=== PATIENT | female | born 1955 | race Caucasian/White ===

== ENCOUNTER → 2016-11-12 | Outpatient (CLI) | payer MEDICARE, BC ==
--- NOTE | 2016-11-12 10:13 | US ---
EXAMINATION TYPE: US venous doppler duplex LE RT DATE OF EXAM: 11/12/2016 9:53 AM COMPARISON: NONE CLINICAL HISTORY: 61-year-old female with right lower ext, pain and swelling R60.0. Right leg swell ing, pt currently in treatment for lymphoma SIDE PERFORMED: Right TECHNIQUE: The lower extremity deep venous system is examined utilizing real time linear array sonog leonela with graded compression, doppler sonography and color-flow sonography. FINDINGS: VESSELS IMAGED: External Iliac Vein (EIV) Common Femoral Vein Deep Femoral Vein Greater Saphenous Vein * Femoral Vein Popliteal Vein Small Saphenous Vein * Proximal Calf Veins (* superficial vessels) Right Leg: Negative for DVT Results called to Estefania at Dr's office at time of exam IMPRESSION: No evidence for DVT within the right lower extremity imaged from the groin to the upper calf.
== END | disposition home or self-care (01) ==
LOC: RADUSWWP 09:36
PROVIDERS: ATTEND Family Medicine
DX: R60.0 Localized edema (principal)

== ENCOUNTER → 2016-11-18 | Outpatient (CLI) | payer MEDICARE, BC ==
--- NOTE | 2016-11-20 08:13 | MM ---
Reason for exam: screening (asymptomatic). Last mammogram was performed 1 year and 7 months ago. History: Patient is postmenopausal and has history of other cancer at age 59. Physical Findings: A clinical breast exam by your physician is recommended on an annual basis and results should be correlated with mammographic findings. MG Screening Mammo w CAD Bilateral CC and MLO view(s) were taken. Prior study comparison: April 18, 2015, bilateral MG screening mammo w CAD. March 15, 2012, bilateral digital screening mammo w/CAD. There are scattered fibroglandular densities. Global asymmetry on the left breast is unchanged. No significant changes when compared with prior studies. ASSESSMENT: Negative, BI-RAD 1 RECOMMENDATION: Routine screening mammogram of both breasts in 1 year.
== END | disposition home or self-care (01) ==
LOC: RADMAMWWP 15:07
PROVIDERS: ATTEND Family Medicine
DX: Z12.31 Encounter for screening mammogram for malignant neoplasm of breast (principal)

== ENCOUNTER → 2016-12-23 | Outpatient (CLI) | payer MEDICARE, BC ==
--- NOTE | 2016-12-23 18:07 | US ---
EXAMINATION TYPE: US venous doppler duplex UE RT DATE OF EXAM: 12/23/2016 COMPARISON: NONE CLINICAL HISTORY: RUE Swelling R22.31. SIDE PERFORMED: Right Grayscale, color doppler, spectral doppler imaging performed of the deep veins of the upper prematuri ty. There is normal flow, compressability and vascular waveforms. Right Arm: Negative for DVT IMPRESSION: No evidence of DVT right arm
== END ==
LOC: RADUSMAIN 17:01
PROVIDERS: ATTEND Family Medicine
DX: R22.31 Localized swelling, mass and lump, right upper limb (principal)

== ENCOUNTER → 2018-03-12 | Outpatient (CLI) | payer MEDICARE ==
--- NOTE | 2018-03-12 09:27 | MR ---
EXAMINATION TYPE: MR lumbar spine wo con DATE OF EXAM: 03/12/2018 COMPARISON: NONE HISTORY: Intervertebral disc degeneration, lumbar TECHNIQUE: T1 and T2 axial and sagittal images of the lumbar spine are submitted. FINDINGS: There is no abnormal signal seen within the visualized spinal cord or paraspinal soft tissu es. There is diffuse heterogeneous marrow signal. There is abnormal appearance of the nerve roots wit hin the cauda equina which have somewhat ill-defined margins. At L1-2 there is facet arthropathy and hypertrophy ligamentum flavum. No canal stenosis or disc herni ation. At L2-3 there is circumferential disc bulging with facet arthropathy and ligamentum flavum hypertroph y. No Canal stenosis although there is mild bilateral foraminal encroachment. At L3-4 there is degenerative disc disease with diffuse disc bulging and marked facet arthropathy wit h ligamentum flavum hypertrophy. Moderate to severe canal stenosis and bilateral foraminal encroachme nt. Minimal anterolisthesis. At L4-5 there is degenerative disc disease with advanced facet arthropathy and ligamentum flavum hype rtrophy. Circumferential disc bulging with mild central stenosis and bilateral foraminal encroachment . At L5-S1 there is facet arthropathy. There is mild circumferential disc bulging but no canal stenosis . Neural foramina remain patent. At T11-T12 there is an area of intermediate signal posterior to the spinal cord recommend thoracic sp ine MRI further assessment. IMPRESSION: 1. Multilevel degenerative disc disease with advanced facet arthropathy result in multilevel foramina l encroachment and canal stenosis with most marked findings at L3-L4 with moderate to severe central stenosis. 2. Heterogeneous marrow signal is nonspecific differential diagnosis would include osteoporosis. Lymp hoproliferative disorder in the differential diagnosis. 3. Abnormal appearance to the nerve roots within the cauda equina particularly at levels L2 and L3. 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 Post contrast imaging is recommended to exclude other etiologies in cluding neoplastic process. 4. Thoracic spine MRI recommended to assess the T11-T12 level which is not included on the axial imag es. There is a area of intermediate signal questionable encroachment upon the posterior margin of the spinal cord.. A Yellow level critical message alert has been initiated for Dinesh Dukes DO via the [facility] Critical Results System on 03/12/2018 9:23 AM. This message alert has been sent to Dinesh lawrence DO via the preferences provided by the clinician for the receipt of Radiology Critical Findings. Message ID [id number].
== END | disposition home or self-care (01) ==
LOC: RADMRIMAIN 08:35
PROVIDERS: ATTEND Family Medicine
DX: M48.061 Spinal stenosis, lumbar region without neurogenic claudication (principal); M51.36 Other intervertebral disc degeneration, lumbar region; M46.96 Unspecified inflammatory spondylopathy, lumbar region
CPT/HCPCS: 72148

== ENCOUNTER → 2018-04-15 | Outpatient (CLI) | payer MEDICARE ==
--- NOTE | 2018-04-15 13:27 | MR ---
EXAMINATION TYPE: MR thoracic spine wo con DATE OF EXAM: 04/15/2018 COMPARISON: NONE HISTORY: back pain TECHNIQUE: Multiplanar, multisequence imaging of thoracic spine is performed without contrast FINDINGS: Spinal cord shows normal caliber as it courses the thoracic spine. There is faint increase d signal T11-T12 level sagittal image 8 noted. There is dextroconvex scoliotic curvature centered in the mid thoracic spine noted on coronal images. Vertebral body heights are maintained with multiple s mall Schmorl nodes mid to lower thoracic levels involving superior and inferior endplates. Disc space heights are fairly well preserved. There is mild to moderate multilevel anterior spurring in the mid to lower thoracic spine. Posterior disc herniations are evident at T8-T9, T10-T11, and T11-T12 level s effacing anterior thecal sac. Uncovertebral facet degenerative changes efface posterior lateral the иван sac at T10-T11 and T11-T12 level right of midline on sagittal image 10. Axial images at T8-T9 level show broad-based posterior disc protrusion effacing anterior thecal sac n early up to ventral surface of spinal cord on axial image 14, there is uncovertebral facet degenerati ve changes and ligamentum flavum hypertrophy noted. Axial images at T10-T11 level show posterior broad disc bulge effacing anterior thecal sac with facet degenerative changes and ligament flavum hypertrophy effacing posterior lateral thecal sac on axial image 9 and 8 slightly more prominent left of midline. There is mild to moderate left greater than ri ght bilateral neural foraminal narrowing at this level identified. Axial images at T11-T12 level show right greater than left moderate facet degenerative changes and li gament flavum hypertrophy effacing posterior lateral thecal sac accounting for area of concern on teresa or MRI. There is effacement of the anterior thecal sac seen. There is moderate right-sided neural for aminal narrowing noted at this level. Mild cord edema or T2 signal is less well-seen. IMPRESSION: Multilevel degenerative changes in the mid to lower thoracic spine as detailed above, fac et arthropathy and ligamentum flavum hypertrophy effaces posterior lateral thecal sac T11-T12 level a ccounting for the area of concern on prior MRI study.
--- NOTE | 2018-04-15 13:42 | MR ---
EXAMINATION TYPE: MR sacrum/coccyx wo/w con DATE OF EXAM: 04/15/2018 COMPARISON: MRI lumbar spine March 12, 2018. HISTORY: back pain abnormal MRI. CONTRAST: Standard multiplanar, multisequence MRI departmental protocol utilizing 9 mL intravenous Gadavist lexie olinium contrast. FINDINGS: Sacral nerve roots show no suspicious clumping or enhancement. Gradual expected tapering of spinal canal in the upper to mid sacrum is noted. No suspicious abnormality is identified. Visualized portion of sacrum and coccyx shows heterogeneous bone marrow signal intensity. No suspicio us enhancement or edema is seen. Sacroiliac joints are felt symmetric and within normal limits. Anteverted uterus is seen. Some nabothian cysts felt present in the upper cervix. Visualized portion of bladder is felt within normal limits. Mid to distal sigmoid colon is poorly distended and thus sub optimally evaluated axial image 26. Remainder of bowel is unremarkable. No concerning pelvic fluid co llection is seen. No suspicious pelvic adenopathy is noted. IMPRESSION: No suspicious clumping or enhancement of the sacral nerve roots.
--- NOTE | 2018-04-15 13:57 | MR ---
EXAMINATION TYPE: MR lumbar spine w con DATE OF EXAM: 04/15/2018 COMPARISON: MRI lumbar spine March 12, 2018 HISTORY: back pain, prior abnormal MRI. TECHNIQUE: Multiplanar, multisequence images of the lumbar spine is performed with IV contrast, utilizing 9 mL i ntravenous Gadavist FINDINGS: Corresponding to recent MRI there is focal thickening and enhancement of lumbosacral nerve centered at the L3-L4 disc space this is a level of the most prominent spinal canal effacement or earline nosis due to disc herniation and facet arthropathy. Bone marrow signal intensity is overall slightly heterogeneous. No suspicious enhancement at this lev el is identified. The lower thoracic spinal canal shows a few enhancing nerve roots all which exit the spinal canal by L2 level, this is nonspecific finding as no obvious clumping or thickening is identified at this leve l. 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 Differential however would include neoplasm such as lymphoma, sarcoidosis, and other granulomatous diseases. Clinical correlation recommended. Advise short-term MRI follow-up in 3 months time to reassess.
== END ==
LOC: RADMRIMAIN 09:26
PROVIDERS: ATTEND Family Medicine
DX: M99.72 Connective tissue and disc stenosis of intervertebral foramina of thoracic region (principal); M51.24 Other intervertebral disc displacement, thoracic region; M51.36 Other intervertebral disc degeneration, lumbar region; M47.814 Spondylosis without myelopathy or radiculopathy, thoracic region; M46.94 Unspecified inflammatory spondylopathy, thoracic region; M41.84 Other forms of scoliosis, thoracic region
CPT/HCPCS: 82565; 84520; 72146; 72149; 72197; 36415; A9585

== ENCOUNTER → 2018-07-16 | Outpatient (CLI) | payer MEDICARE ==
--- NOTE | 2018-07-16 21:00 | XR ---
EXAMINATION TYPE: XR chest 2V DATE OF EXAM: 07/16/2018 COMPARISON: 09/16/2013 TECHNIQUE: PA and lateral views submitted. HISTORY: Cough FINDINGS: Heart is prominent there is a perihilar subsegmental right basilar subsegmental changes. No pleural e ffusion or pneumothorax. Interstitium is coarsened but stable from prior exam. No pneumothorax. IMPRESSION: 1. Right perihilar and basilar atelectasis or infiltrate. Hilum slightly prominent on the right which may reflect a prominent pulmonary artery. Correlate with CT scan as clinically warranted. 2. Suspect chronic interstitial lung disease.
== END | disposition home or self-care (01) ==
LOC: RADXRMAIN 15:24
PROVIDERS: ATTEND Family Medicine
DX: R09.89 Other specified symptoms and signs involving the circulatory and respiratory systems (principal)
CPT/HCPCS: 71046

== ENCOUNTER 2018-08-25 15:25 | Inpatient (IN) | payer MEDICARE ==
[2018-08-25 15:58] LABS: Basophils # (A) 0.1 k/uL (0-0.2); Basophils % (A) 2 %; Eosinophils # (A) 0.2 k/uL (0-0.7); Eosinophils % (A) 2 %; HCT 45.3 % (34.0-46.0); HGB 14.7 gm/dL (11.4-16.0); Lymphocytes # (A) 1.6 k/uL (1.0-4.8); Lymphocytes % (A) 18 %; MCH 30.3 pg (25.0-35.0); MCHC 32.4 g/dL (31.0-37.0); MCV 93.4 fL (80.0-100.0); Mean Platelet Volume 7.5; Monocytes # (A) 0.5 k/uL (0-1.0); Monocytes % (A) 5 %; Neutrophils # (A) 6.4 k/uL (1.3-7.7); Neutrophils % (A) 71 %; Platelet Count 211 k/uL (150-450); RBC 4.85 m/uL (3.80-5.40); RDW 13.5 % (11.5-15.5)
[2018-08-25 16:11] LABS: ALT 12 U/L (9-52); AST 11 U/L (14-36); African American GFR (CKD) >90 (>60 ml/min/1.73 sqM); Alkaline Phosphatase 90 U/L (38-126); Anion Gap 8 mmol/L; Blood Urea Nitrogen 13 mg/dL (7-17); Calcium 9.4 mg/dL (8.4-10.2); Carbon Dioxide 28 mmol/L (22-30); Chloride 103 mmol/L (98-107); Glucose 144 mg/dL (74-99); INR 0.9 (<1.2); Partial Thromboplastin Time 22.4 sec (22.0-30.0); Potassium 3.4 mmol/L (3.5-5.1); Prothrombin Time 9.6 sec (9.0-12.0); Sodium 139 mmol/L (137-145); Total Bilirubin 0.5 mg/dL (0.2-1.3); Total Protein 6.2 g/dL (6.3-8.2)
[2018-08-25] MEDS ORDERED: SODIUM CHLORIDE 0.9% 1,000 ML IV ONE (16:30)
--- NOTE | 2018-08-25 16:32 | ED ---
Altered Mental Status HPI - General Chief Complaint: Altered Mental Status Stated Complaint: Altered Mental Status Time Seen by Provider: 08/25/18 16:30 Source: patient, RN notes reviewed, old records reviewed Mode of arrival: wheelchair Limitations: no limitations - History of Present Illness Initial Comments: This is a 63-year-old female the ER for evaluation. Family patient states she has no complaints of family states patient is not acting right. She hasn't a pulmonary diagnosis of dementia but is been getting significantly progressively worse. Today with the Incident increased altered mental status. No fevers no headaches and again patient without complaint. She seeing Dr. Dukes who is brought Aricept increased dose of Aricept with no help. MD Complaint: altered mental status, confusion, weakness -: month(s) Severity: mild Consistency of Symptoms: getting worse Context: history of similar presentation Associated Symptoms: denies other symptoms - Related Data Home Medications Medication Instructions Recorded Confirmed Clopidogrel [Plavix] 75 mg PO DAILY 09/15/13 08/25/18 DULoxetine HCL [Cymbalta] 60 mg PO BID 09/15/13 08/25/18 Ergocalciferol (Vitamin D2) 50,000 unit PO MO 04/20/15 08/25/18 [Drisdol] tiZANidine HCL [Zanaflex] 4 mg PO TID PRN 04/20/15 08/25/18 Albuterol Inhaler [Ventolin Hfa 2 puff INHALATION RT-Q6H PRN 08/25/18 08/25/18 Inhaler] Aspirin EC [Ecotrin Low Dose] 81 mg PO DAILY 08/25/18 08/25/18 Buprenorphine [Butrans 20 MCG/HOUR] 1 patch TRANSDERM TH 08/25/18 08/25/18 Donepezil [Aricept] 10 mg PO HS 08/25/18 08/25/18 Lisinopril-Hctz 20-25 mg 1 tab PO DAILY 08/25/18 08/25/18 [Zestoretic 20-25] Simvastatin 40 mg PO HS 08/25/18 08/25/18 Tolterodine ER [Detrol LA] 4 mg PO DAILY 08/25/18 08/25/18 Ziprasidone HCl [Geodon] 20 mg PO Q48H 08/25/18 08/25/18 Ziprasidone HCl [Geodon] 60 mg PO Q48H 08/25/18 08/25/18 Allergies Allergy/AdvReac Type Severity Reaction Status Date / Time naproxen sodium [From Aleve] Allergy Dyspnea Verified 08/25/18 18:11 Review of Systems ROS Statement: Those systems with pertinent positive or pertinent negative responses have been documented in the HPI. ROS Other: All systems not noted in ROS Statement are negative. Past Medical History Past Medical History: CVA/TIA, Dementia, Hyperlipidemia, Memory Impairment Additional Past Medical History / Comment(s): lymphoma. CVA APPROX 2003 PER AUNT PT WALKS WITH LIMP, RT ARM PARESIS, PT HAS SOME APHASIA, SHORT TERM MEMORY NOT GOOD. History of Any Multi-Drug Resistant Organisms: None Reported Past Surgical History: Tubal Ligation Additional Past Surgical History / Comment(s): carpal tunnel, neck, medi port Past Anesthesia/Blood Transfusion Reactions: No Reported Reaction Past Psychological History: Depression Smoking Status: Current every day smoker Past Alcohol Use History: None Reported Past Drug Use History: None Reported - Past Family History Mother Family Medical History: Cancer Father Family Medical History: Deep Vein Thrombosis (DVT) General Exam Limitations: no limitations General appearance: alert, in no apparent distress Head exam: Present: atraumatic, normocephalic, normal inspection Eye exam: Present: normal appearance, PERRL, EOMI. Absent: scleral icterus, conjunctival injection, periorbital swelling ENT exam: Present: normal exam, mucous membranes moist Neck exam: Present: normal inspection. Absent: tenderness, meningismus, lymphadenopathy Respiratory exam: Present: normal lung sounds bilaterally. Absent: respiratory distress, wheezes, rales, rhonchi, stridor Cardiovascular Exam: Present: regular rate, normal rhythm, normal heart sounds. Absent: systolic murmur, diastolic murmur, rubs, gallop, clicks GI/Abdominal exam: Present: soft, normal bowel sounds. Absent: distended, tenderness, guarding, rebound, rigid Extremities exam: Present: normal inspection, full ROM, normal capillary refill. Absent: tenderness, pedal edema, joint swelling, calf tenderness Back exam: Present: normal inspection Neurological exam: Present: alert, oriented X3, CN II-XII intact Psychiatric exam: Present: normal affect, normal mood Skin exam: Present: warm, dry, intact, normal color. Absent: rash Course Vital Signs 08/25/18 08/25/18 15:28 17:33 Temperature 97.9 F 98.1 F Pulse Rate 92 82 Respiratory 16 18 Rate Blood Pressure 150/82 145/92 O2 Sat by Pulse 96 100 Oximetry - Reevaluation(s) Reevaluation #1: 08/25/18 18:44 Medical records reviewed Reevaluation #2: 08/25/18 18:45 Patient continues to have nonfocal neurological exam Reevaluation #3: 08/25/18 18:45 This with the family at length they state that patient is scheduled to see neurologist. MRI Medical Decision Making - Medical Decision Making 61 female the ER for evaluation of altered mental status history of liver dementia no prior neurological evaluation. Patient having increased altered mental status as well as incontinence. Patient be admitted for neurology to evaluate - Lab Data Result diagrams: 08/25/18 17:30 08/25/18 15:48 Lab Results 08/25/18 08/25/18 08/25/18 Range/Units 15:48 15:48 15:48 WBC 9.0 (3.8-10.6) k/uL RBC 4.85 (3.80-5.40) m/uL Hgb 14.7 (11.4-16.0) gm/dL Hct 45.3 (34.0-46.0) % MCV 93.4 (80.0-100.0) fL MCH 30.3 (25.0-35.0) pg MCHC 32.4 (31.0-37.0) g/dL RDW 13.5 (11.5-15.5) % Plt Count 211 (150-450) k/uL Neutrophils % 71 % Lymphocytes % 18 % Monocytes % 5 % Eosinophils % 2 % Basophils % 2 % Neutrophils # 6.4 (1.3-7.7) k/uL Lymphocytes # 1.6 (1.0-4.8) k/uL Monocytes # 0.5 (0-1.0) k/uL Eosinophils # 0.2 (0-0.7) k/uL Basophils # 0.1 (0-0.2) k/uL PT 9.6 (9.0-12.0) sec INR 0.9 (<1.2) APTT 22.4 (22.0-30.0) sec Sodium 139 (137-145) mmol/L Potassium 3.4 L (3.5-5.1) mmol/L Chloride 103 (98-107) mmol/L Carbon Dioxide 28 (22-30) mmol/L Anion Gap 8 mmol/L BUN 13 (7-17) mg/dL Creatinine 0.65 (0.52-1.04) mg/dL Est GFR (CKD-EPI)AfAm >90 (>60 ml/min/1.73 sqM) Est GFR (CKD-EPI)NonAf >90 (>60 ml/min/1.73 sqM) Glucose 144 H (74-99) mg/dL Calcium 9.4 (8.4-10.2) mg/dL Total Bilirubin 0.5 (0.2-1.3) mg/dL AST 11 L (14-36) U/L ALT 12 (9-52) U/L Alkaline Phosphatase 90 (38-126) U/L Ammonia (<30) umol/L Creatine Kinase (30-135) U/L Troponin I (0.000-0.034) ng/mL Total Protein 6.2 L (6.3-8.2) g/dL Albumin 4.0 (3.5-5.0) g/dL 08/25/18 08/25/18 08/25/18 Range/Units 15:48 15:48 17:30 WBC (3.8-10.6) k/uL RBC (3.80-5.40) m/uL Hgb (11.4-16.0) gm/dL Hct (34.0-46.0) % MCV (80.0-100.0) fL MCH (25.0-35.0) pg MCHC (31.0-37.0) g/dL RDW (11.5-15.5) % Plt Count (150-450) k/uL Neutrophils % % Lymphocytes % % Monocytes % % Eosinophils % % Basophils % % Neutrophils # (1.3-7.7) k/uL Lymphocytes # (1.0-4.8) k/uL Monocytes # (0-1.0) k/uL Eosinophils # (0-0.7) k/uL Basophils # (0-0.2) k/uL PT 9.6 (9.0-12.0) sec INR 0.9 (<1.2) APTT 22.6 (22.0-30.0) sec Sodium (137-145) mmol/L Potassium (3.5-5.1) mmol/L Chloride (98-107) mmol/L Carbon Dioxide (22-30) mmol/L Anion Gap mmol/L BUN (7-17) mg/dL Creatinine (0.52-1.04) mg/dL Est GFR (CKD-EPI)AfAm (>60 ml/min/1.73 sqM) Est GFR (CKD-EPI)NonAf (>60 ml/min/1.73 sqM) Glucose (74-99) mg/dL Calcium (8.4-10.2) mg/dL Total Bilirubin (0.2-1.3) mg/dL AST (14-36) U/L ALT (9-52) U/L Alkaline Phosphatase (38-126) U/L Ammonia <9 (<30) umol/L Creatine Kinase (30-135) U/L Troponin I <0.012 (0.000-0.034) ng/mL Total Protein (6.3-8.2) g/dL Albumin (3.5-5.0) g/dL 08/25/18 08/25/18 Range/Units 17:30 17:30 WBC 10.1 (3.8-10.6) k/uL RBC 4.63 (3.80-5.40) m/uL Hgb 14.2 (11.4-16.0) gm/dL Hct 43.0 (34.0-46.0) % MCV 92.9 (80.0-100.0) fL MCH 30.6 (25.0-35.0) pg MCHC 33.0 (31.0-37.0) g/dL RDW 13.6 (11.5-15.5) % Plt Count 197 (150-450) k/uL Neutrophils % 73 % Lymphocytes % 15 % Monocytes % 6 % Eosinophils % 2 % Basophils % 1 % Neutrophils # 7.3 (1.3-7.7) k/uL Lymphocytes # 1.5 (1.0-4.8) k/uL Monocytes # 0.6 (0-1.0) k/uL Eosinophils # 0.2 (0-0.7) k/uL Basophils # 0.1 (0-0.2) k/uL PT (9.0-12.0) sec INR (<1.2) APTT (22.0-30.0) sec Sodium (137-145) mmol/L Potassium (3.5-5.1) mmol/L Chloride (98-107) mmol/L Carbon Dioxide (22-30) mmol/L Anion Gap mmol/L BUN (7-17) mg/dL Creatinine (0.52-1.04) mg/dL Est GFR (CKD-EPI)AfAm (>60 ml/min/1.73 sqM) Est GFR (CKD-EPI)NonAf (>60 ml/min/1.73 sqM) Glucose (74-99) mg/dL Calcium (8.4-10.2) mg/dL Total Bilirubin (0.2-1.3) mg/dL AST (14-36) U/L ALT (9-52) U/L Alkaline Phosphatase (38-126) U/L Ammonia (<30) umol/L Creatine Kinase 22 L (30-135) U/L Troponin I (0.000-0.034) ng/mL Total Protein (6.3-8.2) g/dL Albumin (3.5-5.0) g/dL - Radiology Data Radiology results: report reviewed (CT brain does show evidence of old infarcts no acute disease), image reviewed Disposition Clinical Impression: Altered mental status, TIA (transient ischemic attack), Dementia Dis[facility] Condition: Fair Is patient prescribed a controlled substance at d/c from ED?: No Referrals: Dinesh Dukes DO [Primary Care Provider] - 1-2 days
--- NOTE | 2018-08-25 17:07 | CT ---
EXAMINATION TYPE: CT brain wo con DATE OF EXAM: 08/25/2018 COMPARISON: 02/23/2012 HISTORY: Altered mental status. CT DLP: 1078.4 mGycm Automated exposure control for dose reduction was used. FINDINGS: There is enlargement of the frontal horn left lateral ventricle. There is hypodensity left posterior frontal lobe and left internal capsule consistent with old infarct. There is no midline shift. There is no sign of intracranial hemorrhage. The calvarium is intact. There is mild cerebral atrophy. There is 3 x 1.5 cm area of hypodensity right posterior frontal lobe consistent with infarct that is old or subacute. IMPRESSION: OLD LEFT FRONTAL INFARCT. RIGHT POSTERIOR FRONTAL INFARCT IS PROBABLY OLD ALSO. LEFT FRONTAL INFARCT UNCHANGED. RIGHT FRONTAL INFARCT IS A CHANGE COMPARED TO OLD CT SCAN..
--- NOTE | 2018-08-25 17:08 | XR ---
EXAMINATION TYPE: XR chest 2V DATE OF EXAM: 08/25/2018 COMPARISON: 07/16/2018 HISTORY: Abdominal pain TECHNIQUE: Frontal and lateral views of the chest are obtained. FINDINGS: Heart and mediastinum are normal. Lungs are clear. Diaphragm is normal. Bony thorax is int act. IMPRESSION: Normal chest. No significant change.
[2018-08-25 17:52] LABS: Basophils # (A) 0.1 k/uL (0-0.2); Basophils % (A) 1 %; Eosinophils # (A) 0.2 k/uL (0-0.7); Eosinophils % (A) 2 %; HGB 14.2 gm/dL (11.4-16.0); Lymphocytes # (A) 1.5 k/uL (1.0-4.8); Lymphocytes % (A) 15 %; MCH 30.6 pg (25.0-35.0); MCV 92.9 fL (80.0-100.0); Mean Platelet Volume 7.8; Monocytes # (A) 0.6 k/uL (0-1.0); Monocytes % (A) 6 %; Neutrophils # (A) 7.3 k/uL (1.3-7.7); Neutrophils % (A) 73 %; Platelet Count 197 k/uL (150-450); RBC 4.63 m/uL (3.80-5.40); RDW 13.6 % (11.5-15.5); WBC 10.1 k/uL (3.8-10.6)
[2018-08-25 18:02] LABS: INR 0.9 (<1.2); Partial Thromboplastin Time 22.6 sec (22.0-30.0); Prothrombin Time 9.6 sec (9.0-12.0)
[2018-08-25] MEDS ORDERED: ASPIRIN 325 MG TAB PO STA (18:41)
[2018-08-25] MEDS: SODIUM CHLORIDE 0.9% 1,000 ML IV SCH (19:05)
[2018-08-25] MEDS ORDERED: ALBUTEROL NEBULIZED 2.5 MG/3 ML INHALATION PRN (21:24)
[2018-08-25] MEDS ORDERED: tiZANidine 4 MG TAB PO PRN (21:24)
[2018-08-25 23:09] VITALS: BMI 36.6
[2018-08-25] MEDS: DULoxetine HCL 60 MG CAPSULE.DR PO SCH (23:13)
[2018-08-25] MEDS: ATORVASTATIN 20 MG TAB PO SCH (23:13)
[2018-08-25] MEDS: DONEPEZIL 10 MG TAB PO SCH (23:13)
[2018-08-26] MEDS: SODIUM CHLORIDE 0.9% 1,000 ML IV SCH ×3 (03:51→22:42)
[2018-08-26 06:54] LABS: Glucose,Whole Blood 155 mg/dL (75-99)
[2018-08-26] MEDS: NICOTINE 21MG/24HR PATCH TRANSDERM SCH (09:49)
[2018-08-26] MEDS: CLOPIDOGREL 75 MG TAB PO SCH (09:50)
[2018-08-26] MEDS: DULoxetine HCL 60 MG CAPSULE.DR PO SCH ×2 (09:50→19:47)
[2018-08-26] MEDS: ASPIRIN 81 MG PO SCH (09:50)
[2018-08-26] MEDS: OXYBUTYNIN 10 MG TAB.ER.24 PO SCH (09:50)
[2018-08-26] MEDS: LISINOPRIL-HCTZ 20-25 MG 1 EACH TAB PO SCH (09:50)
--- NOTE | 2018-08-26 12:49 | P.CNNES ---
History of Present Illness Consult date: 08/26/18 Chief complaint: Altered mental status History of Present Illness: Patient is a 63-year-old female who had history of a stroke in 2003, which aff ected her speech, and right side of the body for which she was hospitalized for 2-3 months with rehabilitation. Patient currently on Plavix and aspirin 81 mg. Patient has residual some speech difficulty, and mild right hemiparesis. Patient has developed 1-2 month history of memory impairment, confusion. She forgets if she took her medications are not, if she has ate or not. She sleeps a lot. Yesterday she slept from 6:30 AM to 1:30 PM and lost control of urine while she was sleeping at some point in time while asleep. Because of worsening memory functions, particularly short-term memory and this urine incontinence episode, patient family member spoke to her primary physician who recommended patient to be taken to ER for further evaluation. No stroke symptoms have been noted. Patient's son in law was also present, who is also a medical power of immigration attorney, provides excellent history. No history of seizures in the past. Patient has been having episodes of right eye twitching off and on. No obvious seizures noted ever in the past. Patient's son-in-law also mentioned that nicole ent was started on Aricept 5 mg a day and the dose was later increased to 10 mg. She did better for a month or so, but then her symptoms have again got worse. Patient has history of hypertension but no diabetes. She has history of non- Hodgkin's follicular lymphoma in 2016 for which she had undergone chemotherapy and radiation. Currently she is on Rituxan, and gets PET scan periodically. Patient also has history of smoking 2 packs per day for 30+ years, still smokes. Review of Systems Constitutional: Reports as per HPI, Denies chills, Denies fever, Denies weight loss Eyes: denies decreased vision, denies diplopia, denies photophobia Ears, nose, mouth and throat: Denies headache, Denies vertigo Cardiovascular: Reports high blood pressure Gastrointestinal: Denies hematemesis, Denies nausea, Denies vomiting Musculoskeletal: Denies neck stiffness Neurological: Reports as per HPI Past Medical History Past Medical History: CVA/TIA, Dementia, Hyperlipidemia, Memory Impairment Additional Past Medical History / Comment(s): lymphoma. CVA APPROX 2003 PER AUNT PT WALKS WITH LIMP, RT ARM PARESIS, PT HAS SOME APHASIA, SHORT TERM MEMORY NOT GOOD. History of Any Multi-Drug Resistant Organisms: None Reported Past Surgical History: Tubal Ligation Additional Past Surgical History / Comment(s): carpal tunnel, neck, medi port, per son pt had carotid surgery Past Anesthesia/Blood Transfusion Reactions: No Reported Reaction Past Psychological History: Depression Smoking Status: Current every day smoker Past Alcohol Use History: None Reported Additional Past Alcohol Use History / Comment(s): per son leonardo, pt smokes 2 packs per day Past Drug Use History: None Reported - Past Family History Mother Family Medical History: Cancer Father Family Medical History: Deep Vein Thrombosis (DVT) Medications and Allergies Home Medications Medication Instructions Recorded Confirmed Type Clopidogrel [Plavix] 75 mg PO DAILY 09/15/13 08/25/18 History DULoxetine HCL [Cymbalta] 60 mg PO BID 09/15/13 08/25/18 History Ergocalciferol (Vitamin D2) 50,000 unit PO MO 04/20/15 08/25/18 History [Drisdol] tiZANidine HCL [Zanaflex] 4 mg PO TID PRN 04/20/15 08/25/18 History Albuterol Inhaler [Ventolin Hfa 2 puff INHALATION RT-Q6H PRN 08/25/18 08/25/18 History Inhaler] Aspirin EC [Ecotrin Low Dose] 81 mg PO DAILY 08/25/18 08/25/18 History Buprenorphine [Butrans 20 MCG/HOUR] 1 patch TRANSDERM TH 08/25/18 08/25/18 History Donepezil [Aricept] 10 mg PO HS 08/25/18 08/25/18 History Lisinopril-Hctz 20-25 mg 1 tab PO DAILY 08/25/18 08/25/18 History [Zestoretic 20-25] Simvastatin 40 mg PO HS 08/25/18 08/25/18 History Tolterodine ER [Detrol LA] 4 mg PO DAILY 08/25/18 08/25/18 History Ziprasidone HCl [Geodon] 20 mg PO Q48H 08/25/18 08/25/18 History Ziprasidone HCl [Geodon] 60 mg PO Q48H 08/25/18 08/25/18 History Allergies Allergy/AdvReac Type Severity Reaction Status Date / Time naproxen sodium [From Aleve] Allergy Dyspnea Verified 08/25/18 18:11 Physical Examination - Vital Signs Vital Signs: Vital Signs Temp Pulse Pulse Resp BP BP Pulse Ox 08/26/18 11:12 87 18 08/26/18 10:07 97.8 F 87 18 131/64 96 08/26/18 10:06 95 16 08/26/18 03:59 95 16 08/26/18 03:58 97.9 F 95 16 142/80 93 L 08/26/18 00:00 97 18 08/25/18 23:02 97.7 F 97 18 167/82 96 08/25/18 21:40 78 20 150/82 95 08/25/18 21:30 94 19 142/86 93 L 08/25/18 21:20 76 12 142/86 96 08/25/18 21:10 89 14 142/86 96 08/25/18 21:00 75 9 L 146/80 96 08/25/18 20:50 73 21 146/80 97 08/25/18 20:40 79 10 L 146/80 96 08/25/18 20:30 70 20 147/93 97 08/25/18 20:20 82 24 147/93 98 08/25/18 20:10 24 147/93 98 08/25/18 20:00 18 150/78 97 08/25/18 19:50 79 20 150/78 96 08/25/18 19:40 80 21 150/78 97 08/25/18 19:30 82 25 H 154/91 98 08/25/18 19:20 87 26 H 154/91 98 08/25/18 19:10 92 15 154/91 97 08/25/18 19:00 36 H 157/87 97 08/25/18 18:58 84 18 157/87 97 08/25/18 18:50 84 18 164/86 97 08/25/18 18:40 83 164/86 95 08/25/18 18:30 84 156/89 95 08/25/18 18:20 156/89 95 08/25/18 18:10 81 156/89 95 08/25/18 18:00 86 183/93 96 08/25/18 17:50 145/92 08/25/18 17:40 89 22 145/92 96 08/25/18 17:33 98.1 F 82 18 145/92 100 08/25/18 17:30 84 23 161/80 96 08/25/18 17:23 87 23 94 L 08/25/18 15:28 97.9 F 92 16 150/82 96 Intake and Output 08/25/18 08/26/18 08/26/18 22:59 06:59 14:59 Intake Total 100 360 Balance 100 360 Intake: Oral 100 360 Other: Voiding Method Toilet Toilet # Voids 1 1 Weight 99.79 kg 93.3 kg On examination patient is an elderly female, in no acute distress. There is mild left carotid bruit. S1 and S2 audible. Peripheral pulses present. Patient is alert and awake. Patient states it is month of August, but thinks the year is 1999. She thinks his friend stay, although actually is . Could not tell the current date. She tells me that she is in the hospital but does not know the name. She states she lives in [place] but does not know the county. She knows her date of and states Jose L is the current president. Patient and name and repeat very well. Speech and language functions appears normal although patient has slight hesitancy at times. Patient has positive palmomental reflex, positive visuospatial apraxia. Clock drawing test was attempted. Patient was able to place the numbers appropriately, but had significant problems with placement of the hands for the time asked "quater to five". Patient transcribed this time to digitally as "1245". On cranial nerve exam his pupils are round and reactive to light, visual swenson are full on confrontation extraocular muscles are intact. Patient is as mild right facial asymmetry and tongue protrudes the midline. On muscle strength testing, patient has right pronation but no drift. Patient has mild right spastic hemiparesis. The strength is normal in the left arm and left leg. On the right side her deltoid is 4, biceps 5-, triceps 5, concrete sculptor 5-, hip flexion 5-, knee extension 5, ankle dorsiflexion 5-. Sensations are equal with no neglect on double simultaneous stimulation. Patient is ataxic for [id number] on the right. Reflexes are 1 in both upper limbs, 3 at the right knee, 2+ on left knee, ankles are hypoactive bilaterally. Plantar is upgoing on the right only. Tone is slightly increased on the right. Bulk of muscles normal. Results - Laboratory Findings CBC and BMP: 08/25/18 17:30 08/25/18 15:48 Abnormal Lab Findings: Abnormal Labs 08/25/18 08/25/18 08/25/18 15:44 15:48 17:30 Potassium 3.4 L Glucose 144 H POC Glucose (mg/dL) 155 H AST 11 L Creatine Kinase 22 L Total Protein 6.2 L Assessment and Plan Assessment: * Cognitive impairment, probable vascular dementia * History of CVA 2003 with mild residual right hemiparesis * Hypertension * Tobacco user * History of lymphoma Plan: Patient probably has dementia. Patient currently is on Aricept 10 mg daily. We will start Namenda 5 mg twice a day. After one week the dose can be increased to 5 mg in the morning and 10 mg at night for a week and then the dose can be increased to a maintenance dose of Namenda 10 mg twice a day. We will check carotid Doppler to rule out carotid stenosis. EEG to rule out any focal epileptiform activity. Continue Lipitor 20 mg, aspirin 81 mg and Plavix 75 mg daily. Patient counseled about tobacco cessation. Discussed with patient's family in detail.
--- NOTE | 2018-08-26 14:13 | US ---
EXAMINATION TYPE: US carotid duplex BILAT DATE OF EXAM: 08/26/2018 COMPARISON: CLINICAL HISTORY: tia. stroke in 2003. Lt CCA blockage with endarterectomy. EXAM MEASUREMENTS: RIGHT: Peak Systolic Velocity (PSV) cm/sec ----- Right CCA: 78.7 ----- Right ICA: 112.1 ----- Right ECA: 251.8 ICA/CCA ratio: 1.4 RIGHT: End Diastole cm/sec ----- Right CCA: 24.8 ----- Right ICA: 25.4 ----- Right ECA: 9.4 LEFT: Peak Systolic Velocity (PSV) cm/sec ----- Left CCA: 75.6 ----- Left ICA: 88.6 ----- Left ECA: 99.1 ICA/CCA ratio: 1.2 LEFT: End Diastole cm/sec ----- Left CCA: 18.8 ----- Left ICA: 27.0 ----- Left ECA: 0.0 VERTEBRALS (direction of flow): Right Vertebral: Antegrade Left Vertebral: Antegrade Rhythm: Normal No wall thickening, plaque or significant stenosis. Elevated right ECA velocity. IMPRESSION: 1. No significant flow-limiting stenosis. Criteria for Assigning % of Stenosis / Diameter reduction (Estimation based on the indirect measurements of the internal carotid artery velocities (ICA PSV). 1. Normal (no stenosis)=ICA PSV < 125 cm/s: ratio < 2.0: ICA EDV<40 cm/s. 2. Less than 50% stenosis=ICA PSV < 125 cm/s: ratio < 2.0: ICA EDV<40 cm/s. 3. 50 to 69% stenosis=ICA PSV of 125 to 230 cm/s: ration 2.0 ? 4.0: ICA EDV 40-100 cm/s. 4. Greater than 70% stenosis to near occlusion= ICA PSV > 230 cm/s: ratio > 4.0: ICA EDV > 100 cm/s. 5. Near occlusion= ICA PSV velocities may be low or undetectable: variable ratio and ICA EDV. 6. Total occlusion=unable to detect flow.
[2018-08-26] MEDS: ENOXAPARIN 40 MG/0.4 ML SYRINGE SQ SCH (17:30)
--- NOTE | 2018-08-26 18:41 | HP ---
HISTORY AND PHYSICAL DATE OF ADMISSION: August 25, 2018 DATE OF SERVICE: August 26, 2018 PRESENTING COMPLAINT: Forgetful. HISTORY OF PRESENTING COMPLAINT: This is a pleasant 63-year-old patient who follows with Dr. Dukes. Chronic stable medical conditions include history of depression, controlled. Patient did have non- Hodgkin's lymphoma that was treated with Dr. Stratton. Gets Rituxan every so long, that is under control, hyperlipidemia. The patient is also on Aricept for mild dementia. The patient is a smoker. The patient's son is also present. The patient had left yesterday to go to work and some other family members present. Patient wet her clothes in the bed, that is she was incontinent. The patient forgot to take her medications and appeared to be far more forgetful than usual for an episode. During my interview today, the patient was more comprehensive and did not remember those events. The patient admitted by the family doctor to rule out any other medical problems including seizure/stroke. Denies any headaches. No change in vision. No focal weakness. No change in the speech. No prior seizure activity. No tongue biting. REVIEW OF SYSTEMS: CONSTITUTIONAL: None. HEENT none. RESPIRATORY: Occasional wheezing CARDIOVASCULAR: None. GASTROINTESTINAL: None. GENITOURINARY: None. MUSCULOSKELETAL none. DERMATOLOGICAL, HEMATOLOGIC, LYMPHATIC: None. PSYCHIATRY: Forgetful. NEUROLOGICAL: None. PAST MEDICAL HISTORY: Dementia, hyperlipidemia, non-Hodgkin's lymphoma, stroke in 2003 with some right-sided gentle weakness, minimal weakness. Short-term memory not good. PAST SURGICAL HISTORY: Tubal ligation, carpal surgery. The patient also had carotid surgery. PSYCH HISTORY: Depression. SOCIAL HISTORY: The patient smokes about 2 packs a day. No alcohol. Son Mega lives at home. FAMILY HISTORY: Of cancer. HOME MEDICATIONS: 1. Vitamin D2 68403 units on Thursday. 2. Geodon 60 mg every 48 hours and 20 mg every 48 hours. 3. Simvastatin 40 mg q.h.s. 4. Aricept 10 mg at bedtime. 5. Zestoretic 20/25 1 tablet p.o. daily. 6. Plavix 75 mg p.o. daily. 7. Butrans 20 mg an hour patch every . 8. Ventolin HFA 2 puffs q.6 p.r.n. 9. Zanaflex 4 mg t.i.d. p.r.n. 10.Detrol LA 4 mg p.o. daily. 11.Cymbalta 60 mg p.o. b.i.d. 12.Aspirin 81 mg p.o. daily. ALLERGIES: NAPROXEN. PHYSICAL EXAMINATION: VITAL SIGNS: Vital signs on presentation, temperature 97.9, pulse 92, respirations 16, blood pressure 150/82, pulse ox 96 percent on room air. GENERAL APPEARANCE: Well built, BMI 34.2. Sitting up, comfortable. EYES: Pupils equal. Conjunctivae normal. HEENT: External appearance of nose and ears normal. Oral cavity normal NECK: JVD not raised. Mass not palpable. RESPIRATORY: Effort normal. LUNGS: Diminished breath sounds. Minimal wheezing. CARDIOVASCULAR: First and second sounds normal. No edema. ABDOMEN: Soft, nontender. Liver and spleen not palpable. LYMPHATICS: No lymph nodes palpable in the neck and axilla. PSYCHIATRY: Alert and oriented times three. Mood and affect normal. NEUROLOGICAL: Pupils equal. No facial asymmetry. Power and sensation grossly intact. INVESTIGATIONS: White count 9, hemoglobin 14.7, platelets 211, potassium 3.4, BUN and creatinine is normal. Troponin less than 0.012. CT scan of the brain shows old left frontal infarct, right posterior frontal infarct old infarct. Chest x-ray film personally reviewed by me shows no obvious infiltrates. Carotid Doppler did not show any obvious stenosis. ASSESSMENT: 1. This is a patient who has underlying forgetfulness, now presents with an episode of incontinence, did not take her medications. Behavior was out of sorts at home. This well could have been a seizure manifestation. Also patient has got a CT scan showing infarct in 2 different areas. Hence this needs to be further worked up. 2. Possible multi-infarct dementia. 3. Hyperlipidemia. 4. Non-Hodgkin's lymphoma patient does get Rituxan. 5. Depression, not otherwise specified. 6. Chronic nicotine dependence. Patient is a cigarette smoker. 7. Chronic obstructive pulmonary disease in a current smoker. 8. Obesity; BMI 34.2. PLAN: Patient is put on aspirin. We will check a lipid profile. Also put the patient on Lipitor. Home medications are resumed. Lovenox for DVT prophylaxis. Neurology was consulted. 2D echo and EEG has also been ordered. We will also order an MRI of the brain with and without contrast. We will also give this patient some Spiriva. Smoking cessation counseling: This was done with the patient at length. The patient is given a nicotine patch. Care was discussed with the patient's son and other family member present. Dr. Sanchez from Neurology was consulted. Copy to Dr. Dukes. MMCRISTALL / IJN: [id number] /
[2018-08-26] MEDS ORDERED: ASPIRIN 325 MG TAB PO SCH (18:43)
[2018-08-26] MEDS: ATORVASTATIN 20 MG TAB PO SCH (19:46)
[2018-08-26] MEDS: traMADol 50 MG TAB PO PRN (19:47)
[2018-08-26] MEDS: DONEPEZIL 10 MG TAB PO SCH (19:47)
[2018-08-26] MEDS ORDERED: ZIPRASIDONE 60 MG CAP PO SCH (21:00)
[2018-08-26] MEDS ORDERED: BUPRENORPHINE TRANSDERM SCH (21:24)
[2018-08-27] MEDS: CLOPIDOGREL 75 MG TAB PO SCH (08:14)
[2018-08-27] MEDS: DULoxetine HCL 60 MG CAPSULE.DR PO SCH ×2 (08:14→20:06)
[2018-08-27] MEDS: ENOXAPARIN 40 MG/0.4 ML SYRINGE SQ SCH (08:14)
[2018-08-27] MEDS: NICOTINE 21MG/24HR PATCH TRANSDERM SCH (08:14)
[2018-08-27] MEDS: LISINOPRIL-HCTZ 20-25 MG 1 EACH TAB PO SCH (08:14)
[2018-08-27] MEDS: ASPIRIN 81 MG PO SCH (08:14)
[2018-08-27] MEDS: SODIUM CHLORIDE 0.9% 1,000 ML IV SCH ×2 (08:19→20:07)
[2018-08-27] MEDS: OXYBUTYNIN 10 MG TAB.ER.24 PO SCH (08:23)
--- NOTE | 2018-08-27 10:12 | P.PN ---
Subjective Progress Note Date: 08/27/18 Patient offers no new complaints. Patient is sitting by the bed, very pleasant in no distress. Objective - Vital Signs Vital signs: Vital Signs Temp 97.9 F 08/27/18 03:10 Pulse 91 08/27/18 03:11 Resp 18 08/27/18 03:11 BP 126/68 08/27/18 03:10 Pulse Ox 95 08/27/18 03:10 Intake & Output 08/26/18 08/27/18 08/27/18 18:59 06:59 18:59 Intake Total 2520 800 240 Output Total 825 Balance 1695 800 240 Weight 95.1 kg Intake: Intake, IV Titration 1200 800 Amount Sodium Chloride 0.9% 1, 1200 800 000 ml @ 100 mls/hr IV . Q10H KRISTA Rx#:[id number] Oral 1320 240 Output: Urine 825 Other: Voiding Method Toilet Toilet # Voids 3 1 1 - Exam Patient is alert and awake. Patient states it's August 27 and the year is . Patient could not tell name of the current president. I also gave her 5 choices of [place] presidents including Mr. Dexter, and even then she could not recognize. Patient states that she is in [facility] in the hospital. Rest of the examination is unchanged. - Labs CBC & Chem 7: 08/25/18 17:30 08/25/18 15:48 Assessment and Plan Assessment: * Cognitive impairment, probable vascular dementia * History of CVA 2003 with mild residual right hemiparesis * Hypertension * Tobacco user * History of lymphoma Plan: Carotid Dopplers normal. Awaiting EEG. Continue Aricept 10 mg daily. Patient has been started on Namenda 5 mg twice a day. After one week the dose can be increased to 5 mg in the morning and 10 mg at night for a week and then the dose can be increased to a maintenance dose of Namenda 10 mg twice a day. Will check B12, folate, TSH and RPR. Continue Lipitor 20 mg, aspirin 81 mg and Plavix 75 mg daily.
--- NOTE | 2018-08-27 10:44 | ECHOF ---
Referral Reason:r/o thrombus MEASUREMENTS -------- HEIGHT: 165.1 cm WEIGHT: 94.8 kg BP: 126/68 RVIDd: 3.8 cm (< 3.3) IVSd: 1.0 cm (0.6 - 1.1) LVIDd: 3.5 cm (3.9 - 5.3) LVPWd: 1.2 cm (0.6 - 1.1) IVSs: 1.4 cm LVIDs: 2.0 cm LVPWs: 1.7 cm LAESV Index (A-L): 22.58 ml/m Ao Diam: 2.7 cm (2.0 - 3.7) AV Cusp: 1.4 cm (1.5 - 2.6) LA Diam: 3.9 cm (2.7 - 3.8) MV EXCURSION: 19.089 mm (> 18.000) MV EF SLOPE: 34 mm/s (70 - 150) EPSS: 0.3 cm MV E Dario: 2.01 m/s MV DecT: 277 ms MV A Dario: 1.99 m/s MV E/A Ratio: 1.01 RAP: 5.00 mmHg RVSP: 89.28 mmHg FINDINGS -------- Sinus rhythm. This was a technically difficult study with suboptimal apical views. The left ventricular size is normal. Left ventricular wall thickness is normal. Overall left vent ricular systolic function is normal with, an EF between 55 - 60 %. The right ventricle is moderately enlarged. The left atrial size is normal. Left atrium is normal size by volume. The right atrial size is normal. Lumason used Interatrial and interventricular septum intact. The aortic valve is trileaflet and appears structurally normal. The mitral valve leaflets are mildly thickened. Yoqgvoda-rm-gbvpjm mitral stenosis , with a MVA of {MVA (Planimetry)} (by planimetry) , with a MVA of 1.4cm (by PHT) Moderate to severe tricuspid regurgitation present. There is severe pulmonary hypertension. The r ight ventricular systolic pressure, as measured by Doppler, is 89.28mmHg. The aortic root size is normal. The inferior vena cava was not well visualized. Echo free space may represent effusion or a pericardial fat pad. CONCLUSIONS -------- 1. Sinus rhythm. 2. This was a technically difficult study with suboptimal apical views. 3. The left ventricular size is normal. 4. Left ventricular wall thickness is normal. 5. Overall left ventricular systolic function is normal with, an EF between 55 - 60 %. 6. The right ventricle is moderately enlarged. 7. The left atrial size is normal. 8. Left atrium is normal size by volume. 9. The right atrial size is normal. 10. Lumason used 11. Interatrial and interventricular septum intact. 12. The aortic valve is trileaflet and appears structurally normal. 13. The mitral valve leaflets are mildly thickened. 14. Whibqgot-ko-vucsqz mitral stenosis. 15. , with a MVA of 1.4cm (by PHT) 16. Moderate to severe tricuspid regurgitation present. 17. There is severe pulmonary hypertension. 18. The right ventricular systolic pressure, as measured by Doppler, is 89.28mmHg. 19. The aortic root size is normal. 20. The inferior vena cava was not well visualized. 21. Echo free space may represent effusion or a pericardial fat pad. PIPE INSTALLER: Lauren Lees RDCS
--- NOTE | 2018-08-27 14:18 | EEG ---
ELECTROENCEPHALOGRAM REPORT DATE OF SERVICE: 08/27/2018 PREAMBLE: This is a 63-year-old female who has history of CVA in 2004 with some residual speech difficulty and mild right hemiparesis, has developed memory impairment and confusion in the last one to two months. She had an episode of incontinence. This study is performed to rule out any epileptiform activity. CURRENT MEDICATIONS: Geodon, Ultram, Zanaflex, Ditropan, lisinopril, Lovenox, Cymbalta, Aricept, clopidogrel, atorvastatin, aspirin, albuterol and Namenda. EEG SUMMARY: A routine 21-channel awake digital EEG recording was accomplished utilizing the 10-20 international system with bipolar and referential montages. The background activity consists of well developed, well regulated, moderate amplitude activity in 8-9 Hz alpha. Background is posterior dominant and is reactive to eye opening and closing. Patient has near constant focal slowing in dysrhythmic mixed delta theta frequency rhythm in the left frontotemporal region. No definitive focal or generalized epileptiform activity was seen. Mild drowsiness was seen, but deeper stages of sleep not attained. Photic driving response was seen with some flash frequencies. IMPRESSION: This is an abnormal EEG due to presence of frequent, near constant focal slowing in the left frontotemporal region. This is suggestive of a focal cortical neuronal dysfunction, and suggests underlying structural abnormality. No definitive epileptiform activity was seen. Clinical correlation is recommended. DANA / JESSICA: [id number] /
[2018-08-27] MEDS: traMADol 50 MG TAB PO PRN (15:33)
[2018-08-27] MEDS: ATORVASTATIN 20 MG TAB PO SCH (20:06)
[2018-08-27] MEDS: DONEPEZIL 10 MG TAB PO SCH (20:07)
[2018-08-27] MEDS ORDERED: ZIPRASIDONE 20 MG CAP PO SCH (21:00)
--- NOTE | 2018-08-27 22:40 | PN ---
PROGRESS NOTE DATE OF SERVICE: 08/27/2018 PRESENTING COMPLAINT: Forgetful. INTERVAL HISTORY: This patient was admitted after becoming more forgetful, incontinent, forgetting things. The patient is a smoker. REVIEW OF SYSTEMS: Done for constitutional, cardiovascular, GI, pulmonary; relevant findings as above. CURRENT MEDICATIONS: Reviewed. They include aspirin, Plavix, Lipitor. PHYSICAL EXAMINATION: Temperature 98.7, pulse 99, respiration 18, blood pressure 140/67, pulse ox 96% on room air. GENERAL APPEARANCE: Sitting up, comfortable. EYES: Pupils equal. Conjunctivae normal. NECK: JVD not raised. Mass not palpable. RESPIRATORY: Effort normal. LUNGS: Decreased breath sounds. CARDIOVASCULAR: First and second sounds normal. No edema. ABDOMEN: Soft, non-tender. Liver and spleen not palpable. PSYCHIATRY: Answering questions. INVESTIGATIONS: TSH normal. Treponema antibody is nonreactive. B12 is normal. EEG shows focal slowing in the left frontotemporal region. Two-D echocardiogram shows EF 55% to 60%, moderate to severe mitral stenosis, moderate to severe tricuspid regurgitation, severe pulmonary hypertension. ASSESSMENT: 1. This is a patient who has presented with forgetfulness, incontinence, areas affecting the bilateral frontal lobes of different ages of infarct. Need to rule out underlying cardiac embolic source, especially in the setting of severe mitral stenosis. 2. Multi-infarct dementia, especially affecting the frontal lobe. 3. Hyperlipidemia. 4. Non-Hodgkin's lymphoma. The patient does get Rituxan. 5. Depression not otherwise specified. 6. Chronic nicotine dependence. Patient is a cigarette smoker. 7. Chronic obstructive pulmonary disease in a current smoker. 8. Obesity; body mass index 34.2. PLAN: Will discuss with Dr. Martin from Neurology. Will order cardiology consult for a OMAR. In the meantime, continue current medication and treatment plan. Will follow. MMODL / IJN: [id number] /
[2018-08-28 02:11] LABS: Appearance,Urine Clear (Clear); Bilirubin,Urine Negative (Negative); Blood,Urine Negative (Negative); Color,Urine Light Yellow; Glucose,Urine (UA) Negative (Negative); Ketones,Urine Negative (Negative); Leukocyte Esterase,Urine Negative (Negative); Nitrite,Urine Negative (Negative); Protein,Urine Negative (Negative); Specific Gravity,Urine 1.008 (1.001-1.035); Urobilinogen,Urine <2.0 mg/dL (<2.0)
[2018-08-28 02:25] LABS: Amphetamine Screen,Urine Not Detected (NotDetected); Barbiturate Screen,Urine Not Detected (NotDetected); Benzodiazepines Screen,Urine Not Detected (NotDetected); Cocaine Screen,Urine Not Detected (NotDetected); Methadone Screen, Urine Not Detected (NotDetected); Opiate Screen,Urine Not Detected (NotDetected); Oxycodone Screen, Urine Not Detected (NotDetected); Phencyclidine Screen,Urine Not Detected (NotDetected); Tricyclic Antidepressant,Urine Not Detected (NotDetected); Urn Cannabinoid Scrn Not Detected (NotDetected)
[2018-08-28 03:18] VITALS: RESP 16
[2018-08-28 06:30] LABS: Potassium 3.2 mmol/L (3.5-5.1)
[2018-08-28] MEDS ORDERED: POTASSIUM CHLORIDE ER 20 MEQ TAB.ER PO STA (08:09)
--- NOTE | 2018-08-28 08:50 | P.CRDCN ---
History of Present Illness Consult date: 08/28/18 Chief complaint: Change in mental status History of present illness: This is a 63-year-old female patient with a past medical history significant for history of stroke as well as history of carotid disease where she underwent in the past left carotid endarterectomy, as well as significant history of smoking, was admitted to the hospital with a change in mental status and a working diagnosis of stroke. The patient somewhat is a poor historian. Apparently it was noticed by the family that the patient has became more forgetful recently. As a matter of fact she forgot to take her medications. Beside that there is no other specific or focal neurologic symptoms like slurred speech, any motor or sensory impairment, and no change in mental status or loss of consciousness. No chest pain, shortness of breath, dizziness or lightheadedness, or heart racing or fluttering. The patient was diagnosed with possible stroke and she was admitted to the hospital. She underwent a carotid duplex study which revealed no evidence of high-grade stenosis. The computed tomography scan of the brain showed multiple old stroke with possible new one. Beside that the patient was seen by a neurology service and they requested as to do transesophageal echocardiogram to rule out any cardiac source of embolization. She underwent an echocardiogram and that revealed normal LV function with evidence of moderate to severe mitral stenosis and severe pulmonary hypertension. The patient is not aware of any prior cardiac history like coronary artery disease or congestive heart failure or cardiac arrhythmia and she stated that she does not follow-up with any sql application developer in the past. I did review her EKG which revealed sinus rhythm without any significant ST or T-wave abnormalities. She has been maintaining normal sinus mechanism why she was in the hospital. Past Medical History Past Medical History: CVA/TIA, Dementia, Hyperlipidemia, Memory Impairment Additional Past Medical History / Comment(s): lymphoma. CVA APPROX 2003 PER AUNT PT WALKS WITH LIMP, RT ARM PARESIS, PT HAS SOME APHASIA, SHORT TERM MEMORY NOT GOOD. History of Any Multi-Drug Resistant Organisms: None Reported Past Surgical History: Tubal Ligation Additional Past Surgical History / Comment(s): carpal tunnel, neck, medi port, per son pt had carotid surgery Past Anesthesia/Blood Transfusion Reactions: No Reported Reaction Past Psychological History: Depression Smoking Status: Current every day smoker Past Alcohol Use History: None Reported Additional Past Alcohol Use History / Comment(s): per son leonardo, pt smokes 2 packs per day Past Drug Use History: None Reported - Past Family History Mother Family Medical History: Cancer Father Family Medical History: Deep Vein Thrombosis (DVT) Medications and Allergies Home Medications Medication Instructions Recorded Confirmed Type Clopidogrel [Plavix] 75 mg PO DAILY 09/15/13 08/25/18 History DULoxetine HCL [Cymbalta] 60 mg PO BID 09/15/13 08/25/18 History Ergocalciferol (Vitamin D2) 50,000 unit PO MO 04/20/15 08/25/18 History [Drisdol] tiZANidine HCL [Zanaflex] 4 mg PO TID PRN 04/20/15 08/25/18 History Albuterol Inhaler [Ventolin Hfa 2 puff INHALATION RT-Q6H PRN 08/25/18 08/25/18 History Inhaler] Aspirin EC [Ecotrin Low Dose] 81 mg PO DAILY 08/25/18 08/25/18 History Buprenorphine [Butrans 20 MCG/HOUR] 1 patch TRANSDERM TH 08/25/18 08/25/18 History Donepezil [Aricept] 10 mg PO HS 08/25/18 08/25/18 History Lisinopril-Hctz 20-25 mg 1 tab PO DAILY 08/25/18 08/25/18 History [Zestoretic 20-25] Simvastatin 40 mg PO HS 08/25/18 08/25/18 History Tolterodine ER [Detrol LA] 4 mg PO DAILY 08/25/18 08/25/18 History Ziprasidone HCl [Geodon] 20 mg PO Q48H 08/25/18 08/25/18 History Ziprasidone HCl [Geodon] 60 mg PO Q48H 08/25/18 08/25/18 History Allergies Allergy/AdvReac Type Severity Reaction Status Date / Time naproxen sodium [From Aleve] Allergy Dyspnea Verified 08/25/18 18:11 Physical Exam Vitals: Vital Signs Temp Pulse Resp BP Pulse Ox 08/28/18 03:52 77 16 08/28/18 03:11 98.1 F 77 16 92/52 96 08/27/18 23:50 98.4 F 86 20 103/59 95 08/27/18 20:00 99 F 86 20 107/55 100 08/27/18 15:30 98.7 F 99 18 140/67 96 08/27/18 12:10 96.8 F L 96 18 157/82 97 Intake and Output 08/27/18 08/28/18 08/28/18 22:59 06:59 14:59 Intake Total 1040 550 Output Total 500 Balance 1040 50 Intake: Intake, IV Titration 800 500 Amount Sodium Chloride 0.9% 1, 800 500 000 ml @ 100 mls/hr IV . Q10H KRISTA Rx#:[id number] Oral 240 50 Output: Urine 500 Other: Voiding Method Toilet Toilet # Voids 1 Weight 94.5 kg - Constitutional General appearance: no acute distress - Respiratory Respiratory: bilateral: CTA - Cardiovascular Rhythm: regular Heart sounds: normal: S1, S2 Abnormal Heart Sounds: diastolic murmur Results 08/25/18 17:30 08/28/18 05:59 Lipids 08/28/18 Range/Units 05:59 Triglycerides 84 (<150) mg/dL Cholesterol 109 (<200) mg/dL HDL Cholesterol 41 (40-60) mg/dL Comprehensive Metabolic Panel 08/28/18 Range/Units 05:59 Potassium 3.2 L (3.5-5.1) mmol/L Current Medications Generic Name Dose Route Start Last Admin Trade Name Freq PRN Reason Stop Dose Admin Albuterol Sulfate 2.5 mg 08/25/18 21:24 Ventolin Nebulized INHALATION RT-Q6H PRN Shortness Of Breath Aspirin 81 mg 08/26/18 09:00 08/27/18 08:14 Aspirin PO 81 mg DAILY KRISTA Administration Atorvastatin Calcium 20 mg 08/25/18 21:30 08/27/18 20:06 Lipitor PO 20 mg HS KRISTA Administration Clopidogrel Bisulfate 75 mg 08/26/18 09:00 08/27/18 08:14 Plavix PO 75 mg DAILY KRISTA Administration Donepezil HCl 10 mg 08/25/18 21:30 08/27/18 20:07 Aricept PO 10 mg HS KRISTA Administration Duloxetine HCl 60 mg 08/25/18 21:30 08/27/18 20:06 Cymbalta PO 60 mg BID KRISTA Administration Enoxaparin Sodium 40 mg 08/26/18 16:15 08/27/18 08:14 Lovenox SQ 40 mg DAILY KRISTA Administration Lisinopril/HCTZ 1 each 08/26/18 09:00 08/27/18 08:14 Zestoretic 20-25 PO 1 each DAILY KRISTA Administration Nicotine 1 patch 08/26/18 09:45 08/27/18 08:14 Habitrol 21mg/24hr Patch TRANSDERM 1 patch DAILY KRISTA Administration Non-Formulary Medication 1 patch 08/26/18 21:24 08/26/18 21:04 Buprenorphine [Butrans 20 Mcg/Hour] TRANSDERM Not Given KRISTA Oxybutynin Chloride 10 mg 08/26/18 09:00 08/27/18 08:23 Ditropan Xl PO 10 mg DAILY KRISTA Administration Tizanidine HCl 4 mg 08/25/18 21:24 Zanaflex PO TID PRN Muscle Pain Tramadol HCl 50 mg 08/26/18 14:18 08/27/18 15:33 Ultram PO 50 mg QID PRN Administration Pain Control Ziprasidone 20 mg 08/27/18 21:00 08/27/18 20:07 Geodon PO 20 mg Q48H KRISTA Administration Ziprasidone 60 mg 08/26/18 21:00 08/26/18 19:47 Geodon PO 60 mg Q48H KRISTA Administration Intake and Output 08/27/18 08/28/18 08/28/18 22:59 06:59 14:59 Intake Total 1040 550 Output Total 500 Balance 1040 50 Intake: Intake, IV Titration 800 500 Amount Sodium Chloride 0.9% 1, 800 500 000 ml @ 100 mls/hr IV . Q10H KRISTA Rx#:[id number] Oral 240 50 Output: Urine 500 Other: Voiding Method Toilet Toilet # Voids 1 Weight 94.5 kg 08/25/18 17:30 08/28/18 05:59 Assessment and Plan Assessment: Assessment #1 possible stroke #2 carotid disease and history of left carotid endarterectomy #3 significant history of smoking #4 history of stroke in the past Plan #1 continue the current medical regimen including dual antiplatelet therapy as well as a statin #2 reviewing the patient transthoracic echocardiogram, and in view of the evidence of moderate to severe mitral stenosis with severe pulmonary hypertension, I do feel the patient need to have not only transesophageal echocardiogram but also right and left heart catheterization to evaluate the mitral valve and possible need for mitral valve repair/replacement, giving the development of severe pulmonary hypertension which is likely related to the mitral stenosis. I would advise that to be done probably as an outpatient. Thank you again for allowing us participate in her care and we will continue following up with the patient
[2018-08-28 09:27] VITALS: TEMP 97.9
[2018-08-28] MEDS: traMADol 50 MG TAB PO PRN (10:06)
[2018-08-28] MEDS: ASPIRIN 81 MG PO SCH (10:06)
[2018-08-28] MEDS: CLOPIDOGREL 75 MG TAB PO SCH (10:07)
[2018-08-28] MEDS: OXYBUTYNIN 10 MG TAB.ER.24 PO SCH (10:07)
[2018-08-28] MEDS: LISINOPRIL-HCTZ 20-25 MG 1 EACH TAB PO SCH (10:07)
[2018-08-28] MEDS: DULoxetine HCL 60 MG CAPSULE.DR PO SCH (10:07)
[2018-08-28] MEDS: NICOTINE 21MG/24HR PATCH TRANSDERM SCH (10:08)
[2018-08-28] MEDS: ENOXAPARIN 40 MG/0.4 ML SYRINGE SQ SCH (10:08)
[2018-08-28 11:41] VITALS: BP 129/84; PULSE 82
--- NOTE | 2018-08-28 11:49 | P.DS ---
Providers Date of admission: 08/27/18 14:29 Attending physician: Osvaldo Chu Consults: 08/25/18 18:42 Consult Physician Routine Consulting Provider: Natlay Martin Consult Reason/Comments: ams Do you want consulting provider notified?: Yes 08/27/18 21:03 Consult Physician Routine Consulting Provider: Juan Manuel Moran Consult Reason/Comments: OMAR Do you want consulting provider notified?: Yes Primary care physician: Dinesh [facility] Course: 63-year-old female was admitted for forgetfulness incontinence patient appears to have multiple areas of infarcts in bilateral frontal lobes. Patient appears to ask her dementia. There is no acute stroke during this hospitalization patient is very presently on aspirin and Plavix and Lipitor patient was ordered by cardiology for the severe mitral stenosis further workup including OMAR and a right-sided heart cath will be done as an outpatient and patient will be discharged today. Patient will not require any subacute rehabilitation or home care at this time. Neurology is recommending both Aricept and Namenda patient will be discharged on these medications. Patient blood pressure is low normal and the low potassium diuretic therapy will be discontinued and patient will continue her lisinopril at a low dose. PHYSICAL EXAMINATION: GENERAL: The patient is alert and oriented x3, not in any acute distress. Well developed, well nourished. HEENT: Pupils are round and equally reacting to light. EOMI. No scleral icterus. No conjunctival pallor. Normocephalic, atraumatic. No pharyngeal erythema. No thyromegaly. CARDIOVASCULAR: S1 and S2 present. No murmurs, rubs, or gallops. PULMONARY: Chest is clear to auscultation, no wheezing or crackles. ABDOMEN: Soft, nontender, nondistended, normoactive bowel sounds. No palpable organomegaly. MUSCULOSKELETAL: No joint swelling or deformity. EXTREMITIES: No cyanosis, clubbing, or pedal edema. NEUROLOGICAL: Gross neurological examination did not reveal any focal deficits. SKIN: No rashes. refer to dictation from Dr. Chu for further details of hospital physician course and other chronic medical problems that were addressed during this hospitalization Patient Condition at Discharge: Fair Plan - Discharge Summary Discharge Rx Participant: No New Discharge Prescriptions: New Lisinopril [Zestril] 10 mg PO DAILY #30 tab Memantine [Namenda] 10 mg PO DAILY #30 tablet Continue DULoxetine HCL [Cymbalta] 60 mg PO BID Clopidogrel [Plavix] 75 mg PO DAILY Ergocalciferol (Vitamin D2) [Drisdol] 50,000 unit PO MO Ziprasidone HCl [Geodon] 20 mg PO Q48H Buprenorphine [Butrans 20 MCG/HOUR] 1 patch TRANSDERM TH Albuterol Inhaler [Ventolin Hfa Inhaler] 2 puff INHALATION RT-Q6H PRN PRN Reason: Shortness Of Breath Tolterodine ER [Detrol LA] 4 mg PO DAILY Simvastatin 40 mg PO HS Donepezil [Aricept] 10 mg PO HS Aspirin EC [Ecotrin Low Dose] 81 mg PO DAILY Ziprasidone HCl [Geodon] 60 mg PO Q48H Discontinued tiZANidine HCL [Zanaflex] 4 mg PO TID PRN PRN Reason: Muscle Pain Lisinopril-Hctz 20-25 mg [Zestoretic 20-25] 1 tab PO DAILY Discharge Medication List Clopidogrel [Plavix] 75 mg PO DAILY 09/15/13 [History] DULoxetine HCL [Cymbalta] 60 mg PO BID 09/15/13 [History] Ergocalciferol (Vitamin D2) [Drisdol] 50,000 unit PO MO 04/20/15 [History] Albuterol Inhaler [Ventolin Hfa Inhaler] 2 puff INHALATION RT-Q6H PRN 08/25/18 [History] Aspirin EC [Ecotrin Low Dose] 81 mg PO DAILY 08/25/18 [History] Buprenorphine [Butrans 20 MCG/HOUR] 1 patch TRANSDERM TH 08/25/18 [History] Donepezil [Aricept] 10 mg PO HS 08/25/18 [History] Simvastatin 40 mg PO HS 08/25/18 [History] Tolterodine ER [Detrol LA] 4 mg PO DAILY 08/25/18 [History] Ziprasidone HCl [Geodon] 20 mg PO Q48H 08/25/18 [History] Ziprasidone HCl [Geodon] 60 mg PO Q48H 08/25/18 [History] Lisinopril [Zestril] 10 mg PO DAILY #30 tab 08/28/18 [Rx] Memantine [Namenda] 10 mg PO DAILY #30 tablet 08/28/18 [Rx] Follow up Appointment(s)/Referral(s): Dinesh Dukes DO [Primary Care Provider] - 3 Days Discharge Disposition: HOME SELF-CARE
== END 2018-08-28 14:31 | disposition home or self-care (01) | DRG 884 ==
LOC: EC 15:25 → 3SCARD 18:41 → OBSVTOIN 08-27 14:29
PROVIDERS: ADMIT Hospitalist; ATTEND Hospitalist
DX: F01.50 Vascular dementia, unspecified severity, without behavioral disturbance, psychotic disturbance, mood disturbance, and anxiety (principal); C85.90 Non-Hodgkin lymphoma, unspecified, unspecified site; I69.351 Hemiplegia and hemiparesis following cerebral infarction affecting right dominant side; I27.20 Pulmonary hypertension, unspecified; I08.1 Rheumatic disorders of both mitral and tricuspid valves; E66.9 Obesity, unspecified; E78.5 Hyperlipidemia, unspecified; F17.210 Nicotine dependence, cigarettes, uncomplicated; F32.9 Major depressive disorder, single episode, unspecified; I10 Essential (primary) hypertension; I69.920 Aphasia following unspecified cerebrovascular disease; J44.9 Chronic obstructive pulmonary disease, unspecified; R32 Unspecified urinary incontinence; Z68.34 Body mass index [BMI] 34.0-34.9, adult; Z79.02 Long term (current) use of antithrombotics/antiplatelets; Z79.82 Long term (current) use of aspirin; Z79.899 Other long term (current) drug therapy; Z88.6 Allergy status to analgesic agent; Z98.51 Tubal ligation status; Z92.21 Personal history of antineoplastic chemotherapy; Z92.3 Personal history of irradiation; Z71.6 Tobacco abuse counseling; Z82.49 Family history of ischemic heart disease and other diseases of the circulatory system; Z80.7 Family history of other malignant neoplasms of lymphoid, hematopoietic and related tissues
CPT/HCPCS: 36415; 70450; 71046; 80053; 80061; 80306; 81003; 82140; 82550; 82607; 82746; 84132; 84443; 84484; 85025; 85610; 85730; 86780; 87086; 93005; 93306; 93880; 95816; 96360; 96361; 99285

== ENCOUNTER → 2018-10-11 | Outpatient (CLI) | payer MEDICARE ==
[2018-10-11 11:31] LABS: Magnesium 2.1 mg/dL (1.6-2.3); Potassium 4.7 mmol/L (3.5-5.1)
[2018-10-11 11:55] LABS: HCT 52.5 % (34.0-46.0); HGB 17.1 gm/dL (11.4-16.0); Hypochromasia Slight; MCH 30.3 pg (25.0-35.0); MCHC 32.6 g/dL (31.0-37.0); MCV 92.9 fL (80.0-100.0); Mean Platelet Volume 8.3; Platelet Count 218 k/uL (150-450); RBC 5.65 m/uL (3.80-5.40); WBC 8.3 k/uL (3.8-10.6)
== END | disposition home or self-care (01) ==
LOC: LABPAT 10:17
PROVIDERS: ATTEND Internal Medicine Interventional Cardiology
DX: Z01.812 Encounter for preprocedural laboratory examination (principal); I34.2 Nonrheumatic mitral (valve) stenosis
CPT/HCPCS: 36415; 80051; 82565; 83735; 84520; 85027

== ENCOUNTER 2018-10-20 10:10 | Day surgery (SDC) | payer MEDICARE ==
[2018-10-19 08:50] VITALS: BMI 36.6
[2018-10-20 11:46] VITALS: TEMP 98.2
[2018-10-20] MEDS ORDERED: fentaNYL (PF) 50 MCG/ML 2 ML AMP ONE (12:22)
[2018-10-20] MEDS ORDERED: BENZOCAINE SPRAY 1 CAN MUCOUS MEM ONE (12:35)
[2018-10-20] MEDS ORDERED: MIDAZOLAM (PF) 2 MG/2 ML VIAL IVP ONE (12:35)
[2018-10-20] MEDS ORDERED: fentaNYL (PF) 50 MCG/ML 2 ML AMP IVP ONE (12:35)
[2018-10-20] MEDS ORDERED: IV FLUID CONTINUATION 1,000 ML IV ONE (12:35)
[2018-10-20 12:54] VITALS: RESP 18
--- NOTE | 2018-10-20 13:26 | ECHOT ---
TRANSESOPHAGEAL ECHOCARDIOGRAM DATE OF SERVICE: October 20, 2018 PERFORMING PHYSICIAN: Marc Lutz MD, slash trimmer. PROCEDURE PERFORMED: Transesophageal echocardiogram. INDICATION: This is a pleasant 63-year-old female patient who was experiencing symptoms of shortness of breath with exertion and underwent transthoracic echocardiogram which revealed evidence of severe mitral stenosis as well as moderate tricuspid regurgitation. Because of that, a transesophageal echocardiogram was advised. COMPLICATION: None. LEVEL OF SEDATION: Moderate with sedation length of 10 minutes. PROCEDURE DESCRIPTION: After obtaining an informed consent, explaining the procedure, benefits, risks, complications and alternatives, the patient was brought to the transesophageal echocardiogram suite. A pulse oximetry and heart rate monitors were attached to the patient prior to the procedure. The patient's throat was sprayed using lidocaine locally. Following that, the patient was turned into left lateral position. A bite guard was placed and the patient was then sedated with the above doses of Versed and fentanyl in divided doses. Following that, the transesophageal echocardiogram probe was advanced through the bite guard into the mid esophagus where 2-D echocardiogram images as well as color Doppler images of various cardiac structures were obtained. We evaluated the interatrial septum using 2-D echocardiogram, color Doppler, and contrast study. The procedure was completed. There were no complications. FINDINGS: The left ventricular dimension and systolic function appeared to be normal. The EF appeared to be in the range of 50%. The right ventricle appeared to be dilated with normal function. Both left and right atrium are dilated. The left atrial appendage appeared to be free from any thrombus. The interatrial septum appeared to be intact. The aortic valve is trileaflet valve without stenosis or regurgitation. The mitral valve is thickened with evidence of moderate mitral stenosis with mitral valve area of 1.7 centimeter square by pressure half time. There was also moderate mitral regurgitation seen. The tricuspid valve showed evidence of moderate tricuspid regurgitation. The pulmonic valve has mild pulmonic insufficiency. CONCLUSION: 1. Intact interatrial septum without any evidence of shunt. 2. Normal left atrial appendage without any evidence of thrombus. 3. A trileaflet aortic valve without stenosis or regurgitation. 4. Thickened mitral valve leaflets with evidence of hockey-stick appearance of the anterior mitral leaflet with moderate mitral stenosis with a mitral valve area of 1.7 centimeter square by pressure half time. 5. There was also moderate mitral regurgitation seen. 6. Moderate tricuspid regurgitation. 7. Moderate to severe pulmonary hypertension. The PA pressure was calculated to be around 52 mmHg. 8. No evidence of pericardial effusion. MMODL / IJN: [id number] /
[2018-10-20 14:24] VITALS: PULSE 88
[2018-10-20 14:26] VITALS: BP 120/67
== END 2018-10-20 14:27 | disposition home or self-care (01) ==
LOC: CATHCVL 10:10
PROVIDERS: ATTEND Internal Medicine Interventional Cardiology
DX: I08.1 Rheumatic disorders of both mitral and tricuspid valves (principal); I27.20 Pulmonary hypertension, unspecified; E78.5 Hyperlipidemia, unspecified; F17.210 Nicotine dependence, cigarettes, uncomplicated; Z86.73 Personal history of transient ischemic attack (TIA), and cerebral infarction without residual deficits; Z98.890 Other specified postprocedural states; Z71.6 Tobacco abuse counseling; Z79.82 Long term (current) use of aspirin; Z79.899 Other long term (current) drug therapy; Z82.49 Family history of ischemic heart disease and other diseases of the circulatory system
CPT/HCPCS: 93312; 93320; 93325; J3010; J2250

== ENCOUNTER 2018-11-17 19:01 | Observation (INO) | payer MEDICARE ==
[2018-11-17] MEDS ORDERED: SODIUM CHLORIDE 0.9% 500 ML 500 ML IV ONE ×2 (19:53→21:29)
--- NOTE | 2018-11-17 19:58 | ED ---
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 Family member state that they went to check on her today and found some unusual things. States that her recently filled a medication box was empty and her medications were in the trash. She also filled the dog's bowl with orange juice. Patient does not remember doing any of these things. They state his behavior is abnormal for her. Patient states she currently feels well. States she is having some mild increased difficulty with movement of the right leg. She denies any headache, blurred vision, double vision, numbness, or tingling. Denies any chest pain, shortness of breath, abdominal pain, nausea, vomiting, or diarrhea. Denies any recent falls or head injury. Patient denies any recent ra sh, fever, chills, constipation, back pain, hematuria, dysuria, urinary urgency, urinary frequency, or any other complaints. (Vida Singleton) - Related Data Home Medications Medication Instructions Recorded Confirmed Clopidogrel [Plavix] 75 mg PO DAILY 09/15/13 11/17/18 DULoxetine HCL [Cymbalta] 60 mg PO BID 09/15/13 11/17/18 Ergocalciferol (Vitamin D2) 50,000 unit PO MO 04/20/15 11/17/18 [Drisdol] Albuterol Inhaler [Ventolin Hfa 2 puff INHALATION RT-Q6H PRN 08/25/18 11/17/18 Inhaler] Aspirin EC [Ecotrin Low Dose] 81 mg PO DAILY 08/25/18 11/17/18 Buprenorphine [Butrans 20 MCG/HOUR] 1 patch TRANSDERM WE 08/25/18 11/17/18 Donepezil [Aricept] 10 mg PO HS 08/25/18 11/17/18 Simvastatin 40 mg PO HS 08/25/18 11/17/18 Tolterodine ER [Detrol LA] 4 mg PO DAILY 08/25/18 11/17/18 Ziprasidone HCl [Geodon] 20 mg PO Q48H 08/25/18 11/17/18 Ziprasidone HCl [Geodon] 60 mg PO DAILY 08/25/18 11/17/18 Memantine [Namenda] 10 mg PO HS 11/17/18 11/17/18 Previous Rx's Medication Instructions Recorded Lisinopril [Zestril] 5 mg PO DAILY #30 tab 11/18/18 Allergies Allergy/AdvReac Type Severity Reaction Status Date / Time naproxen sodium [From Aleve] Allergy Rash/Hives Verified 11/17/18 20:00 Review of Systems ROS Other: All systems not noted in ROS Statement are negative. <Vida Singleton - Last Filed: 11/18/18 03:21> ROS Other: All systems not noted in ROS Statement are negative. <George Mercado - Last Filed: 11/22/18 04:12> ROS Statement: Those systems with pertinent positive or pertinent negative responses have been documented in the HPI. Past Medical History Past Medical History: CVA/TIA, Dementia, Hyperlipidemia, Memory Impairment Additional Past Medical History / Comment(s): lymphoma. CVA APPROX 2003 PER AUNT PT WALKS WITH LIMP, RT ARM PARESIS, PT HAS SOME APHASIA, SHORT TERM MEMORY NOT GOOD. History of Any Multi-Drug Resistant Organisms: None Reported Past Surgical History: Tubal Ligation Additional Past Surgical History / Comment(s): carpal tunnel, neck, medi port, per son pt had carotid surgery Past Anesthesia/Blood Transfusion Reactions: No Reported Reaction Past Psychological History: Depression Smoking Status: Current every day smoker - Past Family History Mother Family Medical History: Cancer Father Family Medical History: Deep Vein Thrombosis (DVT) <Vida Singleton - Last Filed: 11/18/18 03:21> General Exam Limitations: no limitations General appearance: alert, in no apparent distress, other (Physical well- developed, well-nourished adult female patient in no acute distress. Vital signs upon presentation are temperature 98.1F, pulse 78, respirations 20, blood pressure 111/74, pulse ox 94% on room air.) Eye exam: Present: normal appearance, PERRL, EOMI. Absent: scleral icterus, conjunctival injection, periorbital swelling ENT exam: Present: normal exam, normal oropharynx, mucous membranes moist Respiratory exam: Present: normal lung sounds bilaterally. Absent: respiratory distress, wheezes, rales, rhonchi, stridor Cardiovascular Exam: Present: regular rate, normal rhythm, normal heart sounds. Absent: systolic murmur, diastolic murmur, rubs, gallop, clicks GI/Abdominal exam: Present: soft, normal bowel sounds. Absent: distended, tenderness, guarding, rebound, rigid Neurological exam: Present: alert, oriented X3, CN II-XII intact Expanded Neurological exam: Present: memory loss-recent event Speech: Present: fluid speech Cranial nerves: EOM's Intact: Normal, Tongue Deviation: Normal, Nystagmus: Normal Motor strength exam: RUE: 3, LUE: 5, RLE: 3, LLE: 5 Psychiatric exam: Present: normal affect, normal mood Skin exam: Present: warm, dry, intact, normal color. Absent: rash <Vida Singleton - Last Filed: 11/18/18 03:21> Course Vital Signs 11/17/18 11/17/18 11/17/18 19:16 22:45 22:51 Temperature 98.1 F 98.4 F Pulse Rate 78 68 Respiratory 20 16 18 Rate Blood Pressure 111/74 96/61 Blood Pressure 101/55 [Left Arm] O2 Sat by Pulse 94 L 95 92 L Oximetry Medical Decision Making - Lab Data Result diagrams: 11/17/18 20:14 11/17/18 20:14 - EKG Data -: EKG Interpreted by Ga - Radiology Data Radiology results: report reviewed, image reviewed <Vida Singleton - Last Filed: 11/18/18 03:21> - Lab Data Result diagrams: 11/17/18 20:14 11/17/18 20:14 <George Mercado - Last Filed: 11/22/18 04:12> - Medical Decision Making 63-year-old female patient presented to the emergency department today for evaluation of altered mental status. Family members reported behavior from the patient including doing her medications away insulin the pelvis bolus JUICE. Patient has a history of CVA in 2004 and TIA in August 2017. Physical examination is unremarkable. She was neurologically intact with no new focal deficits, she does have residual right-sided weakness from her previous CVA. Labs reviewed and were unremarkable other than a mildly elevated BUN and creatinine most likely from dehydration. CT brain was obtained and showed old cortical infarcts with no evidence for acute intracranial process. I did discuss findings and results with the patient and her family. Patient will be admitted to the hospital for further evaluation by neurology. She verbalizes understanding and agrees with this plan. (Vida Singleton) I saw this patient in conjunction with the physician chiropractic assistant. I performed independent history and physical exam. Agree with case management. (George Mercado) - Lab Data Lab Results 11/17/18 11/17/18 11/17/18 Range/Units 20:14 20:14 20:14 WBC 9.5 (3.8-10.6) k/uL RBC 4.76 (3.80-5.40) m/uL Hgb 14.3 (11.4-16.0) gm/dL Hct 43.4 (34.0-46.0) % MCV 91.2 (80.0-100.0) fL MCH 30.0 (25.0-35.0) pg MCHC 32.9 (31.0-37.0) g/dL RDW 14.0 (11.5-15.5) % Plt Count 222 (150-450) k/uL Neutrophils % 73 % Lymphocytes % 14 % Monocytes % 6 % Eosinophils % 3 % Basophils % 2 % Neutrophils # 7.0 (1.3-7.7) k/uL Lymphocytes # 1.4 (1.0-4.8) k/uL Monocytes # 0.5 (0-1.0) k/uL Eosinophils # 0.2 (0-0.7) k/uL Basophils # 0.2 (0-0.2) k/uL PT 9.8 (9.0-12.0) sec INR 0.9 (<1.2) APTT 25.3 (22.0-30.0) sec Sodium 133 L (137-145) mmol/L Potassium 3.8 (3.5-5.1) mmol/L Chloride 93 L (98-107) mmol/L Carbon Dioxide 31 H (22-30) mmol/L Anion Gap 9 mmol/L BUN 20 H (7-17) mg/dL Creatinine 1.16 H (0.52-1.04) mg/dL Est GFR (CKD-EPI)AfAm 59 (>60 ml/min/1.73 sqM) Est GFR (CKD-EPI)NonAf 51 (>60 ml/min/1.73 sqM) Glucose 88 (74-99) mg/dL POC Glucose (mg/dL) (75-99) mg/dL POC Glu Thermodynamic Physicist ID Calcium 9.5 (8.4-10.2) mg/dL Total Bilirubin 0.4 (0.2-1.3) mg/dL AST 14 (14-36) U/L ALT 11 (9-52) U/L Alkaline Phosphatase 120 (38-126) U/L Troponin I (0.000-0.034) ng/mL Total Protein 6.1 L (6.3-8.2) g/dL Albumin 3.8 (3.5-5.0) g/dL Urine Color Urine Appearance (Clear) Urine pH (5.0-8.0) Ur Specific [place] (1.001-1.035) Urine Protein (Negative) Urine Glucose (UA) (Negative) Urine Ketones (Negative) Urine Blood (Negative) Urine Nitrite (Negative) Urine Bilirubin (Negative) Urine Urobilinogen (<2.0) mg/dL Ur Leukocyte Esterase (Negative) Urine Opiates Screen (NotDetected) Ur Oxycodone Screen (NotDetected) Urine Methadone Screen (NotDetected) Ur Propoxyphene Screen (NotDetected) Ur Barbiturates Screen (NotDetected) U Tricyclic Antidepress (NotDetected) Ur Phencyclidine Scrn (NotDetected) Ur Amphetamines Screen (NotDetected) U Methamphetamines Scrn (NotDetected) U Benzodiazepines Scrn (NotDetected) Urine Cocaine Screen (NotDetected) U Marijuana (THC) Screen (NotDetected) 11/17/18 11/17/18 11/17/18 Range/Units 20:14 20:24 20:28 WBC (3.8-10.6) k/uL RBC (3.80-5.40) m/uL Hgb (11.4-16.0) gm/dL Hct (34.0-46.0) % MCV (80.0-100.0) fL MCH (25.0-35.0) pg MCHC (31.0-37.0) g/dL RDW (11.5-15.5) % Plt Count (150-450) k/uL Neutrophils % % Lymphocytes % % Monocytes % % Eosinophils % % Basophils % % Neutrophils # (1.3-7.7) k/uL Lymphocytes # (1.0-4.8) k/uL Monocytes # (0-1.0) k/uL Eosinophils # (0-0.7) k/uL Basophils # (0-0.2) k/uL PT (9.0-12.0) sec INR (<1.2) APTT (22.0-30.0) sec Sodium (137-145) mmol/L Potassium (3.5-5.1) mmol/L Chloride (98-107) mmol/L Carbon Dioxide (22-30) mmol/L Anion Gap mmol/L BUN (7-17) mg/dL Creatinine (0.52-1.04) mg/dL Est GFR (CKD-EPI)AfAm (>60 ml/min/1.73 sqM) Est GFR (CKD-EPI)NonAf (>60 ml/min/1.73 sqM) Glucose (74-99) mg/dL POC Glucose (mg/dL) 98 (75-99) mg/dL POC Glu Thermodynamic Physicist ID Anaya Barrios Calcium (8.4-10.2) mg/dL Total Bilirubin (0.2-1.3) mg/dL AST (14-36) U/L ALT (9-52) U/L Alkaline Phosphatase (38-126) U/L Troponin I <0.012 (0.000-0.034) ng/mL Total Protein (6.3-8.2) g/dL Albumin (3.5-5.0) g/dL Urine Color Light Yellow Urine Appearance Clear (Clear) Urine pH 6.5 (5.0-8.0) Ur Specific [place] 1.008 (1.001-1.035) Urine Protein Negative (Negative) Urine Glucose (UA) Negative (Negative) Urine Ketones Negative (Negative) Urine Blood Negative (Negative) Urine Nitrite Negative (Negative) Urine Bilirubin Negative (Negative) Urine Urobilinogen <2.0 (<2.0) mg/dL Ur Leukocyte Esterase Negative (Negative) Urine Opiates Screen Not Detected (NotDetected) Ur Oxycodone Screen Not Detected (NotDetected) Urine Methadone Screen Not Detected (NotDetected) Ur Propoxyphene Screen Not Detected (NotDetected) Ur Barbiturates Screen Not Detected (NotDetected) U Tricyclic Antidepress Not Detected (NotDetected) Ur Phencyclidine Scrn Not Detected (NotDetected) Ur Amphetamines Screen Not Detected (NotDetected) U Methamphetamines Scrn Not Detected (NotDetected) U Benzodiazepines Scrn Not Detected (NotDetected) Urine Cocaine Screen Not Detected (NotDetected) U Marijuana (THC) Screen Not Detected (NotDetected) - EKG Data EKG Comments: EKG obtained at 2006 shows normal sinus rhythm with a ventricular rate is 71, VA interval 158, QRS duration 76, QTc 432, QTc 469. No evidence of ST elevation or depression. (Vida Singleton) - Radiology Data Two-view x-ray of the chest was obtained. Report was reviewed in its entirety. Impression by Dr. Kahn shows no active cardiopulmonary disease. No change. (Vida Singleton) Disposition Decision to Admit Reason: Admit from EC Decision Date: 11/17/18 Decision Time: 22:16 <Vida Singleton - Last Filed: 11/18/18 03:21> <George Mercado - Last Filed: 11/22/18 04:12> Clinical Impression: Altered mental status Disposition: ADMITTED IP TO THIS HOSP Condition: Stable
[2018-11-17 20:30] LABS: Glucose,Whole Blood 98 mg/dL (75-99)
[2018-11-17 20:43] LABS: Basophils # (A) 0.2 k/uL (0-0.2); Basophils % (A) 2 %; Eosinophils # (A) 0.2 k/uL (0-0.7); Eosinophils % (A) 3 %; HCT 43.4 % (34.0-46.0); HGB 14.3 gm/dL (11.4-16.0); Lymphocytes # (A) 1.4 k/uL (1.0-4.8); Lymphocytes % (A) 14 %; MCHC 32.9 g/dL (31.0-37.0); MCV 91.2 fL (80.0-100.0); Mean Platelet Volume 8.2; Monocytes # (A) 0.5 k/uL (0-1.0); Monocytes % (A) 6 %; Neutrophils % (A) 73 %; Platelet Count 222 k/uL (150-450); RBC 4.76 m/uL (3.80-5.40); WBC 9.5 k/uL (3.8-10.6)
--- NOTE | 2018-11-17 20:43 | XR ---
EXAMINATION TYPE: XR chest 2V DATE OF EXAM: 11/17/2018 COMPARISON: 08/25/2018 HISTORY: Altered mental status TECHNIQUE: Frontal and lateral views of the chest are obtained. FINDINGS: Heart and mediastinum are normal. Lungs are clear of infiltrate. There are chest leads. Co stophrenic angles are clear. Bony thorax is intact. IMPRESSION: No active cardiopulmonary disease. No change.
--- NOTE | 2018-11-17 20:48 | CT ---
EXAMINATION TYPE: CT brain wo con DATE OF EXAM: 11/17/2018 COMPARISON: 08/25/2018 HISTORY: confusion, ams CT DLP: 1087.4 mGycm Automated exposure control for dose reduction was used. FINDINGS: There is hypodensity in the left anterior internal capsule and insula left temporal lobe related to o ld cortical infarct. There is cortical hypodensity left posterior frontal lobe related to old cortica l infarct. There is enlargement of the frontal horn left lateral ventricle. There is no mass effect n or midline shift. There is no sign of intracranial hemorrhage. There is 2 cm area of cortical hypodensity right posterior frontal lobe. IMPRESSION: OLD LARGE LEFT FRONTAL INFARCT UNCHANGED. OLD SMALL 2 CM CORTICAL INFARCT RIGHT POSTERIOR FRONTAL LOB E UNCHANGED. NO ACUTE INTRACRANIAL ABNORMALITY.
[2018-11-17 20:57] LABS: Albumin 3.8 g/dL (3.5-5.0); Calcium 9.5 mg/dL (8.4-10.2); Potassium 3.8 mmol/L (3.5-5.1); Total Bilirubin 0.4 mg/dL (0.2-1.3); Total Protein 6.1 g/dL (6.3-8.2)
[2018-11-17 21:00] LABS: Appearance,Urine Clear (Clear); Bilirubin,Urine Negative (Negative); Blood,Urine Negative (Negative); Color,Urine Light Yellow; Glucose,Urine (UA) Negative (Negative); Ketones,Urine Negative (Negative); Leukocyte Esterase,Urine Negative (Negative); Nitrite,Urine Negative (Negative); PH, Urine 6.5 (5.0-8.0); Protein,Urine Negative (Negative); Specific Gravity,Urine 1.008 (1.001-1.035); Urobilinogen,Urine <2.0 mg/dL (<2.0)
[2018-11-17 21:17] LABS: Amphetamine Screen,Urine Not Detected (NotDetected); Barbiturate Screen,Urine Not Detected (NotDetected); Benzodiazepines Screen,Urine Not Detected (NotDetected); Cocaine Screen,Urine Not Detected (NotDetected); Methadone Screen, Urine Not Detected (NotDetected); Opiate Screen,Urine Not Detected (NotDetected); Oxycodone Screen, Urine Not Detected (NotDetected); Phencyclidine Screen,Urine Not Detected (NotDetected); Tricyclic Antidepressant,Urine Not Detected (NotDetected); Urn Cannabinoid Scrn Not Detected (NotDetected)
[2018-11-17 21:19] LABS: INR 0.9 (<1.2); Partial Thromboplastin Time 25.3 sec (22.0-30.0); Prothrombin Time 9.8 sec (9.0-12.0)
[2018-11-17] MEDS ORDERED: NALOXONE 0.4 MG/ML 1 ML VIAL IV PRN (22:16)
[2018-11-17] MEDS ORDERED: ALBUTEROL NEBULIZED 2.5 MG/3 ML INHALATION PRN (22:18)
[2018-11-17 22:54] VITALS: RESP 18
[2018-11-17 23:36] VITALS: BMI 36.6
[2018-11-18] MEDS ORDERED: ASPIRIN 81 MG PO SCH (09:00)
[2018-11-18] MEDS ORDERED: DULoxetine HCL 60 MG CAPSULE.DR PO SCH (09:00)
[2018-11-18] MEDS ORDERED: CLOPIDOGREL 75 MG TAB PO SCH (09:00)
[2018-11-18] MEDS ORDERED: LISINOPRIL 10 MG TAB PO SCH (09:00)
[2018-11-18] MEDS ORDERED: ZIPRASIDONE 60 MG CAP PO SCH (09:00)
[2018-11-18] MEDS ORDERED: ZIPRASIDONE 20 MG CAP PO SCH (09:00)
[2018-11-18] MEDS ORDERED: HYDROCHLOROTHIAZIDE 25 MG TAB PO SCH (09:00)
[2018-11-18] MEDS ORDERED: OXYBUTYNIN 10 MG TAB.ER.24 PO SCH (09:00)
[2018-11-18 11:27] VITALS: TEMP 97.7
--- NOTE | 2018-11-18 11:52 | P.DS ---
Providers Date of admission: 11/17/18 22:07 Attending physician: Alexei Willson Primary care physician: [facility] Course: As mentioned in HPI Patient Condition at Discharge: Serious Plan - Discharge Summary Discharge Rx Participant: No New Discharge Prescriptions: Continue DULoxetine HCL [Cymbalta] 60 mg PO BID Clopidogrel [Plavix] 75 mg PO DAILY Ergocalciferol (Vitamin D2) [Drisdol] 50,000 unit PO MO Ziprasidone HCl [Geodon] 20 mg PO Q48H Buprenorphine [Butrans 20 MCG/HOUR] 1 patch TRANSDERM WE Albuterol Inhaler [Ventolin Hfa Inhaler] 2 puff INHALATION RT-Q6H PRN PRN Reason: Shortness Of Breath Tolterodine ER [Detrol LA] 4 mg PO DAILY Simvastatin 40 mg PO HS Donepezil [Aricept] 10 mg PO HS Aspirin EC [Ecotrin Low Dose] 81 mg PO DAILY Ziprasidone HCl [Geodon] 60 mg PO DAILY Memantine [Namenda] 10 mg PO HS Changed Lisinopril [Zestril] 5 mg PO DAILY #30 tab Discontinued Hydrochlorothiazide [Hydrodiuril] 25 mg PO DAILY Discharge Medication List Clopidogrel [Plavix] 75 mg PO DAILY 09/15/13 [History] DULoxetine HCL [Cymbalta] 60 mg PO BID 09/15/13 [History] Ergocalciferol (Vitamin D2) [Drisdol] 50,000 unit PO MO 04/20/15 [History] Albuterol Inhaler [Ventolin Hfa Inhaler] 2 puff INHALATION RT-Q6H PRN 08/25/18 [History] Aspirin EC [Ecotrin Low Dose] 81 mg PO DAILY 08/25/18 [History] Buprenorphine [Butrans 20 MCG/HOUR] 1 patch TRANSDERM WE 08/25/18 [History] Donepezil [Aricept] 10 mg PO HS 08/25/18 [History] Simvastatin 40 mg PO HS 08/25/18 [History] Tolterodine ER [Detrol LA] 4 mg PO DAILY 08/25/18 [History] Ziprasidone HCl [Geodon] 20 mg PO Q48H 08/25/18 [History] Ziprasidone HCl [Geodon] 60 mg PO DAILY 08/25/18 [History] Memantine [Namenda] 10 mg PO HS 11/17/18 [History] Lisinopril [Zestril] 5 mg PO DAILY #30 tab 11/18/18 [Rx] Follow up Appointment(s)/Referral(s): Dinesh Dukes DO [Primary Care Provider] - 3 Days Discharge Disposition: HOME SELF-CARE
--- NOTE | 2018-11-18 11:52 | P.HPIM ---
History of Present Illness 63-year-old pleasant female was brought in by the family members by with concerns of altered mental status apparently patient the was doing inappropriate staff including a putting orange juice in her dogs bowel and the daughter felt she may have overdosed on her medications although patient denies any such things patient denied any depression denied any suicidal ideations patient is alert oriented 3 patient appears to be at her baseline all the workup for a stroke and TIAs negative patient doesn't have any symptoms of UTI doesn't have any symptoms of sepsis is not dehydrated patient is on medications that can cause confusion but patient denies overusing any of these and patient is alert oriented 3 without any significant abnormality nothing much else can be offered medically as an inpatient. social welfare research worker will evaluate the patient regarding the home situation was discussed with the daughter after that patient will be discharged. Does have residual weakness on the right side but able to function okay with that and the no increasing weakness R any focal deficits that are new. Review of Systems REVIEW OF SYSTEMS: CONSTITUTIONAL: No fever, no malaise, no fatigue. HEENT: No recent visual problems or hearing problems. Denied any sore throat. CARDIOVASCULAR: No chest pain, orthopnea, PND, no palpitations, no syncope. PULMONARY: No shortness of breath, no cough, no hemoptysis. GASTROINTESTINAL: No diarrhea, no nausea, no vomiting, no abdominal pain. NEUROLOGICAL: No headaches, no weakness, no numbness. HEMATOLOGICAL: Denies any bleeding or petechiae. GENITOURINARY: Denies any burning micturition, frequency, or urgency. MUSCULOSKELETAL/RHEUMATOLOGICAL: Denies any joint pain, swelling, or any muscle pain. ENDOCRINE: Denies any polyuria or polydipsia. The rest of the 14-point review of systems is negative. Past Medical History Past Medical History: CVA/TIA, Dementia, Hyperlipidemia, Memory Impairment Additional Past Medical History / Comment(s): lymphoma. CVA APPROX 2003 PER AUNT PT WALKS WITH LIMP, RT ARM PARESIS, PT HAS SOME APHASIA, SHORT TERM MEMORY NOT GOOD. History of Any Multi-Drug Resistant Organisms: None Reported Past Surgical History: Tubal Ligation Additional Past Surgical History / Comment(s): carpal tunnel, neck, medi port, per son pt had carotid surgery Past Anesthesia/Blood Transfusion Reactions: No Reported Reaction Past Psychological History: Depression Smoking Status: Current every day smoker - Past Family History Mother Family Medical History: Cancer Father Family Medical History: Deep Vein Thrombosis (DVT) Medications and Allergies Home Medications Medication Instructions Recorded Confirmed Type Clopidogrel [Plavix] 75 mg PO DAILY 09/15/13 11/17/18 History DULoxetine HCL [Cymbalta] 60 mg PO BID 09/15/13 11/17/18 History Ergocalciferol (Vitamin D2) 50,000 unit PO MO 04/20/15 11/17/18 History [Drisdol] Albuterol Inhaler [Ventolin Hfa 2 puff INHALATION RT-Q6H PRN 08/25/18 11/17/18 History Inhaler] Aspirin EC [Ecotrin Low Dose] 81 mg PO DAILY 08/25/18 11/17/18 History Buprenorphine [Butrans 20 MCG/HOUR] 1 patch TRANSDERM WE 08/25/18 11/17/18 History Donepezil [Aricept] 10 mg PO HS 08/25/18 11/17/18 History Simvastatin 40 mg PO HS 08/25/18 11/17/18 History Tolterodine ER [Detrol LA] 4 mg PO DAILY 08/25/18 11/17/18 History Ziprasidone HCl [Geodon] 20 mg PO Q48H 08/25/18 11/17/18 History Ziprasidone HCl [Geodon] 60 mg PO DAILY 08/25/18 11/17/18 History Memantine [Namenda] 10 mg PO HS 11/17/18 11/17/18 History Lisinopril [Zestril] 5 mg PO DAILY #30 tab 11/18/18 11/17/18 Rx Allergies Allergy/AdvReac Type Severity Reaction Status Date / Time naproxen sodium [From Aleve] Allergy Rash/Hives Verified 11/17/18 20:00 Physical Exam Vitals: Vital Signs Temp Pulse Pulse Resp BP BP Pulse Ox 11/18/18 08:00 97.7 F 76 114/60 93 L 11/18/18 04:00 98.1 F 62 18 129/67 94 L 11/18/18 03:33 18 11/18/18 00:00 98.5 F 18 149/76 95 11/17/18 23:50 18 11/17/18 22:51 68 18 96/61 92 L 11/17/18 22:45 98.4 F 16 101/55 95 11/17/18 19:16 98.1 F 78 20 111/74 94 L Intake and Output 11/17/18 11/18/18 11/18/18 22:59 06:59 14:59 Intake Total 480 Balance 480 Intake: Oral 480 Other: Voiding Method Toilet # Voids 2 Weight 99.79 kg 91.3 kg PHYSICAL EXAMINATION: GENERAL: The patient is alert and oriented x3, not in any acute distress. Well developed, well nourished. HEENT: Pupils are round and equally reacting to light. EOMI. No scleral icterus. No conjunctival pallor. Normocephalic, atraumatic. No pharyngeal erythema. No thyromegaly. CARDIOVASCULAR: S1 and S2 present. No murmurs, rubs, or gallops. PULMONARY: Chest is clear to auscultation, no wheezing or crackles. ABDOMEN: Soft, nontender, nondistended, normoactive bowel sounds. No palpable organomegaly. MUSCULOSKELETAL: No joint swelling or deformity. EXTREMITIES: No cyanosis, clubbing, or pedal edema. NEUROLOGICAL: Gross neurological examination did not reveal any new focal deficits. Patient does have residual weakness on the right side SKIN: No rashes. Results CBC & Chem 7: 11/17/18 20:14 11/17/18 20:14 Labs: Abnormal Lab Results - Last 24 Hours (Table) 11/17/18 Range/Units 20:14 Sodium 133 L (137-145) mmol/L Chloride 93 L (98-107) mmol/L Carbon Dioxide 31 H (22-30) mmol/L BUN 20 H (7-17) mg/dL Creatinine 1.16 H (0.52-1.04) mg/dL Total Protein 6.1 L (6.3-8.2) g/dL Thrombosis Risk Factor Assmnt - Choose All That Apply Each Risk Factor Represents 2 Points: Age 61-74 years Thrombosis Risk Factor Assessment Total Risk Factor Score: 2 Thrombosis Risk Factor Assessment Level: Low Risk Assessment and Plan Plan: Questionable altered mental status: I did not appreciate any encephalopathy or and I altered mental status here in the hospital patient is on multiple medications concurrent that can cause toxic encephalopathy but that these are all antipsychotic medications. All the workup for stroke so far is negative and I do not have any evidence of new stroke at this time. Patient denied any suicidal ideations does have history of depression and psychiatric issues. Patient will be evaluated by social work because of her behavior at home but I cannot offer much medically regarding that issue. Patient is bit dehydrated with mildly elevated serum creatinine and the low sodium which is basically because of her HIDA chlorothiazide patient blood pressure is low in 90s systolic because of which were discontinued hydrocodone for his upon discharge and lisinopril dose will be cut down to half. Evidence of sepsis at this time -Hypertension: Management as mentioned above -History of dementia may be vascular dementia follow up with neurology as an ou tpatient, and this may be contributing to her her behavior at home. -History of CVA with right-sided residual weakness -Depression -Nicotine abuse: Counseling was provided Patient will be discharged with the above-mentioned management
[2018-11-18 15:03] VITALS: BP 105/64; PULSE 75
[2018-11-18] MEDS ORDERED: MEMANTINE 10 MG TAB PO SCH (21:00)
[2018-11-18] MEDS ORDERED: ATORVASTATIN 20 MG TAB PO SCH (21:00)
[2018-11-18] MEDS ORDERED: DONEPEZIL 10 MG TAB PO SCH (21:00)
[2018-11-19] MEDS ORDERED: LISINOPRIL 5 MG TAB PO SCH (09:00)
[2018-11-22] MEDS ORDERED: ERGOCALCIFEROL 50,000 UNIT CAP PO SCH (09:00)
[2018-11-24] MEDS ORDERED: BUPRENORPHINE TRANSDERM SCH (09:00)
== END 2018-11-18 14:56 | disposition home or self-care (01) ==
LOC: EC 19:01 → 3SCARD 22:07
PROVIDERS: ADMIT Hospitalist; ATTEND Hospitalist
DX: E86.0 Dehydration (principal); R41.3 Other amnesia; E87.1 Hypo-osmolality and hyponatremia; R79.89 Other specified abnormal findings of blood chemistry; F03.90 Unspecified dementia, unspecified severity, without behavioral disturbance, psychotic disturbance, mood disturbance, and anxiety; R94.4 Abnormal results of kidney function studies; R03.1 Nonspecific low blood-pressure reading; T50.2X5A Adverse effect of carbonic-anhydrase inhibitors, benzothiadiazides and other diuretics, initial encounter; E78.5 Hyperlipidemia, unspecified; I10 Essential (primary) hypertension; F32.9 Major depressive disorder, single episode, unspecified; F17.200 Nicotine dependence, unspecified, uncomplicated; I05.0 Rheumatic mitral stenosis; I69.351 Hemiplegia and hemiparesis following cerebral infarction affecting right dominant side; I69.320 Aphasia following cerebral infarction; Z79.02 Long term (current) use of antithrombotics/antiplatelets; Z79.899 Other long term (current) drug therapy; Z79.82 Long term (current) use of aspirin; Z88.8 Allergy status to other drugs, medicaments and biological substances; Z83.2 Family history of diseases of the blood and blood-forming organs and certain disorders involving the immune mechanism; Z80.9 Family history of malignant neoplasm, unspecified
CPT/HCPCS: 96361 ×2; 96360; 99285; 36415; 93005; 80053; 84484; 85025; 85610; 85730; 81003; 80306; 71046; 70450; G0378 ×2

== ENCOUNTER → 2018-12-16 | Outpatient (CLI) | payer MEDICARE ==
--- NOTE | 2018-12-16 17:46 | MR ---
EXAMINATION TYPE: MR lumbar spine wo/w con DATE OF EXAM: 12/16/2018 COMPARISON: Prior lumbar MRI 04/15/2018, 03/12/2018 and thoracic spine MRI dated 04/15/2018 HISTORY: Chronic low back pain, meningitis unspecified TECHNIQUE: Multiplanar, multisequence images of the lumbar spine were acquired utilizing [address] gadolinium contrast. L1-L2: Facet arthropathy is present. No significant central stenosis, disc herniation, or foraminal e ncroachment. L2-L3: Similar findings. Circumferential posterior disc bulge is present somewhat eccentric more late rally. No significant central stenosis. There is facet arthropathy change. Some left-sided foraminal encroachment present. L3-L4: Severe central stenosis may have progressed noted at L3-4 with hypertrophic changes of the fac ets causing posterior lateral mass effect on the thecal sac. Circumferential extension endplate disc complex contributes with the listhesis to cause foraminal encroachment greater on the right. There is a posterior broad-based disc bulge present contacting the anterior thecal sac. Focal low signal on T 1 and T2-weighted sequences extends from the facet on the right anteriorly and causes mass effect in the posterior thecal sac, possibly a focal hypertrophic spur and small associated synovial cyst. L4-L5: Posterior broad-based disc bulge again noted causing anterior mass effect on the thecal sac. F acet arthropathy change with hypertrophic ligamentum flavum causes some posterior lateral mass effect on the thecal sac, circumferential extension endplate discomfort results in foraminal encroachment g reater on the right. No significant central stenosis. L5-S1: Posterior broad-based disc bulge again seen, mild anterior mass effect on the thecal sac. Circ umferential extension endplate disc complex encroaches on the neural foramina, there is facet arthrop athy change present with some encroachment on the lateral recess greater on the left. Lumbar segments are intact. No paraspinal masses are identified. Conus medullaris has a normal appe arance. Minimal anterolisthesis grade 1 again noted L3-4. Loss of disc height signal present L3-4, L4 -5 and L5-S1 compatible disc desiccation and degenerative disc disease. Multilevel endplate Schmorl's node formation again seen. There is a mild spinal curvature. Crowding of the nerve roots is again se en at the L3 level, there is redundancy as noted on prior exam. Findings at the T11-12 disc space baljeet w a similar appearance with facet arthropathy as on prior. No abnormal enhancement following contrast administration. IMPRESSION: Likely some progression in spinal stenosis compared to previous exam, there is multilevel facet arthr opathy, degenerative disc disease, spinal stenosis most significant at L3-4, possible small synovial cyst. Redundancy of the nerve roots thought likely due to spinal stenosis.
== END | disposition home or self-care (01) ==
LOC: RADMRIMAIN 15:13
PROVIDERS: ATTEND Physician Assistant
DX: M48.061 Spinal stenosis, lumbar region without neurogenic claudication (principal); M51.36 Other intervertebral disc degeneration, lumbar region; M46.96 Unspecified inflammatory spondylopathy, lumbar region; G03.9 Meningitis, unspecified
CPT/HCPCS: 72158; A9585

== ENCOUNTER → 2019-01-07 | Outpatient (CLI) | payer MEDICARE ==
[2019-01-07 14:55] LABS: Basophils # (A) 0.1 k/uL (0-0.2); Basophils % (A) 1 %; Eosinophils # (A) 0.1 k/uL (0-0.7); Eosinophils % (A) 1 %; HCT 38.7 % (34.0-46.0); HGB 12.1 gm/dL (11.4-16.0); Lymphocytes # (A) 0.9 k/uL (1.0-4.8); Lymphocytes % (A) 8 %; MCH 29.1 pg (25.0-35.0); MCHC 31.3 g/dL (31.0-37.0); MCV 93.2 fL (80.0-100.0); Mean Platelet Volume 7.3; Monocytes # (A) 0.5 k/uL (0-1.0); Monocytes % (A) 4 %; Neutrophils # (A) 10.1 k/uL (1.3-7.7); Neutrophils % (A) 84 %; Platelet Count 212 k/uL (150-450); RBC 4.15 m/uL (3.80-5.40); RDW 14.8 % (11.5-15.5); WBC 11.9 k/uL (3.8-10.6)
[2019-01-07 15:51] LABS: Appearance,Urine Cloudy (Clear); Bacteria,Urine Rare /hpf; Bilirubin,Urine Negative (Negative); Blood,Urine Negative (Negative); Color,Urine Light Yellow; Glucose,Urine (UA) Negative (Negative); Ketones,Urine Negative (Negative); Leukocyte Esterase,Urine Large (Negative); Mucus,Urine Rare /hpf; Nitrite,Urine Negative (Negative); PH, Urine 6.5 (5.0-8.0); Protein,Urine Negative (Negative); RBC,Urine 3 /hpf (0-5); Specific Gravity,Urine 1.007 (1.001-1.035); Squamous Epithelial Cell,Urine 12 /hpf (0-4); Urobilinogen,Urine <2.0 mg/dL (<2.0); WBC,Urine 20 /hpf (0-5)
[2019-01-07 18:19] LABS: Erythrocyte Sedimentation Rate 8 mm/hr (0-20)
[2019-01-07 18:49] LABS: Rheumatoid Factor 6 IU/mL (0-15); Streptolysin O Ab(ASO) 58 IU/mL (0-200)
[2019-01-07 18:50] LABS: Protein, Total 5.9 g/dL (6.2-8.2)
[2019-01-07 19:08] LABS: ALT 19 U/L (8-44); AST 13 U/L (13-35); African American GFR (CKD) 79.4 (60.0-200.0); Albumin/Globulin Ratio 2.93 (1.60-3.17); Alkaline Phosphatase 138 U/L (41-126); BUN/Creat Ratio 17.78 Ratio (12.00-20.00); C Reactive Protein <0.4 mg/dL (0.0-0.8); Calcium 9.2 mg/dL (8.7-10.3); Carbon Dioxide 28.4 mmol/L (21.6-31.8); Chloride 103 mmol/L (96-109); Creatine Kinase 27 U/L (26-186); Globulin 1.5 g/dL (1.6-3.3); Glucose 102 mg/dL (70-110); LDH 358 U/L (120-246); Non-African American GFR(CKD) 68.5 (60.0-200.0); Phosphorus 3.8 mg/dL (2.4-5.1); Potassium 3.3 mmol/L (3.5-5.5); Sodium 142 mmol/L (135-145); Total Bilirubin 0.3 mg/dL (0.3-1.2); Total Protein 5.9 g/dL (6.2-8.2); Uric Acid 6.5 mg/dL (2.9-7.7)
[2019-01-07 19:16] LABS: Vitamin D 25 Hydroxy 55.2 ng/mL (30.0-100.0)
[2019-01-07 19:31] LABS: Hemoglobin A1C 5.7 % (4.0-6.0)
[2019-01-07 19:33] LABS: Cyclic Citrull Pep IgG Unit <0.5 U/mL; Cyclic Citrullinated Pep IgG NEGATIVE (NEGATIVE)
[2019-01-08 12:07] LABS: HLA B27 NEGATIVE
[2019-01-08 14:00] LABS: Angiotensin-1 Converting Enz. 42 U/L (8-52)
[2019-01-10 09:55] LABS: HCV Qualitative Result Not detected (Not detected); HCV Quant Log <1.08 (<1.08); HCV Quantitative Result <12 IU/mL (<12)
[2019-01-10 13:11] LABS: Vitamin D, 1, 25-Dihydroxy 71 pg/mL (20 - 79)
[2019-01-11 06:23] LABS: Vit B1(Thiamine) 77 ug/L (38-122)
[2019-01-11 10:39] LABS: Albumin 3.53 g/dL (3.80-4.90); Gamma Globulin 0.42 g/dL (0.70-1.50)
[2019-01-11 11:00] LABS: Lyme IgG/IgM 0.01 Index; Lyme IgG/IgM Interp NEGATIVE (NEGATIVE)
== END | disposition home or self-care (01) ==
LOC: LABWHC1 14:20
PROVIDERS: ATTEND Physical Medicine & Rehabilitation
DX: G03.9 Meningitis, unspecified (principal); C81.90 Hodgkin lymphoma, unspecified, unspecified site; M51.36 Other intervertebral disc degeneration, lumbar region; M51.16 Intervertebral disc disorders with radiculopathy, lumbar region; M47.817 Spondylosis without myelopathy or radiculopathy, lumbosacral region; Z86.69 Personal history of other diseases of the nervous system and sense organs
CPT/HCPCS: 36415; 80053; 81001; 82164; 82306; 82310; 82550; 82553; 82607; 82652; 83036; 83516; 83520; 83615; 83970; 84100; 84165; 84207; 84425; 84439; 84443; 84550; 85025; 85652; 86038; 86060; 86140; 86200; 86235; 86431; 86618; 86812; 87522

== ENCOUNTER → 2019-01-08 | Outpatient (CLI) | payer MEDICARE ==
--- NOTE | 2019-01-10 07:39 | PE ---
EXAMINATION TYPE: PET CT fusion skull to thigh DATE OF EXAM: 01/08/2019 COMPARISON: CT neck and chest September 09, 2013 HISTORY: Follicular lymphoma diagnosed 2013 with suspected recurrence per Patient. TECHNIQUE: Following the intravenous administration of 12.2 mCi of F-18 FDG, whole body images are p erformed from the skull base to the midthigh. Images are reviewed on the computer in the coronal, ax ial, and sagittal planes. Reconstructed rotating images are created on independent workstation and r eviewed on the computer. A noncontrast CT is performed in conjunction with the PET scan. SCAN: Subsequent Scan FINDINGS: Mean SUV mediastinum: 2.05 Mean SUV liver: 2.26 SKULL BASE AND NECK: No areas of suspicious hypermetabolic uptake or adenopathy. CHEST, MEDIASTINUM, AND HILAR REGION: Persistent asymmetric lateral prominent fibroglandular tissue a xial image 88 without hypermetabolic uptake. No suspicious hypermetabolic uptake or abnormal adenopat hy clearly seen with particular attention to supraclavicular and bilateral axillary regions. No areas of abnormal hypermetabolic uptake noted. ABDOMEN AND PELVIS: Abnormal right groin lymph node measuring 1.7 x 1.4 cm axial image 219, max SUV i s 5.39. Just inferior and lateral to this there is abnormal hypermetabolic 2.8 x 1.1 cm right groin l ymph nodes on axial image 228, max SUV is 4.49. Abnormal anterior left upper thigh hypermetabolic lymph node measures 1.4 x 1.1 cm axial image 249, m ax SUV is 3.27. OSSEOUS STRUCTURES: No areas of abnormal hypermetabolic uptake. OTHER CT: Cardiomegaly is present. Moderate to severe biatrial dilatation. Mild to moderate wall thickening in the bladder. IMPRESSION: Recurrent neoplasm or lymphoma is suspected bilateral groin region with new hypermetaboli c adenopathy.
== END | disposition home or self-care (01) ==
LOC: RADPETMAIN 11:59
PROVIDERS: ATTEND Internal Medicine Hematology & Oncology
DX: Z51.11 Encounter for antineoplastic chemotherapy (principal); C82.11 Follicular lymphoma grade II, lymph nodes of head, face, and neck; R11.0 Nausea
CPT/HCPCS: 78815; A9552

== ENCOUNTER → 2019-01-27 | Outpatient (CLI) | payer MEDICARE ==
[2019-01-27 12:37] LABS: Basophils % (A) 0 %; Eosinophils % (A) 0 %; HCT 41.5 % (34.0-46.0); HGB 13.7 gm/dL (11.4-16.0); Lymphocytes # (A) 0.7 k/uL (1.0-4.8); Lymphocytes % (A) 5 %; MCH 31.2 pg (25.0-35.0); MCV 94.5 fL (80.0-100.0); Monocytes # (A) 0.4 k/uL (0-1.0); Monocytes % (A) 3 %; Neutrophils # (A) 13.8 k/uL (1.3-7.7); Neutrophils % (A) 91 %; Platelet Count 264 k/uL (150-450); RBC 4.39 m/uL (3.80-5.40); RDW 14.4 % (11.5-15.5); WBC 15.3 k/uL (3.8-10.6)
== END | disposition home or self-care (01) ==
LOC: LABWHC1 11:57
PROVIDERS: ATTEND Internal Medicine Hematology & Oncology
DX: C82.11 Follicular lymphoma grade II, lymph nodes of head, face, and neck (principal)
CPT/HCPCS: 36415; 85025

== ENCOUNTER 2019-02-06 08:03 | Emergency (ER) | payer MEDICARE ==
[2019-02-06 08:08] VITALS: TEMP 98.4
[2019-02-06] MEDS ORDERED: IPRATROPIUM-ALBUTEROL 3 ML NEB INHALATION STA (08:15)
--- NOTE | 2019-02-06 08:19 | ED ---
URI HPI - General Chief Complaint: Upper Respiratory Infection Stated Complaint: Head cold Time Seen by Provider: 02/06/19 08:09 Source: patient, RN notes reviewed Mode of arrival: ambulatory Limitations: no limitations - History of Present Illness Initial Comments: 63-year-old female presents emergency Department with chief complaint cough congestion 2 weeks. Patient states she was seen approximately one week agoand antibiotics. Patient states she was placed on Augmentin for possible pneumonia. Patient denies any current fevers or chills but states that she did have some earlier. Patient states she still has chest congestion and states that it has not cleared up. Patient was also prescribed albuterol no questions but her insurance was not filling her albuterol. Patient has no complaints of chest pain. Patient states she has productive cough with phlegm, nasal congestion. Patient denies any history of asthma or COPD. - Related Data Home Medications Medication Instructions Recorded Confirmed Clopidogrel [Plavix] 75 mg PO DAILY 09/15/13 11/17/18 DULoxetine HCL [Cymbalta] 60 mg PO BID 09/15/13 11/17/18 Ergocalciferol (Vitamin D2) 50,000 unit PO MO 04/20/15 11/17/18 [Drisdol] Albuterol Inhaler [Ventolin Hfa 2 puff INHALATION RT-Q6H PRN 08/25/18 11/17/18 Inhaler] Aspirin EC [Ecotrin Low Dose] 81 mg PO DAILY 08/25/18 11/17/18 Buprenorphine [Butrans 20 MCG/HOUR] 1 patch TRANSDERM WE 08/25/18 11/17/18 Donepezil [Aricept] 10 mg PO HS 08/25/18 11/17/18 Simvastatin 40 mg PO HS 08/25/18 11/17/18 Tolterodine ER [Detrol LA] 4 mg PO DAILY 08/25/18 11/17/18 Ziprasidone HCl [Geodon] 20 mg PO Q48H 08/25/18 11/17/18 Ziprasidone HCl [Geodon] 60 mg PO DAILY 08/25/18 11/17/18 Memantine [Namenda] 10 mg PO HS 11/17/18 11/17/18 Previous Rx's Medication Instructions Recorded Lisinopril [Zestril] 5 mg PO DAILY #30 tab 11/18/18 Albuterol Nebulized [Ventolin 2.5 mg INHALATION Q4H PRN #25 nebu 02/06/19 Nebulized] Albuterol Sulfate [Proair Hfa] 1 - 2 puff INHALATION Q4HR PRN #1 02/06/19 inhaler Azithromycin [Zithromax Z-pack] 0 mg PO DIRECTED #1 pack 02/06/19 predniSONE 50 mg PO DAILY #5 tab 02/06/19 Allergies Allergy/AdvReac Type Severity Reaction Status Date / Time naproxen sodium [From Aleve] Allergy Rash/Hives Verified 02/06/19 08:08 Review of Systems ROS Statement: Those systems with pertinent positive or pertinent negative responses have been documented in the HPI. ROS Other: All systems not noted in ROS Statement are negative. Past Medical History Past Medical History: CVA/TIA, Dementia, Hyperlipidemia, Memory Impairment Additional Past Medical History / Comment(s): lymphoma. CVA APPROX 2003 PER AUNT PT WALKS WITH LIMP, RT ARM PARESIS, PT HAS SOME APHASIA, SHORT TERM MEMORY NOT GOOD. History of Any Multi-Drug Resistant Organisms: None Reported Past Surgical History: Tubal Ligation Additional Past Surgical History / Comment(s): carpal tunnel, neck, medi port, per son pt had carotid surgery Past Anesthesia/Blood Transfusion Reactions: No Reported Reaction Past Psychological History: Depression Smoking Status: Current every day smoker - Past Family History Mother Family Medical History: Cancer Father Family Medical History: Deep Vein Thrombosis (DVT) General Exam Limitations: no limitations General appearance: alert, in no apparent distress Head exam: Present: atraumatic, normocephalic, normal inspection Eye exam: Present: normal appearance, PERRL, EOMI. Absent: scleral icterus, conjunctival injection, periorbital swelling ENT exam: Present: mucous membranes moist, TM's normal bilaterally. Absent: normal exam, normal oropharynx (Postnasal drainage) Neck exam: Present: normal inspection, full ROM. Absent: tenderness, meningismus, lymphadenopathy Respiratory exam: Present: wheezes. Absent: normal lung sounds bilaterally, respiratory distress, rales, rhonchi, stridor Cardiovascular Exam: Present: regular rate, normal rhythm, normal heart sounds. Absent: systolic murmur, diastolic murmur, rubs, gallop, clicks GI/Abdominal exam: Present: soft, normal bowel sounds. Absent: distended, tenderness, guarding, rebound, rigid Course Vital Signs 02/06/19 02/06/19 02/06/19 08:04 08:17 08:44 Temperature 98.4 F Pulse Rate 87 88 Respiratory 18 16 Rate Blood Pressure 153/77 O2 Sat by Pulse 95 Oximetry 02/06/19 08:53 Temperature Pulse Rate 96 Respiratory Rate Blood Pressure O2 Sat by Pulse Oximetry - Reevaluation(s) Reevaluation #1: 02/06/19 09:04 Patient reevaluated after DuoNeb treatment. Patient states she feels greatly improved, near 100% better. I did hear some mild wheezing though moving air freely. Medical Decision Making - Medical Decision Making Chest x-ray shows no acute abnormality. Patient given DuoNeb treatment greatly improved patient this time. She feels comfortable discharged with antibiotics, steroids, inhaler. Return parameters were discussed. Disposition Clinical Impression: Acute bronchitis Disposition: HOME SELF-CARE Condition: Stable Instructions (If sedation given, give patient instructions): Acute Bronchitis (ED) Additional Instructions: Please return to the Emergency Department if symptoms worsen or any other concerns. Prescriptions: predniSONE 50 mg PO DAILY #5 tab Albuterol Sulfate [Proair Hfa] 1 - 2 puff INHALATION Q4HR PRN #1 inhaler PRN Reason: difficulty in breathing Albuterol Nebulized [Ventolin Nebulized] 2.5 mg INHALATION Q4H PRN #25 nebu PRN Reason: difficulty in breathing Azithromycin [Zithromax Z-pack] 0 mg PO DIRECTED #1 pack Is patient prescribed a controlled substance at d/c from ED?: No Referrals: Dinesh Dukes DO [Primary Care Provider] - 1-2 days Time of Disposition: 09:06
[2019-02-06 08:22] VITALS: RESP 16
--- NOTE | 2019-02-06 08:38 | XR ---
EXAMINATION TYPE: XR chest 2V DATE OF EXAM: 02/06/2019 HISTORY: cough x 2 weeks. REFERENCE: Previous study dated 11/17/2018. FINDINGS: Lung volumes are prominent. Heart size upper limits of normal. There are mild increased mar kings throughout the chest. There is no pneumonia or edema. IMPRESSION: NO ACTIVE INTRATHORACIC DISEASE.
[2019-02-06] MEDS: cefTRIAXone 1,000 MG VIAL (IM USE) IM STA ×2 (09:10→09:16)
[2019-02-06] MEDS: methylPREDNISolone SOD SUCCI 125 MG/2 ML VIAL IM ONE ×2 (09:10→09:20)
[2019-02-06] MEDS ORDERED: cefTRIAXone 1,000 MG VIAL (IM USE) IM STA (09:14)
[2019-02-06 09:22] VITALS: BP 150/80; PULSE 90
== END 2019-02-06 09:15 | disposition home or self-care (01) ==
LOC: EC 08:03
DX: J20.9 Acute bronchitis, unspecified (principal); F03.90 Unspecified dementia, unspecified severity, without behavioral disturbance, psychotic disturbance, mood disturbance, and anxiety; E78.5 Hyperlipidemia, unspecified; F32.9 Major depressive disorder, single episode, unspecified; F17.200 Nicotine dependence, unspecified, uncomplicated; Z79.82 Long term (current) use of aspirin; Z79.02 Long term (current) use of antithrombotics/antiplatelets; Z79.899 Other long term (current) drug therapy; Z88.6 Allergy status to analgesic agent; Z86.73 Personal history of transient ischemic attack (TIA), and cerebral infarction without residual deficits; Z85.72 Personal history of non-Hodgkin lymphomas
CPT/HCPCS: 94640; 71046; 99283; 96372 ×2; J2930; J0696

== ENCOUNTER → 2019-02-10 | Outpatient (CLI) | payer MEDICARE ==
[2019-02-10 09:03] LABS: Basophils # (A) 0.1 k/uL (0-0.2); Basophils % (A) 1 %; Eosinophils # (A) 0.1 k/uL (0-0.7); Eosinophils % (A) 1 %; HCT 46.9 % (34.0-46.0); HGB 15.3 gm/dL (11.4-16.0); Lymphocytes # (A) 0.9 k/uL (1.0-4.8); Lymphocytes % (A) 4 %; MCH 31.2 pg (25.0-35.0); MCHC 32.6 g/dL (31.0-37.0); MCV 95.6 fL (80.0-100.0); Monocytes # (A) 0.8 k/uL (0-1.0); Monocytes % (A) 4 %; Neutrophils # (A) 18.8 k/uL (1.3-7.7); Neutrophils % (A) 89 %; Platelet Count 181 k/uL (150-450); RDW 13.6 % (11.5-15.5); WBC 21.1 k/uL (3.8-10.6)
[2019-02-10 18:35] LABS: African American GFR (CKD) 62.3 (60.0-200.0); Albumin 4.7 g/dL (3.80-4.90); Albumin/Globulin Ratio 2.76 (1.60-3.17); Anion Gap 11.6 mmol/L (4.00-12.00); BUN/Creat Ratio 18.18 Ratio (12.00-20.00); Carbon Dioxide 30.4 mmol/L (21.6-31.8); Globulin 1.7 g/dL (1.6-3.3); Potassium 3.9 mmol/L (3.5-5.5); Total Bilirubin 0.6 mg/dL (0.2-1.2); Total Protein 6.4 g/dL (6.2-8.2)
== END | disposition home or self-care (01) ==
LOC: LABWHC1 08:44
PROVIDERS: ATTEND Internal Medicine Hematology & Oncology
DX: C82.11 Follicular lymphoma grade II, lymph nodes of head, face, and neck (principal)
CPT/HCPCS: 36415; 80053; 85025

== ENCOUNTER 2019-02-23 06:35 | Emergency (ER) | payer MEDICARE ==
[2019-02-23] MEDS ORDERED: methylPREDNISolone SOD SUCCI 125 MG/2 ML VIAL IV STA (06:53)
[2019-02-23] MEDS ORDERED: SODIUM CHLORIDE 0.9% 1,000 ML IV STA (06:53)
[2019-02-23] MEDS ORDERED: ALBUTEROL NEBULIZED 2.5 MG/3 ML INHALATION STA (06:53)
[2019-02-23] MEDS ORDERED: IPRATROPIUM-ALBUTEROL 3 ML NEB INHALATION STA (06:53)
[2019-02-23] MEDS ORDERED: ACETAMINOPHEN TAB 500 MG TAB PO STA (06:53)
[2019-02-23] MEDS ORDERED: SODIUM CHLORIDE 0.9% 1,000 ML IV ONE ×2 (06:56→08:50)
--- NOTE | 2019-02-23 06:59 | ED ---
URI HPI - General Chief Complaint: Upper Respiratory Infection Stated Complaint: Cough Time Seen by Provider: 02/23/19 06:39 Source: patient, RN notes reviewed, old records reviewed Mode of arrival: wheelchair Limitations: physical limitation - History of Present Illness Initial Comments: Patient 63-year-old female, presents return today with 2 days of cough and congestion. She is a smoker. Patient reports that she has been treated in this past month for pneumonia with Augmentin and then later put on azithromycin. She reports she's finish his antibiotics within the past week as well as steroids. Patient states that she continues to have some wheezing. She denies any specific nausea or vomiting. - Related Data Home Medications Medication Instructions Recorded Confirmed Clopidogrel [Plavix] 75 mg PO DAILY 09/15/13 02/23/19 DULoxetine HCL [Cymbalta] 60 mg PO BID 09/15/13 02/23/19 Ergocalciferol (Vitamin D2) 50,000 unit PO MO 04/20/15 02/23/19 [Drisdol] Aspirin EC [Ecotrin Low Dose] 81 mg PO DAILY 08/25/18 02/23/19 Buprenorphine [Butrans 20 MCG/HOUR] 1 patch TRANSDERM WE 08/25/18 02/23/19 Donepezil [Aricept] 10 mg PO HS 08/25/18 02/23/19 Simvastatin 40 mg PO HS 08/25/18 02/23/19 Tolterodine ER [Detrol LA] 4 mg PO DAILY 08/25/18 02/23/19 Ziprasidone HCl [Geodon] 20 mg PO Q48H 08/25/18 02/23/19 Ziprasidone HCl [Geodon] 60 mg PO DAILY 08/25/18 02/23/19 Memantine [Namenda] 10 mg PO DAILY 11/17/18 02/23/19 Hydrochlorothiazide [Hydrodiuril] 25 mg PO DAILY 02/06/19 02/23/19 Hydrocortisone Cream 1 applic TOPICAL BID 02/06/19 02/23/19 [Hydrocortisone 2.5% Cream] Albuterol Sulfate [Proair Hfa] 1 - 2 puff INHALATION RT-Q6H PRN 02/23/19 02/23/19 Furosemide [Lasix] 20 mg PO DAILY 02/23/19 02/23/19 Lisinopril [Zestril] 5 mg PO DAILY 02/23/19 02/23/19 buPROPion HCL [Wellbutrin SR] 150 mg PO BID 02/23/19 02/23/19 Previous Rx's Medication Instructions Recorded Albuterol Nebulized [Ventolin 2.5 mg INHALATION Q4H #30 nebu 02/23/19 Nebulized] Ipratropium-Albuterol Nebulize 3 ml INHALATION QID #30 neb 02/23/19 [Duoneb 0.5 mg-3 mg/3 ml Soln] predniSONE 50 mg PO DAILY #5 tablet 02/23/19 Allergies Allergy/AdvReac Type Severity Reaction Status Date / Time naproxen sodium [From Aleve] Allergy Rash/Hives Verified 02/23/19 08:11 Review of Systems ROS Statement: Those systems with pertinent positive or pertinent negative responses have been documented in the HPI. ROS Other: All systems not noted in ROS Statement are negative. Past Medical History Past Medical History: CVA/TIA, Dementia, Hyperlipidemia, Memory Impairment Additional Past Medical History / Comment(s): lymphoma. CVA APPROX 2003 PER AUNT PT WALKS WITH LIMP, RT ARM PARESIS, PT HAS SOME APHASIA, SHORT TERM MEMORY NOT GOOD. History of Any Multi-Drug Resistant Organisms: None Reported Past Surgical History: Tubal Ligation Additional Past Surgical History / Comment(s): carpal tunnel, neck, medi port, per son pt had carotid surgery Past Anesthesia/Blood Transfusion Reactions: No Reported Reaction Past Psychological History: Depression Smoking Status: Current every day smoker Past Alcohol Use History: None Reported Past Drug Use History: None Reported - Past Family History Mother Family Medical History: Cancer Father Family Medical History: Deep Vein Thrombosis (DVT) General Exam - General Exam Comments Initial Comments: 63-year-old female. Alert and oriented. No distress. Limitations: physical limitation General appearance: alert, in no apparent distress Head exam: Present: atraumatic, normocephalic, normal inspection Eye exam: Present: normal appearance, PERRL, EOMI. Absent: scleral icterus, conjunctival injection, periorbital swelling ENT exam: Present: normal exam, mucous membranes moist Neck exam: Present: normal inspection. Absent: tenderness, meningismus, lymphadenopathy Respiratory exam: Present: wheezes. Absent: normal lung sounds bilaterally, respiratory distress, rhonchi, stridor Cardiovascular Exam: Present: regular rate, normal rhythm, normal heart sounds. Absent: systolic murmur, diastolic murmur, rubs, gallop, clicks GI/Abdominal exam: Present: soft, normal bowel sounds. Absent: distended, tenderness, guarding, rebound, rigid Extremities exam: Present: normal inspection, full ROM, normal capillary refill. Absent: tenderness, pedal edema, joint swelling, calf tenderness Back exam: Present: normal inspection Neurological exam: Present: alert Psychiatric exam: Present: normal affect, normal mood Skin exam: Present: warm, dry, intact, normal color. Absent: rash Course Vital Signs 02/23/19 02/23/19 02/23/19 06:37 06:49 07:26 Temperature 98.2 F Pulse Rate 100 88 Respiratory 18 18 Rate Blood Pressure 127/78 O2 Sat by Pulse 96 Oximetry 02/23/19 07:42 Temperature Pulse Rate 92 Respiratory Rate Blood Pressure O2 Sat by Pulse Oximetry - Reevaluation(s) Reevaluation #1: 02/23/19 08:44 She was reevaluated this time after breathing treatments at this significant improvement of her wheezing. She states she feels well. She does have some minimal rhonchi on exam but is improved from initial arrival. Medical Decision Making - Medical Decision Making 63-year-old female with history of smoking presents today with 2 days of cough and worsening congestion. She's had a nonproductive cough. At this time Patient was given IV steroids, and lab work was reviewed. White blood cell count within normal limits. EKG and troponin tests are negative. BNP is negative. Chest x-ray shows new interstitial edema. She has no chest pain at this time and no other complaints. I did discuss that Patient needs to quit smoking for greater than 5 minutes. Discussed that the cough congestions likely related to COPD exacerbation and that we'll discharge Patient with a prescription for steroids. She's been on multiple\chest x-ray did not show pneumonia soft necessary at this time. Discussed a decongestant medicine such as Mucinex or Sudafed. Patient is agreeable to treatment plan will comply. Return parameters were discussed. Given referral for pulmonology. - Lab Data Result diagrams: 02/23/19 07:07 02/23/19 07:07 Lab Results 02/23/19 02/23/19 02/23/19 Range/Units 07:07 07:07 07:07 WBC 7.5 (3.8-10.6) k/uL RBC 3.97 (3.80-5.40) m/uL Hgb 12.7 (11.4-16.0) gm/dL Hct 37.3 (34.0-46.0) % MCV 93.8 (80.0-100.0) fL MCH 32.0 (25.0-35.0) pg MCHC 34.1 (31.0-37.0) g/dL RDW 13.2 (11.5-15.5) % Plt Count 134 L (150-450) k/uL Neutrophils % 73 % Lymphocytes % 14 % Monocytes % 5 % Eosinophils % 3 % Basophils % 2 % Neutrophils # 5.5 (1.3-7.7) k/uL Lymphocytes # 1.1 (1.0-4.8) k/uL Monocytes # 0.4 (0-1.0) k/uL Eosinophils # 0.2 (0-0.7) k/uL Basophils # 0.1 (0-0.2) k/uL Sodium 139 (137-145) mmol/L Potassium 3.5 (3.5-5.1) mmol/L Chloride 102 (98-107) mmol/L Carbon Dioxide 31 H (22-30) mmol/L Anion Gap 6 mmol/L BUN 17 (7-17) mg/dL Creatinine 0.83 (0.52-1.04) mg/dL Est GFR (CKD-EPI)AfAm 88 (>60 ml/min/1.73 sqM) Est GFR (CKD-EPI)NonAf 76 (>60 ml/min/1.73 sqM) Glucose 127 H (74-99) mg/dL Calcium 8.8 (8.4-10.2) mg/dL Troponin I (0.000-0.034) ng/mL NT-Pro-B Natriuret Pep pg/mL Influenza Type A RNA Not Detected (Not Detectd) Influenza Type B (PCR) Not Detected (Not Detectd) RSV (PCR) (Negative) 02/23/19 02/23/19 02/23/19 Range/Units 07:07 07:07 07:07 WBC (3.8-10.6) k/uL RBC (3.80-5.40) m/uL Hgb (11.4-16.0) gm/dL Hct (34.0-46.0) % MCV (80.0-100.0) fL MCH (25.0-35.0) pg MCHC (31.0-37.0) g/dL RDW (11.5-15.5) % Plt Count (150-450) k/uL Neutrophils % % Lymphocytes % % Monocytes % % Eosinophils % % Basophils % % Neutrophils # (1.3-7.7) k/uL Lymphocytes # (1.0-4.8) k/uL Monocytes # (0-1.0) k/uL Eosinophils # (0-0.7) k/uL Basophils # (0-0.2) k/uL Sodium (137-145) mmol/L Potassium (3.5-5.1) mmol/L Chloride (98-107) mmol/L Carbon Dioxide (22-30) mmol/L Anion Gap mmol/L BUN (7-17) mg/dL Creatinine (0.52-1.04) mg/dL Est GFR (CKD-EPI)AfAm (>60 ml/min/1.73 sqM) Est GFR (CKD-EPI)NonAf (>60 ml/min/1.73 sqM) Glucose (74-99) mg/dL Calcium (8.4-10.2) mg/dL Troponin I <0.012 (0.000-0.034) ng/mL NT-Pro-B Natriuret Pep 144 pg/mL Influenza Type A RNA (Not Detectd) Influenza Type B (PCR) (Not Detectd) RSV (PCR) Negative (Negative) - Radiology Data Radiology results: report reviewed Patient's EKG shows normal sinus rhythm. Low voltage QRS. Borderline EKG. Ventricular rate of 88 bpm. Pulse 156 ms. QS duration is 76 ms. QT QTc is 378/457 ms. Disposition Clinical Impression: COPD exacerbation Disposition: HOME SELF-CARE Condition: Good Instructions (If sedation given, give patient instructions): Upper Respiratory Infection (ED) Additional Instructions: Please use medication as discussed. Please follow up with family doctor if symptoms have not improved over the next two days. Please return to the emergency room if your symptoms increase or worsen or for any other concerns. Patient Should stop smoking. Prescriptions: Ipratropium-Albuterol Nebulize [Duoneb 0.5 mg-3 mg/3 ml Soln] 3 ml INHALATION QID #30 neb predniSONE 50 mg PO DAILY #5 tablet Albuterol Nebulized [Ventolin Nebulized] 2.5 mg INHALATION Q4H #30 nebu Is patient prescribed a controlled substance at d/c from ED?: No Referrals: Dinesh Dukes DO [Primary Care Provider] - 1-2 days Chong Roque DO [Doctor of Osteopathic Medicine] - 1-2 days Aidee Boles MD [STAFF PHYSICIAN] - 1-2 days Time of Disposition: 08:46
--- NOTE | 2019-02-23 07:21 | XR ---
EXAMINATION TYPE: XR chest 2V DATE OF EXAM: 02/23/2019 COMPARISON: 02/06/2019 HISTORY: Cough TECHNIQUE: Frontal and lateral views of the chest are obtained. FINDINGS: Cephalization is seen with mild interstitial edema throughout. No focal consolidation, ple ural effusion or pneumothorax. Cardiomediastinal silhouette is normal limits of normal. Osseous struc tures are intact with mild degenerative changes of the spine. Pulmonary per inflation with flattening of the diaphragms represents underlying COPD. IMPRESSION: New mild interstitial pulmonary edema.
[2019-02-23 07:33] LABS: Basophils # (A) 0.1 k/uL (0-0.2); Basophils % (A) 2 %; Eosinophils # (A) 0.2 k/uL (0-0.7); Eosinophils % (A) 3 %; HCT 37.3 % (34.0-46.0); HGB 12.7 gm/dL (11.4-16.0); Lymphocytes # (A) 1.1 k/uL (1.0-4.8); Lymphocytes % (A) 14 %; MCHC 34.1 g/dL (31.0-37.0); MCV 93.8 fL (80.0-100.0); Mean Platelet Volume 7.2; Monocytes # (A) 0.4 k/uL (0-1.0); Monocytes % (A) 5 %; Neutrophils # (A) 5.5 k/uL (1.3-7.7); Neutrophils % (A) 73 %; Platelet Count 134 k/uL (150-450); RBC 3.97 m/uL (3.80-5.40); RDW 13.2 % (11.5-15.5); WBC 7.5 k/uL (3.8-10.6)
[2019-02-23 07:47] LABS: Calcium 8.8 mg/dL (8.4-10.2); Potassium 3.5 mmol/L (3.5-5.1)
[2019-02-23 10:26] VITALS: BP 118/72; PULSE 100; RESP 18; TEMP 97.9
== END 2019-02-23 10:25 | disposition home or self-care (01) ==
LOC: EC 06:35
DX: J44.1 Chronic obstructive pulmonary disease with (acute) exacerbation (principal); J84.89 Other specified interstitial pulmonary diseases; Z71.6 Tobacco abuse counseling; F03.90 Unspecified dementia, unspecified severity, without behavioral disturbance, psychotic disturbance, mood disturbance, and anxiety; E78.5 Hyperlipidemia, unspecified; F32.9 Major depressive disorder, single episode, unspecified; F17.200 Nicotine dependence, unspecified, uncomplicated; Z88.6 Allergy status to analgesic agent; Z79.02 Long term (current) use of antithrombotics/antiplatelets; Z79.52 Long term (current) use of systemic steroids; Z79.82 Long term (current) use of aspirin; Z79.899 Other long term (current) drug therapy; Z86.73 Personal history of transient ischemic attack (TIA), and cerebral infarction without residual deficits; Z87.01 Personal history of pneumonia (recurrent); Z85.72 Personal history of non-Hodgkin lymphomas; Z53.8 Procedure and treatment not carried out for other reasons
CPT/HCPCS: 36415; 94640; 93005; 83880; 80048; 84484; 85025; 87040; 87502; 87634; 71046; 99285; 96374; 96361 ×2; 99406; J2930

== ENCOUNTER 2019-02-25 09:43 | Inpatient (IN) | payer MEDICARE ==
[2019-02-25] MEDS ORDERED: IPRATROPIUM-ALBUTEROL 3 ML NEB INHALATION STA (10:16)
[2019-02-25 10:31] LABS: Basophils # (A) 0.2 k/uL (0-0.2); Basophils % (A) 1 %; Eosinophils # (A) 0.1 k/uL (0-0.7); Eosinophils % (A) 0 %; HCT 40.2 % (34.0-46.0); HGB 13.3 gm/dL (11.4-16.0); Lymphocytes # (A) 0.6 k/uL (1.0-4.8); Lymphocytes % (A) 3 %; MCH 31.7 pg (25.0-35.0); MCHC 33.2 g/dL (31.0-37.0); MCV 95.5 fL (80.0-100.0); Mean Platelet Volume 7.3; Monocytes # (A) 0.6 k/uL (0-1.0); Monocytes % (A) 3 %; Neutrophils # (A) 19.1 k/uL (1.3-7.7); Neutrophils % (A) 91 %; Platelet Count 146 k/uL (150-450); RDW 13.6 % (11.5-15.5); WBC 20.9 k/uL (3.8-10.6)
[2019-02-25 10:40] LABS: Calcium 9.1 mg/dL (8.4-10.2); Magnesium 1.7 mg/dL (1.6-2.3); Total Bilirubin 0.5 mg/dL (0.2-1.3); Total Protein 6.5 g/dL (6.3-8.2)
[2019-02-25 10:52] LABS: INR 0.8 (<1.2); Prothrombin Time 9.3 sec (9.0-12.0)
--- NOTE | 2019-02-25 11:02 | XR ---
EXAMINATION TYPE: XR chest 2V DATE OF EXAM: 02/25/2019 COMPARISON: 02/23/2019 HISTORY: Difficulty breathing TECHNIQUE: Frontal and lateral views of the chest are obtained. FINDINGS: Diffuse peribronchial cuffing. Flattening of the diaphragms indicative of underlying COPD. Pulmonary hyperinflation is seen. Cardiomediastinal silhouette is mildly enlarged. No sizable pneumo thorax or pleural effusion. IMPRESSION: New diffuse peribronchial cuffing with underlying COPD. Consider acute airway disease knight ch as bronchitis.
[2019-02-25] MEDS ORDERED: SODIUM CHLORIDE 0.9% 1,000 ML IV STA ×2 (11:42→11:43)
[2019-02-25] MEDS ORDERED: VANCOMYCIN 1,500 MG in SODIUM CHLORIDE 0.9% 250 ML IVPB STA (11:43)
[2019-02-25] MEDS ORDERED: methylPREDNISolone SOD SUCCI 125 MG/2 ML VIAL IV STA (11:44)
[2019-02-25] MEDS ORDERED: MAGNESIUM SULFATE-D5W PMX 1 GM in DEXTROSE/WATER 1 100ML.BAG IVPB ONE (11:44)
[2019-02-25] MEDS ORDERED: NALOXONE 0.4 MG/ML 1 ML VIAL IV PRN (11:46)
--- NOTE | 2019-02-25 11:46 | ED ---
SOB HPI - General Chief Complaint: Shortness of Breath Stated Complaint: SOB, Congested Time Seen by Provider: 02/25/19 09:52 Source: patient Mode of arrival: ambulatory Limitations: no limitations - History of Present Illness Initial Comments: The patient is a 63-year-old female with past medical history of CVA and dementia who presents to the emergency room with reported cough and difficulty breathing. She was seen previously in our emergency department for a cough on February 06. She was diagnosed with pneumonia and discharged home on antibiotic s. She then again presented 2 days ago with cough and shortness of breath. She was placed on prednisone and nebulizer treatments. She was supposed to follow up with pulmonology regarding a possible diagnosis of new onset COPD. Patient has been doing her breathing treatments at home as directed. She continues to smoke. She has been taking the prednisone. She lives with her aunt and noted today that she was increasingly short of breath. She states that she is breathing fast and heavy and therefore called EMS. She described is hypoxic with an oxygen saturation of 89%. She does not wear oxygen at home. She denies any chest pain. No history of DVT or PE. No ripping or tearing sensation to her back. Denies any fevers or chills. Does admit to a nonproductive cough. No hemoptysis or recent travel. No abdominal pain. There are no other alleviating, precipitating or modifying factors - Related Data Home Medications Medication Instructions Recorded Confirmed Clopidogrel [Plavix] 75 mg PO DAILY 09/15/13 02/25/19 DULoxetine HCL [Cymbalta] 60 mg PO BID 09/15/13 02/25/19 Ergocalciferol (Vitamin D2) 50,000 unit PO MO 04/20/15 02/25/19 [Drisdol] Aspirin EC [Ecotrin Low Dose] 81 mg PO DAILY 08/25/18 02/25/19 Buprenorphine [Butrans 20 MCG/HOUR] 1 patch TRANSDERM WE 08/25/18 02/25/19 Donepezil [Aricept] 10 mg PO HS 08/25/18 02/25/19 Simvastatin 40 mg PO HS 08/25/18 02/25/19 Tolterodine ER [Detrol LA] 4 mg PO DAILY 08/25/18 02/25/19 Ziprasidone HCl [Geodon] 20 mg PO Q48H 08/25/18 02/25/19 Ziprasidone HCl [Geodon] 60 mg PO DAILY 08/25/18 02/25/19 Memantine [Namenda] 10 mg PO DAILY 11/17/18 02/25/19 Hydrocortisone Cream 1 applic TOPICAL BID 02/06/19 02/25/19 [Hydrocortisone 2.5% Cream] Albuterol Sulfate [Proair Hfa] 2 puff INHALATION RT-Q6H PRN 02/23/19 02/25/19 Furosemide [Lasix] 20 mg PO DAILY 02/23/19 02/25/19 buPROPion HCL [Wellbutrin SR] 150 mg PO BID 02/23/19 02/25/19 Albuterol Nebulized [Ventolin 2.5 mg INHALATION RT-Q4H PRN 02/25/19 02/25/19 Nebulized] Lisinopril [Zestril] 10 mg PO DAILY 02/25/19 02/25/19 Previous Rx's Medication Instructions Recorded Amoxic-Pot Clav 875-125Mg 1 each PO Q12HR #6 tab 03/02/19 [Augmentin 875-125] Ipratropium-Albuterol Nebulize 3 ml INHALATION TID #90 ampul.neb 03/02/19 [Duoneb 0.5 mg-3 mg/3 ml Soln] Nicotine 21Mg/24Hr Patch [Habitrol] 1 patch TRANSDERM DAILY #14 patch 03/02/19 guaiFENesin [Mucinex] 1,200 mg PO Q12HR #30 tablet.er 03/02/19 predniSONE 10 mg PO DAILY #30 tab 03/02/19 Allergies Allergy/AdvReac Type Severity Reaction Status Date / Time naproxen sodium [From Aleve] Allergy Rash/Hives Verified 02/25/19 11:24 Review of Systems ROS Statement: Those systems with pertinent positive or pertinent negative responses have been documented in the HPI. ROS Other: All systems not noted in ROS Statement are negative. Past Medical History Past Medical History: CVA/TIA, Dementia, Hyperlipidemia, Memory Impairment Additional Past Medical History / Comment(s): lymphoma. CVA APPROX 2003 PER AUNT PT WALKS WITH LIMP, RT ARM PARESIS, PT HAS SOME APHASIA, SHORT TERM MEMORY NOT GOOD. History of Any Multi-Drug Resistant Organisms: None Reported Past Surgical History: Tubal Ligation Additional Past Surgical History / Comment(s): carpal tunnel, neck, medi port, per son pt had carotid surgery Past Anesthesia/Blood Transfusion Reactions: No Reported Reaction Past Psychological History: Depression Smoking Status: Current every day smoker Past Alcohol Use History: None Reported Past Drug Use History: None Reported - Past Family History Mother Family Medical History: Cancer Father Family Medical History: Deep Vein Thrombosis (DVT) General Exam Limitations: no limitations General appearance: alert, in distress Head exam: Present: atraumatic, normocephalic, normal inspection Eye exam: Present: normal appearance, PERRL, EOMI. Absent: scleral icterus, conjunctival injection, periorbital swelling ENT exam: Present: normal exam, mucous membranes moist Neck exam: Present: normal inspection. Absent: tenderness, meningismus, lymphadenopathy Respiratory exam: Present: respiratory distress, wheezes, accessory muscle use, decreased breath sounds, other (tachypnea, conversational dyspnea). Absent: rales, rhonchi, stridor Cardiovascular Exam: Present: normal rhythm, tachycardia, normal heart sounds. Absent: systolic murmur, diastolic murmur, rubs, gallop, clicks GI/Abdominal exam: Present: soft, normal bowel sounds. Absent: distended, tenderness, guarding, rebound, rigid Extremities exam: Present: normal inspection, full ROM, normal capillary refill. Absent: tenderness, pedal edema, joint swelling, calf tenderness Back exam: Present: normal inspection Neurological exam: Present: alert, oriented X3, CN II-XII intact Psychiatric exam: Present: normal affect, normal mood Skin exam: Present: warm, dry, intact, normal color. Absent: rash Course Vital Signs 02/25/19 02/25/19 02/25/19 09:51 10:39 10:47 Temperature 97.4 F L Pulse Rate 119 H 113 H 117 H Respiratory 26 H Rate Blood Pressure 112/71 O2 Sat by Pulse 89 L Oximetry 02/25/19 02/25/19 11:32 12:12 Temperature Pulse Rate 108 H 106 H Respiratory 16 20 Rate Blood Pressure 93/58 113/98 O2 Sat by Pulse 96 90 L Oximetry Medical Decision Making - Medical Decision Making Upon arrival the patient is promptly placed in a trauma bay 1 because of her tachycardia and hypoxia. She is placed on 3 L of oxygen. She is diffusely wheezy and therefore DuoNeb breathing treatments order. Peripheral IV is established and the patient is given a gram of magnesium and 125 mg of Solu- Medrol. Laboratory studies were conducted and the patient went for a chest x- ray. White blood cell count is elevated at 20.9. 2 days ago this was normal at 7.5. Platelets are 146. Potassium is low at 3.0. I did replace this with 40 mEq of potassium. A chest x-ray is performed which demonstrates new diffuse peribronchial cuffing with underlying COPD per radiology read. I am concerned for an infectious component and therefore did cover the patient with Zosyn and Vanco. I discussed this with the patient. She remains tachycardic however oxygen saturation has improved to 94% on 3 L. I did recommend hospital admission for which patient did agree due to her failed outpatient treatment. Admitted the patient to Dr. Chu. He recommended that I consult Dr. Barnett. Patient remained in stable condition and was transported to the floor - Lab Data Result diagrams: 02/28/19 08:02 02/28/19 08:02 Lab Results 02/25/19 02/25/19 02/25/19 Range/Units 10:11 10:11 10:11 WBC 20.9 H (3.8-10.6) k/uL RBC 4.20 (3.80-5.40) m/uL Hgb 13.3 (11.4-16.0) gm/dL Hct 40.2 (34.0-46.0) % MCV 95.5 (80.0-100.0) fL MCH 31.7 (25.0-35.0) pg MCHC 33.2 (31.0-37.0) g/dL RDW 13.6 (11.5-15.5) % Plt Count 146 L (150-450) k/uL Neutrophils % 91 % Lymphocytes % 3 % Monocytes % 3 % Eosinophils % 0 % Basophils % 1 % Neutrophils # 19.1 H (1.3-7.7) k/uL Lymphocytes # 0.6 L (1.0-4.8) k/uL Monocytes # 0.6 (0-1.0) k/uL Eosinophils # 0.1 (0-0.7) k/uL Basophils # 0.2 (0-0.2) k/uL PT (9.0-12.0) sec INR (<1.2) APTT (22.0-30.0) sec Sodium 141 (137-145) mmol/L Potassium 3.0 L (3.5-5.1) mmol/L Chloride 103 (98-107) mmol/L Carbon Dioxide 29 (22-30) mmol/L Anion Gap 9 mmol/L BUN 20 H (7-17) mg/dL Creatinine 0.90 (0.52-1.04) mg/dL Est GFR (CKD-EPI)AfAm 80 (>60 ml/min/1.73 sqM) Est GFR (CKD-EPI)NonAf 69 (>60 ml/min/1.73 sqM) Glucose 141 H (74-99) mg/dL POC Glucose (mg/dL) (75-99) mg/dL POC Glu Aluminum Siding Applicator ID Plasma Lactic Acid Praneeth (0.7-2.0) mmol/L Calcium 9.1 (8.4-10.2) mg/dL Magnesium 1.7 (1.6-2.3) mg/dL Total Bilirubin 0.5 (0.2-1.3) mg/dL AST 18 (14-36) U/L ALT 25 (9-52) U/L Alkaline Phosphatase 112 (38-126) U/L Troponin I (0.000-0.034) ng/mL NT-Pro-B Natriuret Pep 2170 pg/mL Total Protein 6.5 (6.3-8.2) g/dL Albumin 4.0 (3.5-5.0) g/dL IgG (700.0-1600.0) mg/dL IgA (60.0-350.0) mg/dL IgM (40.0-280.0) mg/dL 02/25/19 02/25/19 02/25/19 Range/Units 10:11 10:11 12:24 WBC (3.8-10.6) k/uL RBC (3.80-5.40) m/uL Hgb (11.4-16.0) gm/dL Hct (34.0-46.0) % MCV (80.0-100.0) fL MCH (25.0-35.0) pg MCHC (31.0-37.0) g/dL RDW (11.5-15.5) % Plt Count (150-450) k/uL Neutrophils % % Lymphocytes % % Monocytes % % Eosinophils % % Basophils % % Neutrophils # (1.3-7.7) k/uL Lymphocytes # (1.0-4.8) k/uL Monocytes # (0-1.0) k/uL Eosinophils # (0-0.7) k/uL Basophils # (0-0.2) k/uL PT 9.3 (9.0-12.0) sec INR 0.8 (<1.2) APTT 20.0 L (22.0-30.0) sec Sodium (137-145) mmol/L Potassium (3.5-5.1) mmol/L Chloride (98-107) mmol/L Carbon Dioxide (22-30) mmol/L Anion Gap mmol/L BUN (7-17) mg/dL Creatinine (0.52-1.04) mg/dL Est GFR (CKD-EPI)AfAm (>60 ml/min/1.73 sqM) Est GFR (CKD-EPI)NonAf (>60 ml/min/1.73 sqM) Glucose (74-99) mg/dL POC Glucose (mg/dL) (75-99) mg/dL POC Glu Aluminum Siding Applicator ID Plasma Lactic Acid Praneeth 1.6 (0.7-2.0) mmol/L Calcium (8.4-10.2) mg/dL Magnesium (1.6-2.3) mg/dL Total Bilirubin (0.2-1.3) mg/dL AST (14-36) U/L ALT (9-52) U/L Alkaline Phosphatase (38-126) U/L Troponin I 0.019 (0.000-0.034) ng/mL NT-Pro-B Natriuret Pep pg/mL Total Protein (6.3-8.2) g/dL Albumin (3.5-5.0) g/dL IgG (700.0-1600.0) mg/dL IgA (60.0-350.0) mg/dL IgM (40.0-280.0) mg/dL 02/25/19 02/25/19 02/25/19 Range/Units 15:02 20:26 22:15 WBC (3.8-10.6) k/uL RBC (3.80-5.40) m/uL Hgb (11.4-16.0) gm/dL Hct (34.0-46.0) % MCV (80.0-100.0) fL MCH (25.0-35.0) pg MCHC (31.0-37.0) g/dL RDW (11.5-15.5) % Plt Count (150-450) k/uL Neutrophils % % Lymphocytes % % Monocytes % % Eosinophils % % Basophils % % Neutrophils # (1.3-7.7) k/uL Lymphocytes # (1.0-4.8) k/uL Monocytes # (0-1.0) k/uL Eosinophils # (0-0.7) k/uL Basophils # (0-0.2) k/uL PT (9.0-12.0) sec INR (<1.2) APTT (22.0-30.0) sec Sodium (137-145) mmol/L Potassium (3.5-5.1) mmol/L Chloride (98-107) mmol/L Carbon Dioxide (22-30) mmol/L Anion Gap mmol/L BUN (7-17) mg/dL Creatinine (0.52-1.04) mg/dL Est GFR (CKD-EPI)AfAm (>60 ml/min/1.73 sqM) Est GFR (CKD-EPI)NonAf (>60 ml/min/1.73 sqM) Glucose (74-99) mg/dL POC Glucose (mg/dL) 346 H (75-99) mg/dL POC Glu Aluminum Siding Applicator ID Penny Horton Plasma Lactic Acid Praneeth (0.7-2.0) mmol/L Calcium (8.4-10.2) mg/dL Magnesium (1.6-2.3) mg/dL Total Bilirubin (0.2-1.3) mg/dL AST (14-36) U/L ALT (9-52) U/L Alkaline Phosphatase (38-126) U/L Troponin I 0.042 H* 0.033 (0.000-0.034) ng/mL NT-Pro-B Natriuret Pep pg/mL Total Protein (6.3-8.2) g/dL Albumin (3.5-5.0) g/dL IgG (700.0-1600.0) mg/dL IgA (60.0-350.0) mg/dL IgM (40.0-280.0) mg/dL 02/26/19 02/26/19 02/26/19 Range/Units 07:00 07:00 07:00 WBC 13.6 H (3.8-10.6) k/uL RBC 3.44 L (3.80-5.40) m/uL Hgb 11.1 L (11.4-16.0) gm/dL Hct 32.9 L (34.0-46.0) % MCV 95.7 (80.0-100.0) fL MCH 32.3 (25.0-35.0) pg MCHC 33.7 (31.0-37.0) g/dL RDW 13.4 (11.5-15.5) % Plt Count 127 L (150-450) k/uL Neutrophils % 93 % Lymphocytes % 3 % Monocytes % 2 % Eosinophils % 0 % Basophils % 0 % Neutrophils # 12.7 H (1.3-7.7) k/uL Lymphocytes # 0.4 L (1.0-4.8) k/uL Monocytes # 0.3 (0-1.0) k/uL Eosinophils # 0.0 (0-0.7) k/uL Basophils # 0.0 (0-0.2) k/uL PT (9.0-12.0) sec INR (<1.2) APTT (22.0-30.0) sec Sodium 141 (137-145) mmol/L Potassium 4.3 (3.5-5.1) mmol/L Chloride 108 H (98-107) mmol/L Carbon Dioxide 27 (22-30) mmol/L Anion Gap 6 mmol/L BUN 24 H (7-17) mg/dL Creatinine 0.75 (0.52-1.04) mg/dL Est GFR (CKD-EPI)AfAm >90 (>60 ml/min/1.73 sqM) Est GFR (CKD-EPI)NonAf 86 (>60 ml/min/1.73 sqM) Glucose 177 H (74-99) mg/dL POC Glucose (mg/dL) (75-99) mg/dL POC Glu Aluminum Siding Applicator ID Plasma Lactic Acid Praneeth (0.7-2.0) mmol/L Calcium 8.9 (8.4-10.2) mg/dL Magnesium (1.6-2.3) mg/dL Total Bilirubin (0.2-1.3) mg/dL AST (14-36) U/L ALT (9-52) U/L Alkaline Phosphatase (38-126) U/L Troponin I (0.000-0.034) ng/mL NT-Pro-B Natriuret Pep pg/mL Total Protein (6.3-8.2) g/dL Albumin (3.5-5.0) g/dL IgG 368.0 L (700.0-1600.0) mg/dL IgA 40.4 L (60.0-350.0) mg/dL IgM <16.9 L (40.0-280.0) mg/dL 02/26/19 02/26/19 02/26/19 Range/Units 07:18 11:22 17:19 WBC (3.8-10.6) k/uL RBC (3.80-5.40) m/uL Hgb (11.4-16.0) gm/dL Hct (34.0-46.0) % MCV (80.0-100.0) fL MCH (25.0-35.0) pg MCHC (31.0-37.0) g/dL RDW (11.5-15.5) % Plt Count (150-450) k/uL Neutrophils % % Lymphocytes % % Monocytes % % Eosinophils % % Basophils % % Neutrophils # (1.3-7.7) k/uL Lymphocytes # (1.0-4.8) k/uL Monocytes # (0-1.0) k/uL Eosinophils # (0-0.7) k/uL Basophils # (0-0.2) k/uL PT (9.0-12.0) sec INR (<1.2) APTT (22.0-30.0) sec Sodium (137-145) mmol/L Potassium (3.5-5.1) mmol/L Chloride (98-107) mmol/L Carbon Dioxide (22-30) mmol/L Anion Gap mmol/L BUN (7-17) mg/dL Creatinine (0.52-1.04) mg/dL Est GFR (CKD-EPI)AfAm (>60 ml/min/1.73 sqM) Est GFR (CKD-EPI)NonAf (>60 ml/min/1.73 sqM) Glucose (74-99) mg/dL POC Glucose (mg/dL) 196 H 235 H 250 H (75-99) mg/dL POC Glu Aluminum Siding Applicator Estefania Mars Alvarado, Estefania PaulronnieNess gracia Plasma Lactic Acid Praneeth (0.7-2.0) mmol/L Calcium (8.4-10.2) mg/dL Magnesium (1.6-2.3) mg/dL Total Bilirubin (0.2-1.3) mg/dL AST (14-36) U/L ALT (9-52) U/L Alkaline Phosphatase (38-126) U/L Troponin I (0.000-0.034) ng/mL NT-Pro-B Natriuret Pep pg/mL Total Protein (6.3-8.2) g/dL Albumin (3.5-5.0) g/dL IgG (700.0-1600.0) mg/dL IgA (60.0-350.0) mg/dL IgM (40.0-280.0) mg/dL 02/26/19 02/27/19 02/27/19 Range/Units 21:11 07:00 10:23 WBC (3.8-10.6) k/uL RBC (3.80-5.40) m/uL Hgb (11.4-16.0) gm/dL Hct (34.0-46.0) % MCV (80.0-100.0) fL MCH (25.0-35.0) pg MCHC (31.0-37.0) g/dL RDW (11.5-15.5) % Plt Count (150-450) k/uL Neutrophils % % Lymphocytes % % Monocytes % % Eosinophils % % Basophils % % Neutrophils # (1.3-7.7) k/uL Lymphocytes # (1.0-4.8) k/uL Monocytes # (0-1.0) k/uL Eosinophils # (0-0.7) k/uL Basophils # (0-0.2) k/uL PT (9.0-12.0) sec INR (<1.2) APTT (22.0-30.0) sec Sodium 142 (137-145) mmol/L Potassium 3.9 (3.5-5.1) mmol/L Chloride 105 (98-107) mmol/L Carbon Dioxide 25 (22-30) mmol/L Anion Gap 12 mmol/L BUN 24 H (7-17) mg/dL Creatinine 0.88 (0.52-1.04) mg/dL Est GFR (CKD-EPI)AfAm 82 (>60 ml/min/1.73 sqM) Est GFR (CKD-EPI)NonAf 71 (>60 ml/min/1.73 sqM) Glucose 138 H (74-99) mg/dL POC Glucose (mg/dL) 263 H 301 H (75-99) mg/dL POC Glu Aluminum Siding Applicator ID Rocio Taylor Chloe Plasma Lactic Acid Praneeth (0.7-2.0) mmol/L Calcium 9.2 (8.4-10.2) mg/dL Magnesium (1.6-2.3) mg/dL Total Bilirubin (0.2-1.3) mg/dL AST (14-36) U/L ALT (9-52) U/L Alkaline Phosphatase (38-126) U/L Troponin I (0.000-0.034) ng/mL NT-Pro-B Natriuret Pep pg/mL Total Protein (6.3-8.2) g/dL Albumin (3.5-5.0) g/dL IgG (700.0-1600.0) mg/dL IgA (60.0-350.0) mg/dL IgM (40.0-280.0) mg/dL 02/27/19 Range/Units 11:16 WBC (3.8-10.6) k/uL RBC (3.80-5.40) m/uL Hgb (11.4-16.0) gm/dL Hct (34.0-46.0) % MCV (80.0-100.0) fL MCH (25.0-35.0) pg MCHC (31.0-37.0) g/dL RDW (11.5-15.5) % Plt Count (150-450) k/uL Neutrophils % % Lymphocytes % % Monocytes % % Eosinophils % % Basophils % % Neutrophils # (1.3-7.7) k/uL Lymphocytes # (1.0-4.8) k/uL Monocytes # (0-1.0) k/uL Eosinophils # (0-0.7) k/uL Basophils # (0-0.2) k/uL PT (9.0-12.0) sec INR (<1.2) APTT (22.0-30.0) sec Sodium (137-145) mmol/L Potassium (3.5-5.1) mmol/L Chloride (98-107) mmol/L Carbon Dioxide (22-30) mmol/L Anion Gap mmol/L BUN (7-17) mg/dL Creatinine (0.52-1.04) mg/dL Est GFR (CKD-EPI)AfAm (>60 ml/min/1.73 sqM) Est GFR (CKD-EPI)NonAf (>60 ml/min/1.73 sqM) Glucose (74-99) mg/dL POC Glucose (mg/dL) 136 H (75-99) mg/dL POC Glu Aluminum Siding Applicator ID Samara Ngo Plasma Lactic Acid Praneeth (0.7-2.0) mmol/L Calcium (8.4-10.2) mg/dL Magnesium (1.6-2.3) mg/dL Total Bilirubin (0.2-1.3) mg/dL AST (14-36) U/L ALT (9-52) U/L Alkaline Phosphatase (38-126) U/L Troponin I (0.000-0.034) ng/mL NT-Pro-B Natriuret Pep pg/mL Total Protein (6.3-8.2) g/dL Albumin (3.5-5.0) g/dL IgG (700.0-1600.0) mg/dL IgA (60.0-350.0) mg/dL IgM (40.0-280.0) mg/dL - EKG Data EKG Comments: EKG demonstrates sinus tachycardia with a ventricular rate of 113. SC interval 140. QRS 76. QTC 425. There are no acute ST segment elevations or depressions concerning for ischemic changes. Disposition Clinical Impression: COPD exacerbation, Leukocytosis, Hypoxia Disposition: ADMITTED IP TO THIS HOSP Condition: Stable Is patient prescribed a controlled substance at d/c from ED?: No Decision to Admit Reason: Admit from EC Decision Date: 02/25/19 Decision Time: 11:46
[2019-02-25] MEDS ORDERED: POTASSIUM CHLORIDE ER 20 MEQ TAB.ER PO STA (11:50)
[2019-02-25] MEDS: SODIUM CHLORIDE 0.9% 1,000 ML IV SCH (12:23)
[2019-02-25] MEDS ORDERED: PIPERACILLIN-TAZOBACTAM 3.375 GM in SODIUM CHLORIDE 0.9% 100 ML IVPB STA (13:18)
[2019-02-25 15:03] VITALS: BMI 35.2
[2019-02-25] MEDS ORDERED: Potassium Replacement Protocol 1 EACH MISC MISCELLANE PRN (15:50)
--- NOTE | 2019-02-25 15:55 | P.CNPUL ---
History of Present Illness Consult date: 02/25/19 Requesting physician: Crys Kimble Reason for consult: dyspnea, cough Chief complaint: Dyspnea, cough, congestion History of present illness: This is a 63-year-old white female patient of Dr. Nicole Dukes, with past medical history of CVA in 2004, history of B cell lymphoma since 2013, and according to the patient she had recent reoccurrence with enlarged lymph nodes in bilateral groins, and she is currently undergoing treatment unclear of what type. Other medical history includes moderate mitral valve stenosis, moderate pulmonary hypertension, hyperlipidemia, history of carotid endarterectomy, and patient carries over 44 years of smoking history, smoking currently a pack a day. She had previously undergone evaluation for her mitral valve stenosis by Dr. Sharma in December 2018, and was found to be a poor candidate for surgery with the possibility of balloon valvotomy down the road. Recent PET scan from January 2019 showed recurrent neoplasm or lymphoma in bilateral groin region and new hypermetabolic adenopathy. 02/25/2019 patient came into the emergency department for evaluation of increasing shortness of breath, chest congestion, cough, but no fever or chills, no headaches, no lightheadedness or dizziness, no nausea or vomiting. Chest x-ray showed diffuse peribronchial coughing with underlying COPD, acute airway disease such as bronchitis to be considered. No definite evidence of pneumonia, recent has been afebrile, lab work reviewed showing white blood cell count of 20.9, hemoglobin of 13.3, INR 0.8, with PT is 9.3, sodium is 141, potassium is 3.0, chloride is 103, CO2 is 29, BUN is 20 creatinine 0.9, lactic acid was 1.6, troponin is negative 1, proBNP is 2170, with no definite evidence of fluid overload on the chest x-ray. Patient does wear home O2, and she states she has Ventolin and albuterol nebulized treatments at home. Does not follow with a lung doctor. Patient has been started on a combination of Zosyn and vancomycin, breathing treatments, and we're asked to see the patient consultation for ears to be acute exacerbation of chronic obstructive pulmonary disease with acute bronchitis but no definite evidence of pneumonia Review of Systems All systems: negative Constitutional: Denies chills, Denies fever Eyes: denies blurred vision, denies pain Ears, nose, mouth and throat: Denies headache, Denies sore throat Cardiovascular: Denies chest pain, Denies shortness of breath Respiratory: Reports dyspnea, Denies cough Gastrointestinal: Denies abdominal pain, Denies diarrhea, Denies nausea, Denies vomiting Genitourinary: Denies dysuria, Denies hematuria Musculoskeletal: Denies myalgias Integumentary: Denies pruritus, Denies rash Neurological: Denies numbness, Denies weakness Psychiatric: Denies anxiety, Denies depression Endocrine: Denies fatigue, Denies weight change Past Medical History Past Medical History: CVA/TIA, Dementia, Hyperlipidemia, Memory Impairment Additional Past Medical History / Comment(s): lymphoma. CVA APPROX 2003 PER AUNT PT WALKS WITH LIMP, RT ARM PARESIS, PT HAS SOME APHASIA, SHORT TERM MEMORY NOT GOOD. History of Any Multi-Drug Resistant Organisms: None Reported Past Surgical History: Tubal Ligation Additional Past Surgical History / Comment(s): carpal tunnel, neck, medi port, per son pt had carotid surgery Past Anesthesia/Blood Transfusion Reactions: No Reported Reaction Past Psychological History: Depression Smoking Status: Current every day smoker Past Alcohol Use History: None Reported Additional Past Alcohol Use History / Comment(s): per son leonardo, pt smokes 2 packs per day Past Drug Use History: None Reported Additional Drug Use History / Comment(s): current smoker, uses 1 PPD, has been trying quit - Past Family History Mother Family Medical History: Cancer Father Family Medical History: Deep Vein Thrombosis (DVT) Medications and Allergies Home Medications Medication Instructions Recorded Confirmed Type Clopidogrel [Plavix] 75 mg PO DAILY 09/15/13 02/25/19 History DULoxetine HCL [Cymbalta] 60 mg PO BID 09/15/13 02/25/19 History Ergocalciferol (Vitamin D2) 50,000 unit PO MO 04/20/15 02/25/19 History [Drisdol] Aspirin EC [Ecotrin Low Dose] 81 mg PO DAILY 08/25/18 02/25/19 History Buprenorphine [Butrans 20 MCG/HOUR] 1 patch TRANSDERM WE 08/25/18 02/25/19 History Donepezil [Aricept] 10 mg PO HS 08/25/18 02/25/19 History Simvastatin 40 mg PO HS 08/25/18 02/25/19 History Tolterodine ER [Detrol LA] 4 mg PO DAILY 08/25/18 02/25/19 History Ziprasidone HCl [Geodon] 20 mg PO Q48H 08/25/18 02/25/19 History Ziprasidone HCl [Geodon] 60 mg PO DAILY 08/25/18 02/25/19 History Memantine [Namenda] 10 mg PO DAILY 11/17/18 02/25/19 History Hydrochlorothiazide [Hydrodiuril] 25 mg PO DAILY 02/06/19 02/25/19 History Hydrocortisone Cream 1 applic TOPICAL BID 02/06/19 02/25/19 History [Hydrocortisone 2.5% Cream] Albuterol Sulfate [Proair Hfa] 2 puff INHALATION RT-Q6H PRN 02/23/19 02/25/19 History Furosemide [Lasix] 20 mg PO DAILY 02/23/19 02/25/19 History buPROPion HCL [Wellbutrin SR] 150 mg PO BID 02/23/19 02/25/19 History predniSONE 50 mg PO DAILY #5 tablet 02/23/19 02/25/19 Rx Albuterol Nebulized [Ventolin 2.5 mg INHALATION RT-Q4H PRN 02/25/19 02/25/19 History Nebulized] Lisinopril [Zestril] 10 mg PO DAILY 02/25/19 02/25/19 History Allergies Allergy/AdvReac Type Severity Reaction Status Date / Time naproxen sodium [From Aleve] Allergy Rash/Hives Verified 02/25/19 11:24 Physical Exam Vitals: Vital Signs Temp Pulse Pulse Resp BP BP Pulse Ox 02/25/19 14:24 98.5 F 96 22 110/55 100 02/25/19 12:12 106 H 20 113/98 90 L 02/25/19 11:32 108 H 16 93/58 96 02/25/19 10:47 117 H 02/25/19 10:39 113 H 02/25/19 09:51 97.4 F L 119 H 26 H 112/71 89 L Intake and Output 02/25/19 02/25/19 02/25/19 06:59 14:59 22:59 Other: Weight 96.162 kg GENERAL EXAM: Alert, pleasant, somewhat of a poor historian 63-year-old white female, on 2 L of oxygen with a pulse ox of 100% comfortable in no apparent distress. HEAD: Normocephalic/atraumatic. EYES: Normal reaction of pupils, equal size. Conjunctiva pink, sclera white. NOSE: Clear with pink turbinates. THROAT: No erythema or exudates. NECK: No masses, no JVD, no thyroid enlargement, no adenopathy. CHEST: No chest wall deformity. Symmetrical expansion. LUNGS: Equal air entry with congestive cough, diffuse rhonchi and some wheezes CVS: Regular rate and rhythm, normal S1 and S2, no gallops, no murmurs, no rubs ABDOMEN: Soft, nontender. No hepatosplenomegaly, normal bowel sounds, no guarding or rigidity. EXTREMITIES: No clubbing, no edema, no cyanosis, 2+ pulses and upper and lower extremities. MUSCULOSKELETAL: Muscle strength and tone normal. SPINE: No scoliosis or deformity SKIN: No rashes CENTRAL NERVOUS SYSTEM: Alert and oriented -3. No focal deficits, tone is normal in all 4 extremities. PSYCHIATRIC: Alert and oriented -3. Appropriate affect. Intact judgment and insight. Results - Laboratory Findings CBC and BMP: 02/25/19 10:11 02/25/19 10:11 PT/INR, D-dimer PT 9.3 sec (9.0-12.0) 02/25/19 10:11 INR 0.8 (<1.2) 02/25/19 10:11 Abnormal lab findings: Abnormal Labs 02/25/19 02/25/19 02/25/19 10:11 10:11 10:11 WBC 20.9 H Plt Count 146 L Neutrophils # 19.1 H Lymphocytes # 0.6 L APTT 20.0 L Potassium 3.0 L BUN 20 H Glucose 141 H - Diagnostic Findings Chest x-ray: report reviewed, image reviewed Assessment and Plan Plan: Assessment: #1. Shortness of breath related to acute exacerbation of COPD and tracheobronchitis, no definite evidence of pneumonia on the chest x-ray #2. Chronic and ongoing history of tobacco dependence, carries [id number] smoking history #3. Chronic COPD the severity of which is unknown at this time, #4. Leukocytosis #5. Hypokalemia, being replaced per protocol #6. History of mitral valve stenosis with moderate pulmonary hypertension and moderate tricuspid valve regurgitation #7. Previous history of carotid endarterectomy for carotid stenosis #8. Hyperlipidemia #9. History of B cell lymphoma with recent recurrence and patient is currently receiving treatments unclear of what type #10. 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 Dementia Plan: Continue Zosyn, will discontinue vancomycin, chest x-ray has been reviewed showing no definite evidence of pneumonia, we'll treat the patient's COPD and tracheobronchitis, we'll continue with IV Zosyn for another 24 hours, may switch to oral antibiotics starting tomorrow, senna sputum culture blood culture has been sent and pending, continue Pulmicort and Perforomist, and DuoNeb breathing treatments, correct serum potassium per potassium replacement protocol. We'll consult hematology/oncology in regards to history of B-cell lymphoma and patient states that she is undergoing treatment currently. We'll continue to follow I performed a history & physical examination of the patient and discussed their management with my nurse practitioner, Anabelle Stearns. I reviewed the nurse practitioner's note and agree with the documented findings and plan of care. Lung sounds are positive for diffuse rhonchi. The findings and the impression was discussed with the patient. I attest to the documentation by the nurse practitioner. Time with Patient: Greater than 30
[2019-02-25] MEDS: POTASSIUM CHLORIDE ER 20 MEQ TAB.ER PO SCH ×2 (16:09→17:33)
[2019-02-25] MEDS: NICOTINE 21MG/24HR PATCH TRANSDERM SCH (16:09)
--- NOTE | 2019-02-25 16:19 | P.CONS ---
History of Present Illness - Reason for Consult Consult date: 02/25/19 NHL Requesting physician: Osvaldo Chu - Chief Complaint HENRIQUE, cough - History of Present Illness Ms. Ureña is a very pleasant 63-year-old female patient treated for NHL with Oncologist Dr. Garcia who has presented to the hospital for persistent and progressive shortness of breath, difficulty breathing and cough. Patient thinks she may have had a fever, mild chills, no hemoptysis, mild palpitations, her chest is hurt with coughing, no nausea or vomiting, abdominal pain or cramping, acute changes in bowel or bladder habits. She states she just completed a 4 week cycle of Rituxan. She is going to be receiving Rituxan every 3 months. When her disease is exacerbated she will have cervical lymph nodes and left groin lymph nodes associated with swelling, she does not feel any of these lymph nodes at this time. Review of Systems 14 point ROS is negative except as stated in HPI Past Medical History Past Medical History: Cancer, CVA/TIA, Dementia, Hyperlipidemia, Memory Impairment Additional Past Medical History / Comment(s): lymphoma. CVA APPROX 2003 PER AUNT PT WALKS WITH LIMP, RT ARM PARESIS, PT HAS SOME APHASIA, SHORT TERM MEMORY NOT GOOD. History of Any Multi-Drug Resistant Organisms: None Reported Past Surgical History: Tubal Ligation Additional Past Surgical History / Comment(s): carpal tunnel, neck, medi port, per son pt had carotid surgery Past Anesthesia/Blood Transfusion Reactions: No Reported Reaction Past Psychological History: Depression Additional Psychological History / Comment(s): Aunt reports pt has mild dementia Smoking Status: Current every day smoker Past Alcohol Use History: None Reported Additional Past Alcohol Use History / Comment(s): per son leonardo, pt smokes 2 packs per day Past Drug Use History: None Reported Additional Drug Use History / Comment(s): current smoker, uses 1 PPD, has been trying quit - Past Family History Mother Family Medical History: Cancer Father Family Medical History: Deep Vein Thrombosis (DVT) Medications and Allergies Home Medications Medication Instructions Recorded Confirmed Type Clopidogrel [Plavix] 75 mg PO DAILY 09/15/13 02/25/19 History DULoxetine HCL [Cymbalta] 60 mg PO BID 09/15/13 02/25/19 History Ergocalciferol (Vitamin D2) 50,000 unit PO MO 04/20/15 02/25/19 History [Drisdol] Aspirin EC [Ecotrin Low Dose] 81 mg PO DAILY 08/25/18 02/25/19 History Buprenorphine [Butrans 20 MCG/HOUR] 1 patch TRANSDERM WE 08/25/18 02/25/19 History Donepezil [Aricept] 10 mg PO HS 08/25/18 02/25/19 History Simvastatin 40 mg PO HS 08/25/18 02/25/19 History Tolterodine ER [Detrol LA] 4 mg PO DAILY 08/25/18 02/25/19 History Ziprasidone HCl [Geodon] 20 mg PO Q48H 08/25/18 02/25/19 History Ziprasidone HCl [Geodon] 60 mg PO DAILY 08/25/18 02/25/19 History Memantine [Namenda] 10 mg PO DAILY 11/17/18 02/25/19 History Hydrochlorothiazide [Hydrodiuril] 25 mg PO DAILY 02/06/19 02/25/19 History Hydrocortisone Cream 1 applic TOPICAL BID 02/06/19 02/25/19 History [Hydrocortisone 2.5% Cream] Albuterol Sulfate [Proair Hfa] 2 puff INHALATION RT-Q6H PRN 02/23/19 02/25/19 History Furosemide [Lasix] 20 mg PO DAILY 02/23/19 02/25/19 History buPROPion HCL [Wellbutrin SR] 150 mg PO BID 02/23/19 02/25/19 History predniSONE 50 mg PO DAILY #5 tablet 02/23/19 02/25/19 Rx Albuterol Nebulized [Ventolin 2.5 mg INHALATION RT-Q4H PRN 02/25/19 02/25/19 History Nebulized] Lisinopril [Zestril] 10 mg PO DAILY 02/25/19 02/25/19 History Allergies Allergy/AdvReac Type Severity Reaction Status Date / Time naproxen sodium [From Aleve] Allergy Rash/Hives Verified 02/25/19 11:24 Physical Exam Vitals: Vital Signs Temp Pulse Pulse Resp BP BP Pulse Ox 02/25/19 14:24 98.5 F 96 22 110/55 100 02/25/19 12:12 106 H 20 113/98 90 L 02/25/19 11:32 108 H 16 93/58 96 11/22/19 10:47 117 H 02/25/19 10:39 113 H 02/25/19 09:51 97.4 F L 119 H 26 H 112/71 89 L Intake and Output 02/25/19 02/25/19 02/25/19 06:59 14:59 22:59 Other: Weight 96.162 kg - Constitutional General appearance: cooperative, no acute distress, obese - EENT Eyes: anicteric sclerae, EOMI ENT: hearing grossly normal, normal oropharynx - Neck Deep rt supraclavicular, rubbery LN, not well defined Neck: lymphadenopathy - Respiratory Respiratory: bilateral: rhonchi, wheezing - Cardiovascular Rhythm: regular Heart sounds: normal: S1, S2 Abnormal Heart Sounds: no systolic murmur, no diastolic murmur, no rub, no S3 G allop, no S4 Gallop, no click, no other leg Peripheral Edema: bilateral: None - Gastrointestinal General gastrointestinal: no absent bowel sounds, no decreased bowel sounds, no distended, no hepatomegaly, no hyperactive bowel sounds, normal bowel sounds, no organomegaly, no rigid, no scaphoid, soft, no splenomegaly, no tenderness, no umbilical hernia, no ventral hernia - Integumentary Integumentary: pale - Neurologic No gross deficits - Musculoskeletal Musculoskeletal: generalized weakness - Psychiatric Psychiatric: A&O x's 3, appropriate affect, intact judgment & insight Results CBC & Chem 7: 02/25/19 10:11 02/25/19 10:11 Labs: Abnormal Lab Results - Last 24 Hours (Table) 02/25/19 02/25/19 02/25/19 Range/Units 10:11 10:11 10:11 WBC 20.9 H (3.8-10.6) k/uL Plt Count 146 L (150-450) k/uL Neutrophils # 19.1 H (1.3-7.7) k/uL Lymphocytes # 0.6 L (1.0-4.8) k/uL APTT 20.0 L (22.0-30.0) sec Potassium 3.0 L (3.5-5.1) mmol/L BUN 20 H (7-17) mg/dL Glucose 141 H (74-99) mg/dL Troponin I (0.000-0.034) ng/mL 02/25/19 Range/Units 15:02 WBC (3.8-10.6) k/uL Plt Count (150-450) k/uL Neutrophils # (1.3-7.7) k/uL Lymphocytes # (1.0-4.8) k/uL APTT (22.0-30.0) sec Potassium (3.5-5.1) mmol/L BUN (7-17) mg/dL Glucose (74-99) mg/dL Troponin I 0.042 H* (0.000-0.034) ng/mL Chest x-ray: report reviewed Assessment and Plan (1) NHL (non-Hodgkin's lymphoma) Narrative/Plan: Patient is a stage III non-Hodgkin's lymphoma, treated by Dr. Garcia. Patient just recently completed a 4 week cycle of Rituxan. She is now going to be Receiving Rituxan on a every 3 month basis. She will return to Dr. connors today for her follow-up. Due to statement of patient having frequent recurrent infections over the last couple of months, will draw immunoglobulin levels. The patient to request these labs and take to her Oncologist. No acute intervention from a Heme/Onc standpoint. Current Visit: Yes Status: Chronic Priority: Medium Code(s): C85.90 - NON- HODGKIN LYMPHOMA, UNSPECIFIED, UNSPECIFIED SITE SNOMED Code(s): 172840188 (2) Leukocytosis Narrative/Plan: Moderate leukocytosis with absolute neutrophilia, currently being treated for bronchitis/acute infection with abx and steroids. family is not able to tell me patient's baseline WBC/differential. on chart review, during admissions to this institution patient has had an elevated WBC. Continue to monitor CBC and differential. Current Visit: Yes Status: Acute Priority: Medium Code(s): D72.829 - ELEVATED WHITE BLOOD CELL COUNT, UNSPECIFIED SNOMED Code(s): 243948196
[2019-02-25] MEDS: IPRATROPIUM-ALBUTEROL 3 ML NEB INHALATION SCH ×2 (16:27→20:00)
[2019-02-25] MEDS: methylPREDNISolone SOD SUCCI 125 MG/2 ML VIAL IV SCH (17:33)
[2019-02-25] MEDS: BUDESONIDE 1 MG/2 ML NEBU INHALATION SCH (20:02)
--- NOTE | 2019-02-25 20:04 | P.HPIM ---
History of Present Illness H&P Date: 02/25/19 Chief Complaint: Cough or shortness of breath History of presenting complaint: This is a pleasant 63-year-old patient of Dr. Dukes. Patient has a diagnosis of non-Hodgkin's lymphoma being followed by and has received a few cycles of Rituxan. Responding well to the same. Other chronic stable medical conditions include hyperlipidemia, some paresis of the right side from a prior stroke and some resulting dysphagia from the same. Patient's short-term memory is also affected. Patient presents with worsening cough congested in the chest not really able to expectorate no fever no chills. Tired rundown. Some wheezing. Appetite is okay. Started on IV Zosyn and ER. Review of systems: GEN.: tired EYES: None HEENT: None NECK: None RESPIRATORY: Has about CARDIOVASCULAR: None GASTROINTESTINAL: None GENITOURINARY: None MUSCULOSKELETAL: None LYMPHATICS: None HEMATOLOGICAL: As above PSYCHIATRY: Short-term memory loss NEUROLOGICAL: As above Social history: Lives alone. 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 No alcohol. Physical examination: VITAL SIGNS: 97.4, 119, 26, 11 2/71, 89% room air GENERAL: BMI 35.3, propped bit tired. EYES: Pupils equal. Conjunctiva normal. HEENT: External appearance of nose and ears normal, oral cavity grossly normal. NECK: JVD not raised; masses not palpable. HEART: First and second heart sounds are normal; no edema. LUNGS: Respiratory rate increased, audible congestion, increased breath sounds prolonged expiration and wheezing. ABDOMEN: Soft, nontender, liver spleen not palpable, no masses palpable. PSYCH: Alert and oriented x3; mood and affect normal. NEUROLOGICAL: [Cranial nerves grossly intact; no facial asymmetry, power of the right side 4/5, slight dysarthria LYMPHATICS: No lymph nodes palpable in the axilla and neck INVESTIGATIONS, reviewed in the clinical context: White count 20.9 hemoglobin 13.3 platelets 446 percussion 3 bun 20 creatinine 0.90 Troponin I 0.019, 0.04 to EKG tracing personally reviewed by me-sinus tachycardia Chest x-ray film personally reviewed by me-some right basilar infiltrate Assessment: -Right lower lobe pneumonia suspected gram-negative organism in a patient who is receiving Rituxan -Acute COPD exacerbation in a current smoker -Acute hypoxic respiratory failure secondary to COPD exacerbation and pneumonia -Non-Hodgkin's lymphoma undergoing treatment with Rituxan -Chronic right hemiparesis and dysarthria from prior stroke -Short-term memory loss from prior stroke --Essential hypertension -Chronic urinary incontinence -Depression otherwise specified -Obesity BMI 35.3 Plan: Patient started IV Zosyn. The breasts bronchodilators IV steroids. We'll add inhaled steroids. Home medications resumed. Consultations made to pulmonary and oncology. We will also add Mucinex 400 mg twice a day. Lovenox for DVT prophylaxis. Care was discussed with the patient. Question also. Smoke cessation counseling: This was done with the patient. Nicotine patch is being given. More than 3 minutes was spent for this Past Medical History Past Medical History: CVA/TIA, Dementia, Hyperlipidemia, Memory Impairment Additional Past Medical History / Comment(s): lymphoma. CVA APPROX 2003 PER AUNT PT WALKS WITH LIMP, RT ARM PARESIS, PT HAS SOME APHASIA, SHORT TERM MEMORY NOT GOOD. History of Any Multi-Drug Resistant Organisms: None Reported Past Surgical History: Tubal Ligation Additional Past Surgical History / Comment(s): carpal tunnel, neck, medi port, per son pt had carotid surgery Past Anesthesia/Blood Transfusion Reactions: No Reported Reaction Past Psychological History: Depression Smoking Status: Current every day smoker Past Alcohol Use History: None Reported Past Drug Use History: None Reported - Past Family History Mother Family Medical History: Cancer Father Family Medical History: Deep Vein Thrombosis (DVT) Medications and Allergies Home Medications Medication Instructions Recorded Confirmed Type Clopidogrel [Plavix] 75 mg PO DAILY 09/15/13 02/25/19 History DULoxetine HCL [Cymbalta] 60 mg PO BID 09/15/13 02/25/19 History Ergocalciferol (Vitamin D2) 50,000 unit PO MO 04/20/15 02/25/19 History [Drisdol] Aspirin EC [Ecotrin Low Dose] 81 mg PO DAILY 08/25/18 02/25/19 History Buprenorphine [Butrans 20 MCG/HOUR] 1 patch TRANSDERM WE 08/25/18 02/25/19 History Donepezil [Aricept] 10 mg PO HS 08/25/18 02/25/19 History Simvastatin 40 mg PO HS 08/25/18 02/25/19 History Tolterodine ER [Detrol LA] 4 mg PO DAILY 08/25/18 02/25/19 History Ziprasidone HCl [Geodon] 20 mg PO Q48H 08/25/18 02/25/19 History Ziprasidone HCl [Geodon] 60 mg PO DAILY 08/25/18 02/25/19 History Memantine [Namenda] 10 mg PO DAILY 11/17/18 02/25/19 History Hydrochlorothiazide [Hydrodiuril] 25 mg PO DAILY 02/06/19 02/25/19 History Hydrocortisone Cream 1 applic TOPICAL BID 02/06/19 02/25/19 History [Hydrocortisone 2.5% Cream] Albuterol Sulfate [Proair Hfa] 2 puff INHALATION RT-Q6H PRN 02/23/19 02/25/19 History Furosemide [Lasix] 20 mg PO DAILY 02/23/19 02/25/19 History buPROPion HCL [Wellbutrin SR] 150 mg PO BID 02/23/19 02/25/19 History predniSONE 50 mg PO DAILY #5 tablet 02/23/19 02/25/19 Rx Albuterol Nebulized [Ventolin 2.5 mg INHALATION RT-Q4H PRN 02/25/19 02/25/19 History Nebulized] Lisinopril [Zestril] 10 mg PO DAILY 02/25/19 02/25/19 History Allergies Allergy/AdvReac Type Severity Reaction Status Date / Time naproxen sodium [From Aleve] Allergy Rash/Hives Verified 02/25/19 11:24 Physical Exam Vitals: Vital Signs Temp Pulse Pulse Resp BP BP Pulse Ox 02/25/19 19:47 98.0 F 90 16 111/69 96 02/25/19 16:36 91 02/25/19 16:28 91 02/25/19 14:24 98.5 F 96 22 110/55 100 02/25/19 12:12 106 H 20 113/98 90 L 02/25/19 11:32 108 H 16 93/58 96 02/25/19 10:47 117 H 02/25/19 10:39 113 H 02/25/19 09:51 97.4 F L 119 H 26 H 112/71 89 L Intake and Output 02/25/19 02/25/19 02/25/19 06:59 14:59 22:59 Other: Voiding Method Toilet Weight 96.162 kg Results CBC & Chem 7: 02/25/19 10:11 02/25/19 10:11 Labs: Abnormal Lab Results - Last 24 Hours (Table) 02/25/19 02/25/19 02/25/19 Range/Units 10:11 10:11 10:11 WBC 20.9 H (3.8-10.6) k/uL Plt Count 146 L (150-450) k/uL Neutrophils # 19.1 H (1.3-7.7) k/uL Lymphocytes # 0.6 L (1.0-4.8) k/uL APTT 20.0 L (22.0-30.0) sec Potassium 3.0 L (3.5-5.1) mmol/L BUN 20 H (7-17) mg/dL Glucose 141 H (74-99) mg/dL Troponin I (0.000-0.034) ng/mL 02/25/19 Range/Units 15:02 WBC (3.8-10.6) k/uL Plt Count (150-450) k/uL Neutrophils # (1.3-7.7) k/uL Lymphocytes # (1.0-4.8) k/uL APTT (22.0-30.0) sec Potassium (3.5-5.1) mmol/L BUN (7-17) mg/dL Glucose (74-99) mg/dL Troponin I 0.042 H* (0.000-0.034) ng/mL Thrombosis Risk Factor Assmnt - Choose All That Apply Each Factor Represents 1 point: Abnormal pulmonary function (COPD), Medical pt on bed rest, Obesity (BMI >25) Each Risk Factor Represents 2 Points: Age 61-74 years, Patient confined to bed Other congenital or acquired thrombophilia - If yes, enter type in comment: No Thrombosis Risk Factor Assessment Total Risk Factor Score: 7 Thrombosis Risk Factor Assessment Level: High Risk
[2019-02-25] MEDS: FORMOTEROL FUMARATE 20 MCG/2 ML NEBU INHALATION SCH (20:08)
[2019-02-25 20:28] LABS: Glucose,Whole Blood 346 mg/dL (75-99)
[2019-02-25] MEDS: ATORVASTATIN 20 MG TAB PO SCH (20:36)
[2019-02-25] MEDS: DULoxetine HCL 60 MG CAPSULE.DR PO SCH (20:36)
[2019-02-25] MEDS: guaiFENesin 600 MG TABLET.ER PO SCH (20:36)
[2019-02-25] MEDS: ENOXAPARIN 40 MG/0.4 ML SYRINGE SQ SCH (20:37)
[2019-02-25] MEDS: buPROPion SR 150 MG TABLET.ER PO SCH (20:37)
[2019-02-25] MEDS: INSULIN ASPART (NovoLOG) 100 UNIT/ML VIAL SQ SCH (20:37)
[2019-02-25] MEDS: DONEPEZIL 10 MG TAB PO SCH (20:37)
[2019-02-26] MEDS: PIPERACILLIN-TAZOBACTAM 3.375 GM in SODIUM CHLORIDE 0.9% 100 ML IVPB SCH ×2 (00:42→07:59)
[2019-02-26] MEDS: methylPREDNISolone SOD SUCCI 125 MG/2 ML VIAL IV SCH ×5 (00:44→23:30)
[2019-02-26] MEDS: IPRATROPIUM-ALBUTEROL 3 ML NEB INHALATION SCH ×6 (00:53→19:26)
[2019-02-26] MEDS ORDERED: VANCOMYCIN 1,500 MG in SODIUM CHLORIDE 0.9% 250 ML IVPB SCH (06:00)
[2019-02-26 07:28] LABS: Glucose,Whole Blood 196 mg/dL (75-99)
[2019-02-26 07:39] LABS: Basophils % (A) 0 %; Eosinophils % (A) 0 %; HCT 32.9 % (34.0-46.0); HGB 11.1 gm/dL (11.4-16.0); Lymphocytes # (A) 0.4 k/uL (1.0-4.8); Lymphocytes % (A) 3 %; MCH 32.3 pg (25.0-35.0); MCHC 33.7 g/dL (31.0-37.0); MCV 95.7 fL (80.0-100.0); Mean Platelet Volume 6.8; Monocytes # (A) 0.3 k/uL (0-1.0); Monocytes % (A) 2 %; Neutrophils # (A) 12.7 k/uL (1.3-7.7); Neutrophils % (A) 93 %; Platelet Count 127 k/uL (150-450); RBC 3.44 m/uL (3.80-5.40); RDW 13.4 % (11.5-15.5); WBC 13.6 k/uL (3.8-10.6)
[2019-02-26] MEDS: ZIPRASIDONE 60 MG CAP PO SCH (07:56)
[2019-02-26] MEDS: ZIPRASIDONE 20 MG CAP PO SCH (07:56)
[2019-02-26] MEDS: guaiFENesin 600 MG TABLET.ER PO SCH ×2 (07:56→20:23)
[2019-02-26] MEDS: buPROPion SR 150 MG TABLET.ER PO SCH ×2 (07:56→20:24)
[2019-02-26 07:57] LABS: African American GFR (CKD) >90 (>60 ml/min/1.73 sqM); Anion Gap 6 mmol/L; Blood Urea Nitrogen 24 mg/dL (7-17); Calcium 8.9 mg/dL (8.4-10.2); Carbon Dioxide 27 mmol/L (22-30); Chloride 108 mmol/L (98-107); Glucose 177 mg/dL (74-99); Non-African American GFR(CKD) 86 (>60 ml/min/1.73 sqM); Potassium 4.3 mmol/L (3.5-5.1); Sodium 141 mmol/L (137-145)
[2019-02-26] MEDS: FUROSEMIDE 20 MG TAB PO SCH (07:57)
[2019-02-26] MEDS: DULoxetine HCL 60 MG CAPSULE.DR PO SCH ×2 (07:57→20:29)
[2019-02-26] MEDS: LISINOPRIL 10 MG TAB PO SCH (07:57)
[2019-02-26] MEDS: CLOPIDOGREL 75 MG TAB PO SCH (07:57)
[2019-02-26] MEDS: ASPIRIN 81 MG PO SCH (07:57)
[2019-02-26] MEDS: MEMANTINE 10 MG TAB PO SCH (07:58)
[2019-02-26] MEDS: OXYBUTYNIN XL 5 MG TAB.ER.24 PO SCH (07:58)
[2019-02-26] MEDS: NICOTINE 21MG/24HR PATCH TRANSDERM SCH (07:59)
[2019-02-26] MEDS: INSULIN ASPART (NovoLOG) 100 UNIT/ML VIAL SQ SCH ×4 (07:59→21:26)
[2019-02-26] MEDS: ENOXAPARIN 40 MG/0.4 ML SYRINGE SQ SCH (07:59)
[2019-02-26] MEDS: FORMOTEROL FUMARATE 20 MCG/2 ML NEBU INHALATION SCH ×2 (08:09→19:26)
[2019-02-26] MEDS: BUDESONIDE 1 MG/2 ML NEBU INHALATION SCH ×2 (08:09→19:26)
[2019-02-26 11:24] LABS: Glucose,Whole Blood 235 mg/dL (75-99)
[2019-02-26 11:47] LABS: Immunoglobulin A 40.4 mg/dL (60.0-350.0); Immunoglobulin M <16.9 mg/dL (40.0-280.0)
[2019-02-26] MEDS: SODIUM CHLORIDE 0.9% 1,000 ML IV SCH (12:10)
[2019-02-26] MEDS ORDERED: FUROSEMIDE 10 MG/ML 4 ML VIAL IV STA (12:29)
--- NOTE | 2019-02-26 12:30 | P.CRDCN ---
History of Present Illness Consult date: 02/26/19 Requesting physician: Osvaldo Chu Reason for Consult (text): elevated troponin Chief complaint: shortness of breath History of present illness: This a pleasant 63-year-old female patient who follows with Dr. Delgadillo in the office was last seen about a month ago. 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 Also has a known history of mitral stenosis as well as pulmonary hypertension, mitral regurgitation and tricuspid regurgitation. She's been evaluated by cardiothoracic surgeon for possible valve surgery and was thought to not be a candidate. Presented to the emergency department after being found on the floor by family member. The patient was apparently quite short of breath and EMS was called. She is admitted with acute hypoxic respiratory failure. She was recently treated for pneumonia. Chest x-ray showed new diffuse peribronchial cuffing with underlying COPD, consider acute airway disease such as bronchitis. We were Asked to see the patient in consultation due to abnormal troponin. Laboratory values showed initial white blood cell count of 20,000, with subsequent of 13,000, troponins of 0.019, 0.042 and 0.033 as well as elevated NT proBNP of 2,170. Echocardiogram from August of this year showed a normal LV systolic function with ejection fraction of 55-60%, moderately enlarged RV, but a severe mitral stenosis, moderate to severe tricuspid regurgitation and severe pulmonary hypertension with an RVSP of 89 mmHg. Subsequent OMAR showed an ejection fraction in the range of 50%, thickened mitral valve leaflets with evidence of hockey-stick appearance of the anterior mitral leaflet with moderate mitral stenosis, moderate mitral regurgitation, moderate tricuspid regurgitation and moderate to severe pulmonary hypertension with a PA pressure calculated to be around 52 mmHg. Unfortunately she continues to smoke. Upon examination, patient is resting comfortably in bed with family at bedside. Patient denies any complaints of chest discomfort, palpitations, edema or weight gain. She's had no clear-cut evidence of orthopnea or PND. Past Medical History Past Medical History: CVA/TIA, Dementia, Hyperlipidemia, Memory Impairment Additional Past Medical History / Comment(s): lymphoma. CVA APPROX 2003 PER AUNT PT WALKS WITH LIMP, RT ARM PARESIS, PT HAS SOME APHASIA, SHORT TERM MEMORY NOT GOOD. History of Any Multi-Drug Resistant Organisms: None Reported Past Surgical History: Tubal Ligation Additional Past Surgical History / Comment(s): carpal tunnel, neck, medi port, per son pt had carotid surgery Past Anesthesia/Blood Transfusion Reactions: No Reported Reaction Past Psychological History: Depression Smoking Status: Current every day smoker Past Alcohol Use History: None Reported Past Drug Use History: None Reported - Past Family History Mother Family Medical History: Cancer Father Family Medical History: Deep Vein Thrombosis (DVT) Medications and Allergies Home Medications Medication Instructions Recorded Confirmed Type Clopidogrel [Plavix] 75 mg PO DAILY 09/15/13 02/25/19 History DULoxetine HCL [Cymbalta] 60 mg PO BID 09/15/13 02/25/19 History Ergocalciferol (Vitamin D2) 50,000 unit PO MO 04/20/15 02/25/19 History [Drisdol] Aspirin EC [Ecotrin Low Dose] 81 mg PO DAILY 08/25/18 02/25/19 History Buprenorphine [Butrans 20 MCG/HOUR] 1 patch TRANSDERM WE 08/25/18 02/25/19 History Donepezil [Aricept] 10 mg PO HS 08/25/18 02/25/19 History Simvastatin 40 mg PO HS 08/25/18 02/25/19 History Tolterodine ER [Detrol LA] 4 mg PO DAILY 08/25/18 02/25/19 History Ziprasidone HCl [Geodon] 20 mg PO Q48H 08/25/18 02/25/19 History Ziprasidone HCl [Geodon] 60 mg PO DAILY 08/25/18 02/25/19 History Memantine [Namenda] 10 mg PO DAILY 11/17/18 02/25/19 History Hydrochlorothiazide [Hydrodiuril] 25 mg PO DAILY 02/06/19 02/25/19 History Hydrocortisone Cream 1 applic TOPICAL BID 02/06/19 02/25/19 History [Hydrocortisone 2.5% Cream] Albuterol Sulfate [Proair Hfa] 2 puff INHALATION RT-Q6H PRN 02/23/19 02/25/19 History Furosemide [Lasix] 20 mg PO DAILY 02/23/19 02/25/19 History buPROPion HCL [Wellbutrin SR] 150 mg PO BID 02/23/19 02/25/19 History predniSONE 50 mg PO DAILY #5 tablet 02/23/19 02/25/19 Rx Albuterol Nebulized [Ventolin 2.5 mg INHALATION RT-Q4H PRN 02/25/19 02/25/19 History Nebulized] Lisinopril [Zestril] 10 mg PO DAILY 02/25/19 02/25/19 History Allergies Allergy/AdvReac Type Severity Reaction Status Date / Time naproxen sodium [From Aleve] Allergy Rash/Hives Verified 02/25/19 11:24 Physical Exam Vitals: Vital Signs Temp Pulse Pulse Resp BP BP Pulse Ox 02/26/19 11:39 90 02/26/19 11:32 90 02/26/19 08:27 89 02/26/19 08:20 88 02/26/19 08:19 88 02/26/19 08:09 88 02/26/19 05:38 97.8 F 92 16 130/77 98 02/26/19 04:59 80 02/26/19 04:50 76 02/26/19 01:05 84 02/26/19 00:54 89 96 02/25/19 20:26 90 02/25/19 20:14 90 02/25/19 20:02 85 02/25/19 19:47 98.0 F 90 16 111/69 96 02/25/19 16:36 91 02/25/19 16:28 91 02/25/19 14:24 98.5 F 96 22 110/55 100 02/25/19 12:12 106 H 20 113/98 90 L Intake and Output 02/25/19 02/26/19 02/26/19 22:59 06:59 14:59 Intake Total 80 180 Balance 80 180 Intake: Intake, IV Titration 80 180 Amount Piperacillin-Tazobactam 3 100 .375 gm In Sodium Chloride 0.9% 100 ml @ 25 mls/hr IVPB Q8HR [facility] Rx# :[id number] Sodium Chloride 0.9% 1, 80 80 000 ml @ 20 mls/hr IV . Q24H [facility] Rx#:[id number] Other: Voiding Method Toilet Toilet PHYSICAL EXAMINATION: HEENT: Head is atraumatic, normocephalic. Pupils equal, round. Neck is supple. There is no elevated jugular venous pressure. HEART EXAMINATION: Heart sounds regular, S1 and S2 with a diastolic murmur at the apex. CHEST EXAMINATION: Lungs are diminished throughout with crackles noted to bilateral bases. No chest wall tenderness is noted on palpation or with deep breathing. ABDOMEN: Soft, nontender. Bowel sounds are heard. No organomegaly noted. EXTREMITIES: 2+ peripheral pulses with no evidence of peripheral edema and no calf tenderness noted. NEUROLOGIC patient is awake, alert and oriented x3, short-term memory loss noted. . Results 02/26/19 07:00 02/26/19 07:00 Cardiac Enzymes 02/25/19 02/25/19 Range/Units 15:02 22:15 Troponin I 0.042 H* 0.033 (0.000-0.034) ng/mL CBC 02/26/19 Range/Units 07:00 WBC 13.6 H (3.8-10.6) k/uL RBC 3.44 L (3.80-5.40) m/uL Hgb 11.1 L (11.4-16.0) gm/dL Hct 32.9 L (34.0-46.0) % Plt Count 127 L (150-450) k/uL Comprehensive Metabolic Panel 02/26/19 Range/Units 07:00 Sodium 141 (137-145) mmol/L Potassium 4.3 (3.5-5.1) mmol/L Chloride 108 H (98-107) mmol/L Carbon Dioxide 27 (22-30) mmol/L BUN 24 H (7-17) mg/dL Creatinine 0.75 (0.52-1.04) mg/dL Glucose 177 H (74-99) mg/dL Calcium 8.9 (8.4-10.2) mg/dL Current Medications Generic Name Dose Route Start Last Admin Trade Name Freq PRN Reason Stop Dose Admin Albuterol/Ipratropium 3 ml 02/25/19 16:00 02/26/19 11:31 Duoneb 0.5 Mg-3 Mg/3 Ml Soln INHALATION 3 ml RT-Q4H KRISTA Administration Amoxicillin/Clavulanate Potassium 1 each 02/26/19 21:00 Augmentin 875-125 PO Q12HR KRISTA Aspirin 81 mg 02/26/19 09:00 02/26/19 07:57 Aspirin PO 81 mg DAILY KRISTA Administration Atorvastatin Calcium 20 mg 02/25/19 21:00 02/25/19 20:36 Lipitor PO 20 mg HS KRISTA Administration Budesonide 1 mg 02/25/19 20:00 02/26/19 08:09 Pulmicort INHALATION 1 mg RT-BID KRISTA Administration Bupropion HCl 150 mg 02/25/19 21:00 02/26/19 07:56 Wellbutrin Sr PO 150 mg BID KRISTA Administration Clopidogrel Bisulfate 75 mg 02/26/19 09:00 02/26/19 07:57 Plavix PO 75 mg DAILY KRISTA Administration Donepezil HCl 10 mg 02/25/19 21:00 02/25/19 20:37 Aricept PO 10 mg HS KRISTA Administration Duloxetine HCl 60 mg 02/25/19 21:00 02/26/19 07:57 Cymbalta PO 60 mg BID KRISTA Administration Enoxaparin Sodium 40 mg 02/25/19 20:00 02/26/19 07:59 Lovenox SQ 40 mg DAILY KRISTA Administration Ergocalciferol 50,000 unit 02/28/19 09:00 Vitamin D2 PO MO [facility] Formoterol Fumarate 20 mcg 02/25/19 20:00 02/26/19 08:09 Perforomist INHALATION 20 mcg RT-BID KRISTA Administration Furosemide 20 mg 02/26/19 09:00 02/26/19 07:57 Lasix PO 20 mg DAILY KRISTA Administration Guaifenesin 1,200 mg 02/25/19 21:00 02/26/19 07:56 Mucinex PO 1,200 mg Q12HR KRISTA Administration Sodium Chloride 1,000 mls @ 20 mls/hr 02/25/19 12:00 02/26/19 12:10 Saline 0.9% IV 20 mls/hr .Q24H KRISTA Administration Insulin Aspart 0 unit 02/25/19 21:00 02/26/19 12:09 Novolog SQ 3 unit ACHS KRISTA Administration Protocol Lisinopril 10 mg 02/26/19 09:00 02/26/19 07:57 Zestril PO 10 mg DAILY KRISTA Administration Memantine 10 mg 02/26/19 09:00 02/26/19 07:58 Namenda PO 10 mg DAILY KRISTA Administration Methylprednisolone Sodium Succinate 60 mg 02/25/19 18:00 02/26/19 12:09 Solu-Medrol IV 60 mg Q6HR KRISTA Administration Miscellaneous Information 1 each 02/25/19 15:50 Potassium Per Protocol MISCELLANE DAILY PRN Per Protocol Protocol Naloxone HCl 0.2 mg 02/25/19 11:46 Narcan IV Q2M PRN Opioid Reversal Nicotine 1 patch 02/25/19 15:30 02/26/19 07:59 Habitrol 21mg/24hr Patch TRANSDERM 1 patch DAILY KRISTA Administration Butrans ( 1 patch 03/02/19 09:00 Buprenorphine) 20 TOPICAL Mcg/Hour 1 Patch WE [facility] Oxybutynin Chloride 10 mg 02/26/19 09:00 02/26/19 07:58 Ditropan Xl PO 10 mg DAILY KRISTA Administration Ziprasidone 20 mg 02/26/19 07:30 02/26/19 07:56 Geodon PO 20 mg Q48H KRISTA Administration Ziprasidone 60 mg 02/26/19 07:30 02/26/19 07:56 Geodon PO 60 mg [id number] KRISTA Administration Intake and Output 02/25/19 02/26/19 02/26/19 22:59 06:59 14:59 Intake Total 80 180 Balance 80 180 Intake: Intake, IV Titration 80 180 Amount Piperacillin-Tazobactam 3 100 .375 gm In Sodium Chloride 0.9% 100 ml @ 25 mls/hr IVPB Q8HR [facility] Rx# :[id number] Sodium Chloride 0.9% 1, 80 80 000 ml @ 20 mls/hr IV . Q24H [facility] Rx#:[id number] Other: Voiding Method Toilet Toilet 02/26/19 07:00 02/26/19 07:00 EKG Interpretations (text) Sinus tachycardia with no acute ST-T wave abnormalities Assessment and Plan Assessment: #1 acute hypoxic respiratory failure with history of COPD and recent treatment for pneumonia #2 abnormal troponins, likely secondary to above, elevation very minimal and not consistent with acute coronary syndrome #3 elevated NT proBNP, likely a component of acute on chronic diastolic congestive heart failure, secondary to valvular heart disease and pulmonary hypertension #4 known mitral stenosis and mitral regurgitation with moderate to severe pulmonary hypertension, not felt to be a good surgical candidate at this time #5 history of CVA #6 nicotine dependence Plan: From cardiology's perspective, we will repeat 2-D echo with Doppler. Troponin elevation not consistent with acute coronary syndrome unlikely secondary to hypoxia. We will give a dose of IV Lasix. Further recommendations to follow. [employer] note has been reviewed, I agree with a documented findings and plan of care. Patient was seen and examined.
--- NOTE | 2019-02-26 12:56 | PN ---
PROGRESS NOTE This is a pulmonary critical care progress note dated 02/26/2019. This is a 63-year-old female who we saw yesterday in consultation for shortness of breath, that we thought was related to underlying COPD exacerbation. She has a significant 44 pack-year history of tobacco use and was smoking up into the time of her admission. The patient is doing better today. Less short of breath. She is still tight and wheezy. Still coughing a bit. Still with chest congestion. In addition, she has a history of mitral valve stenosis and moderate pulmonary hypertension with moderate tricuspid valve regurgitation, previous history of carotid endarterectomy, history of hyperlipidemia, history of B-cell lymphoma, CVA, and dementia. Again, she is doing much better today than she was yesterday. I told her at least another day in the hospital maybe two. Current vital signs are reviewed. Her temperature is 97.8, heart rate 88, respiratory rate 16, blood pressure 130/70 mean 94, 2 L saturation 98%. She appears in no acute distress. HEENT: Examination is grossly unremarkable. Mucous membranes are moist. No oral lesions. Nasal O2 noted. NECK: Supple. Full range of motion. No adenopathy, thyromegaly or neck vein distention. CARDIOVASCULAR: Examination reveals regular rhythm and rate. Heart rate 88. It is regular. S1, S2 normal. There is no murmur. LUNGS: Reveal coarse inspiratory and expiratory rhonchi and wheezes. Breath sounds are diminished. There is prolongation on forced maneuver. The patient's adventitious sounds are more prominent on forced maneuver. No crackles. ABDOMEN: Obese. Bowel sounds are heard. EXTREMITIES : Intact. No cyanosis, clubbing, or edema. SKIN: Without rash. NEUROLOGIC: Examination is brief but nonfocal. LABORATORY DATA: Includes a white count 13.6, hemoglobin 11.1, hematocrit 32.9, platelet count 127,000. Sodium and potassium normal. Chloride is 108, CO2 is 27, anion gap is normal. BUN and creatinine were 24 and 0.75. Troponins were 0.042 and 0.033. A chest x-ray was done. It showed changes consistent with COPD including peribronchial cuffing. Medications are reviewed. They are appropriate. ASSESSMENT: 1. Chronic obstructive pulmonary disease exacerbation complicated by purulent tracheobronchitis, without eamon pneumonia. 2. Chronic and ongoing tobacco dependence. 3. History of mitral valve stenosis with moderate pulmonary hypertension and moderate tricuspid valve regurgitation. 4. Previous history of carotid endarterectomy for carotid stenosis. 5. Hyperlipidemia. 6. Dementia. 7. History of cerebrovascular accident with residual right-sided hemiparesis. 8. History of B-cell lymphoma with recent recurrence, in the inguinal area, patient currently receiving treatment, although she does not know what she is receiving. PLAN: Continue the current medications. She is on short-acting beta agonist, short-acting muscarinic antagonist, inhaled corticosteroids, long-acting beta agonist, and systemic corticosteroids. She is on appropriate antibiotics. In fact, the antibiotics could be deescalated to an oral antibiotic. Will leave that up to the primary. Oncology Service to see patient. Additional recommendations and suggestions are forthcoming. MMCRISTALL / IJN: [id number] /
[2019-02-26 17:21] LABS: Glucose,Whole Blood 250 mg/dL (75-99)
[2019-02-26] MEDS: ATORVASTATIN 20 MG TAB PO SCH (20:23)
[2019-02-26] MEDS: AMOXIC-POT CLAV 875-125MG 1 EACH TAB PO SCH (20:23)
[2019-02-26] MEDS: DONEPEZIL 10 MG TAB PO SCH (20:24)
[2019-02-26 21:13] LABS: Glucose,Whole Blood 263 mg/dL (75-99)
[2019-02-27] MEDS: IPRATROPIUM-ALBUTEROL 3 ML NEB INHALATION SCH ×7 (00:57→23:52)
[2019-02-27] MEDS: methylPREDNISolone SOD SUCCI 125 MG/2 ML VIAL IV SCH ×4 (06:07→23:21)
[2019-02-27 07:01] LABS: Glucose,Whole Blood 301 mg/dL (75-99)
[2019-02-27] MEDS: NICOTINE 21MG/24HR PATCH TRANSDERM SCH (07:30)
[2019-02-27] MEDS: ENOXAPARIN 40 MG/0.4 ML SYRINGE SQ SCH (07:32)
[2019-02-27] MEDS: DULoxetine HCL 60 MG CAPSULE.DR PO SCH ×2 (07:32→21:00)
[2019-02-27] MEDS: buPROPion SR 150 MG TABLET.ER PO SCH ×2 (07:32→21:01)
[2019-02-27] MEDS: AMOXIC-POT CLAV 875-125MG 1 EACH TAB PO SCH ×2 (07:32→21:01)
[2019-02-27] MEDS: CLOPIDOGREL 75 MG TAB PO SCH (07:32)
[2019-02-27] MEDS: guaiFENesin 600 MG TABLET.ER PO SCH ×2 (07:33→21:01)
[2019-02-27] MEDS: FUROSEMIDE 20 MG TAB PO SCH (07:33)
[2019-02-27] MEDS: OXYBUTYNIN XL 5 MG TAB.ER.24 PO SCH (07:33)
[2019-02-27] MEDS: MEMANTINE 10 MG TAB PO SCH (07:33)
[2019-02-27] MEDS: ASPIRIN 81 MG PO SCH (07:33)
[2019-02-27] MEDS: ZIPRASIDONE 60 MG CAP PO SCH (07:33)
[2019-02-27] MEDS: LISINOPRIL 10 MG TAB PO SCH (07:34)
[2019-02-27] MEDS: BUDESONIDE 1 MG/2 ML NEBU INHALATION SCH ×2 (08:09→19:36)
[2019-02-27] MEDS: FORMOTEROL FUMARATE 20 MCG/2 ML NEBU INHALATION SCH ×2 (08:09→19:36)
[2019-02-27] MEDS: INSULIN ASPART (NovoLOG) 100 UNIT/ML VIAL SQ SCH ×4 (08:22→21:01)
--- NOTE | 2019-02-27 09:48 | P.PN ---
Subjective Progress Note Date: 02/27/19 Principal diagnosis: Dyspnea, cough, congestion This is a 63-year-old white female patient of Dr. Nicole Dukes, with past medical history of CVA in 2003, history of B cell lymphoma since 2013, and according to the patient she had recent reoccurrence with enlarged lymph nodes in bilateral groins, and she is currently undergoing treatment unclear of what type. Other medical history includes moderate mitral valve stenosis, moderate pulmonary hypertension, hyperlipidemia, history of carotid endarterectomy, and patient carries over 44 years of smoking history, smoking currently a pack a day. She had previously undergone evaluation for her mitral valve stenosis by Dr. Sharma in December 2018, and was found to be a poor candidate for surgery with the possibility of balloon valvotomy down the road. Recent PET scan from January 2019 showed recurrent neoplasm or lymphoma in bilateral groin region and new hypermetabolic adenopathy. 02/25/2019 patient came into the emergency department for evaluation of increasing shortness of breath, chest congestion, cough, but no fever or chills, no headaches, no lightheadedness or dizziness, no nausea or vomiting. Chest x-ray showed diffuse peribronchial coughing with underlying COPD, acute airway disease such as bronchitis to be considered. No definite evidence of pneumonia, recent has been afebrile, lab work reviewed showing white blood cell count of 20.9, hemoglobin of 13.3, INR 0.8, with PT is 9.3, sodium is 141, potassium is 3.0, chloride is 103, CO2 is 29, BUN is 20 creatinine 0.9, lactic acid was 1.6, troponin is negative 1, proBNP is 2170, with no definite evidence of fluid overload on the chest x-ray. Patient does wear home O2, and she states she has Ventolin and albuterol nebulized treatments at home. Does not follow with a lung doctor. Patient has been started on a combination of Zosyn and vancomycin, breathing treatments, and we're asked to see the patient consultation for ears to be acute exacerbation of chronic obstructive pulmonary disease with acute bronchitis but no definite evidence of pneumonia On 02/27/2019 patient seen in follow-up in medical surgical floor. Patient is on 2 L of oxygen with a pulse ox of 91%, she is afebrile, however she remains dyspneic with any exertion and bronchospastic. Patient remains on nebulized bronchodilators, she is on daily dose of Lasix, and she was given an extra dose of Lasix yesterday per cardiology, IV Solu-Medrol 60 mg every 6 hours, and she is on empiric antibiotic coverage in the form of Augmentin. No new labs today, no new chest x-rays. She has been evaluated by cardiology for elevated troponins, and elevated proBNP. 2-D echocardiogram is pending. Objective - Vital Signs Vital signs: Vital Signs Temp 97.8 F 02/27/19 05:00 Pulse 84 02/27/19 08:24 Resp 16 02/27/19 05:00 BP 146/88 02/27/19 05:00 Pulse Ox 95 02/27/19 05:00 Intake & Output 02/26/19 02/27/19 02/27/19 18:59 06:59 18:59 Intake Total 240 Balance 240 Intake: Intake, IV Titration 240 Amount Sodium Chloride 0.9% 1, 240 000 ml @ 20 mls/hr IV . Q24H [facility] Rx#:[id number] Other: Voiding Method Toilet Toilet # Voids 2 - Exam GENERAL EXAM: Alert, pleasant, somewhat of a poor historian 63-year-old white female, on 2 L of oxygen with a pulse ox of 100% comfortable in no apparent distress. HEAD: Normocephalic/atraumatic. EYES: Normal reaction of pupils, equal size. Conjunctiva pink, sclera white. NOSE: Clear with pink turbinates. THROAT: No erythema or exudates. NECK: No masses, no JVD, no thyroid enlargement, no adenopathy. CHEST: No chest wall deformity. Symmetrical expansion. LUNGS: Equal air entry with congestive cough, diffuse rhonchi and some wheezes CVS: Regular rate and rhythm, normal S1 and S2, no gallops, no murmurs, no rubs ABDOMEN: Soft, nontender. No hepatosplenomegaly, normal bowel sounds, no guarding or rigidity. EXTREMITIES: No clubbing, no edema, no cyanosis, 2+ pulses and upper and lower extremities. MUSCULOSKELETAL: Muscle strength and tone normal. SPINE: No scoliosis or deformity SKIN: No rashes CENTRAL NERVOUS SYSTEM: Alert and oriented -3. No focal deficits, tone is normal in all 4 extremities. PSYCHIATRIC: Alert and oriented -3. Appropriate affect. Intact judgment and insight. - Labs CBC & Chem 7: 02/26/19 07:00 02/26/19 07:00 Labs: Abnormal Lab Results - Last 24 Hours (Table) 02/26/19 02/26/19 02/26/19 Range/Units 07:00 11:22 17:19 POC Glucose (mg/dL) 235 H 250 H (75-99) mg/dL IgG 368.0 L (700.0-1600.0) mg/dL IgA 40.4 L (60.0-350.0) mg/dL IgM <16.9 L (40.0-280.0) mg/dL 02/26/19 02/27/19 Range/Units 21:11 07:00 POC Glucose (mg/dL) 263 H 301 H (75-99) mg/dL IgG (700.0-1600.0) mg/dL IgA (60.0-350.0) mg/dL IgM (40.0-280.0) mg/dL Microbiology - Last 24 Hours (Table) 02/25/19 12:24 Blood Culture - Preliminary Blood No Growth after 24 hours Assessment and Plan Plan: Assessment: #1. Shortness of breath related to acute exacerbation of COPD and tracheobronchitis, no definite evidence of pneumonia on the chest x-ray #2. Chronic and ongoing history of tobacco dependence, carries [id number] smoking history #3. Chronic COPD the severity of which is unknown at this time, #4. Leukocytosis #5. Hypokalemia, being replaced per protocol #6. History of mitral valve stenosis with moderate pulmonary hypertension and moderate tricuspid valve regurgitation #7. Previous history of carotid endarterectomy for carotid stenosis #8. Hyperlipidemia #9. History of B cell lymphoma with recent recurrence and patient is currently receiving treatments unclear of what type #10. 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 Dementia Plan: Continue current medical treatment, continue oral antibiotics, and the sputum culture, patient is still quite dyspneic and bronchospastic, short of breath with exertion, not back to baseline yet, she is also being evaluated by cardiology in view of her elevated troponins, 2-D echocardiogram is pending, oral Lasix has been started. We will continue to follow. I performed a history & physical examination of the patient and discussed their management with my nurse practitioner, Anabelle Stearns. I reviewed the nurse pra ctitioner's note and agree with the documented findings and plan of care. Lung sounds are positive for diffuse rhonchi. The findings and the impression was discussed with the patient. I attest to the documentation by the nurse practitioner. Time with Patient: Less than 30
--- NOTE | 2019-02-27 10:45 | P.PN ---
Subjective Progress Note Date: 02/27/19 This a pleasant 63-year-old female patient who follows with Dr. Delgadillo in the office was last seen about a month ago. 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 Also has a known history of mitral stenosis as well as pulmonary hypertension, mitral regurgitation and tricuspid regurgitation. She's been evaluated by cardiothoracic surgeon for possible valve surgery and was thought to not be a candidate. Presented to the emergency department after being found on the floor by family member. The patient was apparently quite short of breath and EMS was called. She is admitt ed with acute hypoxic respiratory failure. She was recently treated for pneumonia. Chest x-ray showed new diffuse peribronchial cuffing with underlying COPD, consider acute airway disease such as bronchitis. We were Asked to see the patient in consultation due to abnormal troponin. Laboratory values showed initial white blood cell count of 20,000, with subsequent of 13,000, troponins of 0.019, 0.042 and 0.033 as well as elevated NT proBNP of 2,170. Echocardiogram from August of this year showed a normal LV systolic function with ejection fraction of 55-60%, moderately enlarged RV, but a severe mitral stenosis, moderate to severe tricuspid regurgitation and severe pulmonary hypertension with an RVSP of 89 mmHg. Subsequent OMAR showed an ejection fraction in the range of 50%, thickened mitral valve leaflets with evidence of hockey-stick appearance of the anterior mitral leaflet with moderate mitral stenosis, moderate mitral regurgitation, moderate tricuspid regurgitation and moderate to severe pulmonary hypertension with a PA pressure calculated to be around 52 mmHg. Unfortunately she continues to smoke. Upon examination, patient is resting comfortably in bed with family at bedside. Patient denies any complaints of chest discomfort, palpitations, edema or weight gain. She's had no clear-cut evidence of orthopnea or PND. 02/27/19 The patient was seen and examined today, sitting up at the side of the bed after getting cleaned up in the bathroom. She continues to complain of significant dyspnea on exertion. She has congested cough. She did not notice much increase in urination after dose of IV Lasix yesterday. She does feel somewhat improved compared to yesterday. Her vital signs are stable and she continues to be on 2 L nasal cannula oxygen with an O2 saturation of 91%. 2-D echo with Doppler was done yesterday and these results are pending. Objective - Vital Signs Vital signs: Vital Signs Temp 97.8 F 02/27/19 05:00 Pulse 84 02/27/19 08:24 Resp 16 02/27/19 05:00 BP 146/88 02/27/19 05:00 Pulse Ox 95 02/27/19 05:00 Intake & Output 02/26/19 02/27/19 02/27/19 18:59 06:59 18:59 Intake Total 240 Balance 240 Intake: Intake, IV Titration 240 Amount Sodium Chloride 0.9% 1, 240 000 ml @ 20 mls/hr IV . Q24H [facility] Rx#:[id number] Other: Voiding Method Toilet Toilet # Voids 2 - Exam PHYSICAL EXAMINATION: HEENT: Head is atraumatic, normocephalic. Pupils equal, round. Neck is supple. There is no elevated jugular venous pressure. HEART EXAMINATION: Heart sounds regular, S1 and S2 with a diastolic murmur at the apex. CHEST EXAMINATION: Lungs are diminished throughout with scattered rhonchi throughout. No chest wall tenderness is noted on palpation or with deep breathing. ABDOMEN: Soft, nontender. Bowel sounds are heard. No organomegaly noted. EXTREMITIES: 2+ peripheral pulses with evidence of trace peripheral edema and no calf tenderness noted. NEUROLOGIC patient is awake, alert and oriented x3. - Labs CBC & Chem 7: 02/26/19 07:00 02/26/19 07:00 Labs: Abnormal Lab Results - Last 24 Hours (Table) 02/26/19 02/26/19 02/26/19 Range/Units 07:00 11: 17:19 POC Glucose (mg/dL) 235 H 250 H (75-99) mg/dL IgG 368.0 L (700.0-1600.0) mg/dL IgA 40.4 L (60.0-350.0) mg/dL IgM <16.9 L (40.0-280.0) mg/dL 02/26/19 02/27/19 Range/Units 21:11 07:00 POC Glucose (mg/dL) 263 H 301 H (75-99) mg/dL IgG (700.0-1600.0) mg/dL IgA (60.0-350.0) mg/dL IgM (40.0-280.0) mg/dL Microbiology - Last 24 Hours (Table) 02/25/19 12:24 Blood Culture - Preliminary Blood No Growth after 24 hours Assessment and Plan Assessment: #1 acute hypoxic respiratory failure with history of COPD and recent treatment for pneumonia #2 abnormal troponins, likely secondary to above, elevation very minimal and not consistent with acute coronary syndrome #3 elevated NT proBNP, likely a component of acute on chronic diastolic congestive heart failure, secondary to valvular heart disease and pulmonary hypertension #4 known mitral stenosis and mitral regurgitation with moderate to severe pulmonary hypertension, not felt to be a good surgical candidate at this time #5 history of CVA #6 nicotine dependence Plan: From cardiology's perspective, we will review the 2-D echo with Doppler. Medications were reviewed and will continue the same. Discussed importance of smoking cessation with the patient. We will continue to follow the patient during this admission and provide further recommendations accordingly. She will be scheduled to follow-up with Dr. Lutz following discharge. CAKE STRIPPER note has been reviewed, I agree with a documented findings and plan of care. Patient was seen and examined.
[2019-02-27 11:02] LABS: Calcium 9.2 mg/dL (8.4-10.2); Potassium 3.9 mmol/L (3.5-5.1)
[2019-02-27 11:18] LABS: Glucose,Whole Blood 136 mg/dL (75-99)
[2019-02-27 17:04] LABS: Glucose,Whole Blood 383 mg/dL (75-99)
[2019-02-27] MEDS: SODIUM CHLORIDE 0.9% 1,000 ML IV SCH (17:28)
[2019-02-27 20:33] LABS: Glucose,Whole Blood 501 mg/dL (75-99)
[2019-02-27 20:33] LABS: Glucose,Whole Blood 349 mg/dL (75-99)
[2019-02-27] MEDS: ATORVASTATIN 20 MG TAB PO SCH (21:01)
[2019-02-27] MEDS: DONEPEZIL 10 MG TAB PO SCH (21:01)
--- NOTE | 2019-02-27 22:24 | P.PN ---
Subjective Progress Note Date: 02/26/19 Principal diagnosis: Acute COPD exacerbation secondary to tracheobronchitis. This is a pleasant 63-year-old patient of Dr. Dukes. Patient has a diagnosis of non-Hodgkin's lymphoma being followed by and has received a few cycles of Rituxan. Responding well to the same. Other chronic stable medical conditions include hyperlipidemia, some paresis of the right side from a prior stroke and some resulting dysphagia from the same. Patient's short-term memory is also affected. Patient presents with worsening cough congested in the chest not really able to expectorate no fever no chills. Tired rundown. Some wheezing. Appetite is okay. Started on IV Zosyn and ER. INVESTIGATIONS, reviewed in the clinical context: White count 20.9 hemoglobin 13.3 platelets 446 percussion 3 bun 20 creatinine 0.90 Troponin I 0.019, 0.04 to EKG tracing personally reviewed by me-sinus tachycardia Chest x-ray film personally reviewed by me-some right basilar infiltrate 02/26/2019 Patient is currently lying in the bed. Still having shortness of breath and expiratory wheezing. Currently requiring oxygen via nasal cannula. Patient is being continued on IV steroids and DuoNeb's. Patient was given a dose of IV Lasix. Cardiology and pulmonary is following. patient has been afebrile. Improved leukocytosis with WBC count 13.4 Current medications reviewed. Objective - Vital Signs Vital signs: Vital Signs Temp 97.8 F 02/26/19 05:38 Pulse 82 02/26/19 16:08 Resp 16 02/26/19 05:38 BP 130/77 02/26/19 05:38 Pulse Ox 98 02/26/19 05:38 Intake & Output 02/25/19 02/26/19 02/26/19 18:59 06:59 18:59 Intake Total 260 Balance 260 Weight 96.162 kg Intake: Intake, IV Titration 260 Amount Piperacillin-Tazobactam 3 100 .375 gm In Sodium Chloride 0.9% 100 ml @ 25 mls/hr IVPB Q8HR [facility] Rx# :[id number] Sodium Chloride 0.9% 1, 160 000 ml @ 20 mls/hr IV . Q24H [facility] Rx#:[id number] Other: Voiding Method Toilet Toilet # Voids 2 - Exam GENERAL: BMI 35.3, propped bit tired. EYES: Pupils equal. Conjunctiva normal. HEENT: External appearance of nose and ears normal, oral cavity grossly normal. NECK: JVD not raised; masses not palpable. HEART: First and second heart sounds are normal; no edema. LUNGS: Respiratory rate increased, audible congestion, increased breath sounds prolonged expiration and wheezing. ABDOMEN: Soft, nontender, liver spleen not palpable, no masses palpable. PSYCH: Alert and oriented x3; mood and affect normal. NEUROLOGICAL: [Cranial nerves grossly intact; no facial asymmetry, power of the right side 4/5, slight dysarthria LYMPHATICS: No lymph nodes palpable in the axilla and neck - Labs CBC & Chem 7: 02/26/19 07:00 02/27/19 10:23 Labs: Abnormal Lab Results - Last 24 Hours (Table) 02/25/19 02/26/19 02/26/19 Range/Units 20:26 07:00 07:00 WBC 13.6 H (3.8-10.6) k/uL RBC 3.44 L (3.80-5.40) m/uL Hgb 11.1 L (11.4-16.0) gm/dL Hct 32.9 L (34.0-46.0) % Plt Count 127 L (150-450) k/uL Neutrophils # 12.7 H (1.3-7.7) k/uL Lymphocytes # 0.4 L (1.0-4.8) k/uL Chloride (98-107) mmol/L BUN (7-17) mg/dL Glucose (74-99) mg/dL POC Glucose (mg/dL) 346 H (75-99) mg/dL IgG 368.0 L (700.0-1600.0) mg/dL IgA 40.4 L (60.0-350.0) mg/dL IgM <16.9 L (40.0-280.0) mg/dL 02/26/19 02/26/19 02/26/19 Range/Units 07:00 07:18 11:22 WBC (3.8-10.6) k/uL RBC (3.80-5.40) m/uL Hgb (11.4-16.0) gm/dL Hct (34.0-46.0) % Plt Count (150-450) k/uL Neutrophils # (1.3-7.7) k/uL Lymphocytes # (1.0-4.8) k/uL Chloride 108 H (98-107) mmol/L BUN 24 H (7-17) mg/dL Glucose 177 H (74-99) mg/dL POC Glucose (mg/dL) 196 H 235 H (75-99) mg/dL IgG (700.0-1600.0) mg/dL IgA (60.0-350.0) mg/dL IgM (40.0-280.0) mg/dL 02/26/19 Range/Units 17:19 WBC (3.8-10.6) k/uL RBC (3.80-5.40) m/uL Hgb (11.4-16.0) gm/dL Hct (34.0-46.0) % Plt Count (150-450) k/uL Neutrophils # (1.3-7.7) k/uL Lymphocytes # (1.0-4.8) k/uL Chloride (98-107) mmol/L BUN (7-17) mg/dL Glucose (74-99) mg/dL POC Glucose (mg/dL) 250 H (75-99) mg/dL IgG (700.0-1600.0) mg/dL IgA (60.0-350.0) mg/dL IgM (40.0-280.0) mg/dL Microbiology - Last 24 Hours (Table) 02/25/19 12:24 Blood Culture - Preliminary Blood No Growth after 24 hours Assessment and Plan Assessment: Assessment: -Acute COPD exacerbation likely due to acute tracheobronchitis. -Possible Right lower lobe pneumonia suspected gram-negative organism in a patient who is receiving Rituxan -Acute hypoxic respiratory failure secondary to COPD exacerbation and pneumonia -Acute on chronic CHF with mild exacerbation with valvular heart disease -Pulmonary hypertension -Non-Hodgkin's lymphoma undergoing treatment with Rituxan -Chronic right hemiparesis and dysarthria from prior stroke -Short-term memory loss from prior stroke --Essential hypertension -Chronic urinary incontinence -Depression otherwise specified -Obesity BMI 35.3 Plan: Patient was given antibiotics, IV Zosyn. Changed to Augmentin currently.. Continue with bronchodilators IV steroids. Home medications resumed. Pulmonary and cardiology is following.. Mucinex 400 mg twice a day. Lovenox for DVT prophylaxis. Care was discussed with the patient and her family at bedside.. Questions were answered. Smoke cessation has been counseled. Time with Patient: Greater than 30
--- NOTE | 2019-02-27 22:58 | P.PN ---
Subjective Progress Note Date: 02/27/19 Principal diagnosis: Acute COPD exacerbation secondary to tracheobronchitis. This is a pleasant 63-year-old patient of Dr. Dukes. Patient has a diagnosis of non-Hodgkin's lymphoma being followed by and has received a few cycles of Rituxan. Responding well to the same. Other chronic stable medical conditions include hyperlipidemia, some paresis of the right side from a prior stroke and some resulting dysphagia from the same. Patient's short-term memory is also affected. Patient presents with worsening cough congested in the chest not really able to expectorate no fever no chills. Tired rundown. Some wheezing. Appetite is okay. Started on IV Zosyn and ER. INVESTIGATIONS, reviewed in the clinical context: White count 20.9 hemoglobin 13.3 platelets 446 percussion 3 bun 20 creatinine 0.90 Troponin I 0.019, 0.04 to EKG tracing personally reviewed by me-sinus tachycardia Chest x-ray film personally reviewed by me-some right basilar infiltrate 02/26/2019 Patient is currently lying in the bed. Still having shortness of breath and expiratory wheezing. Currently requiring oxygen via nasal cannula. Patient is being continued on IV steroids and DuoNeb's. Patient was given a dose of IV Lasix. Cardiology and pulmonary is following. patient has been afebrile. Improved leukocytosis with WBC count 13.4 02/27/2019 Patient is currently lying in the bed. Saturating well on nasal cannula oxygen. No complaints of chest pain. Cough without much sputum production. Wheezing is much improved. Currently being continued on IV Solu-Medrol and duo nebs. Still having exertional dyspnea. On antibiotics in the form of Augmentin. Patient is more awake and oriented today. Cardiology and pulmonary is following. 2-D echocardiogram report is pending. Current medications reviewed. Active Medications Albuterol/Ipratropium (Duoneb 0.5 Mg-3 Mg/3 Ml Soln) 3 ml INHALATION RT-Q4H [facility] Last Admin: 02/27/19 19:36 Dose: 3 ml Documented by: Amoxicillin/Clavulanate Potassium (Augmentin 875-125) 1 each PO Q12HR [facility] Last Admin: 02/27/19 21:01 Dose: 1 each Documented by: Aspirin (Aspirin) 81 mg PO DAILY [facility] Last Admin: 02/27/19 07:33 Dose: 81 mg Documented by: Atorvastatin Calcium (Lipitor) 20 mg PO HS [facility] Last Admin: 02/27/19 21:01 Dose: 20 mg Documented by: Budesonide (Pulmicort) 1 mg INHALATION RT-BID [facility] Last Admin: 02/27/19 19:36 Dose: 1 mg Documented by: Bupropion HCl (Wellbutrin Sr) 150 mg PO BID [facility] Last Admin: 02/27/19 21:01 Dose: 150 mg Documented by: Clopidogrel Bisulfate (Plavix) 75 mg PO DAILY [facility] Last Admin: 02/27/19 07:32 Dose: 75 mg Documented by: Donepezil HCl (Aricept) 10 mg PO HS [facility] Last Admin: 02/27/19 21:01 Dose: 10 mg Documented by: Duloxetine HCl (Cymbalta) 60 mg PO BID [facility] Last Admin: 02/27/19 21:00 Dose: 60 mg Documented by: Enoxaparin Sodium (Lovenox) 40 mg SQ DAILY [facility] Last Admin: 02/27/19 07:32 Dose: 40 mg Documented by: Ergocalciferol (Vitamin D2) 50,000 unit PO MO [facility] Formoterol Fumarate (Perforomist) 20 mcg INHALATION RT-BID [facility] Last Admin: 02/27/19 19:36 Dose: 20 mcg Documented by: Furosemide (Lasix) 20 mg PO DAILY [facility] Last Admin: 02/27/19 07:33 Dose: 20 mg Documented by: Guaifenesin (Mucinex) 1,200 mg PO Q12HR [facility] Last Admin: 02/27/19 21:01 Dose: 1,200 mg Documented by: Sodium Chloride (Saline 0.9%) 1,000 mls @ 20 mls/hr IV .Q24H [facility] Last Admin: 02/27/19 17:28 Dose: 20 mls/hr Documented by: Insulin Aspart (Novolog) 0 unit SQ ACHS [facility]; Protocol Last Admin: 02/27/19 21:01 Dose: 6 unit Documented by: Lisinopril (Zestril) 10 mg PO DAILY [facility] Last Admin: 02/27/19 07:34 Dose: 10 mg Documented by: Memantine (Namenda) 10 mg PO DAILY [facility] Last Admin: 02/27/19 07:33 Dose: 10 mg Documented by: Methylprednisolone Sodium Succinate (Solu-Medrol) 60 mg IV Q6HR [facility] Last Admin: 02/27/19 17:26 Dose: 60 mg Documented by: Miscellaneous Information (Potassium Per Protocol) 1 each MISCELLANE DAILY PRN; Protocol PRN Reason: Per Protocol Naloxone HCl (Narcan) 0.2 mg IV Q2M PRN PRN Reason: Opioid Reversal Nicotine (Habitrol 21mg/24hr Patch) 1 patch TRANSDERM DAILY [facility] Last Admin: 02/27/19 07:30 Dose: 1 patch Documented by: Chon ( Buprenorphine) 20 Mcg/Hour 1 Patch 1 patch [facility] Oxybutynin Chloride (Ditropan Xl) 10 mg PO DAILY [facility] Last Admin: 02/27/19 07:33 Dose: 10 mg Documented by: Ziprasidone (Geodon) 20 mg PO Q48H [facility] Last Admin: 02/26/19 07:56 Dose: 20 mg Documented by: Ziprasidone (Geodon) 60 mg PO AC-BRKFST [facility] Last Admin: 02/27/19 07:33 Dose: 60 mg Documented by: Objective - Vital Signs Vital signs: Vital Signs Temp 98.1 F 02/27/19 11:59 Pulse 100 02/27/19 19:54 Resp 17 02/27/19 11:59 BP 94/65 02/27/19 11:59 Pulse Ox 95 02/27/19 19:37 Intake & Output 02/27/19 02/27/19 02/28/19 06:59 18:59 06:59 Intake Total 240 160 Balance 240 160 Intake: Intake, IV Titration 240 160 Amount Sodium Chloride 0.9% 1, 240 160 000 ml @ 20 mls/hr IV . Q24H [facility] Rx#:[id number] Other: Voiding Method Toilet Toilet - Exam GENERAL: BMI 35.3, awake alert and oriented 3. No distress.. EYES: Pupils equal. Conjunctiva normal. HEENT: External appearance of nose and ears normal, oral cavity grossly normal. NECK: JVD not raised; masses not palpable. HEART: First and second heart sounds are normal; no edema. LUNGS: Nonlabored. Bilateral expiratory wheeze. Scattered rhonchi positive.. ABDOMEN: Soft, nontender, liver spleen not palpable, no masses palpable. PSYCH: Alert and oriented x3; mood and affect normal. NEUROLOGICAL: [Cranial nerves grossly intact; no facial asymmetry, power of the right side 4/5, slight dysarthria LYMPHATICS: No lymph nodes palpable in the axilla and neck - Labs CBC & Chem 7: 02/26/19 07:00 02/27/19 10:23 Labs: Abnormal Lab Results - Last 24 Hours (Table) 02/26/19 02/27/19 02/27/19 Range/Units 21:11 07:00 10:23 BUN 24 H (7-17) mg/dL Glucose 138 H (74-99) mg/dL POC Glucose (mg/dL) 263 H 301 H (75-99) mg/dL 02/27/19 02/27/19 Range/Units 11:16 17:02 BUN (7-17) mg/dL Glucose (74-99) mg/dL POC Glucose (mg/dL) 136 H 383 H (75-99) mg/dL Microbiology - Last 24 Hours (Table) 02/25/19 12:24 Blood Culture - Preliminary Blood No Growth after 48 hours Assessment and Plan Assessment: Assessment: -Acute COPD exacerbation likely due to acute tracheobronchitis. -Possible Right lower lobe pneumonia suspected gram-negative organism in a patient who is receiving Rituxan -Acute hypoxic respiratory failure secondary to COPD exacerbation and pneumonia -Acute on chronic CHF with mild exacerbation with valvular heart disease -Pulmonary hypertension -Non-Hodgkin's lymphoma undergoing treatment with Rituxan -Chronic right hemiparesis and dysarthria from prior stroke -Short-term memory loss from prior stroke --Essential hypertension -Chronic urinary incontinence -Depression otherwise specified -Obesity BMI 35.3 Plan: Patient was given antibiotics, IV Zosyn. Changed to Augmentin currently.. Continue with bronchodilators IV steroids. Home medications resumed. Pulmonary and cardiology is following.. Mucinex 400 mg twice a day. Lovenox for DVT prophylaxis. Care was discussed with the patient and her family at bedside.. Questions were answered. Smoke cessation has been counseled. Time with Patient: Greater than 30
[2019-02-27 23:27] LABS: Glucose,Whole Blood 145 mg/dL (75-99)
[2019-02-28] MEDS ORDERED: ACETAMINOPHEN TAB 325 MG TAB PO STA (01:59)
[2019-02-28] MEDS: IPRATROPIUM-ALBUTEROL 3 ML NEB INHALATION SCH ×5 (04:09→19:14)
[2019-02-28] MEDS: methylPREDNISolone SOD SUCCI 125 MG/2 ML VIAL IV SCH ×2 (05:37→14:46)
[2019-02-28 07:05] LABS: Glucose,Whole Blood 190 mg/dL (75-99)
[2019-02-28] MEDS: FORMOTEROL FUMARATE 20 MCG/2 ML NEBU INHALATION SCH ×2 (07:21→19:14)
[2019-02-28] MEDS: BUDESONIDE 1 MG/2 ML NEBU INHALATION SCH ×2 (07:21→19:15)
[2019-02-28] MEDS: guaiFENesin 600 MG TABLET.ER PO SCH ×2 (07:43→20:26)
[2019-02-28] MEDS: INSULIN ASPART (NovoLOG) 100 UNIT/ML VIAL SQ SCH ×4 (07:43→20:26)
[2019-02-28] MEDS: buPROPion SR 150 MG TABLET.ER PO SCH ×2 (07:43→20:26)
[2019-02-28] MEDS: ENOXAPARIN 40 MG/0.4 ML SYRINGE SQ SCH (07:43)
[2019-02-28] MEDS: ASPIRIN 81 MG PO SCH (07:43)
[2019-02-28] MEDS: AMOXIC-POT CLAV 875-125MG 1 EACH TAB PO SCH ×2 (07:43→20:26)
[2019-02-28] MEDS: DULoxetine HCL 60 MG CAPSULE.DR PO SCH ×2 (07:44→21:05)
[2019-02-28] MEDS: ZIPRASIDONE 20 MG CAP PO SCH (07:44)
[2019-02-28] MEDS: CLOPIDOGREL 75 MG TAB PO SCH (07:44)
[2019-02-28] MEDS: ZIPRASIDONE 60 MG CAP PO SCH (07:44)
[2019-02-28] MEDS: NICOTINE 21MG/24HR PATCH TRANSDERM SCH (07:44)
[2019-02-28] MEDS: MEMANTINE 10 MG TAB PO SCH (07:45)
[2019-02-28] MEDS: FUROSEMIDE 20 MG TAB PO SCH (07:45)
[2019-02-28] MEDS: LISINOPRIL 10 MG TAB PO SCH (07:45)
[2019-02-28] MEDS: OXYBUTYNIN XL 5 MG TAB.ER.24 PO SCH (07:45)
--- NOTE | 2019-02-28 08:36 | P.PN ---
Subjective This is a pleasant 63-year-old patient of Dr. Dukes. Patient has a diagnosis of non-Hodgkin's lymphoma being followed by and has received a few cycles of Rituxan. Responding well to the same. Other chronic stable medical conditions include hyperlipidemia, some paresis of the right side from a prior stroke and some resulting dysphagia from the same. Patient's short-term memory is also affected. Patient presents with worsening cough congested in the chest not really able to expectorate no fever no chills. Tired rundown. Some wheezing. Appetite is okay. Started on IV Zosyn and ER. INVESTIGATIONS, reviewed in the clinical context: White count 20.9 hemoglobin 13.3 platelets 446 percussion 3 bun 20 creatinine 0.90 Troponin I 0.019, 0.04 to EKG tracing personally reviewed by me-sinus tachycardia Chest x-ray film personally reviewed by me-some right basilar infiltrate 02/26/2019 Patient is currently lying in the bed. Still having shortness of breath and expiratory wheezing. Currently requiring oxygen via nasal cannula. Patient is being continued on IV steroids and DuoNeb's. Patient was given a dose of IV Lasix. Cardiology and pulmonary is following. patient has been afebrile. Improved leukocytosis with WBC count 13.4 02/27/2019 Patient is currently lying in the bed. Saturating well on nasal cannula oxygen. No complaints of chest pain. Cough without much sputum production. Wheezing is much improved. Currently being continued on IV Solu-Medrol and duo nebs. Still having exertional dyspnea. On antibiotics in the form of Augmentin. Patient is more awake and oriented today. Cardiology and pulmonary is following. 2-D echocardiogram report is pending. 02/28/2019 Patient was admitted for COPD exacerbation and acute tracheobronchitis, she is on Augmentin on Solu-Medrol, she still short of breath however is significantly improved when compared to her presentation, as per my discussion with the respiratory therapist was on her earlier. However patient still have some tachypnea and difficulty talking and finishing her sentence, she still have cough, no chest pain. vitals stable and she is saturating 93% on room air. Labs from today still pending. Current medications reviewed. Objective - Vital Signs Vital signs: Vital Signs Temp 98.4 F 02/28/19 04:30 Pulse 94 02/28/19 07:39 Resp 16 02/28/19 04:30 BP 127/79 02/28/19 04:30 Pulse Ox 93 L 02/28/19 04:30 Intake & Output 02/27/19 02/28/19 02/28/19 18:59 06:59 18:59 Intake Total 160 310 Balance 160 310 Intake: Intake, IV Titration 160 70 Amount Sodium Chloride 0.9% 1, 160 70 000 ml @ 20 mls/hr IV . Q24H [facility] Rx#:[id number] Oral 240 Other: Voiding Method Toilet Toilet # Voids 2 # Bowel Movements 0 - Exam GENERAL: BMI 35.3, awake alert and oriented 3. No distress.. EYES: Pupils equal. Conjunctiva normal. HEENT: External appearance of nose and ears normal, oral cavity grossly normal. NECK: JVD not raised; masses not palpable. HEART: First and second heart sounds are normal; no edema. -LUNGS: Nonlabored. Bilateral expiratory wheeze. Scattered rhonchi positive.. ABDOMEN: Soft, nontender, liver spleen not palpable, no masses palpable. PSYCH: Alert and oriented x3; mood and affect normal. NEUROLOGICAL: [Cranial nerves grossly intact; no facial asymmetry, power of the right side 4/5, slight dysarthria LYMPHATICS: No lymph nodes palpable in the axilla and neck - Labs CBC & Chem 7: 02/26/19 07:00 02/27/19 10:23 Labs: Abnormal Lab Results - Last 24 Hours (Table) 02/27/19 02/27/19 02/27/19 Range/Units 10:23 11:16 17:02 BUN 24 H (7-17) mg/dL Glucose 138 H (74-99) mg/dL POC Glucose (mg/dL) 136 H 383 H (75-99) mg/dL 02/27/19 02/27/19 02/27/19 Range/Units 20:31 20:32 23:25 BUN (7-17) mg/dL Glucose (74-99) mg/dL POC Glucose (mg/dL) 501 H 349 H 145 H (75-99) mg/dL 02/28/19 Range/Units 07:04 BUN (7-17) mg/dL Glucose (74-99) mg/dL POC Glucose (mg/dL) 190 H (75-99) mg/dL Microbiology - Last 24 Hours (Table) 02/25/19 12:24 Blood Culture - Preliminary Blood No Growth after 48 hours Assessment and Plan Assessment: -Acute COPD exacerbation likely due to acute tracheobronchitis. -Acute tracheobronchitis -Acute hypoxic respiratory failure secondary to COPD exacerbation and pneumonia -Acute on chronic CHF with mild exacerbation with valvular heart disease -Pulmonary hypertension -Non-Hodgkin's lymphoma undergoing treatment with Rituxan -Chronic right hemiparesis and dysarthria from prior stroke -Short-term memory loss from prior stroke --Essential hypertension -Chronic urinary incontinence -Depression otherwise specified -Obesity BMI 35.3 Plan: Patient was given antibiotics, IV Zosyn. Continue with Augmentin currently.. Continue with bronchodilators IV steroids. Home medications resumed. Pulmonary and cardiology is following.. Mucinex 400 mg twice a day. Lovenox for DVT prophylaxis. Care was discussed with the patient and her family at bedside.. Questions were answered.
[2019-02-28] MEDS ORDERED: ERGOCALCIFEROL 50,000 UNIT CAP PO SCH (09:00)
[2019-02-28 09:16] LABS: Basophils # (A) 0.1 k/uL (0-0.2); Basophils % (A) 1 %; Eosinophils % (A) 0 %; HGB 12.2 gm/dL (11.4-16.0); Lymphocytes # (A) 0.5 k/uL (1.0-4.8); Lymphocytes % (A) 2 %; MCH 31.1 pg (25.0-35.0); MCV 97.2 fL (80.0-100.0); Mean Platelet Volume 7.2; Monocytes # (A) 0.7 k/uL (0-1.0); Monocytes % (A) 3 %; Neutrophils # (A) 18.3 k/uL (1.3-7.7); Neutrophils % (A) 92 %; Platelet Count 172 k/uL (150-450); RDW 13.5 % (11.5-15.5); WBC 19.9 k/uL (3.8-10.6)
--- NOTE | 2019-02-28 09:42 | XR ---
EXAMINATION TYPE: XR chest 2V DATE OF EXAM: 02/28/2019 COMPARISON: 02/25/2019 HISTORY: Shortness of breath TECHNIQUE: Frontal and lateral views of the chest are obtained. FINDINGS: Scattered senescent parenchymal changes noted. Hyperinflation compatible with COPD. Pulmonary venous congestion noted with cardiomegaly. Mild interstitial edema. Mediastinal structures are stable and grossly unremarkable. No evidence for hilar prominence. Degenerative changes dorsal spine. IMPRESSION: 1. Pulmonary venous congestion noted with cardiomegaly. Mild interstitial edema.
[2019-02-28 09:54] LABS: Calcium 9.2 mg/dL (8.4-10.2); Potassium 4.6 mmol/L (3.5-5.1)
--- NOTE | 2019-02-28 10:19 | ECHOF ---
Referral Reason:elevated troponin, chf, known MS MEASUREMENTS -------- HEIGHT: 165.1 cm WEIGHT: 96.2 kg BP: RVIDd: 3.5 cm (< 3.3) IVSd: 1.1 cm (0.6 - 1.1) LVIDd: 3.8 cm (3.9 - 5.3) LVPWd: 1.0 cm (0.6 - 1.1) IVSs: 1.4 cm LVIDs: 2.3 cm LVPWs: 1.4 cm LA Diam: 3.3 cm (2.7 - 3.8) LAESV Index (A-L): 32.36 ml/m Ao Diam: 2.2 cm (2.0 - 3.7) AV Cusp: 1.3 cm (1.5 - 2.6) LA Diam: 3.7 cm (2.7 - 3.8) MV EXCURSION: 17.007 mm (> 18.000) MV EF SLOPE: 30 mm/s (70 - 150) EPSS: 0.5 cm MV E Dario: 2.48 m/s MV DecT: 308 ms MV A Dario: 2.16 m/s MV E/A Ratio: 1.15 RAP: 5.00 mmHg RVSP: 61.00 mmHg FINDINGS -------- Sinus rhythm. This was a technically adequate study. The left ventricular size is normal. There is borderline concentric left ventricular hypertrophy. Overall left ventricular systolic function is normal with, an EF between 60 - 65 %. The right ventricle is normal in size. The left atrium is mildly dilated. LA is midly dilated 29-33ml/m2. The right atrial size is normal. There is mild aortic valve sclerosis. There is no evidence of aortic regurgitation. The mitral valve was not well visualized. Mild mitral regurgitation is present. The peak and shelby n MV gradients are 40.55mmHg 18.78mmHg as measured by doppler. Severe mitral stenosis. Mild tricuspid regurgitation present. There is moderate pulmonary hypertension. The right ventric ular systolic pressure, as measured by Doppler, is 61.00mmHg. Trace/mild (physiologic) pulmonic regurgitation. The aortic root size is normal. Echo free space indicative of a pericardial fat pad. CONCLUSIONS -------- 1. Sinus rhythm. 2. This was a technically adequate study. 3. The left ventricular size is normal. 4. There is borderline concentric left ventricular hypertrophy. 5. Overall left ventricular systolic function is normal with, an EF between 60 - 65 %. 6. The right ventricle is normal in size. 7. The left atrium is mildly dilated. 8. LA is midly dilated 29-33ml/m2. 9. The right atrial size is normal. 10. There is mild aortic valve sclerosis. 11. The mitral valve was not well visualized. 12. Mild mitral regurgitation is present. 13. The peak and mean MV gradients are 40.55mmHg 18.78mmHg as measured by doppler. 14. Severe mitral stenosis. 15. Mild tricuspid regurgitation present. 16. There is moderate pulmonary hypertension. 17. The right ventricular systolic pressure, as measured by Doppler, is 61.00mmHg. 18. Trace/mild (physiologic) pulmonic regurgitation. 19. Consider OMAR for optimal evaluation 20. Echo free space indicative of a pericardial fat pad. COMMERCIAL CLEANER: Parisa Underwood RDCS
--- NOTE | 2019-02-28 11:27 | P.PN ---
Subjective This is a pleasant 63-year-old female past medical history significant for mitral stenosis, mitral regurgitation, pulmonary hypertension, peripheral vascular disease, carotid stenosis status post left carotid endarterectomy, CVA, dyslipidemia, lymphoma, chronic nicotine dependence and COPD. She follows in the office with Dr. Lutz. She has been evaluated in the past by cardiothoracic surgery and thought not to be a good surgical candidate. We are following secondary to hypoxic respiratory failure. Currently maintained on aspirin 81 mg daily, atorvastatin 20 mg daily, Plavix 75 mg daily, Lasix 20 mg daily, lisinopril 10 mg daily and oral antibiotics. She is seen and examined sitting up on the edge of the bed. She states she is feeling better day by day however not entirely back to baseline. She still has dyspnea noted with conversation however is maintaining oxygen saturations on room air. She denies symptoms of chest discomfort, dizziness or palpitations. Blood pressure 127/79 heart rate 104. Laboratory data reviewed, WBC 19.9, hgb 12.2, platelets 172, sodium 140, potassium 4.6 and creatinine 0.9 to. Chest x-ray this morning revealed pulmonary venous congestion and mild interstitial edema. Echocardiogram obta ined and revealed preserved LV systolic function with ejection fraction 60-65%, mild mitral regurgitation, severe mitral stenosis with a mean gradient of 18 mmHg, mild tricuspid regurgitation and moderate pulmonary hypertension with RVSP of 61 mmHg. GENERAL: Well-appearing, well-nourished and in no acute distress. NECK: Supple without JVD or thyromegaly. LUNGS: Scattered rhonchi, faint expiratory wheezes, no rales. Respiration equal and mildly labored with conversation. HEART: Regular rate and rhythm with murmur at the left sternal border, no rubs or gallops. S1 and S2 heard. EXTREMITIES: Normal range of motion, no edema. No clubbing or cyanosis. Peripheral pulses intact. ASSESSMENT Acute hypoxic respiratory failure secondary to COPD and heart failure Abnormal troponin secondary to hypoxia, not consistent with acute coronary syndrome Acute on chronic diastolic heart failure secondary to valvular heart disease and pulmonary hypertension Leukocytosis Valvular heart disease with known mitral stenosis and mitral regurgitation Pulmonary hypertension History of peripheral vascular disease status post left carotid endarterectomy CVA in the past History of non-hodgkins lymphoma Chronic nicotine dependence PLAN Increase daily PO to lasix to 40 mg. Ongoing medical management and pulmonary evaluation. Smoking cessation highly recommended. Nurse Practitioner note has been reviewed, I agree with a documented findings and plan of care. Patient was seen and examined. Objective - Vital Signs Vital signs: Vital Signs Temp 98.4 F 02/28/19 04:30 Pulse 94 02/28/19 07:39 Resp 16 02/28/19 04:30 BP 127/79 02/28/19 04:30 Pulse Ox 93 L 02/28/19 04:30 Intake & Output 02/27/19 02/28/19 02/28/19 18:59 06:59 18:59 Intake Total 160 310 Balance 160 310 Intake: Intake, IV Titration 160 70 Amount Sodium Chloride 0.9% 1, 160 70 000 ml @ 20 mls/hr IV . Q24H [facility] Rx#:[id number] Oral 240 Other: Voiding Method Toilet Toilet Toilet # Voids 2 # Bowel Movements 0 - Labs CBC & Chem 7: 02/28/19 08:02 02/28/19 08:02 Labs: Abnormal Lab Results - Last 24 Hours (Table) 02/27/19 02/27/19 02/27/19 Range/Units 10:23 11:16 17:02 WBC (3.8-10.6) k/uL Neutrophils # (1.3-7.7) k/uL Lymphocytes # (1.0-4.8) k/uL BUN 24 H (7-17) mg/dL Glucose 138 H (74-99) mg/dL POC Glucose (mg/dL) 136 H 383 H (75-99) mg/dL 02/27/19 02/27/19 02/27/19 Range/Units 20:31 20:32 23:25 WBC (3.8-10.6) k/uL Neutrophils # (1.3-7.7) k/uL Lymphocytes # (1.0-4.8) k/uL BUN (7-17) mg/dL Glucose (74-99) mg/dL POC Glucose (mg/dL) 501 H 349 H 145 H (75-99) mg/dL 02/28/19 02/28/19 Range/Units 07:04 08:02 WBC 19.9 H (3.8-10.6) k/uL Neutrophils # 18.3 H (1.3-7.7) k/uL Lymphocytes # 0.5 L (1.0-4.8) k/uL BUN (7-17) mg/dL Glucose (74-99) mg/dL POC Glucose (mg/dL) 190 H (75-99) mg/dL Microbiology - Last 24 Hours (Table) 02/25/19 12:24 Blood Culture - Preliminary Blood No Growth after 48 hours
[2019-02-28] MEDS ORDERED: FUROSEMIDE 20 MG TAB PO ONE (11:30)
[2019-02-28 11:33] LABS: Glucose,Whole Blood 142 mg/dL (75-99)
--- NOTE | 2019-02-28 12:06 | P.PN ---
Subjective Progress Note Date: 02/28/19 This is a 63-year-old white female patient of Dr. Nicole Dukes, with past medical history of CVA in 2004, history of B cell lymphoma since 2013, and according to the patient she had recent reoccurrence with enlarged lymph nodes in bilateral groins, and she is currently undergoing treatment unclear of what type. Other medical history includes moderate mitral valve stenosis, moderate pulmonary hypertension, hyperlipidemia, history of carotid endarterectomy, and patient carries over 44 years of smoking history, smoking currently a pack a day. She had previously undergone evaluation for her mitral valve stenosis by Dr. Sharma in December 2018, and was found to be a poor candidate for surgery with the possibility of balloon valvotomy down the road. Recent PET scan from January 2019 showed recurrent neoplasm or lymphoma in bilateral groin region and new hypermetabolic adenopathy. 02/25/2019 patient came into the emergency department for evaluation of increasing shortness of breath, chest congestion, cough, but no fever or chills, no headaches, no lightheadedness or dizziness, no nausea or vomiting. Chest x-ray showed diffuse peribronchial coughing with underlying COPD, acute airway disease such as bronchitis to be considered. No definite evidence of pneumonia, recent has been afebrile, lab work reviewed showing white blood cell count of 20.9, hemoglobin of 13.3, INR 0.8, with PT is 9.3, sodium is 141, potassium is 3.0, chloride is 103, CO2 is 29, BUN is 20 creatinine 0.9, lactic acid was 1.6, troponin is negative 1, proBNP is 2170, with no definite evidence of fluid overload on the chest x-ray. Patient does wear home O2, and she states she has Ventolin and albuterol nebulized treatments at home. Does not follow with a lung doctor. Patient has been started on a combination of Zosyn and vancomycin, breathing treatments, and we're asked to see the patient consultation for ears to be acute exacerbation of chronic obstructive pulmonary disease with acute bronchitis but no definite evidence of pneumonia On 02/27/2019 patient seen in follow-up in medical surgical floor. Patient is on 2 L of oxygen with a pulse ox of 91%, she is afebrile, however she remains dyspneic with any exertion and bronchospastic. Patient remains on nebulized bronchodilators, she is on daily dose of Lasix, and she was given an extra dose of Lasix yesterday per cardiology, IV Solu-Medrol 60 mg every 6 hours, and she is on empiric antibiotic coverage in the form of Augmentin. No new labs today, no new chest x-rays. She has been evaluated by cardiology for elevated troponins, and elevated proBNP. 2-D echocardiogram is pending. On today's evaluation of 02/28/2019, the patient is feeling slightly better. She is still on IV Solu-Medrol. She has a congested cough. Unable to bring up much of sputum. No chest pain. No significant swelling in the lower extremities. She is still on broad-spectrum antibiotics, and she was switched to oral Augmentin 875 mg by mouth twice a day. She is also on Lasix 40 mg by mouth daily. Outpatient medications have been ordered resume. She is on IV Solu-Medrol dose of 60 mg IV push every 6 hours. The chest x-ray from today shows some mild interstitial edema. There is some mild cardiomegaly with pulmonary vascular congestion. There is hyperinflation. No evidence of any acute airspace disease or pneumonias. Objective - Vital Signs Vital signs: Vital Signs Temp 98.4 F 02/28/19 04:30 Pulse 92 02/28/19 11:45 Resp 16 02/28/19 04:30 BP 127/79 02/28/19 04:30 Pulse Ox 93 L 02/28/19 04:30 Intake & Output 02/27/19 02/28/19 02/28/19 18:59 06:59 18:59 Intake Total 160 310 Balance 160 310 Intake: Intake, IV Titration 160 70 Amount Sodium Chloride 0.9% 1, 160 70 000 ml @ 20 mls/hr IV . Q24H [facility] Rx#:[id number] Oral 240 Other: Voiding Method Toilet Toilet Toilet # Voids 2 # Bowel Movements 0 - Exam GENERAL EXAM: Alert, pleasant, somewhat of a poor historian 63-year-old white female, on 2 L of oxygen with a pulse ox of 100% comfortable in no apparent distress. HEAD: Normocephalic/atraumatic. EYES: Normal reaction of pupils, equal size. Conjunctiva pink, sclera white. NOSE: Clear with pink turbinates. THROAT: No erythema or exudates. NECK: No masses, no JVD, no thyroid enlargement, no adenopathy. CHEST: No chest wall deformity. Symmetrical expansion. LUNGS: Equal air entry with congestive cough, diffuse rhonchi and some wheezes CVS: Regular rate and rhythm, normal S1 and S2, no gallops, no murmurs, no rubs ABDOMEN: Soft, nontender. No hepatosplenomegaly, normal bowel sounds, no guarding or rigidity. EXTREMITIES: No clubbing, no edema, no cyanosis, 2+ pulses and upper and lower extremities. MUSCULOSKELETAL: Muscle strength and tone normal. SPINE: No scoliosis or deformity SKIN: No rashes CENTRAL NERVOUS SYSTEM: Alert and oriented -3. No focal deficits, tone is normal in all 4 extremities. PSYCHIATRIC: Alert and oriented -3. Appropriate affect. Intact judgment and insight. - Labs CBC & Chem 7: 02/28/19 08:02 02/28/19 08:02 Labs: Abnormal Lab Results - Last 24 Hours (Table) 02/27/19 02/27/19 02/27/19 Range/Units 17:02 20:31 20:32 WBC (3.8-10.6) k/uL Neutrophils # (1.3-7.7) k/uL Lymphocytes # (1.0-4.8) k/uL BUN (7-17) mg/dL Glucose (74-99) mg/dL POC Glucose (mg/dL) 383 H 501 H 349 H (75-99) mg/dL 02/27/19 02/28/19 02/28/19 Range/Units 23:25 07:04 08:02 WBC (3.8-10.6) k/uL Neutrophils # (1.3-7.7) k/uL Lymphocytes # (1.0-4.8) k/uL BUN 31 H (7-17) mg/dL Glucose 209 H (74-99) mg/dL POC Glucose (mg/dL) 145 H 190 H (75-99) mg/dL 02/28/19 02/28/19 Range/Units 08:02 11:29 WBC 19.9 H (3.8-10.6) k/uL Neutrophils # 18.3 H (1.3-7.7) k/uL Lymphocytes # 0.5 L (1.0-4.8) k/uL BUN (7-17) mg/dL Glucose (74-99) mg/dL POC Glucose (mg/dL) 142 H (75-99) mg/dL Microbiology - Last 24 Hours (Table) 02/25/19 12:24 Blood Culture - Preliminary Blood No Growth after 48 hours Assessment and Plan Plan: #1. Shortness of breath related to acute exacerbation of COPD and tracheobronchitis, no definite evidence of pneumonia on the chest x-ray #2. Chronic and ongoing history of tobacco dependence, carries [id number] smoking history #3. Chronic COPD the severity of which is unknown at this time, #4. Leukocytosis #5. Hypokalemia, being replaced per protocol #6. History of mitral valve stenosis with moderate pulmonary hypertension and moderate tricuspid valve regurgitation #7. Previous history of carotid endarterectomy for carotid stenosis #8. Hyperlipidemia #9. History of B cell lymphoma with recent recurrence and patient is currently receiving treatments unclear of what type #10. 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 Dementia Plan This patient needs to quit smoking. I counseled in that regard. She is improving. I'm going to discontinue the IV Solu-Medrol and started on a prednisone burst taper. Deep breathing and coughing. Continue the bronchodilators. She has a home nebulizer and she has been maintained on Symbicort on outpatient basis. Would like to see her back in the office regarding her lung function and her COPD.
--- NOTE | 2019-02-28 13:03 | P.PN ---
Subjective Progress Note Date: 02/28/19 Principal diagnosis: NHL, s/p monoclonal antibody infusions Pt respiratory status is slowly improving, still has cough, thick grayish sputum, no hemoptysis, fevers, vomiting, diarrhea. Objective - Vital Signs Vital signs: Vital Signs Temp 97.3 F L 02/28/19 12:32 Pulse 85 02/28/19 12:32 Resp 17 02/28/19 12:32 BP 129/73 02/28/19 12:32 Pulse Ox 95 02/28/19 12:39 Intake & Output 02/27/19 02/28/19 02/28/19 18:59 06:59 18:59 Intake Total 160 310 Balance 160 310 Intake: Intake, IV Titration 160 70 Amount Sodium Chloride 0.9% 1, 160 70 000 ml @ 20 mls/hr IV . Q24H [facility] Rx#:[id number] Oral 240 Other: Voiding Method Toilet Toilet Toilet # Voids 2 # Bowel Movements 0 - Constitutional General appearance: Present: cooperative, no acute distress, obese - EENT Eyes: Present: anicteric sclerae, EOMI ENT: Present: hearing grossly normal, normal oropharynx - Respiratory Respiratory: bilateral: wheezing (anterior) - Cardiovascular Heart sounds: normal: S1, S2 - Peripheral edema leg Peripheral Edema: bilateral: Trace - Gastrointestinal General gastrointestinal: Present: normal bowel sounds, soft - Musculoskeletal Musculoskeletal: Present: strength equal bilaterally - Psychiatric Psychiatric: Present: A&O x's 3, appropriate affect, intact judgment & insight - Labs CBC & Chem 7: 02/28/19 08:02 02/28/19 08:02 Labs: Abnormal Lab Results - Last 24 Hours (Table) 02/27/19 02/27/19 02/27/19 Range/Units 17:02 20:31 20:32 WBC (3.8-10.6) k/uL Neutrophils # (1.3-7.7) k/uL Lymphocytes # (1.0-4.8) k/uL BUN (7-17) mg/dL Glucose (74-99) mg/dL POC Glucose (mg/dL) 383 H 501 H 349 H (75-99) mg/dL 02/27/19 02/28/19 02/28/19 Range/Units 23:25 07:04 08:02 WBC (3.8-10.6) k/uL Neutrophils # (1.3-7.7) k/uL Lymphocytes # (1.0-4.8) k/uL BUN 31 H (7-17) mg/dL Glucose 209 H (74-99) mg/dL POC Glucose (mg/dL) 145 H 190 H (75-99) mg/dL 02/28/19 02/28/19 Range/Units 08:02 11:29 WBC 19.9 H (3.8-10.6) k/uL Neutrophils # 18.3 H (1.3-7.7) k/uL Lymphocytes # 0.5 L (1.0-4.8) k/uL BUN (7-17) mg/dL Glucose (74-99) mg/dL POC Glucose (mg/dL) 142 H (75-99) mg/dL Microbiology - Last 24 Hours (Table) 02/25/19 12:24 Blood Culture - Preliminary Blood No Growth after 48 hours Assessment and Plan (1) NHL (non-Hodgkin's lymphoma) Narrative/Plan: Patient is a stage III non-Hodgkin's lymphoma, treated by Dr. Garcia. Patient just recently completed a 4 week cycle of Rituxan. She is now going to be Receiving Rituxan on a every 3 month basis. She will return to Dr. Garcia for her follow-up. No acute intervention from a Heme/Onc standpoint. Current Visit: Yes Status: Chronic Priority: Medium Code(s): C85.90 - NON- HODGKIN LYMPHOMA, UNSPECIFIED, UNSPECIFIED SITE SNOMED Code(s): 845200365 (2) Leukocytosis Narrative/Plan: Fluctuating WBC, mostly neutrophiles, suspect in part r/t steroids, acute infection Current Visit: Yes Status: Acute Priority: Medium Code(s): D72.829 - ELEVATED WHITE BLOOD CELL COUNT, UNSPECIFIED SNOMED Code(s): 302967604 (3) Hypogammaglobulinemia Narrative/Plan: IgG <400. Recommendation is for IVIG as this may help with recurrent infections. IVIG is still on shorteage. Told Pt will take lab results to her Onc for review and maybe it can be ordered as an outpatient infusion for her. Her mother verbalized understanding. Current Visit: Yes Status: Acute Priority: Medium Code(s): D80.1 - NONFAMILIAL HYPOGAMMAGLOBULINEMIA SNOMED Code(s): 279084462
[2019-02-28] MEDS: SODIUM CHLORIDE 0.9% 1,000 ML IV SCH (13:13)
[2019-02-28] MEDS: predniSONE 20 MG TAB PO SCH (13:18)
[2019-02-28 17:30] LABS: Glucose,Whole Blood 234 mg/dL (75-99)
[2019-02-28 19:51] LABS: Glucose,Whole Blood 267 mg/dL (75-99)
[2019-02-28] MEDS: ATORVASTATIN 20 MG TAB PO SCH (20:26)
[2019-02-28] MEDS: DONEPEZIL 10 MG TAB PO SCH (20:26)
[2019-03-01] MEDS ORDERED: IPRATROPIUM-ALBUTEROL 3 ML NEB ONE
[2019-03-01] MEDS ORDERED: LISINOPRIL 10 MG TAB ONE
[2019-03-01] MEDS: LISINOPRIL 10 MG TAB PO SCH (05:41)
[2019-03-01] MEDS: IPRATROPIUM-ALBUTEROL 3 ML NEB INHALATION SCH ×5 (05:56→21:55)
[2019-03-01 07:09] LABS: Glucose,Whole Blood 103 mg/dL (75-99)
[2019-03-01] MEDS: INSULIN ASPART (NovoLOG) 100 UNIT/ML VIAL SQ SCH ×4 (07:54→20:29)
[2019-03-01] MEDS: MEMANTINE 10 MG TAB PO SCH (07:59)
[2019-03-01] MEDS: NICOTINE 21MG/24HR PATCH TRANSDERM SCH (07:59)
[2019-03-01] MEDS: predniSONE 20 MG TAB PO SCH (07:59)
[2019-03-01] MEDS: buPROPion SR 150 MG TABLET.ER PO SCH ×2 (07:59→20:29)
[2019-03-01] MEDS: DULoxetine HCL 60 MG CAPSULE.DR PO SCH ×2 (07:59→21:34)
[2019-03-01] MEDS: CLOPIDOGREL 75 MG TAB PO SCH (07:59)
[2019-03-01] MEDS: AMOXIC-POT CLAV 875-125MG 1 EACH TAB PO SCH ×2 (08:00→20:29)
[2019-03-01] MEDS: guaiFENesin 600 MG TABLET.ER PO SCH ×2 (08:00→20:29)
[2019-03-01] MEDS: ENOXAPARIN 40 MG/0.4 ML SYRINGE SQ SCH (08:00)
[2019-03-01] MEDS: ASPIRIN 81 MG PO SCH (08:00)
[2019-03-01] MEDS: OXYBUTYNIN XL 5 MG TAB.ER.24 PO SCH (08:00)
[2019-03-01] MEDS: ZIPRASIDONE 60 MG CAP PO SCH (08:01)
[2019-03-01] MEDS: FUROSEMIDE 40 MG TAB PO SCH (08:01)
[2019-03-01] MEDS: FORMOTEROL FUMARATE 20 MCG/2 ML NEBU INHALATION SCH ×2 (08:09→21:55)
[2019-03-01] MEDS: BUDESONIDE 1 MG/2 ML NEBU INHALATION SCH ×2 (08:10→21:55)
[2019-03-01] MEDS: LISINOPRIL 20 MG TAB PO SCH (08:25)
--- NOTE | 2019-03-01 10:31 | P.PN ---
Subjective Progress Note Date: 03/01/19 This is a 63-year-old white female patient of Dr. Nicole Dukes, with past medical history of CVA in 2004, history of B cell lymphoma since 2013, and according to the patient she had recent reoccurrence with enlarged lymph nodes in bilateral groins, and she is currently undergoing treatment unclear of what type. Other medical history includes moderate mitral valve stenosis, moderate pulmonary hypertension, hyperlipidemia, history of carotid endarterectomy, and patient carries over 44 years of smoking history, smoking currently a pack a day. She had previously undergone evaluation for her mitral valve stenosis by Dr. Sharma in December 2018, and was found to be a poor candidate for surgery with the possibility of balloon valvotomy down the road. Recent PET scan from January 2019 showed recurrent neoplasm or lymphoma in bilateral groin region and new hypermetabolic adenopathy. 02/25/2019 patient came into the emergency department for evaluation of increasing shortness of breath, chest congestion, cough, but no fever or chills, no headaches, no lightheadedness or dizziness, no nausea or vomiting. Chest x-ray showed diffuse peribronchial coughing with underlying COPD, acute airway disease such as bronchitis to be considered. No definite evidence of pneumonia, recent has been afebrile, lab work reviewed showing white blood cell count of 20.9, hemoglobin of 13.3, INR 0.8, with PT is 9.3, sodium is 141, potassium is 3.0, chloride is 103, CO2 is 29, BUN is 20 creatinine 0.9, lactic acid was 1.6, troponin is negative 1, proBNP is 2170, with no definite evidence of fluid overload on the chest x-ray. Patient does wear home O2, and she states she has Ventolin and albuterol nebulized treatments at home. Does not follow with a lung doctor. Patient has been started on a combination of Zosyn and vancomycin, breathing treatments, and we're asked to see the patient consultation for ears to be acute exacerbation of chronic obstructive pulmonary disease with acute bronchitis but no definite evidence of pneumonia On 02/27/2019 patient seen in follow-up in medical surgical floor. Patient is on 2 L of oxygen with a pulse ox of 91%, she is afebrile, however she remains dyspneic with any exertion and bronchospastic. Patient remains on nebulized bronchodilators, she is on daily dose of Lasix, and she was given an extra dose of Lasix yesterday per cardiology, IV Solu-Medrol 60 mg every 6 hours, and she is on empiric antibiotic coverage in the form of Augmentin. No new labs today, no new chest x-rays. She has been evaluated by cardiology for elevated troponins, and elevated proBNP. 2-D echocardiogram is pending. On today's evaluation of 02/28/2019, the patient is feeling slightly better. She is still on IV Solu-Medrol. She has a congested cough. Unable to bring up much of sputum. No chest pain. No significant swelling in the lower extremities. She is still on broad-spectrum antibiotics, and she was switched to oral Augmentin 875 mg by mouth twice a day. She is also on Lasix 40 mg by mouth daily. Outpatient medications have been ordered resume. She is on IV Solu-Medrol dose of 60 mg IV push every 6 hours. The chest x-ray from today shows some mild interstitial edema. There is some mild cardiomegaly with pulmonary vascular congestion. There is hyperinflation. No evidence of any acute airspace disease or pneumonias. On 03/01/2019 the patient is looking well. No specific complaints. Taken off the IV Solu Medrol yesterday. Currently on a prednisone burst taper. She was walked around yesterday and she did not have any desaturations. She is on broad-spectrum antibiotics and she was switched to oral Augmentin. She is requesting a nebulizer for outpatient use. Objective - Vital Signs Vital signs: Vital Signs Temp 98.0 F 03/01/19 05:00 Pulse 96 03/01/19 08:30 Resp 16 03/01/19 08:00 BP 182/92 03/01/19 05:00 Pulse Ox 96 03/01/19 08:10 Intake & Output 02/28/19 03/01/19 03/01/19 18:59 06:59 18:59 Intake Total 1180 480 Balance 1180 480 Intake: Oral 1180 480 Other: Voiding Method Toilet Toilet Toilet # Voids 5 2 2 # Bowel Movements 0 - Exam GENERAL EXAM: Alert, pleasant, somewhat of a poor historian 63-year-old white female, on 2 L of oxygen with a pulse ox of 100% comfortable in no apparent distress. HEAD: Normocephalic/atraumatic. EYES: Normal reaction of pupils, equal size. Conjunctiva pink, sclera white. NOSE: Clear with pink turbinates. THROAT: No erythema or exudates. NECK: No masses, no JVD, no thyroid enlargement, no adenopathy. CHEST: No chest wall deformity. Symmetrical expansion. LUNGS: Equal air entry with congestive cough, diffuse rhonchi and some wheezes CVS: Regular rate and rhythm, normal S1 and S2, no gallops, no murmurs, no rubs ABDOMEN: Soft, nontender. No hepatosplenomegaly, normal bowel sounds, no guarding or rigidity. EXTREMITIES: No clubbing, no edema, no cyanosis, 2+ pulses and upper and lower extremities. MUSCULOSKELETAL: Muscle strength and tone normal. SPINE: No scoliosis or deformity SKIN: No rashes CENTRAL NERVOUS SYSTEM: Alert and oriented -3. No focal deficits, tone is normal in all 4 extremities. PSYCHIATRIC: Alert and oriented -3. Appropriate affect. Intact judgment and insight. - Labs CBC & Chem 7: 02/28/19 08:02 02/28/19 08:02 Labs: Abnormal Lab Results - Last 24 Hours (Table) 02/28/19 02/28/19 02/28/19 Range/Units 11:29 17:30 19:49 POC Glucose (mg/dL) 142 H 234 H 267 H (75-99) mg/dL 03/01/19 Range/Units 07:06 POC Glucose (mg/dL) 103 H (75-99) mg/dL Microbiology - Last 24 Hours (Table) 02/25/19 12:24 Blood Culture - Preliminary Blood No Growth after 72 hours Assessment and Plan Plan: #1. Shortness of breath related to acute exacerbation of COPD and tracheobronchitis, no definite evidence of pneumonia on the chest x-ray #2. Chronic and ongoing history of tobacco dependence, carries [id number] smoking history #3. Chronic COPD the severity of which is unknown at this time, #4. Leukocytosis #5. Hypokalemia, being replaced per protocol #6. History of mitral valve stenosis with moderate pulmonary hypertension and moderate tricuspid valve regurgitation #7. Previous history of carotid endarterectomy for carotid stenosis #8. Hyperlipidemia #9. History of B cell lymphoma with recent recurrence and patient is currently receiving treatments unclear of what type #10. 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 Dementia Plan This patient needs to quit smoking. I counseled in that regard. Complete the course of prednisone burst taper. Completed the course of Augmentin. Arrange for a home nebulizer. Possible discharge today and this will be discussed with the medical team.
[2019-03-01 11:35] LABS: Glucose,Whole Blood 211 mg/dL (75-99)
--- NOTE | 2019-03-01 11:35 | P.PN ---
Subjective This is a pleasant 63-year-old female past medical history significant for mitral stenosis, mitral regurgitation, pulmonary hypertension, peripheral vascular disease, carotid stenosis status post left carotid endarterectomy, CVA, dyslipidemia, lymphoma, chronic nicotine dependence and COPD. She follows in the office with Dr. Lutz. She has been evaluated in the past by cardiothoracic surgery and thought not to be a good surgical candidate. We are following secondary to hypoxic respiratory failure. Currently maintained on aspirin 81 mg daily, atorvastatin 20 mg daily, Plavix 75 mg daily, Lasix 40 mg daily, lisinopril 10 mg daily and oral antibiotics. She is seen and examined sitting up on the edge of the bed with family in the room. She states overall she is feeling better from a breathing standpoint. No chest pain, dizziness or palpitations. Blood pressure this morning 182/92 heart rate 88 afebrile and maintaining oxygen saturation on nasal cannula. GENERAL: Well-appearing, well-nourished and in no acute distress. NECK: Supple without JVD or thyromegaly. LUNGS: Expiratory wheezes, no rales or rhonchi. Respiration equal and mildly labored with conversation. HEART: Regular rate and rhythm with murmur at the left sternal border, no rubs or gallops. S1 and S2 heard. EXTREMITIES: Normal range of motion, no edema. No clubbing or cyanosis. Peripheral pulses intact. ASSESSMENT Acute hypoxic respiratory failure secondary to COPD and heart failure Abnormal troponin secondary to hypoxia, not consistent with acute coronary syndrome Acute on chronic diastolic heart failure secondary to valvular heart disease and pulmonary hypertension Leukocytosis Valvular heart disease with known mitral stenosis and mitral regurgitation Pulmonary hypertension History of peripheral vascular disease status post left carotid endarterectomy CVA in the past History of non-hodgkins lymphoma Chronic nicotine dependence PLAN Increase lisinopril to 20 mg daily and initiate on amlodipine 5 mg daily. She does state in the past her blood pressures have run on the low side. Advised to keep a log at home of her daily blood pressures to bring with her to follow up appointment. Also advised to hold lisinopril if her blood pressure is less than 110 systolic. Follow up with Dr. Lutz upon discharge. Nurse Practitioner note has been reviewed, I agree with a documented findings and plan of care. Patient was seen and examined. Objective - Vital Signs Vital signs: Vital Signs Temp 98.0 F 03/01/19 05:00 Pulse 96 11/26/19 08:30 Resp 16 03/01/19 08:00 BP 182/92 03/01/19 05:00 Pulse Ox 96 03/01/19 08:10 Intake & Output 02/28/19 03/01/19 03/01/19 18:59 06:59 18:59 Intake Total 1180 480 Balance 1180 480 Intake: Oral 1180 480 Other: Voiding Method Toilet Toilet Toilet # Voids 5 2 2 # Bowel Movements 0 - Labs CBC & Chem 7: 02/28/19 08:02 02/28/19 08:02 Labs: Abnormal Lab Results - Last 24 Hours (Table) 02/28/19 02/28/19 02/28/19 Range/Units 08:02 11:29 17:30 BUN 31 H (7-17) mg/dL Glucose 209 H (74-99) mg/dL POC Glucose (mg/dL) 142 H 234 H (75-99) mg/dL 02/28/19 03/01/19 Range/Units 19:49 07:06 BUN (7-17) mg/dL Glucose (74-99) mg/dL POC Glucose (mg/dL) 267 H 103 H (75-99) mg/dL Microbiology - Last 24 Hours (Table) 02/25/19 12:24 Blood Culture - Preliminary Blood No Growth after 72 hours
[2019-03-01] MEDS: amLODIPine 5 MG TAB PO SCH ×2 (12:24→14:23)
[2019-03-01 17:10] LABS: Glucose,Whole Blood 267 mg/dL (75-99)
[2019-03-01 18:24] VITALS: RESP 16
--- NOTE | 2019-03-01 18:28 | P.PN ---
Subjective This is a pleasant 63-year-old patient of Dr. Dukes. Patient has a diagnosis of non-Hodgkin's lymphoma being followed by and has received a few cycles of Rituxan. Responding well to the same. Other chronic stable medical conditions include hyperlipidemia, some paresis of the right side from a prior stroke and some resulting dysphagia from the same. Patient's short-term memory is also affected. Patient presents with worsening cough congested in the chest not really able to expectorate no fever no chills. Tired rundown. Some wheezing. Appetite is okay. Started on IV Zosyn and ER. INVESTIGATIONS, reviewed in the clinical context: White count 20.9 hemoglobin 13.3 platelets 446 percussion 3 bun 20 creatinine 0.90 Troponin I 0.019, 0.04 to EKG tracing personally reviewed by me-sinus tachycardia Chest x-ray film personally reviewed by me-some right basilar infiltrate 02/26/2019 Patient is currently lying in the bed. Still having shortness of breath and expiratory wheezing. Currently requiring oxygen via nasal cannula. Patient is being continued on IV steroids and DuoNeb's. Patient was given a dose of IV Lasix. Cardiology and pulmonary is following. patient has been afebrile. Improved leukocytosis with WBC count 13.4 02/27/2019 Patient is currently lying in the bed. Saturating well on nasal cannula oxygen. No complaints of chest pain. Cough without much sputum production. Wheezing is much improved. Currently being continued on IV Solu-Medrol and duo nebs. Still having exertional dyspnea. On antibiotics in the form of Augmentin. Patient is more awake and oriented today. Cardiology and pulmonary is following. 2-D echocardiogram report is pending. 02/28/2019 Patient was admitted for COPD exacerbation and acute tracheobronchitis, she is on Augmentin on Solu-Medrol, she still short of breath however is significantly improved when compared to her presentation, as per my discussion with the respiratory therapist was on her earlier. However patient still have some tachypnea and difficulty talking and finishing her sentence, she still have cough, no chest pain. vitals stable and she is saturating 93% on room air. Labs from today still pending. 03/01/2019 Patient is breathing easier, she is currently saturating 94% on room air, and she is hemodynamically stable. Labs are reviewed. She is currently on Augmentin and prednisone 40 mg daily also she is on aspirin and Plavix, her oral Lasix has increased to 40 mg daily. Blood pressure on the high side. Patient was instructed to follow up with Dr. Lutz on pulmonary upon discharge within one to 2 weeks and she agrees. Objective - Vital Signs Vital signs: Vital Signs Temp 98.0 F 03/01/19 05:00 Pulse 88 03/01/19 05:00 Resp 16 03/01/19 05:00 BP 182/92 03/01/19 05:00 Pulse Ox 94 L 03/01/19 05:00 Intake & Output 02/28/19 03/01/19 03/01/19 18:59 06:59 18:59 Intake Total 1180 Balance 1180 Intake: Oral 1180 Other: Voiding Method Toilet Toilet # Voids 5 2 - Exam GENERAL: BMI 35.3, awake alert and oriented 3. No distress.. EYES: Pupils equal. Conjunctiva normal. HEENT: External appearance of nose and ears normal, oral cavity grossly normal. NECK: JVD not raised; masses not palpable. HEART: First and second heart sounds are normal; no edema. -LUNGS: Nonlabored. Bilateral expiratory wheeze. Scattered rhonchi positive.. ABDOMEN: Soft, nontender, liver spleen not palpable, no masses palpable. PSYCH: Alert and oriented x3; mood and affect normal. NEUROLOGICAL: [Cranial nerves grossly intact; no facial asymmetry, power of the right side 4/5, slight dysarthria LYMPHATICS: No lymph nodes palpable in the axilla and neck - Labs CBC & Chem 7: 02/28/19 08:02 02/28/19 08:02 Labs: Abnormal Lab Results - Last 24 Hours (Table) 02/28/19 02/28/19 02/28/19 Range/Units 08:02 08:02 11:29 WBC 19.9 H (3.8-10.6) k/uL Neutrophils # 18.3 H (1.3-7.7) k/uL Lymphocytes # 0.5 L (1.0-4.8) k/uL BUN 31 H (7-17) mg/dL Glucose 209 H (74-99) mg/dL POC Glucose (mg/dL) 142 H (75-99) mg/dL 1102/28/19 03/01/19 Range/Units 17:30 19:49 07:06 WBC (3.8-10.6) k/uL Neutrophils # (1.3-7.7) k/uL Lymphocytes # (1.0-4.8) k/uL BUN (7-17) mg/dL Glucose (74-99) mg/dL POC Glucose (mg/dL) 234 H 267 H 103 H (75-99) mg/dL Microbiology - Last 24 Hours (Table) 02/25/19 12:24 Blood Culture - Preliminary Blood No Growth after 72 hours Assessment and Plan Assessment: -Acute COPD exacerbation likely due to acute tracheobronchitis. -Acute tracheobronchitis -Acute hypoxic respiratory failure secondary to COPD exacerbation and pneumonia -Acute on chronic CHF with mild exacerbation with valvular heart disease -Pulmonary hypertension -Non-Hodgkin's lymphoma undergoing treatment with Rituxan -Chronic right hemiparesis and dysarthria from prior stroke -Short-term memory loss from prior stroke --Essential hypertension -Chronic urinary incontinence -Depression otherwise specified -Obesity BMI 35.3 Plan: Patient was given antibiotics, IV Zosyn. Continue with Augmentin currently.. Continue with bronchodilators steroids. Home medications resumed. Pulmonary and cardiology is following.. Mucinex 400 mg twice a day. Lovenox for DVT prophylaxis. Care was discussed with the patie nt and her family at bedside.. Questions were answered. possible discharge in 24-48 hours
[2019-03-01 20:06] LABS: Glucose,Whole Blood 213 mg/dL (75-99)
[2019-03-01] MEDS: ATORVASTATIN 20 MG TAB PO SCH (20:29)
[2019-03-01] MEDS: DONEPEZIL 10 MG TAB PO SCH (20:29)
[2019-03-02] MEDS: IPRATROPIUM-ALBUTEROL 3 ML NEB INHALATION SCH ×4 (00:29→12:05)
[2019-03-02 07:02] LABS: Glucose,Whole Blood 89 mg/dL (75-99)
[2019-03-02] MEDS: INSULIN ASPART (NovoLOG) 100 UNIT/ML VIAL SQ SCH ×2 (07:37→13:45)
[2019-03-02] MEDS: ENOXAPARIN 40 MG/0.4 ML SYRINGE SQ SCH (08:08)
[2019-03-02] MEDS: DULoxetine HCL 60 MG CAPSULE.DR PO SCH (08:09)
[2019-03-02] MEDS: FUROSEMIDE 40 MG TAB PO SCH (08:09)
[2019-03-02] MEDS: OXYBUTYNIN XL 5 MG TAB.ER.24 PO SCH (08:09)
[2019-03-02] MEDS: CLOPIDOGREL 75 MG TAB PO SCH (08:09)
[2019-03-02] MEDS: NICOTINE 21MG/24HR PATCH TRANSDERM SCH (08:09)
[2019-03-02] MEDS: buPROPion SR 150 MG TABLET.ER PO SCH (08:09)
[2019-03-02] MEDS: AMOXIC-POT CLAV 875-125MG 1 EACH TAB PO SCH (08:10)
[2019-03-02] MEDS: LISINOPRIL 20 MG TAB PO SCH (08:10)
[2019-03-02] MEDS: predniSONE 20 MG TAB PO SCH (08:10)
[2019-03-02] MEDS: ASPIRIN 81 MG PO SCH (08:11)
[2019-03-02] MEDS: ZIPRASIDONE 20 MG CAP PO SCH (08:11)
[2019-03-02] MEDS: guaiFENesin 600 MG TABLET.ER PO SCH (08:11)
[2019-03-02] MEDS: ZIPRASIDONE 60 MG CAP PO SCH (08:11)
[2019-03-02] MEDS: MEMANTINE 10 MG TAB PO SCH (08:11)
[2019-03-02] MEDS: BUDESONIDE 1 MG/2 ML NEBU INHALATION SCH (08:34)
[2019-03-02] MEDS: FORMOTEROL FUMARATE 20 MCG/2 ML NEBU INHALATION SCH (08:34)
[2019-03-02] MEDS ORDERED: BUPRENORPHINE TOPICAL SCH (09:00)
[2019-03-02 11:30] LABS: Glucose,Whole Blood 127 mg/dL (75-99)
--- NOTE | 2019-03-02 11:35 | P.PN ---
Subjective This is a pleasant 63-year-old female past medical history significant for mitral stenosis, mitral regurgitation, pulmonary hypertension, peripheral vascular disease, carotid stenosis status post left carotid endarterectomy, CVA, dyslipidemia, lymphoma, chronic nicotine dependence and COPD. She follows in the office with Dr. Lutz. She has been evaluated in the past by cardiothoracic surgery and thought not to be a good surgical candidate. We are following secondary to hypoxic respiratory failure. Currently maintained on aspirin 81 mg daily, atorvastatin 20 mg daily, Plavix 75 mg daily, Lasix 40 mg daily, lisinopril 20 mg daily, prednisone and oral antibiotics. She is seen and examined sitting up in bed in no acute distress. She states she continues to feel short of breath and has noticed some increased congestion in her upper chest/base of the throat. Antibiotics were changed per pulmonary care team. Blood pressure 137/85 heart rate 98 afebrile and maintaining oxygen saturation on room air. GENERAL: Well-appearing, well-nourished and in no acute distress. NECK: Supple without JVD or thyromegaly. LUNGS: Expiratory wheezes, no rales or rhonchi. Respiration equal and mildly labored with conversation. HEART: Regular rate and rhythm with murmur at the left sternal border, no rubs or gallops. S1 and S2 heard. EXTREMITIES: Normal range of motion, no edema. No clubbing or cyanosis. Peripheral pulses intact. ASSESSMENT Acute hypoxic respiratory failure secondary to COPD and heart failure Abnormal troponin secondary to hypoxia, not consistent with acute coronary syndrome Acute on chronic diastolic heart failure secondary to valvular heart disease and pulmonary hypertension. IMproved. Leukocytosis Valvular heart disease with known mitral stenosis and mitral regurgitation Pulmonary hypertension History of peripheral vascular disease status post left carotid endarterectomy CVA in the past History of non-hodgkins lymphoma Chronic nicotine dependence PLAN Stable from a cardiac perspective on current regimen. Follow up with Dr. Lutz upon discharge. We will follow as needed, please call with further questions or concerns. Nurse Practitioner note has been reviewed, I agree with a documented findings and plan of care. Patient was seen and examined. Objective - Vital Signs Vital signs: Vital Signs Temp 98.1 F 03/02/19 05:00 Pulse 98 03/02/19 08:56 Resp 16 03/02/19 08:00 BP 137/85 03/02/19 05:00 Pulse Ox 94 L 03/02/19 05:00 Intake & Output 03/01/19 03/02/19 03/02/19 18:59 06:59 18:59 Intake Total 1500 590 480 Balance 1500 590 480 Intake: Oral 1500 590 480 Other: Voiding Method Toilet Toilet Toilet # Voids 3 2 2 # Bowel Movements 0 - Labs CBC & Chem 7: 02/28/19 08:02 02/28/19 08:02 Labs: Abnormal Lab Results - Last 24 Hours (Table) 03/01/19 03/01/19 03/01/19 Range/Units 11:23 16:55 20:04 POC Glucose (mg/dL) 211 H 267 H 213 H (75-99) mg/dL Microbiology - Last 24 Hours (Table) 02/25/19 12:24 Blood Culture - Preliminary Blood No Growth after 96 hours
[2019-03-02 11:46] VITALS: BP 111/59; PULSE 100; TEMP 97.3
--- NOTE | 2019-03-03 23:20 | P.DS ---
Providers Date of admission: 02/27/19 11:37 Expected date of discharge: 03/02/19 Attending physician: Osvaldo Chu Consults: 02/25/19 11:47 Consult Physician Urgent Consulting Provider: Ericka Mcdonald Consult Reason/Comments: hypoxic resp failure, possible COPD diagnosis Do you want consulting provider notified?: Yes 02/25/19 15:30 Consult Physician Routine Consulting Provider: Walter Nguyen Consult Reason/Comments: Non-Hodgkin's lymphoma Do you want consulting provider notified?: Yes 02/25/19 16:11 Consult Physician Routine Consulting Provider: Marc Lutz Consult Reason/Comments: elevatedtroponins Do you want consulting provider notified?: Yes Primary care physician: [facility] [place] Course: Chief Complaint: Cough or shortness of breath History of presenting complaint: This is a pleasant 63-year-old patient of Dr. Dukes. Patient has a diagnosis of non-Hodgkin's lymphoma being followed by and has received a few cycl es of Rituxan. Responding well to the same. Other chronic stable medical conditions include hyperlipidemia, some paresis of the right side from a prior stroke and some resulting dysphagia from the same. Patient's short-term memory is also affected. Patient presents with worsening cough congested in the chest not really able to expectorate no fever no chills. Tired rundown. Some wheezing. Appetite is okay. Admitted with a diagnosis of right-sided pneumonia, COPD exacerbation. Troponin leak was not felt to be acute coronary syndrome. Treated with IV Zosyn, bronchodilators, steroids. Did much better by the time of discharge. Patient will follow-up with her oncologist, Dr. pineda upon discharge. Consultation: Dr. Boles from pulmonary Dr. Nguyen from [facility] Physical examination: VITAL SIGNS: 97.3, 100, 16, 11 1/59, 92% room air GENERAL: BMI 35.3, comfortable EYES: Pupils equal. Conjunctiva normal. HEENT: External appearance of nose and ears normal, oral cavity grossly normal. NECK: JVD not raised; masses not palpable. HEART: First and second heart sounds are normal; no edema. LUNGS: Respiratory rate normal, decreased breath sounds. ABDOMEN: Soft, nontender, liver spleen not palpable, no masses palpable. PSYCH: Alert and oriented x3; mood and affect normal. NEUROLOGICAL: [Cranial nerves grossly intact; no facial asymmetry, power of the right side 4/5, slight dysarthria INVESTIGATIONS, reviewed in the clinical context: White count 9.9 hemoglobin 12.2 potassium 4.6 creatinine 0.9 to Previous testing White count 20.9 hemoglobin 13.3 platelets 446 potassium 3 bun 20 creatinine 0.90 Troponin I 0.019, 0.04 to EKG tracing personally reviewed by me-sinus tachycardia Chest x-ray film personally reviewed by me-some right basilar infiltrate 2-D echo-EF 60-65%, severe mitral stenosis, moderate pulmonary hypertension Assessment: -Right lower lobe pneumonia suspected gram-negative organism -Acute COPD exacerbation in a current smoker -Acute hypoxic respiratory failure secondary to COPD exacerbation and pneumonia -Stage III Non-Hodgkin's lymphoma undergoing treatment with Rituxan, (monoclonal antibody infusion) -Chronic right hemiparesis and dysarthria from prior stroke -Short-term memory loss from prior stroke --Essential hypertension -Chronic urinary incontinence -Depression otherwise specified -Obesity BMI 35.3 -Troponin leak due to hypoxia. Not acute coronary syndrome. Disposition: Home Patient Condition at Discharge: Stable Plan - Discharge Summary Discharge Rx Participant: Yes New Discharge Prescriptions: New Amoxic-Pot Clav 875-125Mg [Augmentin 875-125] 1 each PO Q12HR #6 tab Ipratropium-Albuterol Nebulize [Duoneb 0.5 mg-3 mg/3 ml Soln] 3 ml INHALATION TID #90 ampul.neb Nicotine 21Mg/24Hr Patch [Habitrol] 1 patch TRANSDERM DAILY #14 patch guaiFENesin [Mucinex] 1,200 mg PO Q12HR #30 tablet.er predniSONE 10 mg PO DAILY #30 tab Continue DULoxetine HCL [Cymbalta] 60 mg PO BID Clopidogrel [Plavix] 75 mg PO DAILY Ergocalciferol (Vitamin D2) [Drisdol] 50,000 unit PO MO Ziprasidone HCl [Geodon] 20 mg PO Q48H Buprenorphine [Butrans 20 MCG/HOUR] 1 patch TRANSDERM WE Tolterodine ER [Detrol LA] 4 mg PO DAILY Simvastatin 40 mg PO HS Donepezil [Aricept] 10 mg PO HS Aspirin EC [Ecotrin Low Dose] 81 mg PO DAILY Ziprasidone HCl [Geodon] 60 mg PO DAILY Memantine [Namenda] 10 mg PO DAILY Hydrocortisone Cream [Hydrocortisone 2.5% Cream] 1 applic TOPICAL BID Albuterol Sulfate [Proair Hfa] 2 puff INHALATION RT-Q6H PRN PRN Reason: difficulty in breathing buPROPion HCL [Wellbutrin SR] 150 mg PO BID Furosemide [Lasix] 20 mg PO DAILY Albuterol Nebulized [Ventolin Nebulized] 2.5 mg INHALATION RT-Q4H PRN PRN Reason: Shortness Of Breath Discontinued Hydrochlorothiazide [Hydrodiuril] 25 mg PO DAILY predniSONE 50 mg PO DAILY #5 tablet No Action Lisinopril [Zestril] 10 mg PO DAILY Discharge Medication List Clopidogrel [Plavix] 75 mg PO DAILY 09/15/13 [History] DULoxetine HCL [Cymbalta] 60 mg PO BID 09/15/13 [History] Ergocalciferol (Vitamin D2) [Drisdol] 50,000 unit PO MO 04/20/15 [History] Aspirin EC [Ecotrin Low Dose] 81 mg PO DAILY 08/25/18 [History] Buprenorphine [Butrans 20 MCG/HOUR] 1 patch TRANSDERM WE 08/25/18 [History] Donepezil [Aricept] 10 mg PO HS 08/25/18 [History] Simvastatin 40 mg PO HS 08/25/18 [History] Tolterodine ER [Detrol LA] 4 mg PO DAILY 08/25/18 [History] Ziprasidone HCl [Geodon] 20 mg PO Q48H 08/25/18 [History] Ziprasidone HCl [Geodon] 60 mg PO DAILY 08/25/18 [History] Memantine [Namenda] 10 mg PO DAILY 11/17/18 [History] Hydrocortisone Cream [Hydrocortisone 2.5% Cream] 1 applic TOPICAL BID 02/06/19 [History] Albuterol Sulfate [Proair Hfa] 2 puff INHALATION RT-Q6H PRN 02/23/19 [History] Furosemide [Lasix] 20 mg PO DAILY 02/23/19 [History] buPROPion HCL [Wellbutrin SR] 150 mg PO BID 02/23/19 [History] Albuterol Nebulized [Ventolin Nebulized] 2.5 mg INHALATION RT-Q4H PRN 02/25/19 [History] Lisinopril [Zestril] 10 mg PO DAILY 02/25/19 [History] Amoxic-Pot Clav 875-125Mg [Augmentin 875-125] 1 each PO Q12HR #6 tab 03/02/19 [Rx] Ipratropium-Albuterol Nebulize [Duoneb 0.5 mg-3 mg/3 ml Soln] 3 ml INHALATION TID #90 ampul.neb 03/02/19 [Rx] Nicotine 21Mg/24Hr Patch [Habitrol] 1 patch TRANSDERM DAILY #14 patch 03/02/19 [Rx] guaiFENesin [Mucinex] 1,200 mg PO Q12HR #30 tablet.er 03/02/19 [Rx] predniSONE 10 mg PO DAILY #30 tab 03/02/19 [Rx] Follow up Appointment(s)/Referral(s): Marc Lutz MD [STAFF PHYSICIAN] - 03/15/19 3:45 pm Chong Roqeu DO [Doctor of Osteopathic Medicine] - 03/24/19 10:30 am Dinesh Dukes DO [Primary Care Provider] - 03/07/19 11:15 am Patient Instructions/Handouts: Prednisone (By mouth), Guaifenesin (By mouth), Amoxicillin/Clavulanate Potassium (By mouth), Nicotine (Absorbed through the skin), Ipratropium/Albuterol (By breathing), COPD (Chronic Obstructive Pulmonary Disease) (DC) Activity/Diet/Wound Care/Special Instructions: pt will be sent home with a nebulizer to treat her hypoxia s/t COPD Discharge Disposition: HOME SELF-CARE
== END 2019-03-02 13:45 | disposition home or self-care (01) | DRG 190 ==
LOC: EC 09:43 → 3NMEDONC 11:46 → OBSVTOIN 02-27 11:37
PROVIDERS: ADMIT Hospitalist; ATTEND Hospitalist
DX: J44.0 Chronic obstructive pulmonary disease with (acute) lower respiratory infection (principal); J15.6 Pneumonia due to other Gram-negative bacteria; J96.01 Acute respiratory failure with hypoxia; I50.33 Acute on chronic diastolic (congestive) heart failure; I69.351 Hemiplegia and hemiparesis following cerebral infarction affecting right dominant side; C85.15 Unspecified B-cell lymphoma, lymph nodes of inguinal region and lower limb; D80.1 Nonfamilial hypogammaglobulinemia; I11.0 Hypertensive heart disease with heart failure; J44.1 Chronic obstructive pulmonary disease with (acute) exacerbation; I27.20 Pulmonary hypertension, unspecified; I08.1 Rheumatic disorders of both mitral and tricuspid valves; R13.10 Dysphagia, unspecified; F03.90 Unspecified dementia, unspecified severity, without behavioral disturbance, psychotic disturbance, mood disturbance, and anxiety; E87.6 Hypokalemia; I69.391 Dysphagia following cerebral infarction; I69.320 Aphasia following cerebral infarction; I69.322 Dysarthria following cerebral infarction; I69.311 Memory deficit following cerebral infarction; E78.5 Hyperlipidemia, unspecified; F32.9 Major depressive disorder, single episode, unspecified; R32 Unspecified urinary incontinence; R40.2362 Coma scale, best motor response, obeys commands, at arrival to emergency department; R40.2142 Coma scale, eyes open, spontaneous, at arrival to emergency department; R40.2252 Coma scale, best verbal response, oriented, at arrival to emergency department; R79.89 Other specified abnormal findings of blood chemistry; I73.9 Peripheral vascular disease, unspecified; E66.9 Obesity, unspecified; Z68.35 Body mass index [BMI] 35.0-35.9, adult; F17.210 Nicotine dependence, cigarettes, uncomplicated; Z71.6 Tobacco abuse counseling; Z99.81 Dependence on supplemental oxygen; Z79.82 Long term (current) use of aspirin; Z79.02 Long term (current) use of antithrombotics/antiplatelets; Z79.899 Other long term (current) drug therapy; Z86.79 Personal history of other diseases of the circulatory system; Z98.51 Tubal ligation status; Z98.890 Other specified postprocedural states; Z88.6 Allergy status to analgesic agent; Z83.49 Family history of other endocrine, nutritional and metabolic diseases; Z80.9 Family history of malignant neoplasm, unspecified
CPT/HCPCS: 36415; 71046; 80048; 80053; 82784; 83605; 83735; 83880; 84484; 85025; 85610; 85730; 87040; 93005; 93306; 94640; 94760; 96365; 96367; 96368; 96375; 99285

== ENCOUNTER → 2019-04-18 | Outpatient (CLI) | payer MEDICARE ==
[2019-04-18 14:13] LABS: Basophils # (A) 0.1 k/uL (0-0.2); Basophils % (A) 1 %; Eosinophils # (A) 0.1 k/uL (0-0.7); Eosinophils % (A) 1 %; HCT 40.3 % (34.0-46.0); HGB 12.7 gm/dL (11.4-16.0); Lymphocytes # (A) 1.4 k/uL (1.0-4.8); Lymphocytes % (A) 12 %; MCH 30.1 pg (25.0-35.0); MCHC 31.5 g/dL (31.0-37.0); MCV 95.5 fL (80.0-100.0); Mean Platelet Volume 8.1; Monocytes # (A) 0.6 k/uL (0-1.0); Monocytes % (A) 6 %; Neutrophils # (A) 8.8 k/uL (1.3-7.7); Neutrophils % (A) 77 %; Platelet Count 113 k/uL (150-450); RBC 4.22 m/uL (3.80-5.40); RDW 12.7 % (11.5-15.5); WBC 11.5 k/uL (3.8-10.6)
[2019-04-18 19:37] LABS: African American GFR (CKD) 62.3 (60.0-200.0); Albumin 4.3 g/dL (3.80-4.90); Albumin/Globulin Ratio 3.58 (1.60-3.17); Anion Gap 10.8 mmol/L (4.00-12.00); BUN/Creat Ratio 19.09 Ratio (12.00-20.00); Calcium 9.2 mg/dL (8.7-10.3); Carbon Dioxide 26.2 mmol/L (21.6-31.8); Globulin 1.2 g/dL (1.6-3.3); Non-African American GFR(CKD) 53.8 (60.0-200.0); Potassium 4.2 mmol/L (3.5-5.5); Total Bilirubin 0.3 mg/dL (0.2-1.2); Total Protein 5.5 g/dL (6.2-8.2)
== END | disposition home or self-care (01) ==
LOC: LABWHC1 12:49
PROVIDERS: ATTEND Internal Medicine Hematology & Oncology
DX: Z51.11 Encounter for antineoplastic chemotherapy (principal); C82.11 Follicular lymphoma grade II, lymph nodes of head, face, and neck; R11.0 Nausea
CPT/HCPCS: 36415; 80053; 83615; 85025

== ENCOUNTER → 2019-05-07 | Outpatient (CLI) | payer MEDICARE | END | disposition home or self-care (01) | LOC: RADPETMAIN 09:39 | PROVIDERS: ATTEND Internal Medicine Hematology & Oncology | DX: Z53.9 Procedure and treatment not carried out, unspecified reason (principal) ==

== ENCOUNTER → 2019-05-13 | Outpatient (CLI) | payer MEDICARE ==
--- NOTE | 2019-05-17 11:26 | PE ---
EXAMINATION TYPE: PET CT fusion skull to thigh DATE OF EXAM: 05/13/2019 COMPARISON: 01/08/2019 HISTORY: Follow-up for follicular lymphoma TECHNIQUE: Following the intravenous administration of 12.48 mCi of F-18 FDG, whole body images are performed from the skull base to the midthigh. Images are reviewed on the computer in the coronal, a xial, and sagittal planes. Reconstructed rotating images are created on independent workstation and reviewed on the computer. A localization and attenuation correction CT is performed in conjunction with the PET scan. SCAN: Subsequent treatment strategy. FINDINGS: Mediastinal background: 1.56 Abdominal background: 2.98 SKULL BASE AND NECK: No suspicious hypermetabolic activity. CHEST, MEDIASTINUM, AND HILAR REGION: No suspicious hypermetabolic activity. ABDOMEN AND PELVIS: The previously seen bilateral superficial inguinal lymph nodes have decreased in size. A lymph node previously measured on the right at 1.7 x 1.4 cm with maximum SUV of 5.39 now kirstie ures 5 mm in short axis on image [id number] and has no hypermetabolic activity. Just caudal to this a lymph node previously measuring 2.8 x 1.1 cm with a maximum SUV of 4.49 on the right now measures 2.2 x 1.0 cm with a maximum SUV of 2.95. On the left there is a lymph node of the anterior thigh that previously measured 1.4 x 1.1 with maxim um SUV of 3.27 and currently measures 0.8 x 0.6 cm with a maximum SUV of 0.93. Avidity within the ascending colon is likely physiologic and has a maximum SUV of 5.27. OSSEOUS STRUCTURES: No suspicious hypermetabolic activity. There is hypermetabolic activity overlying the left greater trochanter SUV of 3.63 most commonly related to bursitis. OTHER CT: Left upper outer quadrant focal asymmetry within the breast is stable dating back to the ma mmogram of 03/15/2012. Moderate mucosal thickening in the ethmoid sinuses. Mild coronary calcificatio ns. Lingular probable atelectasis. Moderate atheromatous changes of the abdominal aorta and its branc hes. Pancreatic parenchymal atrophy. IMPRESSION: 1. Response of treatment. The bilateral superficial inguinal lymph nodes have decreased in size and S UV with greater than 50% reduction In maximum SUV of 2 out of the 3 hypermetabolic lymph nodes. No new adenopathy in the chest, abdomen, and or pelvis. 2. Avidity within the ascending colon is likely physiologic, correlate with any recent colonoscopy. 3. Left greater trochanteric bursitis.
== END | disposition home or self-care (01) ==
LOC: RADPETMAIN 15:38
PROVIDERS: ATTEND Internal Medicine Hematology & Oncology
DX: M70.62 Trochanteric bursitis, left hip (principal); R11.0 Nausea; Z51.11 Encounter for antineoplastic chemotherapy
CPT/HCPCS: 78815; A9552

== ENCOUNTER → 2019-09-12 | Outpatient (CLI) | payer MEDICARE ==
[2019-09-14 15:45] LABS: Cotinine <2.0 ng/mL (<2.0); Nicotine <2.0 ng/mL (<2.0)
== END | disposition home or self-care (01) ==
LOC: LABWHC1 11:56
PROVIDERS: ATTEND Orthopaedic Surgery Orthopaedic Surgery of the Spine
DX: M54.5 Low back pain (principal); M47.817 Spondylosis without myelopathy or radiculopathy, lumbosacral region; M51.16 Intervertebral disc disorders with radiculopathy, lumbar region; M51.36 Other intervertebral disc degeneration, lumbar region; R20.2 Paresthesia of skin; M21.371 Foot drop, right foot; M43.16 Spondylolisthesis, lumbar region
CPT/HCPCS: 36415; G0480; 80323

== ENCOUNTER → 2020-01-17 | Outpatient (CLI) | payer MEDICARE ==
[2020-01-17 14:27] LABS: Basophils # (A) 0.1 k/uL (0-0.2); Basophils % (A) 2 %; Eosinophils # (A) 0.2 k/uL (0-0.7); Eosinophils % (A) 3 %; HCT 38.4 % (34.0-46.0); HGB 11.9 gm/dL (11.4-16.0); Hypochromasia Slight; Lymphocytes # (A) 1.3 k/uL (1.0-4.8); Lymphocytes % (A) 19 %; MCH 27.6 pg (25.0-35.0); MCHC 30.9 g/dL (31.0-37.0); MCV 89.4 fL (80.0-100.0); Mean Platelet Volume 7.5; Monocytes # (A) 0.4 k/uL (0-1.0); Monocytes % (A) 5 %; Neutrophils # (A) 4.6 k/uL (1.3-7.7); Neutrophils % (A) 67 %; Platelet Count 258 k/uL (150-450); RBC 4.29 m/uL (3.80-5.40); RDW 14.7 % (11.5-15.5); WBC 6.9 k/uL (3.8-10.6)
[2020-01-17 22:44] LABS: African American GFR (CKD) 90.9 (60.0-200.0); Albumin 4.2 g/dL (3.80-4.90); Albumin/Globulin Ratio 2.8 (1.60-3.17); Anion Gap 10.4 mmol/L (4.00-12.00); BUN/Creat Ratio 22.5 Ratio (12.00-20.00); Carbon Dioxide 26.6 mmol/L (21.6-31.8); Globulin 1.5 g/dL (1.6-3.3); Non-African American GFR(CKD) 78.5 (60.0-200.0); Potassium 4.7 mmol/L (3.5-5.5); Total Bilirubin 0.3 mg/dL (0.2-1.2); Total Protein 5.7 g/dL (6.2-8.2)
== END | disposition home or self-care (01) ==
LOC: LABWHC1 11:52
PROVIDERS: ATTEND Internal Medicine Hematology & Oncology
DX: Z51.11 Encounter for antineoplastic chemotherapy (principal); C82.11 Follicular lymphoma grade II, lymph nodes of head, face, and neck; R11.0 Nausea
CPT/HCPCS: 36415; 80053; 83615; 85025

== ENCOUNTER → 2020-04-11 | Outpatient (CLI) | payer MEDICARE ==
[2020-04-11 11:17] LABS: Basophils # (A) 0.1 k/uL (0-0.2); Basophils % (A) 1 %; Eosinophils # (A) 0.1 k/uL (0-0.7); Eosinophils % (A) 1 %; HCT 44.5 % (34.0-46.0); HGB 13.8 gm/dL (11.4-16.0); Lymphocytes # (A) 0.9 k/uL (1.0-4.8); Lymphocytes % (A) 11 %; MCH 27.7 pg (25.0-35.0); MCHC 31.1 g/dL (31.0-37.0); MCV 88.9 fL (80.0-100.0); Mean Platelet Volume 7.3; Monocytes # (A) 0.5 k/uL (0-1.0); Monocytes % (A) 6 %; Neutrophils # (A) 6.5 k/uL (1.3-7.7); Neutrophils % (A) 77 %; Platelet Count 265 k/uL (150-450); RDW 14.7 % (11.5-15.5); WBC 8.5 k/uL (3.8-10.6)
[2020-04-11 20:44] LABS: African American GFR (CKD) 78.9 (60.0-200.0); Albumin 4.6 g/dL (3.80-4.90); Albumin/Globulin Ratio 3.07 (1.60-3.17); Anion Gap 5.7 mmol/L (4.00-12.00); Calcium 9.6 mg/dL (8.7-10.3); Carbon Dioxide 32.3 mmol/L (21.6-31.8); Globulin 1.5 g/dL (1.6-3.3); Potassium 4.5 mmol/L (3.5-5.5); Total Bilirubin 0.5 mg/dL (0.2-1.2); Total Protein 6.1 g/dL (6.2-8.2)
== END | disposition home or self-care (01) ==
LOC: LABWHC1 10:22
PROVIDERS: ATTEND Internal Medicine Hematology & Oncology
DX: Z51.11 Encounter for antineoplastic chemotherapy (principal); C82.11 Follicular lymphoma grade II, lymph nodes of head, face, and neck; R11.0 Nausea
CPT/HCPCS: 36415; 80053; 83615; 85025

== ENCOUNTER → 2020-05-09 | Outpatient (CLI) | payer MEDICARE ==
--- NOTE | 2020-05-09 15:49 | US ---
EXAMINATION TYPE: US venous doppler duplex LE RT DATE OF EXAM: 05/09/2020 3:04 PM COMPARISON: NONE CLINICAL HISTORY: M79.604 Pain in RT leg. Pain right leg, patient on blood thinner SIDE PERFORMED: right TECHNIQUE: The lower extremity deep venous system is examined utilizing real time linear array sonog leonela with graded compression, doppler sonography and color-flow sonography. VESSELS IMAGED: Common Femoral Vein Deep Femoral Vein Greater Saphenous Vein * Femoral Vein Popliteal Vein Small Saphenous Vein * Proximal Calf Veins (* superficial vessels) Right Leg: No evidence of acute DVT as visualized. technical limitations due to patient's body habit us. Multiple complex areas noted within right groin, largest = 8.3cm ?possible lymph nodes vs. other etiology IMPRESSION: No evidence for DVT. Complex mass right groin may reflect adenopathy. Correlate clinicall y.
== END | disposition home or self-care (01) ==
LOC: RADUSWWP 14:35
PROVIDERS: ATTEND Family Medicine
DX: R22.2 Localized swelling, mass and lump, trunk (principal)

== ENCOUNTER → 2020-06-06 | Outpatient (CLI) | payer MEDICARE ==
[2020-06-06 19:39] LABS: Basophils # (A) 0.12 X 10*3/uL (0.00-0.10); Basophils % (A) 1.2 %; Eosinophils % (A) 1.9 %; HCT 41.4 % (37.2-46.3); HGB 13.2 g/dL (12.0-15.0); Lymphocytes # (A) 1.03 X 10*3/uL (0.90-5.00); MCH 29.3 pg (27.0-32.0); MCHC 31.9 g/dL (32.0-37.0); MCV 91.8 fL (80.0-97.0); Mean Platelet Volume 10.5 fL (9.5-12.2); Monocytes # (A) 0.95 X 10*3/uL (0.20-1.00); Monocytes % (A) 9.2 %; Neutrophils # (A) 7.94 X 10*3/uL (1.80-7.70); Neutrophils % (A) 77.3 %; Platelet Count 302 X 10*3/uL (140-440); RBC 4.51 X 10*6/uL (4.10-5.20); RDW 14.3 % (11.5-14.5); WBC 10.28 X 10*3/uL (4.50-10.00)
[2020-06-07 01:23] LABS: African American GFR (CKD) 78.9 (60.0-200.0); Albumin 4.9 g/dL (3.80-4.90); Albumin/Globulin Ratio 3.27 (1.60-3.17); Anion Gap 12.7 mmol/L (4.00-12.00); BUN/Creat Ratio 18.89 Ratio (12.00-20.00); Calcium 9.3 mg/dL (8.7-10.3); Carbon Dioxide 27.3 mmol/L (21.6-31.8); Globulin 1.5 g/dL (1.6-3.3); Total Bilirubin 0.5 mg/dL (0.2-1.2); Total Protein 6.4 g/dL (6.2-8.2)
== END | disposition home or self-care (01) ==
LOC: LABWHC1 12:04
PROVIDERS: ATTEND Internal Medicine Hematology & Oncology
DX: Z51.11 Encounter for antineoplastic chemotherapy (principal); C82.11 Follicular lymphoma grade II, lymph nodes of head, face, and neck; R11.0 Nausea
CPT/HCPCS: 36415; 80053; 85025

== ENCOUNTER → 2020-06-20 | Outpatient (CLI) | payer MEDICARE ==
[2020-06-20 23:01] LABS: Basophils # (A) 0.13 X 10*3/uL (0.00-0.10); Basophils % (A) 1.1 %; Eosinophils # (A) 0.23 X 10*3/uL (0.04-0.35); Eosinophils % (A) 1.9 %; HCT 41.4 % (37.2-46.3); HGB 13.1 g/dL (12.0-15.0); Lymphocytes # (A) 1.53 X 10*3/uL (0.90-5.00); Lymphocytes % (A) 12.4 %; MCH 29.5 pg (27.0-32.0); MCHC 31.6 g/dL (32.0-37.0); MCV 93.2 fL (80.0-97.0); Mean Platelet Volume 10.3 fL (9.5-12.2); Monocytes # (A) 1.03 X 10*3/uL (0.20-1.00); Monocytes % (A) 8.3 %; Neutrophils # (A) 9.38 X 10*3/uL (1.80-7.70); Neutrophils % (A) 75.9 %; Platelet Count 362 X 10*3/uL (140-440); RBC 4.44 X 10*6/uL (4.10-5.20); WBC 12.35 X 10*3/uL (4.50-10.00)
[2020-06-21 06:42] LABS: African American GFR (CKD) 78.9 (60.0-200.0); Albumin 4.9 g/dL (3.80-4.90); Albumin/Globulin Ratio 3.27 (1.60-3.17); Anion Gap 15.8 mmol/L (4.00-12.00); BUN/Creat Ratio 31.11 Ratio (12.00-20.00); Calcium 10.1 mg/dL (8.7-10.3); Carbon Dioxide 24.2 mmol/L (21.6-31.8); Globulin 1.5 g/dL (1.6-3.3); Potassium 4.3 mmol/L (3.5-5.5); Total Bilirubin 0.4 mg/dL (0.2-1.2); Total Protein 6.4 g/dL (6.2-8.2)
== END | disposition home or self-care (01) ==
LOC: LABWHC1 14:22
PROVIDERS: ATTEND Internal Medicine Hematology & Oncology
DX: Z51.11 Encounter for antineoplastic chemotherapy (principal); C82.11 Follicular lymphoma grade II, lymph nodes of head, face, and neck; R11.0 Nausea
CPT/HCPCS: 36415; 80053; 85025

== ENCOUNTER → 2020-09-06 | Outpatient (CLI) | payer MEDICARE ==
[2020-09-06 15:06] LABS: Basophils # (A) 0.19 X 10*3/uL (0.00-0.10); Basophils % (A) 2.8 %; Eosinophils # (A) 0.22 X 10*3/uL (0.04-0.35); Eosinophils % (A) 3.2 %; HCT 36.2 % (37.2-46.3); HGB 10.9 g/dL (12.0-15.0); Lymphocytes # (A) 0.72 X 10*3/uL (0.90-5.00); Lymphocytes % (A) 10.5 %; MCH 28.5 pg (27.0-32.0); MCHC 30.1 g/dL (32.0-37.0); MCV 94.5 fL (80.0-97.0); Mean Platelet Volume 10.9 fL (9.5-12.2); Monocytes # (A) 0.91 X 10*3/uL (0.20-1.00); Monocytes % (A) 13.2 %; Neutrophils # (A) 4.82 X 10*3/uL (1.80-7.70); Platelet Count 307 X 10*3/uL (140-440); RBC 3.83 X 10*6/uL (4.10-5.20); RDW 14.6 % (11.5-14.5); WBC 6.88 X 10*3/uL (4.50-10.00)
[2020-09-07 04:54] LABS: African American GFR (CKD) 106.1 (60.0-200.0); Albumin/Globulin Ratio 2.67 (1.60-3.17); BUN/Creat Ratio 47.14 Ratio (12.00-20.00); Calcium 9.4 mg/dL (8.7-10.3); Globulin 1.5 g/dL (1.6-3.3); Non-African American GFR(CKD) 91.6 (60.0-200.0); Potassium 3.8 mmol/L (3.5-5.5); Total Bilirubin 0.5 mg/dL (0.3-1.2); Total Protein 5.5 g/dL (6.2-8.2)
== END | disposition home or self-care (01) ==
LOC: LABWHC1 08:43
PROVIDERS: ATTEND Internal Medicine Hematology & Oncology
DX: Z51.11 Encounter for antineoplastic chemotherapy (principal); C82.11 Follicular lymphoma grade II, lymph nodes of head, face, and neck; R11.0 Nausea
CPT/HCPCS: 36415; 80053; 83615; 85025

== ENCOUNTER 2021-05-13 15:40 | Inpatient (IN) | payer MEDICARE ==
[2021-05-13] MEDS ORDERED: ACETAMINOPHEN TAB 500 MG TAB PO STA (16:44)
[2021-05-13] MEDS ORDERED: SODIUM CHLORIDE 0.9% 1,000 ML IV ONE (16:44)
[2021-05-13 17:14] LABS: Partial Thromboplastin Time 24.5 sec (22.0-30.0); Prothrombin Time 10.9 sec (9.0-12.0)
[2021-05-13 17:17] LABS: Anisocytosis Slight; Basophils % (A) 0 %; Eosinophils % (A) 0 %; HCT 21.9 % (34.0-46.0); HGB 7.3 gm/dL (11.4-16.0); Hypochromasia Slight; Lymphocytes # (A) 0.5 k/uL (1.0-4.8); Lymphocytes % (A) 7 %; MCH 33.2 pg (25.0-35.0); MCHC 33.4 g/dL (31.0-37.0); MCV 99.4 fL (80.0-100.0); Macrocytosis Slight; Mean Platelet Volume 9.1; Monocytes # (A) 0.6 k/uL (0-1.0); Monocytes % (A) 10 %; Neutrophils # (A) 5.2 k/uL (1.3-7.7); Neutrophils % (A) 81 %; Platelet Count 318 k/uL (150-450); Poikilocytosis Moderate; RDW 16.6 % (11.5-15.5); WBC 6.5 k/uL (3.8-10.6)
[2021-05-13 17:24] LABS: Albumin 2.9 g/dL (3.5-5.0); Calcium 8.1 mg/dL (8.4-10.2); Magnesium 1.6 mg/dL (1.6-2.3); Total Bilirubin 0.7 mg/dL (0.2-1.3); Total Protein 5.2 g/dL (6.3-8.2)
--- NOTE | 2021-05-13 17:50 | CT ---
EXAMINATION TYPE: CT brain wo con CT DLP: 1172.4 mGycm, Automated exposure control for dose reduction was used. DATE OF EXAM: 05/13/2021 5:16 PM COMPARISON: PET scan 05/13/2019 CLINICAL INDICATION:Female, 65 years old with history of Altered mental status, Altered mental status , fever. TECHNIQUE: Brain: Multiple axial CT images of the brain were obtained without IV contrast. FINDINGS: Brain: Extra-axial spaces: No abnormal extra-axial fluid collections. Ventricular system: Within normal limits Cerebral parenchyma: Encephalomalacia of the left frontal lobe involving the left basal ganglia and i nsular cortex. This also encephalomalacia involving the right frontal lobe. No acute intraparenchymal hemorrhage or mass effect. The hagen-white junction is well differentiated. Cerebellum: Unremarkable. Mass effect: No evidence of midline shift. Intracranial vasculature: Atherosclerotic calcifications of the intracranial vessels. Soft tissues: Normal. Calvarium/osseous structures: No depressed skull fracture. Paranasal sinuses and mastoid air cells: Mild scattered mucosal thickening. Visualized orbits: Bilateral aphakia IMPRESSION: 1. No acute intracranial process. 2. Bilateral frontal lobe encephalomalacia.
--- NOTE | 2021-05-13 17:54 | XR ---
EXAMINATION TYPE: XR chest 2V DATE OF EXAM: 05/13/2021 5:15 PM COMPARISON: Chest 02/28/2019. TECHNIQUE: Frontal and lateral views of the chest. CLINICAL INDICATION:Female, 65 years old with history of altered mental status; FINDINGS: Lungs/Pleura: There is no evidence of pleural effusion, focal consolidation, or pneumothorax. Pulmonary vascularity: Pulmonary vascular congestion. Heart/mediastinum: Cardiomediastinal silhouette is enlarged and stable. Musculoskeletal: No acute osseous pathology. Other findings: Stimulator device projecting over the thecal sac. Lines/Tubes: [id number] projecting over the right hemithorax with distal tip at the cavoatrial junction. IMPRESSION: 1. Cardiomegaly and mild pulmonary vascular congestion. Correlate with BNP for congestive heart failu re. 2. Interval placement of right [id number] with tip in appropriate position.
[2021-05-13 18:22] LABS: Appearance,Urine Clear (Clear); Bilirubin,Urine Negative (Negative); Blood,Urine Negative (Negative); Color,Urine Yellow; Glucose,Urine (UA) Negative (Negative); Ketones,Urine Negative (Negative); Leukocyte Esterase,Urine Negative (Negative); Nitrite,Urine Negative (Negative); Protein,Urine Trace (Negative); Specific Gravity,Urine 1.012 (1.001-1.035); Urobilinogen,Urine <2.0 mg/dL (<2.0)
--- NOTE | 2021-05-13 18:29 | ED ---
Altered Mental Status HPI - General Chief Complaint: Altered Mental Status Stated Complaint: UTI, confusion Source: EMS Mode of arrival: EMS Limitations: altered mental status - History of Present Illness Initial Comments: 65-year-old female with past history of dementia, CVA with right-sided weakness, follicular lymphoma presents emergency Department with altered mental status. Son at bedside and provides majority of history. States that she has been progressively confused after she was diagnosed with Covid on April 09 and has had a steady decline. Confusion got worse over the past week. States he was over her house today when she got up to use the restroom. She walked over to the couch and urinated. He states that she does have dementia at baseline however this is accelerated. She has had some increased shortness of breath and she has not been using her nebulizer treatments. History of emphysema. Does not use home oxygen. She denies any chest pain. EMS was called to the hospital that the patient had a fever. Her oxygenation was only 80%. Son reports that she has had 2 negative Covid tests at the end of April so he thought her infection had passed. She denies any abdominal pain. No dysuria or hematuria. Denies any rectal bleeding. Patient sees oncologist out of [facility] and is currently on treatment for her follicular lymphoma. No other alleviating, precipitating or modifying factors - Related Data Home Medications Medication Instructions Recorded Confirmed Clopidogrel [Plavix] 75 mg PO DAILY 09/15/13 05/13/21 Donepezil [Aricept] 10 mg PO HS 08/25/18 05/13/21 Memantine [Namenda] 10 mg PO HS 11/17/18 05/13/21 Furosemide [Lasix] 40 mg PO DAILY 02/23/19 05/13/21 Albuterol Nebulized [Ventolin 2.5 mg INHALATION RT-QID 02/25/19 05/13/21 Nebulized] Albuterol Sulfate [Ventolin HFA] 2 puff INHALATION RT-QID PRN 05/13/21 05/13/21 Atorvastatin [Lipitor] 40 mg PO HS 05/13/21 05/13/21 Docusate [Colace] 100 mg PO HS 05/13/21 05/13/21 Ergocalciferol [Vitamin D2 (1250 1,250 mcg PO SHAW 05/13/21 05/13/21 Mcg = 79861 Iu)] Gabapentin 300 mg PO BID 05/13/21 05/13/21 LORazepam [Ativan] 0.5 mg PO BID PRN 05/13/21 05/13/21 Lenalidomide [Revlimid] 20 mg PO DIRECTED 05/13/21 05/13/21 Lisinopril [Prinivil] 5 mg PO DAILY 05/13/21 05/13/21 Mirabegron [Myrbetriq] 50 mg PO DAILY 05/13/21 05/13/21 Multivit-Min/FA/Lycopen/Lutein 1 tab PO DAILY 05/13/21 05/13/21 [Centrum Silver Tablet] Ondansetron HCl [Zofran] 8 mg PO Q8H PRN 05/13/21 05/13/21 Umeclidinium Brm/Vilanterol Tr 1 puff INHALATION RT-DAILY 05/13/21 05/13/21 [Anoro Ellipta 62.5-25 Mcg INH] buPROPion HCL [Wellbutrin XL] 300 mg PO DAILY 05/13/21 05/13/21 sitaGLIPtin [Januvia] 100 mg PO DAILY 05/13/21 05/13/21 Allergies Allergy/AdvReac Type Severity Reaction Status Date / Time naproxen sodium [From Aleve] Allergy Rash/Hives Verified 05/13/21 16:09 Review of Systems ROS Statement: Those systems with pertinent positive or pertinent negative responses have been documented in the HPI. ROS Other: All systems not noted in ROS Statement are negative. Past Medical History Past Medical History: CVA/TIA, Dementia, Hyperlipidemia, Memory Impairment Additional Past Medical History / Comment(s): lymphoma. CVA APPROX 2003 PER AUNT PT WALKS WITH LIMP, RT ARM PARESIS, PT HAS SOME APHASIA, SHORT TERM MEMORY NOT GOOD. History of Any Multi-Drug Resistant Organisms: None Reported Past Surgical History: Tubal Ligation Additional Past Surgical History / Comment(s): carpal tunnel, neck, medi port, per son pt had carotid surgery Past Anesthesia/Blood Transfusion Reactions: No Reported Reaction Past Psychological History: Depression Smoking Status: Unknown if ever smoked Past Alcohol Use History: None Reported Past Drug Use History: None Reported - Past Family History Mother Family Medical History: Cancer Father Family Medical History: Deep Vein Thrombosis (DVT) General Exam Limitations: altered mental status Course Vital Signs 05/13/21 05/13/21 05/13/21 15:55 17:28 19:06 Temperature 99.6 F 98.1 F Pulse Rate 85 78 70 Respiratory 16 20 20 Rate Blood Pressure 105/62 111/50 111/57 O2 Sat by Pulse 99 98 98 Oximetry 05/13/21 05/14/21 21:00 00:00 Temperature 97.7 F 98 F Pulse Rate 66 65 Respiratory 16 16 Rate Blood Pressure 106/54 102/55 O2 Sat by Pulse 99 99 Oximetry Medical Decision Making - Medical Decision Making Upon arrival patient is placed into room 10. A thorough history and physical exam was performed. Patient is alert and oriented 2. She is able to answer most questions appropriately. She follows all commands. IV had been established laboratory studies were conducted. Patient has hemoglobin 7.3. Rectal exam was performed which demonstrates no rectal bleeding. Occult is negative. Sodium 1:30, potassium 3, creatinine elevated at 1.69. Patient was originally given fluids however no further fluids given after 1 L due to her possible hypervolemic hyponatremia. BNP elevated at 8000 390. Troponin 0.182. Patient is not heparinized that she has no chest pain and troponin leak is likely secondary to renal failure. We will trend her troponin. Urinalysis is clean. Covid is still detected. Chest x-ray demonstrates concern for volume overload. Patient is saturating 90% without increased worker breathing on 3 L. Did recommend admission and spoke with Dr. lozano. Cardiology is placed on consult. She remained in stable condition awaiting a bed on the floor - Lab Data Result diagrams: 05/13/21 16:51 05/13/21 16:51 Lab Results 05/13/21 05/13/21 05/13/21 Range/Units 16:51 16:51 16:51 WBC 6.5 (3.8-10.6) k/uL RBC 2.20 L (3.80-5.40) m/uL Hgb 7.3 L (11.4-16.0) gm/dL Hct 21.9 L (34.0-46.0) % MCV 99.4 (80.0-100.0) fL MCH 33.2 (25.0-35.0) pg MCHC 33.4 (31.0-37.0) g/dL RDW 16.6 H (11.5-15.5) % Plt Count 318 (150-450) k/uL MPV 9.1 Neutrophils % 81 % Lymphocytes % 7 % Monocytes % 10 % Eosinophils % 0 % Basophils % 0 % Neutrophils # 5.2 (1.3-7.7) k/uL Lymphocytes # 0.5 L (1.0-4.8) k/uL Monocytes # 0.6 (0-1.0) k/uL Eosinophils # 0.0 (0-0.7) k/uL Basophils # 0.0 (0-0.2) k/uL Hypochromasia Slight Poikilocytosis Moderate Anisocytosis Slight Macrocytosis Slight PT 10.9 (9.0-12.0) sec INR 1.0 (<1.2) APTT 24.5 (22.0-30.0) sec Sodium (137-145) mmol/L Potassium (3.5-5.1) mmol/L Chloride (98-107) mmol/L Carbon Dioxide (22-30) mmol/L Anion Gap mmol/L BUN (7-17) mg/dL Creatinine (0.52-1.04) mg/dL Est GFR (CKD-EPI)AfAm (>60 ml/min/1.73 sqM) Est GFR (CKD-EPI)NonAf (>60 ml/min/1.73 sqM) Glucose (74-99) mg/dL Plasma Lactic Acid Rpaneeth (0.7-2.0) mmol/L Calcium (8.4-10.2) mg/dL Magnesium (1.6-2.3) mg/dL Total Bilirubin (0.2-1.3) mg/dL AST (14-36) U/L ALT (4-34) U/L Alkaline Phosphatase (38-126) U/L Troponin I (0.000-0.034) ng/mL NT-Pro-B Natriuret Pep pg/mL Total Protein (6.3-8.2) g/dL Albumin (3.5-5.0) g/dL Urine Color Yellow Urine Appearance Clear (Clear) Urine pH 5.0 (5.0-8.0) Ur Specific Moro 1.012 (1.001-1.035) Urine Protein Trace H (Negative) Urine Glucose (UA) Negative (Negative) Urine Ketones Negative (Negative) Urine Blood Negative (Negative) Urine Nitrite Negative (Negative) Urine Bilirubin Negative (Negative) Urine Urobilinogen <2.0 (<2.0) mg/dL Ur Leukocyte Esterase Negative (Negative) Stool Occult Blood (Negative) Urine Opiates Screen Not Detected (NotDetected) Ur Oxycodone Screen Not Detected (NotDetected) Urine Methadone Screen Not Detected (NotDetected) Ur Propoxyphene Screen Not Detected (NotDetected) Ur Barbiturates Screen Not Detected (NotDetected) U Tricyclic Antidepress Not Detected (NotDetected) Ur Phencyclidine Scrn Not Detected (NotDetected) Ur Amphetamines Screen Not Detected (NotDetected) U Methamphetamines Scrn Not Detected (NotDetected) U Benzodiazepines Scrn Not Detected (NotDetected) Urine Cocaine Screen Not Detected (NotDetected) U Marijuana (THC) Screen Not Detected (NotDetected) Coronavirus (PCR) (Not Detectd) 05/13/21 05/13/21 05/13/21 Range/Units 16:51 16:51 16:51 WBC (3.8-10.6) k/uL RBC (3.80-5.40) m/uL Hgb (11.4-16.0) gm/dL Hct (34.0-46.0) % MCV (80.0-100.0) fL MCH (25.0-35.0) pg MCHC (31.0-37.0) g/dL RDW (11.5-15.5) % Plt Count (150-450) k/uL MPV Neutrophils % % Lymphocytes % % Monocytes % % Eosinophils % % Basophils % % Neutrophils # (1.3-7.7) k/uL Lymphocytes # (1.0-4.8) k/uL Monocytes # (0-1.0) k/uL Eosinophils # (0-0.7) k/uL Basophils # (0-0.2) k/uL Hypochromasia Poikilocytosis Anisocytosis Macrocytosis PT (9.0-12.0) sec INR (<1.2) APTT (22.0-30.0) sec Sodium 130 L (137-145) mmol/L Potassium 3.0 L (3.5-5.1) mmol/L Chloride 90 L (98-107) mmol/L Carbon Dioxide 27 (22-30) mmol/L Anion Gap 13 mmol/L BUN 44 H (7-17) mg/dL Creatinine 1.69 H (0.52-1.04) mg/dL Est GFR (CKD-EPI)AfAm 37 (>60 ml/min/1.73 sqM) Est GFR (CKD-EPI)NonAf 32 (>60 ml/min/1.73 sqM) Glucose 103 H (74-99) mg/dL Plasma Lactic Acid Praneeth 1.3 (0.7-2.0) mmol/L Calcium 8.1 L (8.4-10.2) mg/dL Magnesium 1.6 (1.6-2.3) mg/dL Total Bilirubin 0.7 (0.2-1.3) mg/dL AST 91 H (14-36) U/L ALT 74 H (4-34) U/L Alkaline Phosphatase 122 (38-126) U/L Troponin I 0.182 H* (0.000-0.034) ng/mL NT-Pro-B Natriuret Pep pg/mL Total Protein 5.2 L (6.3-8.2) g/dL Albumin 2.9 L (3.5-5.0) g/dL Urine Color Urine Appearance (Clear) Urine pH (5.0-8.0) Ur Specific Moro (1.001-1.035) Urine Protein (Negative) Urine Glucose (UA) (Negative) Urine Ketones (Negative) Urine Blood (Negative) Urine Nitrite (Negative) Urine Bilirubin (Negative) Urine Urobilinogen (<2.0) mg/dL Ur Leukocyte Esterase (Negative) Stool Occult Blood (Negative) Urine Opiates Screen (NotDetected) Ur Oxycodone Screen (NotDetected) Urine Methadone Screen (NotDetected) Ur Propoxyphene Screen (NotDetected) Ur Barbiturates Screen (NotDetected) U Tricyclic Antidepress (NotDetected) Ur Phencyclidine Scrn (NotDetected) Ur Amphetamines Screen (NotDetected) U Methamphetamines Scrn (NotDetected) U Benzodiazepines Scrn (NotDetected) Urine Cocaine Screen (NotDetected) U Marijuana (THC) Screen (NotDetected) Coronavirus (PCR) (Not Detectd) 05/13/21 05/13/21 05/13/21 Range/Units 16:51 16:51 19:01 WBC (3.8-10.6) k/uL RBC (3.80-5.40) m/uL Hgb (11.4-16.0) gm/dL Hct (34.0-46.0) % MCV (80.0-100.0) fL MCH (25.0-35.0) pg MCHC (31.0-37.0) g/dL RDW (11.5-15.5) % Plt Count (150-450) k/uL MPV Neutrophils % % Lymphocytes % % Monocytes % % Eosinophils % % Basophils % % Neutrophils # (1.3-7.7) k/uL Lymphocytes # (1.0-4.8) k/uL Monocytes # (0-1.0) k/uL Eosinophils # (0-0.7) k/uL Basophils # (0-0.2) k/uL Hypochromasia Poikilocytosis Anisocytosis Macrocytosis PT (9.0-12.0) sec INR (<1.2) APTT (22.0-30.0) sec Sodium (137-145) mmol/L Potassium (3.5-5.1) mmol/L Chloride (98-107) mmol/L Carbon Dioxide (22-30) mmol/L Anion Gap mmol/L BUN (7-17) mg/dL Creatinine (0.52-1.04) mg/dL Est GFR (CKD-EPI)AfAm (>60 ml/min/1.73 sqM) Est GFR (CKD-EPI)NonAf (>60 ml/min/1.73 sqM) Glucose (74-99) mg/dL Plasma Lactic Acid Praneeth (0.7-2.0) mmol/L Calcium (8.4-10.2) mg/dL Magnesium (1.6-2.3) mg/dL Total Bilirubin (0.2-1.3) mg/dL AST (14-36) U/L ALT (4-34) U/L Alkaline Phosphatase (38-126) U/L Troponin I (0.000-0.034) ng/mL NT-Pro-B Natriuret Pep 8390 pg/mL Total Protein (6.3-8.2) g/dL Albumin (3.5-5.0) g/dL Urine Color Urine Appearance (Clear) Urine pH (5.0-8.0) Ur Specific Moro (1.001-1.035) Urine Protein (Negative) Urine Glucose (UA) (Negative) Urine Ketones (Negative) Urine Blood (Negative) Urine Nitrite (Negative) Urine Bilirubin (Negative) Urine Urobilinogen (<2.0) mg/dL Ur Leukocyte Esterase (Negative) Stool Occult Blood Negative (Negative) Urine Opiates Screen (NotDetected) Ur Oxycodone Screen (NotDetected) Urine Methadone Screen (NotDetected) Ur Propoxyphene Screen (NotDetected) Ur Barbiturates Screen (NotDetected) U Tricyclic Antidepress (NotDetected) Ur Phencyclidine Scrn (NotDetected) Ur Amphetamines Screen (NotDetected) U Methamphetamines Scrn (NotDetected) U Benzodiazepines Scrn (NotDetected) Urine Cocaine Screen (NotDetected) U Marijuana (THC) Screen (NotDetected) Coronavirus (PCR) Detected A (Not Detectd) - EKG Data EKG Comments: EKG demonstrates sinus rhythm with a rate of 86. NV interval 128. QRS 89. QTC of 456. There are no acute ST segment elevations. No worse typical depressions. There is some baseline artifact. Disposition Clinical Impression: Hypoxia, COVID-19, NHL (non-Hodgkin's lymphoma), Dementia, LEELEE (acute kidney injury), Hypokalemia, Hyponatremia, Anemia, NSTEMI (non-ST elevated myocardial infarction) Disposition: ADMITTED IP TO THIS [facility] Condition: Stable Is patient prescribed a controlled substance at d/c from ED?: No Decision to Admit Reason: Admit from EC Decision Date: 05/13/21 Decision Time: 20:09
[2021-05-13 18:34] LABS: Amphetamine Screen,Urine Not Detected (NotDetected); Barbiturate Screen,Urine Not Detected (NotDetected); Benzodiazepines Screen,Urine Not Detected (NotDetected); Cocaine Screen,Urine Not Detected (NotDetected); Methadone Screen, Urine Not Detected (NotDetected); Opiate Screen,Urine Not Detected (NotDetected); Oxycodone Screen, Urine Not Detected (NotDetected); Phencyclidine Screen,Urine Not Detected (NotDetected); Tricyclic Antidepressant,Urine Not Detected (NotDetected); Urn Cannabinoid Scrn Not Detected (NotDetected)
[2021-05-13] MEDS ORDERED: POTASSIUM CHLORIDE 20 MEQ in WATER FOR INJECTION 1 100ML.BAG IVPB STA (18:36)
[2021-05-13] MEDS ORDERED: ACETAMINOPHEN TAB 325 MG TAB PO PRN (20:09)
[2021-05-13] MEDS ORDERED: NALOXONE 0.4 MG/ML 1 ML VIAL IV PRN (20:09)
[2021-05-14] MEDS ORDERED: DEXTROSE 50% SYRINGE 50 ML IVP PRN (00:05)
[2021-05-14 00:18] LABS: Glucose,Whole Blood 83 mg/dL (75-99)
[2021-05-14] MEDS: INSULIN ASPART (NovoLOG) 100 UNIT/ML VIAL SQ SCH ×5 (00:27→20:37)
[2021-05-14 05:58] LABS: Glucose,Whole Blood 80 mg/dL (75-99)
[2021-05-14 07:49] LABS: Albumin 2.9 g/dL (3.5-5.0); Calcium 8.2 mg/dL (8.4-10.2); Magnesium 1.9 mg/dL (1.6-2.3); Potassium 3.1 mmol/L (3.5-5.1); Total Bilirubin 0.7 mg/dL (0.2-1.3); Total Protein 5.4 g/dL (6.3-8.2)
[2021-05-14] MEDS ORDERED: Potassium Replacement Protocol 1 EACH MISC MISCELLANE PRN (08:22)
[2021-05-14 08:24] LABS: HCT 24.1 % (34.0-46.0); HGB 7.8 gm/dL (11.4-16.0); Hypochromasia Moderate; MCH 33.4 pg (25.0-35.0); MCHC 32.4 g/dL (31.0-37.0); MCV 102.8 fL (80.0-100.0); Macrocytosis Moderate; Mean Platelet Volume 9.2; Platelet Count 353 k/uL (150-450); Poikilocytosis Slight; RBC 2.35 m/uL (3.80-5.40); RDW 15.9 % (11.5-15.5); WBC 7.7 k/uL (3.8-10.6)
[2021-05-14] MEDS ORDERED: SODIUM CHLORIDE 0.9% 1,000 ML IV STA (08:33)
[2021-05-14] MEDS: NON FORMULARY DRUG (Mirabegron [Myrbetriq] 50 MG Tablet) PO SCH (08:35)
[2021-05-14] MEDS: POTASSIUM CHLORIDE ER 20 MEQ TAB.ER PO SCH ×2 (08:36→12:19)
--- NOTE | 2021-05-14 08:39 | US ---
EXAMINATION TYPE: US kidneys/renal and bladder DATE OF EXAM: 05/14/2021 COMPARISON: CT abdomen and pelvis 2013. PET/CT May 13, 2019 CLINICAL HISTORY: LEELEE, urinary retention. EXAM MEASUREMENTS: Right Kidney: 9.9 x 3.9 x 4.1 cm Left Kidney: 10.1 x 4.2 x 5.6 cm Right Kidney: No hydronephrosis or masses seen Left Kidney: No hydronephrosis or masses seen Bladder: patient has catheter There is no evidence for hydronephrosis at this point in time. No nephrolithiasis is seen. No mitesh s are identified. Lama catheter decompresses bladder. IMPRESSION: No hydronephrosis is seen bilaterally.
[2021-05-14] MEDS ORDERED: CLOPIDOGREL 75 MG TAB PO SCH (09:00)
--- NOTE | 2021-05-14 10:20 | ECHOF ---
Referral Reason:heart failure MEASUREMENTS -------- HEIGHT: 165.1 cm WEIGHT: 82.1 kg BP: RVIDd: 2.7 cm (< 3.3) IVSd: 1.4 cm (0.6 - 1.1) LVIDd: 3.3 cm (3.9 - 5.3) LVPWd: 1.2 cm (0.6 - 1.1) IVSs: 1.7 cm LVIDs: 1.8 cm LVPWs: 1.5 cm MV E Dario: 2.05 m/s MV DecT: 446 ms MV A Dario: 1.98 m/s MV E/A Ratio: 1.04 AV maxP.38 mmHg AV meanP.18 mmHg RAP: 5.00 mmHg RVSP: 60.27 mmHg FINDINGS -------- This was a technically difficult study with suboptimal views. The left ventricular size is normal. There is moderate concentric left ventricular hypertrophy. O verall left ventricular systolic function is normal with, an EF between 60 - 65 %. The right ventricle is normal in size. The left atrial size is normal. The right atrial size is normal. Lumason used The aortic valve was not well visualized. Aortic valve is trileaflet and is mildly thickened. The re is mild aortic stenosis present. Peak/mean gradient across the Aortic Valve is 20.38mmHg / 14.18 mmHg. The mitral valve was not well visualized. Mild mitral regurgitation is present. The peak and shelby n MV gradients are 29.11mmHg 16.75mmHg as measured by doppler. Severe mitral stenosis. The tricuspid valve appears structurally normal. Mild tricuspid regurgitation present. Right vent ricular systolic pressure is normal at < 35 mmHg. There is no pulmonic regurgitation present. The aortic root size is normal. IVC Not well visulized. There is no pericardial effusion. CONCLUSIONS -------- 1. The left ventricular size is normal. 2. There is moderate concentric left ventricular hypertrophy. 3. Overall left ventricular systolic function is normal with, an EF between 60 - 65 %. 4. Aortic valve is trileaflet and is mildly thickened. 5. There is mild aortic stenosis present. 6. Peak/mean gradient across the Aortic Valve is 20.38mmHg / 14.18mmHg. 7. Mild mitral regurgitation is present. 8. The peak and mean MV gradients are 29.11mmHg 16.75mmHg as measured by doppler. 9. Severe mitral stenosis. 10. Mild tricuspid regurgitation present. 11. There is no pericardial effusion. CAREER DEVELOPMENT MANAGER: Erika Aviles RDCS
[2021-05-14 11:58] LABS: Glucose,Whole Blood 124 mg/dL (75-99)
[2021-05-14] MEDS ORDERED: PANTOPRAZOLE 40 MG/10 ML VIAL IVP SCH (12:09)
[2021-05-14 12:33] LABS: Anisocytosis (M) Present; Band Neutrophils % 2 %; Eosinophils # (M) 0.08 k/uL (0-0.7); Lymphocytes # (M) 0.23 k/uL (1.0-4.8); Monocytes # (M) 0.23 k/uL (0-1.0); Neutrophils % (M) 91 %; Nucleated Red Blood Cells 0 /100 WBC (0-0); Total Cells Counted 100
--- NOTE | 2021-05-14 13:56 | P.CRDCN ---
History of Present Illness History of present illness: HISTORY OF PRESENTING ILLNESS This is a pleasant 65-year-old female past medical history significant for dementia, prior CVA with right sided weakness, Non-Hodgkins lymphoma, mitral stenosis, pulmonary hypertension, carotid stenosis s/p left carotid endarterectomy, hypertension, dyslipidemia, COPD. She follows with Dr. Lutz. We have been asked to see in consultation for congestive heart failure. Patient Presents to the Emergency Department with altered mental status. At bedside, patient is alert and oriented x 1, person only. Per emergency department note, patient was diagnosed with Covid-April 09, she has been confused and a steady decline per son. Confusion got worse over the past week. Per son, he was over at the house yesterday to check on her, "when she got up to use the restroom, she walked over to the couch and urinated." He states that she does have dementia at baseline however this is accelerated. Patient seen and examined at bedside, she has no complaints, she denies chest pain or shortness of breath. Unable to give accurate history. DIAGNOSTICS -EKG reveals sinus rhythm, heart rate 86, bundle-branch block, no significant past history of abnormalities. -Chest xray Cardiomegaly and mild pulmonary vascular congestion -Laboratory reviewed, WBC 7.7, hemoglobin 7.8, platelets 353, sodium 135, potassium 2.1, BUN 39, serum creatinine 1.3, magnesium 1.9, troponin 0.18, 0.17, 0.14, proBNP 8290, Covid positive. -CT brain bilateral frontal lobe encephalomalacia -Echocardiogram revealed an EF of 6065 percent, mild aortic stenosis peak/mean gradient of 20 mmHg/14 no murmurs mercury, mild mitral regurgitation, severe mitral stenosis peak/mean MV gradient 29 mmHg/16mmHg -Ultrasound of the kidneys revealed no hydronephrosis -Current home medications include Januvia, lisinopril 5 mg daily, Namenda, gabapentin, Lasix 40 mg daily, Plavix 75mg daily, atorvastatin 40 mg nightly REVIEW OF SYSTEMS At the time of my exam: CONSTITUTIONAL: Denies fever or chills. CARDIOVASCULAR: Denies chest pain, shortness of breath, orthopnea, PND or palpitations. RESPIRATORY: Denies cough. GASTROINTESTINAL: Denies abdominal pain, diarrhea, constipation, nausea or vomi ting. MUSCULOSKELETAL: Denies myalgias. NEUROLOGIC: Denies numbness, tingling, headacbe or weakness. ENDOCRINE: Denies fatigue, weight change, polydipsia or polyurina. GENITOURINARY: Denies burning, hematuria or urgency with micturation. HEMATOLOGIC: Denies history of anemia or bleeding. PHYSICAL EXAMINATION Vitals Reviewed. CONSTITUTIONAL: No apparent distress. HEENT: Head is normocephalic. Sclerae anicteric. Mucous membranes of the mouth are dry. No JVD. CHEST EXAMINATION: Lungs with some crackles in the lower bases bilaterally to auscultation. No chest wall tenderness is noted on palpation or with deep breathing. HEART EXAMINATION: Regular rate and rhythm. S1, S2 heard. Murmur noted. ABDOMEN: Soft, nontender. Positive bowel sounds. EXTREMITIES: no lower extremity edema and no calf tenderness. SKIN: warm, dry NEUROLOGIC EXAMINATION: Patient is awake, alert and oriented to person nly ASSESSMENT Altered mental status Acute Kidney Injury Covid-19 Infection Anemia Hypokalemia Elevated troponin, likely related to acute kidney injury, patient without chest pain, no evidence of ischemia on EKG, EF 60-65% Hypoalbuminemia Dementia History of prior CVA with right-sided weakness Non-Hodgkins lymphoma Mitral stenosis Pulmonary hypertension Carotid stenosis s/p prior left carotid endarterectomy History of hypertension Dyslipidemia COPD PLAN From a cardiology perspective, patient does not appear to be in acute congestive heart failure. Kidney function improved with IV fluids. Replace potassium per protocol IV fluids 75cc/hr 2D echocardiogram obtained and reviewed Plavix on hold due to anemia Lisinopril on hold due to LEELEE Would also hold Lasix at this time Further recommendations based on clinical course Nurse practitioner note has been reviewed by physician. Signing provider agrees with the documented findings, assessment, and plan of care. Past Medical History Past Medical History: CVA/TIA, Dementia, Hyperlipidemia, Memory Impairment Additional Past Medical History / Comment(s): lymphoma. CVA APPROX 2003 PER AUNT PT WALKS WITH LIMP, RT ARM PARESIS, PT HAS SOME APHASIA, SHORT TERM MEMORY NOT GOOD. History of Any Multi-Drug Resistant Organisms: None Reported Past Surgical History: Tubal Ligation Additional Past Surgical History / Comment(s): carpal tunnel, neck, medi port, per son pt had carotid surgery Past Anesthesia/Blood Transfusion Reactions: No Reported Reaction Past Psychological History: Depression Smoking Status: Unknown if ever smoked Past Alcohol Use History: None Reported Past Drug Use History: None Reported - Past Family History Mother Family Medical History: Cancer Father Family Medical History: Deep Vein Thrombosis (DVT) Medications and Allergies Home Medications Medication Instructions Recorded Confirmed Type Clopidogrel [Plavix] 75 mg PO DAILY 09/15/13 05/13/21 History Donepezil [Aricept] 10 mg PO HS 08/25/18 05/13/21 History Memantine [Namenda] 10 mg PO HS 11/17/18 05/13/21 History Furosemide [Lasix] 40 mg PO DAILY 02/23/19 05/13/21 History Albuterol Nebulized [Ventolin 2.5 mg INHALATION RT-QID 02/25/19 05/13/21 History Nebulized] Albuterol Sulfate [Ventolin HFA] 2 puff INHALATION RT-QID PRN 05/13/21 05/13/21 History Atorvastatin [Lipitor] 40 mg PO HS 05/13/21 05/13/21 History Docusate [Colace] 100 mg PO HS 05/13/21 05/13/21 History Ergocalciferol [Vitamin D2 (1250 1,250 mcg PO SHAW 05/13/21 05/13/21 History Mcg = 29601 Iu)] Gabapentin 300 mg PO BID 05/13/21 05/13/21 History LORazepam [Ativan] 0.5 mg PO BID PRN 05/13/21 05/13/21 History Lenalidomide [Revlimid] 20 mg PO DIRECTED 05/13/21 05/13/21 History Lisinopril [Prinivil] 5 mg PO DAILY 05/13/21 05/13/21 History Mirabegron [Myrbetriq] 50 mg PO DAILY 05/13/21 05/13/21 History Multivit-Min/FA/Lycopen/Lutein 1 tab PO DAILY 05/13/21 05/13/21 History [Centrum Silver Tablet] Ondansetron HCl [Zofran] 8 mg PO Q8H PRN 05/13/21 05/13/21 History Umeclidinium Brm/Vilanterol Tr 1 puff INHALATION RT-DAILY 05/13/21 05/13/21 History [Anoro Ellipta 62.5-25 Mcg INH] buPROPion HCL [Wellbutrin XL] 300 mg PO DAILY 05/13/21 05/13/21 History sitaGLIPtin [Januvia] 100 mg PO DAILY 05/13/21 05/13/21 History Allergies Allergy/AdvReac Type Severity Reaction Status Date / Time naproxen sodium [From Aleve] Allergy Rash/Hives Verified 05/13/21 16:09 Physical Exam Vitals: Vital Signs Temp Pulse Pulse Resp BP BP Pulse Ox 05/14/21 03:37 97.8 F 73 20 101/49 97 05/14/21 02:12 96.6 F L 72 18 102/61 100 05/14/21 00:00 98 F 65 16 102/55 99 05/13/21 21:00 97.7 F 66 16 106/54 99 05/13/21 19:06 98.1 F 70 20 111/57 98 05/13/21 17:28 78 20 111/50 98 05/13/21 15:55 99.6 F 85 16 105/62 99 Intake and Output 05/13/21 05/14/21 05/14/21 22:59 06:59 14:59 Intake Total 240 Output Total 150 1350 Balance -150 -1110 Intake: Oral 240 Output: Urine 150 1350 Straight 150 600 Other: Voiding Method Indwelling Catheter Weight 97.522 kg 82.5 kg Results 05/14/21 07:08 05/14/21 07:08 Cardiac Enzymes 05/13/21 05/13/21 05/13/21 Range/Units 16:51 16:51 21:32 AST 91 H (14-36) U/L Troponin I 0.182 H* 0.171 H* (0.000-0.034) ng/mL 05/14/21 Range/Units 00:26 AST (14-36) U/L Troponin I 0.140 H* (0.000-0.034) ng/mL Coagulation 05/13/21 Range/Units 16:51 PT 10.9 (9.0-12.0) sec APTT 24.5 (22.0-30.0) sec CBC 05/13/21 Range/Units 16:51 WBC 6.5 (3.8-10.6) k/uL RBC 2.20 L (3.80-5.40) m/uL Hgb 7.3 L (11.4-16.0) gm/dL Hct 21.9 L (34.0-46.0) % Plt Count 318 (150-450) k/uL Comprehensive Metabolic Panel 05/13/21 Range/Units 16:51 Sodium 130 L (137-145) mmol/L Potassium 3.0 L (3.5-5.1) mmol/L Chloride 90 L (98-107) mmol/L Carbon Dioxide 27 (22-30) mmol/L BUN 44 H (7-17) mg/dL Creatinine 1.69 H (0.52-1.04) mg/dL Glucose 103 H (74-99) mg/dL Calcium 8.1 L (8.4-10.2) mg/dL AST 91 H (14-36) U/L ALT 74 H (4-34) U/L Alkaline Phosphatase 122 (38-126) U/L Total Protein 5.2 L (6.3-8.2) g/dL Albumin 2.9 L (3.5-5.0) g/dL Current Medications Generic Name Dose Route Start Last Admin Trade Name Freq PRN Reason Stop Dose Admin Acetaminophen 650 mg 05/13/21 20:09 Acetaminophen Tab 325 Mg Tab PO Q6HR PRN Mild Pain or Fever > 100.5 Atorvastatin Calcium 40 mg 05/14/21 21:00 Atorvastatin 40 Mg Tab PO HS KRISTA Dextrose/Water 50 ml 05/14/21 00:05 Dextrose 50% Syringe 50 Ml IVP ONCE PRN Hypoglycemia Docusate Sodium 100 mg 05/14/21 21:00 Docusate 100 Mg Cap PO HS KRISTA Donepezil HCl 10 mg 05/14/21 21:00 Donepezil 10 Mg Tab PO HS KRISTA Insulin Aspart 0 unit 05/14/21 00:15 05/14/21 06:03 Insulin Aspart (Novolog) 100 Unit/Ml Vial SQ Not Given Q6HR KRISTA Protocol Naloxone HCl 0.2 mg 05/13/21 20:09 Naloxone 0.4 Mg/Ml 1 Ml Vial IV Q2M PRN Opioid Reversal Non-Formulary Medication 50 mg 05/14/21 09:00 Mirabegron [Myrbetriq] PO DAILY KRISTA Pantoprazole Sodium 40 mg 05/14/21 12:09 Pantoprazole 40 Mg/10 Ml Vial IVP DAILY KRISTA Intake and Output 05/13/21 05/14/21 05/14/21 22:59 06:59 14:59 Intake Total 240 Output Total 150 1350 Balance -150 -1110 Intake: Oral 240 Output: Urine 150 1350 Straight 150 600 Other: Voiding Method Indwelling Catheter Weight 97.522 kg 82.5 kg 05/13/21 16:51 05/13/21 16:51
--- NOTE | 2021-05-14 16:25 | P.CONS ---
History of Present Illness - Reason for Consult Consult date: 05/14/21 lymphoma, anemia Requesting physician: Crys Kimble - Chief Complaint UTI, AMS, covid - History of Present Illness Pt seen in 03/[address] Cedillo for leukocytosis, mild (12K), recent viral illness, her CBC did normalize. She was seen [id number] after pt was seen by Dr. Roosevelt avendaño for abdominal pain, CT showed pelvic lymphadenopathy, CT neck & chest showed diffuse adenopathy, pt reported constitutional symptoms of low grade fever, night sweats. She was to be scheduled for LN bx, BM bx but ultimately ended up being seen by Dr. Stratton, who she continues to treat with him at this time. She thinks she is on an oral drug for lymphoma. She is currently admitted for AMS, CT brain neg, ? CHF, abd/bladder US no hydronephrosis. Her CBC is WNL other then macrocytic anemia. LEELEE on admit, better today, Na+, K+ slightly low. She is covid positive. She feels better then she did on admit. Denies fever, nausea, she is visibly SOB but denies symptom, non-productive cough, feels tired. No acute bowel or bladder changes. Review of Systems 10 point ROS is neg except as stated in HPI Past Medical History Past Medical History: Cancer, CVA/TIA, Dementia, Hyperlipidemia, Memory Impairment Additional Past Medical History / Comment(s): lymphoma. CVA APPROX 2003 PER AUNT PT WALKS WITH LIMP, RT ARM PARESIS, PT HAS SOME APHASIA, SHORT TERM MEMORY NOT GOOD. History of Any Multi-Drug Resistant Organisms: None Reported Past Surgical History: Tubal Ligation Additional Past Surgical History / Comment(s): carpal tunnel, neck, medi port, per son pt had carotid surgery Past Anesthesia/Blood Transfusion Reactions: No Reported Reaction Past Psychological History: Depression Smoking Status: Unknown if ever smoked Past Alcohol Use History: None Reported Past Drug Use History: None Reported - Past Family History Mother Family Medical History: Cancer Father Family Medical History: Deep Vein Thrombosis (DVT) Medications and Allergies Home Medications Medication Instructions Recorded Confirmed Type Clopidogrel [Plavix] 75 mg PO DAILY 09/15/13 05/13/21 History Donepezil [Aricept] 10 mg PO HS 08/25/18 05/13/21 History Memantine [Namenda] 10 mg PO HS 11/17/18 05/13/21 History Furosemide [Lasix] 40 mg PO DAILY 02/23/19 05/13/21 History Albuterol Nebulized [Ventolin 2.5 mg INHALATION RT-QID 02/25/19 05/13/21 History Nebulized] Albuterol Sulfate [Ventolin HFA] 2 puff INHALATION RT-QID PRN 05/13/21 05/13/21 History Atorvastatin [Lipitor] 40 mg PO HS 05/13/21 05/13/21 History Docusate [Colace] 100 mg PO HS 05/13/21 05/13/21 History Ergocalciferol [Vitamin D2 (1250 1,250 mcg PO SHAW 05/13/21 05/13/21 History Mcg = 93958 Iu)] Gabapentin 300 mg PO BID 05/13/21 05/13/21 History LORazepam [Ativan] 0.5 mg PO BID PRN 05/13/21 05/13/21 History Lenalidomide [Revlimid] 20 mg PO DIRECTED 05/13/21 05/13/21 History Lisinopril [Prinivil] 5 mg PO DAILY 05/13/21 05/13/21 History Mirabegron [Myrbetriq] 50 mg PO DAILY 05/13/21 05/13/21 History Multivit-Min/FA/Lycopen/Lutein 1 tab PO DAILY 05/13/21 05/13/21 History [Centrum Silver Tablet] Ondansetron HCl [Zofran] 8 mg PO Q8H PRN 05/13/21 05/13/21 History Umeclidinium Brm/Vilanterol Tr 1 puff INHALATION RT-DAILY 05/13/21 05/13/21 History [Anoro Ellipta 62.5-25 Mcg INH] buPROPion HCL [Wellbutrin XL] 300 mg PO DAILY 05/13/21 05/13/21 History sitaGLIPtin [Januvia] 100 mg PO DAILY 05/13/21 05/13/21 History Allergies Allergy/AdvReac Type Severity Reaction Status Date / Time naproxen sodium [From Aleve] Allergy Rash/Hives Verified 05/13/21 16:09 Physical Exam Vitals: Vital Signs Temp Pulse Pulse Resp BP BP Pulse Ox 05/14/21 03:37 97.8 F 73 20 101/49 97 05/14/21 02:12 96.6 F L 72 18 102/61 100 05/14/21 00:00 98 F 65 16 102/55 99 05/13/21 21:00 97.7 F 66 16 106/54 99 05/13/21 19:06 98.1 F 70 20 111/57 98 05/13/21 17:28 78 20 111/50 98 05/13/21 15:55 99.6 F 85 16 105/62 99 Intake and Output 05/13/21 05/14/21 05/14/21 22:59 06:59 14:59 Intake Total 240 Output Total 150 1350 Balance -150 -1110 Intake: Oral 240 Output: Urine 150 1350 Straight 150 600 Other: Voiding Method Indwelling Catheter Weight 97.522 kg 82.5 kg - Constitutional General appearance: cooperative, mild distress, obese - EENT Eyes: anicteric sclerae, EOMI ENT: hearing grossly normal, normal oropharynx - Neck Neck: no lymphadenopathy - Respiratory SOB when speaking Respiratory: bilateral: diminished - Cardiovascular Rhythm: regular Heart sounds: normal: S1, S2 Abnormal Heart Sounds: no systolic murmur, no diastolic murmur, no rub, no S3 Gallop, no S4 Gallop, no click, no other - Gastrointestinal General gastrointestinal: no absent bowel sounds, no decreased bowel sounds, no distended, no hepatomegaly, no hyperactive bowel sounds, normal bowel sounds, no organomegaly, no rigid, no scaphoid, soft, no splenomegaly, no tenderness, no umbilical hernia, no ventral hernia - Integumentary Integumentary: pale - Neurologic Neurologic: CNII-XII intact - Musculoskeletal Musculoskeletal: generalized weakness, strength equal bilaterally - Psychiatric Psychiatric: A&O x's 3, appropriate affect, intact judgment & insight Results CBC & Chem 7: 05/14/21 07:08 05/14/21 07:08 Labs: Abnormal Lab Results - Last 24 Hours (Table) 05/13/21 05/13/21 05/13/21 Range/Units 16:51 16:51 16:51 RBC 2.20 L (3.80-5.40) m/uL Hgb 7.3 L (11.4-16.0) gm/dL Hct 21.9 L (34.0-46.0) % MCV (80.0-100.0) fL RDW 16.6 H (11.5-15.5) % Lymphocytes # 0.5 L (1.0-4.8) k/uL Sodium 130 L (137-145) mmol/L Potassium 3.0 L (3.5-5.1) mmol/L Chloride 90 L (98-107) mmol/L BUN 44 H (7-17) mg/dL Creatinine 1.69 H (0.52-1.04) mg/dL Glucose 103 H (74-99) mg/dL Calcium 8.1 L (8.4-10.2) mg/dL AST 91 H (14-36) U/L ALT 74 H (4-34) U/L Troponin I (0.000-0.034) ng/mL Total Protein 5.2 L (6.3-8.2) g/dL Albumin 2.9 L (3.5-5.0) g/dL Urine Protein Trace H (Negative) Coronavirus (PCR) (Not Detectd) 05/13/21 05/13/21 05/13/21 Range/Units 16:51 16:51 21:32 RBC (3.80-5.40) m/uL Hgb (11.4-16.0) gm/dL Hct (34.0-46.0) % MCV (80.0-100.0) fL RDW (11.5-15.5) % Lymphocytes # (1.0-4.8) k/uL Sodium (137-145) mmol/L Potassium (3.5-5.1) mmol/L Chloride (98-107) mmol/L BUN (7-17) mg/dL Creatinine (0.52-1.04) mg/dL Glucose (74-99) mg/dL Calcium (8.4-10.2) mg/dL AST (14-36) U/L ALT (4-34) U/L Troponin I 0.182 H* 0.171 H* (0.000-0.034) ng/mL Total Protein (6.3-8.2) g/dL Albumin (3.5-5.0) g/dL Urine Protein (Negative) Coronavirus (PCR) Detected A (Not Detectd) 05/14/21 05/14/2105/14/22 Range/Units 00:26 07:08 07:08 RBC 2.35 L (3.80-5.40) m/uL Hgb 7.8 L (11.4-16.0) gm/dL Hct 24.1 L (34.0-46.0) % MCV 102.8 H (80.0-100.0) fL RDW 15.9 H (11.5-15.5) % Lymphocytes # (1.0-4.8) k/uL Sodium 135 L (137-145) mmol/L Potassium 3.1 L (3.5-5.1) mmol/L Chloride (98-107) mmol/L BUN 39 H (7-17) mg/dL Creatinine 1.37 H (0.52-1.04) mg/dL Glucose (74-99) mg/dL Calcium 8.2 L (8.4-10.2) mg/dL AST 80 H (14-36) U/L ALT 81 H (4-34) U/L Troponin I 0.140 H* (0.000-0.034) ng/mL Total Protein 5.4 L (6.3-8.2) g/dL Albumin 2.9 L (3.5-5.0) g/dL Urine Protein (Negative) Coronavirus (PCR) (Not Detectd) Chest x-ray: report reviewed (?CHF) CT Scan - head: report reviewed US - abdomen: report reviewed Assessment and Plan (1) Macrocytic anemia Narrative/Plan: From chemo, lymphoma, marrow suppression from Hx of disease/treatment with superimposed infection. Will contact Dr. Stratton and compare recent CBC, check when last anemia work up done. Transfuse for Hgb 6.5 Current Visit: Yes Status: Acute Priority: High Code(s): D53.9 - NUTRITIONAL ANEMIA, UNSPECIFIED SNOMED Code(s): 43898865 (2) Follicular lymphoma Narrative/Plan: Pt states oral treatment, no meds brought from home? Will contact Primary Oncologist. Ig levels, may need IVIG Current Visit: Yes Status: Chronic Priority: Medium Code(s): C82.90 - FOLLICULAR LYMPHOMA, UNSPECIFIED, UNSPECIFIED SITE SNOMED Code(s): 418885957 Plan: Doctor attests: I performed a history and physical examination of this patient, developed impression and plan of care, discussed with dictator. I agree with dictators note, documented as a scribe. Time with Patient: Greater than 30
[2021-05-14] MEDS ORDERED: POTASSIUM CHLORIDE ER 20 MEQ TAB.ER PO STA (16:35)
--- NOTE | 2021-05-14 16:46 | P.HPIM ---
History of Present Illness Patient is a 65-year-old female with history of non-Hodgkin's lymphoma recently received chemotherapy came in is of increased confusion patient is alert oriented 2. Patient doesn't answer questions all that appropriately. Patient is found to have fever and patient is found to have COVID-19 infection. Patient was believed to have congestive heart failure on admission because of which cardiology was consulted. Patient does have severe mitral stenosis and probable diastolic dysfunction, IV fluids were discontinued patient may be in borderline heart failure patient does have mild pedal edema is unable to clearly appreciate any JVD does have elevated BNP of 3300. Chest x-ray was suspicious for pulmonary edema but can be COVID-19 as well. Patient has mildly elevated troponins of 0.171 and 0.140. Confusion has been going on for past week on known whether patient has any other symptoms were COVID-19 and how long. Patie nt does have history of pulmonary hypertension as well patient does have history of carotid stenosis status post carotid endarterectomy. Patient had history of CVA with the right-sided weakness some residual. REVIEW OF SYSTEMS: Unable to obtain PHYSICAL EXAMINATION: GENERAL: The patient is alert and oriented x2, not in any acute distress. Well developed, well nourished. HEENT: Pupils are round and equally reacting to light. EOMI. No scleral icterus. No conjunctival pallor. Normocephalic, atraumatic. No pharyngeal erythema. No thyromegaly. CARDIOVASCULAR: S1 and S2 present. No rubs, or gallops. There is a mid diastolic murmur in the mitral area PULMONARY: Chest is clear to auscultation, no wheezing or crackles. ABDOMEN: Soft, nontender, nondistended, normoactive bowel sounds. No palpable organomegaly. MUSCULOSKELETAL: No joint swelling or deformity. EXTREMITIES: No cyanosis, clubbing, or pedal edema. NEUROLOGICAL: unAble to assess scleral illnesses may have some residual weakness in the right side SKIN: No rashes. Assessment and plan -Shortness of breath, acute hypoxic respiratory failure: Probably from COVID-19 pneumonia along with the congestive heart failure exacerbation patient blood pressure is borderline because of which I'm not starting her on Lasix IV fluids were discontinued. Patient will be started on Decadron pulmonary will be consulted. -Congestive heart failure chronic diastolic dysfunction with mild acute exacerbation, patient was not started on any IV fluids because of borderline blood pressures -Non-Hodgkin's lymphoma recently received chemotherapy -Severe anemia with hemoglobin of 7.3: Secondary to recent chemotherapy for non- Hodgkin's lymphoma -Altered mental status: Toxic encephalopathy from infection and middle OF lethargy from heart failure. --Sepsis secondary to COVID-19 infection -Hypervolemic hyponatremia IV fluids were discontinued -Severe mitral stenosis -Mildly elevated troponins: Cardiology evaluated the patient, most probably not myocardial infarction1 related to acute renal failure. -Acute renal failure secondary to sepsis there may be a competent of prerenal azotemia from congestive heart failure as well as -Pulmonary hypertension next and-severe mitral stenosis -Carotid stenosis status post endarterectomy -Hypertension she is presently hypotensive and cannot tolerate diuretics patient probably will need diuretics. Lisinopril is being held because of hypotension and acute renal failure -Dementia probably Alzheimer's DVT prophylaxis: Subcutaneous heparin Patient's prognosis is extremely poor Past Medical History Past Medical History: Cancer, CVA/TIA, Dementia, Hyperlipidemia, Memory Impairment Additional Past Medical History / Comment(s): lymphoma. CVA APPROX 2003 PER AUNT PT WALKS WITH LIMP, RT ARM PARESIS, PT HAS SOME APHASIA, SHORT TERM MEMORY NOT GOOD. History of Any Multi-Drug Resistant Organisms: None Reported Past Surgical History: Tubal Ligation Additional Past Surgical History / Comment(s): carpal tunnel, neck, medi port, per son pt had carotid surgery Past Anesthesia/Blood Transfusion Reactions: No Reported Reaction Past Psychological History: Depression Smoking Status: Unknown if ever smoked Past Alcohol Use History: None Reported Past Drug Use History: None Reported - Past Family History Mother Family Medical History: Cancer Father Family Medical History: Deep Vein Thrombosis (DVT) Medications and Allergies Home Medications Medication Instructions Recorded Confirmed Type Clopidogrel [Plavix] 75 mg PO DAILY 09/15/13 05/13/21 History Donepezil [Aricept] 10 mg PO HS 08/25/18 05/13/21 History Memantine [Namenda] 10 mg PO HS 11/17/18 05/13/21 History Furosemide [Lasix] 40 mg PO DAILY 02/23/19 05/13/21 History Albuterol Nebulized [Ventolin 2.5 mg INHALATION RT-QID 02/25/19 05/13/21 History Nebulized] Albuterol Sulfate [Ventolin HFA] 2 puff INHALATION RT-QID PRN 05/13/21 05/13/21 History Atorvastatin [Lipitor] 40 mg PO HS 05/13/21 05/13/21 History Docusate [Colace] 100 mg PO HS 05/13/21 05/13/21 History Ergocalciferol [Vitamin D2 (1250 1,250 mcg PO SHAW 05/13/21 05/13/21 History Mcg = 25944 Iu)] Gabapentin 300 mg PO BID 05/13/21 05/13/21 History LORazepam [Ativan] 0.5 mg PO BID PRN 05/13/21 05/13/21 History Lenalidomide [Revlimid] 20 mg PO DIRECTED 05/13/21 05/13/21 History Lisinopril [Prinivil] 5 mg PO DAILY 05/13/21 05/13/21 History Mirabegron [Myrbetriq] 50 mg PO DAILY 05/13/21 05/13/21 History Multivit-Min/FA/Lycopen/Lutein 1 tab PO DAILY 05/13/21 05/13/21 History [Centrum Silver Tablet] Ondansetron HCl [Zofran] 8 mg PO Q8H PRN 05/13/21 05/13/21 History Umeclidinium Brm/Vilanterol Tr 1 puff INHALATION RT-DAILY 05/13/21 05/13/21 History [Anoro Ellipta 62.5-25 Mcg INH] buPROPion HCL [Wellbutrin XL] 300 mg PO DAILY 05/13/21 05/13/21 History sitaGLIPtin [Januvia] 100 mg PO DAILY 05/13/21 05/13/21 History Allergies Allergy/AdvReac Type Severity Reaction Status Date / Time naproxen sodium [From Aleve] Allergy Rash/Hives Verified 05/13/21 16:09 Physical Exam Vitals: Vital Signs Temp Pulse Pulse Resp BP BP BP 05/14/21 11:54 97.6 F 69 20 100/57 05/14/21 08:30 100.8 F H 100 22 95/68 05/14/21 03:37 97.8 F 73 20 101/49 05/14/21 02:12 96.6 F L 72 18 102/61 05/14/21 00:00 98 F 65 16 102/55 05/13/21 21:00 97.7 F 66 16 106/54 0207/22 19:06 98.1 F 70 20 111/57 05/13/21 17:28 78 20 111/50 Pulse Ox 05/14/21 11:54 92 L 05/14/21 08:30 89 L 05/14/21 03:37 97 05/14/21 02:12 100 05/14/21 00:00 99 05/13/21 21:00 99 05/13/21 19:06 98 05/13/21 17:28 98 Intake and Output 05/14/21 05/14/21 05/14/21 06:59 14:59 22:59 Intake Total 240 420 Output Total 1350 Balance -1110 420 Intake: Oral 240 420 Output: Urine 1350 Straight 600 Other: Voiding Method Indwelling Catheter Indwelling Catheter Weight 82.5 kg Results CBC & Chem 7: 05/14/21 07:08 05/14/21 07:08 Labs: Abnormal Lab Results - Last 24 Hours (Table) 05/13/21 05/13/21 05/13/21 Range/Units 16:51 16:51 16:51 RBC 2.20 L (3.80-5.40) m/uL Hgb 7.3 L (11.4-16.0) gm/dL Hct 21.9 L (34.0-46.0) % MCV (80.0-100.0) fL RDW 16.6 H (11.5-15.5) % Lymphocytes # 0.5 L (1.0-4.8) k/uL Lymphocytes # (Manual) (1.0-4.8) k/uL Sodium 130 L (137-145) mmol/L Potassium 3.0 L (3.5-5.1) mmol/L Chloride 90 L (98-107) mmol/L BUN 44 H (7-17) mg/dL Creatinine 1.69 H (0.52-1.04) mg/dL Glucose 103 H (74-99) mg/dL POC Glucose (mg/dL) (75-99) mg/dL Calcium 8.1 L (8.4-10.2) mg/dL AST 91 H (14-36) U/L ALT 74 H (4-34) U/L Troponin I (0.000-0.034) ng/mL Total Protein 5.2 L (6.3-8.2) g/dL Albumin 2.9 L (3.5-5.0) g/dL Urine Protein Trace H (Negative) Coronavirus (PCR) (Not Detectd) 05/13/21 05/13/21 05/13/21 Range/Units 16:51 16:51 21:32 RBC (3.80-5.40) m/uL Hgb (11.4-16.0) gm/dL Hct (34.0-46.0) % MCV (80.0-100.0) fL RDW (11.5-15.5) % Lymphocytes # (1.0-4.8) k/uL Lymphocytes # (Manual) (1.0-4.8) k/uL Sodium (137-145) mmol/L Potassium (3.5-5.1) mmol/L Chloride (98-107) mmol/L BUN (7-17) mg/dL Creatinine (0.52-1.04) mg/dL Glucose (74-99) mg/dL POC Glucose (mg/dL) (75-99) mg/dL Calcium (8.4-10.2) mg/dL AST (14-36) U/L ALT (4-34) U/L Troponin I 0.182 H* 0.171 H* (0.000-0.034) ng/mL Total Protein (6.3-8.2) g/dL Albumin (3.5-5.0) g/dL Urine Protein (Negative) Coronavirus (PCR) Detected A (Not Detectd) 05/14/21 05/14/21 05/14/21 Range/Units 00:26 07:08 07:08 RBC 2.35 L (3.80-5.40) m/uL Hgb 7.8 L (11.4-16.0) gm/dL Hct 24.1 L (34.0-46.0) % MCV 102.8 H (80.0-100.0) fL RDW 15.9 H (11.5-15.5) % Lymphocytes # (1.0-4.8) k/uL Lymphocytes # (Manual) 0.23 L (1.0-4.8) k/uL Sodium 135 L (137-145) mmol/L Potassium 3.1 L (3.5-5.1) mmol/L Chloride (98-107) mmol/L BUN 39 H (7-17) mg/dL Creatinine 1.37 H (0.52-1.04) mg/dL Glucose (74-99) mg/dL POC Glucose (mg/dL) (75-99) mg/dL Calcium 8.2 L (8.4-10.2) mg/dL AST 80 H (14-36) U/L ALT 81 H (4-34) U/L Troponin I 0.140 H* (0.000-0.034) ng/mL Total Protein 5.4 L (6.3-8.2) g/dL Albumin 2.9 L (3.5-5.0) g/dL Urine Protein (Negative) Coronavirus (PCR) (Not Detectd) 05/14/21 Range/Units 11:56 RBC (3.80-5.40) m/uL Hgb (11.4-16.0) gm/dL Hct (34.0-46.0) % MCV (80.0-100.0) fL RDW (11.5-15.5) % Lymphocytes # (1.0-4.8) k/uL Lymphocytes # (Manual) (1.0-4.8) k/uL Sodium (137-145) mmol/L Potassium (3.5-5.1) mmol/L Chloride (98-107) mmol/L BUN (7-17) mg/dL Creatinine (0.52-1.04) mg/dL Glucose (74-99) mg/dL POC Glucose (mg/dL) 124 H (75-99) mg/dL Calcium (8.4-10.2) mg/dL AST (14-36) U/L ALT (4-34) U/L Troponin I (0.000-0.034) ng/mL Total Protein (6.3-8.2) g/dL Albumin (3.5-5.0) g/dL Urine Protein (Negative) Coronavirus (PCR) (Not Detectd) Thrombosis Risk Factor Assmnt - Choose All That Apply Any of the Below Risk Factors Present?: Yes Each Factor Represents 1 point: Abnormal pulmonary function (COPD), Obesity (BMI >25), Serious lung disease incl. pneumonia (< 1month) Other Risk Factors: Yes Each Risk Factor Represents 2 Points: Age 61-74 years Other congenital or acquired thrombophilia - If yes, enter type in comment: No Thrombosis Risk Factor Assessment Total Risk Factor Score: 5 Thrombosis Risk Factor Assessment Level: High Risk
--- NOTE | 2021-05-14 17:04 | EEG ---
ELECTROENCEPHALOGRAM REPORT DATE OF SERVICE: 05/14/2021 PREAMBLE: This is a 65-year-old female with altered mental status. This study is performed to evaluate for any epileptiform activity. Patient has history of strokes in the past. EEG FINDINGS: A 21-channel digital EEG is recorded with video component, utilizing 10/20 international system with referential and bipolar montages. Background consists of moderately well developed and regulated, mixed frequencies of 8 hertz alpha, intermixed with some 6 to 7 hertz theta activity seen in bihemispheric region. Frontal intermittent rhythmic delta activity was also seen. Intermittent focal slowing in the left temporal region was also seen. Some stage II sleep was seen with appearance of bilaterally symmetric theta frequency rhythm with sleep spindles. No definitive focal or generalized epileptiform activity was seen. IMPRESSION: 1. This is an abnormal EEG due to mild background slowing and presence of frontal intermittent rhythmic delta activity. This is suggestive of generalized cerebral dysfunction as can be seen with toxic metabolic encephalopathy or related to diffuse structural brain abnormality. 2. Intermittent left temporal slowing, suggestive of focal cortical neural dysfunction. 3. No epileptiform activity was seen. MMODL / IJN: [id number] / [facility]
[2021-05-14 17:10] LABS: Glucose,Whole Blood 143 mg/dL (75-99)
[2021-05-14] MEDS: METOPROLOL SUCCINATE (ER) 25 MG TAB.ER.24H PO SCH (17:11)
[2021-05-14] MEDS: dexAMETHasone 2 MG TAB PO SCH (17:12)
--- NOTE | 2021-05-14 17:42 | P.CNNES ---
History of Present Illness Consult date: 05/14/21 Requesting physician: Tylor E Jesu Reason for Consult: confusion on admission, history of stroke History of Present Illness: Patient is a 65-year-old female came to the hospital by ambulance yesterday at 3:40 PM. As per EMS flow sheet, family has mentioned that patient has started to exhibit strange and unusual behavior including urinating on the couch prior to their arrival. Family has mentioned that this is similar presentation to her previous CVA in 2019 in which she developed moderate right-sided deficits to both upper and lower extremities. Patient was noted to be altered and febrile to touch. Patient has strong odor to her urine and possibly may have a UTI resulting in altered mental status. EKG shows atrial fibrillation. Patient's blood pressure was 98/72, which improved to 102/80. Pulse rate 99, respirations 16 saturation 80% on room air, which improved to 96% after starting oxygen at 3 L/m. Blood sugar was 152. Temperature 101.3. Blood tests shows normal WBC 6.5, hemoglobin 7.3 with elevated MCV 102.8, platelets 318. PT/PTT normal, sodium 130 potassium 3.0, BUN 44, creatinine 1.69. Hepatic panel with AST 91, ALT 74. Troponin is mildly elevated 0.182. UA negative. Stool for occult blood negative. Urine drug screen negative. Ronquillo virus PCR positive. Patient at present not able to provide any history. She states that she is much better today. Patient states that yesterday she was not feeling good, felt like "nuts". Patient states that she has received all 3 doses of the Ronquillo virus vaccine. Patient denies any tobacco or alcohol use. Patient states that she lives by herself. She has grownup children. Computed tomography scan of head showed no acute intracranial process. Bilateral frontal lobe encephalomalacia. I personally reviewed computed tomography scan on the computer. The left frontal encephalomalacia, which is larger in size has been present as far as computed tomography scan from 02/23/2012. The right frontal encephalomalacia is much smaller, and has been present at least since 08/25/2018 study. Chest x-ray showed cardiomegaly and mild pulmonary vascular congestion. Correlate with BNP for congestive heart failure. EKG shows sinus rhythm, low QRS voltage in precordial leads. Possible right ventricular conduction delay. Patient has been seen by myself on 08/26/2018 for cognitive impairment, probable vascular dementia, history of CVA in 2004 with mild residual right hemiparesis. Patient has hypertension, tobacco use and history of lymphoma. Patient was already on Aricept and memantine daily and Namenda was added at that time. Patient was on Lipitor 20 mg, aspirin 81 mg and Plavix 75 mg daily. Patient had an EEG performed at the time which was abnormal due to presence of frequent, near constant focal slowing in the left frontotemporal region. This is suggestive of focal cortical neuronal dysfunction, and suggest underlying structural abnormality. No definitive epileptiform activity was seen. Patient's home medications include Plavix 75 mg, donepezil 10 mg, Namenda 10 mg at bedtime, Lasix 40 mg, Myrbetriq, gabapentin 300 mg twice a day, albuterol, Wellbutrin XL 300 mg daily, Januvia, lisinopril 10 mg, Lipitor 40 mg. I spoke to patient's son on the phone, who provided extensive history. He states that patient suffered from Covid-19 a month ago. She has a lot of issues, cognitive function getting worse. Her overall health is declining in the past 6-8 weeks. Her dementia has got worse in these last weeks. Sometimes she is good, other times she does not know what is going on. Sometimes she would lie on different stuff. Patient's son mentions that she had a stroke long time ago. She had a foot drop as a result of the stroke. Her symptoms got s lightly more worse after her admission in June 2018. She then moved and started living with her aunt which she did for 2 years and was doing very well. Prior to that, she used to live by herself for 10 years. Around [facility], patient's family moved her to [facility] which is assisted living. Patient was doing fairly well, until she suffered from Covid on 04/09/2021, when she has started going downhill. She has chronic weakness in the right side of the body since her stroke, but she has not been using her right arm lately. She has been more confused, could not let family no what was going on, she has not been eating properly, not taking her medications regularly, sometimes hiding medications, not eating food and sometimes she would eat sweets too much. Patient's son mentions that she would go to someone else's purse and takeout stuff, not realizing what she is doing. She has been having strange and odd behavior. She is not combative, just very stubborn. Patient's son denies any history of seizures ever in the past. Patient has undergone placement of spinal cord stimulator in January 2019. Just prior to this admission, she was sitting in the lazy boy, and she started to urinate on the couch. Patient's son told her that she was urinating, but she said "no she was not". When she looked down, she accepted "oh yes I am!!". Review of Systems Denies any chest pain, denies any abdominal pain, no nausea vomiting. She does feel fever and excessive sweating. He denies any pain anywhere. No double vision. No hoarseness. ROS unobtainable: due to mental status Past Medical History Past Medical History: CVA/TIA, Dementia, Hyperlipidemia, Memory Impairment Additional Past Medical History / Comment(s): lymphoma. CVA APPROX 2003 PER AUNT PT WALKS WITH LIMP, RT ARM PARESIS, PT HAS SOME APHASIA, SHORT TERM MEMORY NOT GOOD. History of Any Multi-Drug Resistant Organisms: None Reported Past Surgical History: Tubal Ligation Additional Past Surgical History / Comment(s): carpal tunnel, neck, medi port, per son pt had carotid surgery Past Anesthesia/Blood Transfusion Reactions: No Reported Reaction Past Psychological History: Depression Smoking Status: Unknown if ever smoked Past Alcohol Use History: None Reported Past Drug Use History: None Reported - Past Family History Mother Family Medical History: Cancer Father Family Medical History: Deep Vein Thrombosis (DVT) Medications and Allergies Home Medications Medication Instructions Recorded Confirmed Type Clopidogrel [Plavix] 75 mg PO DAILY 09/15/13 05/13/21 History Donepezil [Aricept] 10 mg PO HS 08/25/18 05/13/21 History Memantine [Namenda] 10 mg PO HS 11/17/18 05/13/21 History Furosemide [Lasix] 40 mg PO DAILY 02/23/19 05/13/21 History Albuterol Nebulized [Ventolin 2.5 mg INHALATION RT-QID 02/25/19 05/13/21 History Nebulized] Albuterol Sulfate [Ventolin HFA] 2 puff INHALATION RT-QID PRN 05/13/21 05/13/21 History Atorvastatin [Lipitor] 40 mg PO HS 05/13/21 05/13/21 History Docusate [Colace] 100 mg PO HS 05/13/21 05/13/21 History Ergocalciferol [Vitamin D2 (1250 1,250 mcg PO SHAW 05/13/21 05/13/21 History Mcg = 11743 Iu)] Gabapentin 300 mg PO BID 05/13/21 05/13/21 History LORazepam [Ativan] 0.5 mg PO BID PRN 05/13/21 05/13/21 History Lenalidomide [Revlimid] 20 mg PO DIRECTED 05/13/21 05/13/21 History Lisinopril [Prinivil] 5 mg PO DAILY 05/13/21 05/13/21 History Mirabegron [Myrbetriq] 50 mg PO DAILY 05/13/21 05/13/21 History Multivit-Min/FA/Lycopen/Lutein 1 tab PO DAILY 05/13/21 05/13/21 History [Centrum Silver Tablet] Ondansetron HCl [Zofran] 8 mg PO Q8H PRN 05/13/21 05/13/21 History Umeclidinium Brm/Vilanterol Tr 1 puff INHALATION RT-DAILY 05/13/21 05/13/21 History [Anoro Ellipta 62.5-25 Mcg INH] buPROPion HCL [Wellbutrin XL] 300 mg PO DAILY 05/13/21 05/13/21 History sitaGLIPtin [Januvia] 100 mg PO DAILY 05/13/21 05/13/21 History Allergies Allergy/AdvReac Type Severity Reaction Status Date / Time naproxen sodium [From Aleve] Allergy Rash/Hives Verified 05/13/21 16:09 Physical Examination - Vital Signs Vital Signs: Vital Signs Temp Pulse Pulse Resp BP BP Pulse Ox 05/14/21 08:30 100.8 F H 100 22 95/68 89 L 05/14/21 03:37 97.8 F 73 20 101/49 97 05/14/21 02:12 96.6 F L 72 18 102/61 100 05/14/21 00:00 98 F 65 16 102/55 99 05/13/21 21:00 97.7 F 66 16 106/54 99 02/07/22 19:06 98.1 F 70 20 111/57 98 05/13/21 17:28 78 20 111/50 98 05/13/21 15:55 99.6 F 85 16 105/62 99 Intake and Output 05/13/21 05/14/21 05/14/21 22:59 06:59 14:59 Intake Total 240 420 Output Total 150 1350 Balance -150 -1110 420 Intake: Oral 240 420 Output: Urine 150 1350 Straight 150 600 Other: Voiding Method Indwelling Catheter Weight 97.522 kg 82.5 kg Patient is an elderly female, who appears somewhat encephalopathic, in no distress. Patient is alert awake, knows her name, could not tell what month or year is it, or what city and state or hospital she is in. She knows name of the current president Mr. Thompson. Patient was able to name simple objects like glasses, fingers), but could not name more complex like knuckles or earlobe. She can repeat very well. No obvious dysarthria. Patient has definite some degree of expressive aphasia, some word finding problems, slight hesitancy. Attention, concentration and fund of knowledge is limited. On cranial examination, pupils are round and reacting to light, visual swenson are full on confrontation, with no neglect on double simultaneous stimulation. Her extraocular muscles are intact with no nystagmus. Patient has very minimal right facial asymmetry. Her tongue protrudes to the midline. Palatal elevation and sensation normal, hearing and shoulder shrug normal, facial sensation normal. Shoulder shrug normal. On muscle strength testing, there is moderate right pronator drift. Her strength is normal in the left arm and left leg. On the right side, her deltoid is 3, biceps 5-, airborne and air delivery specialist is equal bilaterally. In the lower limbs, her hip flexion appears normal compared to the left. Her right ankle dorsiflexion is weak 4+ with normal on the left. Deep tendon reflexes are brisker on the right side, and plantar is upgoing on the right, downgoing on the left. Sensory to touch is equal with no neglect to double simultaneous stimulation. Cerebellar function showed moderate ataxia for [id number] testing. Tone and bulk of muscles normal. Gait not checked. On general examination, there is no carotid bruit or murmur, S1-S2 audible. Abdomen is soft nontender. No organomegaly. Bowel sounds present. Chest is clear. Peripheral pulses are present. No edema. Results - Laboratory Findings CBC and BMP: 05/14/21 07:08 05/14/21 07:08 Abnormal Lab Findings: Abnormal Labs 05/13/21 05/13/21 05/13/21 16:51 16:51 16:51 RBC 2.20 L Hgb 7.3 L Hct 21.9 L MCV RDW 16.6 H Lymphocytes # 0.5 L Sodium 130 L Potassium 3.0 L Chloride 90 L BUN 44 H Creatinine 1.69 H Glucose 103 H Calcium 8.1 L AST 91 H ALT 74 H Troponin I Total Protein 5.2 L Albumin 2.9 L Urine Protein Trace H Coronavirus (PCR) 05/13/21 05/13/21 05/13/21 16:51 16:51 21:32 RBC Hgb Hct MCV RDW Lymphocytes # Sodium Potassium Chloride BUN Creatinine Glucose Calcium AST ALT Troponin I 0.182 H* 0.171 H* Total Protein Albumin Urine Protein Coronavirus (PCR) Detected A 05/14/21 05/14/21 05/14/21 00:26 07:08 07:08 RBC 2.35 L Hgb 7.8 L Hct 24.1 L MCV 102.8 H RDW 15.9 H Lymphocytes # Sodium 135 L Potassium 3.1 L Chloride BUN 39 H Creatinine 1.37 H Glucose Calcium 8.2 L AST 80 H ALT 81 H Troponin I 0.140 H* Total Protein 5.4 L Albumin 2.9 L Urine Protein Coronavirus (PCR) Assessment and Plan Assessment: * Altered mental status, likely due to toxic metabolic encephalopathy. Results multifactorial as below. * Acute Covid-19 infection * Underlying dementia. Patient's dementia probably has also progressed with these medical/metabolic conditions. * History of CVA, with residual right hemiparesis. * Hypertension * Chronic back pain, history of spinal cord stimulator implant. * History of tobacco use Plan: * We will perform EEG to evaluate for encephalopathy, rule out any epileptiform activity. * Patient cannot undergo MRI of the brain because of presence of spinal cord stimulator. CT head was reviewed, shows no evidence of new stroke. * Resume Plavix 75 mg daily. Continue Lipitor 40 mg. * Patient's carotid Doppler from 08/26/2018 showed no significant stenosis. No need to repeat. * We will check B12, folate, TSH, MMA and B6 and hemoglobin A1c. * Patient will be continued on Aricept 10 mg daily. Increase Namenda to 10 mg twice a day for worsening dementia. * Patient on heparin 5000 units subcu every 12 hours for DVT prophylaxis. * Discussed with patient's son in detail. Time with Patient: Greater than 30
[2021-05-14 19:35] LABS: T4, Free (Free Thyroxine) 0.45 ng/dL (0.78-2.19)
[2021-05-14 20:08] LABS: Glucose,Whole Blood 118 mg/dL (75-99)
[2021-05-14] MEDS: ATORVASTATIN 40 MG TAB PO SCH (20:48)
[2021-05-14] MEDS: DONEPEZIL 10 MG TAB PO SCH (20:48)
[2021-05-14] MEDS: CLOPIDOGREL 75 MG TAB PO SCH (20:48)
[2021-05-14] MEDS: MEMANTINE 10 MG TAB PO SCH (20:48)
[2021-05-14] MEDS: HEPARIN SODIUM,PORCINE/PF 5,000 UNIT/0.5 ML SYRINGE SQ SCH (20:48)
[2021-05-14] MEDS: DOCUSATE 100 MG CAP PO SCH (20:48)
[2021-05-14] MEDS ORDERED: MEMANTINE 10 MG TAB PO SCH (21:00)
[2021-05-15 06:02] LABS: Glucose,Whole Blood 141 mg/dL (75-99)
[2021-05-15] MEDS: PANTOPRAZOLE 40 MG TABLET PO SCH (06:09)
[2021-05-15] MEDS: INSULIN ASPART (NovoLOG) 100 UNIT/ML VIAL SQ SCH ×4 (06:09→20:34)
[2021-05-15] MEDS: HEPARIN SODIUM,PORCINE/PF 5,000 UNIT/0.5 ML SYRINGE SQ SCH ×2 (09:14→20:34)
[2021-05-15] MEDS: NON FORMULARY DRUG (Mirabegron [Myrbetriq] 50 MG Tablet) PO SCH (09:14)
[2021-05-15] MEDS: dexAMETHasone 2 MG TAB PO SCH (09:14)
[2021-05-15] MEDS: MEMANTINE 10 MG TAB PO SCH ×2 (09:15→20:34)
[2021-05-15] MEDS: CLOPIDOGREL 75 MG TAB PO SCH (09:15)
[2021-05-15] MEDS: METOPROLOL SUCCINATE (ER) 25 MG TAB.ER.24H PO SCH (09:15)
[2021-05-15 09:26] LABS: Anisocytosis Slight; HCT 22.9 % (34.0-46.0); HGB 7.1 gm/dL (11.4-16.0); Hypochromasia Marked; MCH 33.1 pg (25.0-35.0); MCHC 30.8 g/dL (31.0-37.0); MCV 107.5 fL (80.0-100.0); Macrocytosis Marked; Mean Platelet Volume 9.4; Poikilocytosis Slight; RBC 2.13 m/uL (3.80-5.40); RDW 16.2 % (11.5-15.5); WBC 3.9 k/uL (3.8-10.6)
--- NOTE | 2021-05-15 09:42 | XR ---
EXAMINATION TYPE: XR chest 1V portable DATE OF EXAM: 05/15/2021 Comparison: 05/13/2021 Clinical History: 65-year-old female COVID Findings: Right anterior chest wall injection port. Catheter tip at the lower SVC. Spinal stimulator ray center ed along the lower thoracic spinal canal. Heart mildly enlarged. Medium diffuse interstitial opacitie s. No pleural effusion. Impression: 1. Mild cardiomegaly. 2. Diffuse interstitial opacities could reflect mild interstitial pulmonary edema versus COVID pneumo lily. Clinically correlate.
[2021-05-15 09:45] LABS: Calcium 8.2 mg/dL (8.4-10.2); Magnesium 2.4 mg/dL (1.6-2.3); Potassium 4.4 mmol/L (3.5-5.1)
[2021-05-15 10:03] LABS: Platelet Count 167 k/uL (150-450)
--- NOTE | 2021-05-15 10:50 | P.CNPUL ---
History of Present Illness Consult date: 05/15/21 Requesting physician: Bridgette Dallas Reason for consult: other Chief complaint: altered mental status History of present illness: This is a 65-year-old female patient with past medical history of non- Hodgkin's/follicular lymphoma patient has a primary oncologist at the [facility], macrocytic anemia, prior history of CVA with residual right- sided weakness, carotid artery stenosis status post left carotid endarterectomy, hypertension, dyslipidemia, COPD, mitral stenosis, pulmonary hypertension, and dementia. Patient was brought into the hospital on 05/13/2021 for evaluation of altered mental status. Patient had a recent history of COVID-19 infection on April 09, and she has been progressively more confused. Per the patient's son when he was visiting her on the day of presentation the patient got up to use the restroom and she walked over to the couch and had urinated. Patient is a poor historian, she currently denies any shortness of breath, no cough, no phlegm production, no chest pain. Brain CT in the emergency department showed no acute intracranial process, bilateral frontal lobe encephalomalacia. Chest x-ray showed cardiomegaly and mild pulmonary vascular congestion. And there was a right [id number] in the right hemithorax. Patient is currently on 4 L of oxygen her pulse ox is 99%, this can probably be weaned down. Admission labs revealed normal white count of 6.5, hemoglobin is 7.3, correlation profile was normal, sodium is 1:30, potassium is 3.0, chloride is 90, CO2 27, BUN was 44, creatinine is 1.69, lactic acid was 1.3, AST was elevated at 91, ALT was 74, alk phos was 122, patient had troponin elevation of 0.182, 0.171, and 0.140, proBNP was 8390 TSH was elevated at 35.7 and free T4 was low at 0.45 urinalysis showed no evidence of infection, stool for occult blood was negative, urine drug screen was negative, and patient tested positive for COVID-19 per PCR test. Echocardiogram revealed an EF of 60-65%, mild aortic stenosis, mild mitral regurgitation, severe mitral stenosis. Patient was evaluated by cardiology and elevation of her troponin was thought to be related to acute kidney injury. No acute ischemic changes on the EKG. Patient was also evaluated by neurology. EEG was completed showing mild background slowing and presence of frontal intermittent rhythmic delta activity suggestive of generalized cerebral dy sfunction as seen with toxic metabolic encephalopathy, intermittent left temporal slowing suggestive of focal cortical neuronal dysfunction no epileptiform activity was seen. On today's evaluation patient is awake, she knows she is in the hospital, but she thinks she is at [facility], she coul dn't tell me the date, the month or the year, she could not name the president. She is able to make her basic needs known, she denies any dyspnea, no cough, no phlegm production, no chest pain. She is currently on 4 L of oxygen pulse ox is 99%, breathing comfortably, physical exam reveals some mild crackles at the right base, no wheezing. Review of Systems ROS unobtainable: due to mental status All systems: negative Constitutional: Denies chills, Denies fever Eyes: denies blurred vision, denies pain Ears, nose, mouth and throat: Denies headache, Denies sore throat Cardiovascular: Denies chest pain, Denies shortness of breath Respiratory: Denies cough Gastrointestinal: Denies abdominal pain, Denies diarrhea, Denies nausea, Denies vomiting Genitourinary: Denies dysuria, Denies hematuria Musculoskeletal: Denies myalgias Integumentary: Denies pruritus, Denies rash Neurological: Reports change in mentation, Denies numbness, Denies weakness Psychiatric: Denies anxiety, Denies depression Endocrine: Denies fatigue, Denies weight change Past Medical History Past Medical History: CVA/TIA, Dementia, Hyperlipidemia, Memory Impairment Additional Past Medical History / Comment(s): lymphoma. CVA APPROX 2003 PER AUNT PT WALKS WITH LIMP, RT ARM PARESIS, PT HAS SOME APHASIA, SHORT TERM MEMORY NOT GOOD. History of Any Multi-Drug Resistant Organisms: None Reported Past Surgical History: Tubal Ligation Additional Past Surgical History / Comment(s): carpal tunnel, neck, medi port, per son pt had carotid surgery Past Anesthesia/Blood Transfusion Reactions: No Reported Reaction Past Psychological History: Depression Smoking Status: Unknown if ever smoked Past Alcohol Use History: None Reported Past Drug Use History: None Reported - Past Family History Mother Family Medical History: Cancer Father Family Medical History: Deep Vein Thrombosis (DVT) Medications and Allergies Home Medications Medication Instructions Recorded Confirmed Type Clopidogrel [Plavix] 75 mg PO DAILY 09/15/13 05/13/21 History Donepezil [Aricept] 10 mg PO HS 08/25/18 05/13/21 History Memantine [Namenda] 10 mg PO HS 11/17/18 05/13/21 History Furosemide [Lasix] 40 mg PO DAILY 02/23/19 05/13/21 History Albuterol Nebulized [Ventolin 2.5 mg INHALATION RT-QID 02/25/19 05/13/21 History Nebulized] Albuterol Sulfate [Ventolin HFA] 2 puff INHALATION RT-QID PRN 05/13/21 05/13/21 History Atorvastatin [Lipitor] 40 mg PO HS 05/13/21 05/13/21 History Docusate [Colace] 100 mg PO HS 05/13/21 05/13/21 History Ergocalciferol [Vitamin D2 (1250 1,250 mcg PO SHAW 05/13/21 05/13/21 History Mcg = 82587 Iu)] Gabapentin 300 mg PO BID 05/13/21 05/13/21 History LORazepam [Ativan] 0.5 mg PO BID PRN 05/13/21 05/13/21 History Lenalidomide [Revlimid] 20 mg PO DIRECTED 05/13/21 05/13/21 History Lisinopril [Prinivil] 5 mg PO DAILY 05/13/21 05/13/21 History Mirabegron [Myrbetriq] 50 mg PO DAILY 05/13/21 05/13/21 History Multivit-Min/FA/Lycopen/Lutein 1 tab PO DAILY 05/13/21 05/13/21 History [Centrum Silver Tablet] Ondansetron HCl [Zofran] 8 mg PO Q8H PRN 05/13/21 05/13/21 History Umeclidinium Brm/Vilanterol Tr 1 puff INHALATION RT-DAILY 05/13/21 05/13/21 History [Anoro Ellipta 62.5-25 Mcg INH] buPROPion HCL [Wellbutrin XL] 300 mg PO DAILY 05/13/21 05/13/21 History sitaGLIPtin [Januvia] 100 mg PO DAILY 05/13/21 05/13/21 History Allergies Allergy/AdvReac Type Severity Reaction Status Date / Time naproxen sodium [From Aleve] Allergy Rash/Hives Verified 05/13/21 16:09 Physical Exam Vitals: Vital Signs Temp Pulse Resp BP Pulse Ox 05/15/21 03:40 98 F 72 20 99/50 99 05/14/21 23:24 98.7 F 73 20 96/54 97 05/14/21 20:00 100 F H 87 22 102/50 92 L 05/14/21 17:25 98 F 82 20 109/62 95 05/14/21 11:54 97.6 F 69 20 100/57 92 L Intake and Output 05/14/21 05/15/21 05/15/21 22:59 06:59 14:59 Intake Total 240 Output Total 1350 500 Balance -1110 -500 Intake: Oral 240 Output: Urine 1350 500 Other: Voiding Method Indwelling Catheter Indwelling Catheter GENERAL EXAM: Alert, oriented to self, pleasant 65-year-old white female, slightly pale, but appears to be in no acute distress on 4 L of oxygen pulse ox of 99% comfortable in no apparent distress. HEAD: Normocephalic/atraumatic. EYES: Normal reaction of pupils, equal size. Conjunctiva pink, sclera white. NOSE: Clear with pink turbinates. THROAT: No erythema or exudates. NECK: No masses, no JVD, no thyroid enlargement, no adenopathy. CHEST: No chest wall deformity. Symmetrical expansion. LUNGS: Equal air entry with crackles at the right base CVS: Regular rate and rhythm, normal S1 and S2, no gallops, no murmurs, no rubs ABDOMEN: Soft, nontender. No hepatosplenomegaly, normal bowel sounds, no guarding or rigidity. EXTREMITIES: No clubbing, no edema, no cyanosis, 2+ pulses and upper and lower extremities. MUSCULOSKELETAL: Muscle strength and tone normal. SPINE: No scoliosis or deformity SKIN: No rashes CENTRAL NERVOUS SYSTEM: Alert and oriented -1. No focal deficits, tone is normal in all 4 extremities. PSYCHIATRIC: Alert and oriented -1. Appropriate affect. Intact judgment and insight. Results - Laboratory Findings CBC and BMP: 05/14/21 07:08 05/14/21 07:08 PT/INR, D-dimer PT 10.9 sec (9.0-12.0) 05/13/21 16:51 INR 1.0 (<1.2) 05/13/21 16:51 Abnormal lab findings: Abnormal Labs 05/13/21 05/13/21 05/13/21 16:51 16:51 16:51 RBC 2.20 L Hgb 7.3 L Hct 21.9 L MCV RDW 16.6 H Lymphocytes # 0.5 L Lymphocytes # (Manual) Sodium 130 L Potassium 3.0 L Chloride 90 L BUN 44 H Creatinine 1.69 H Glucose 103 H POC Glucose (mg/dL) Calcium 8.1 L AST 91 H ALT 74 H Troponin I Total Protein 5.2 L Albumin 2.9 L Vitamin B12 TSH Free T4 Urine Protein Trace H Coronavirus (PCR) 05/13/21 05/13/21 05/13/21 16:51 16:51 21:32 RBC Hgb Hct MCV RDW Lymphocytes # Lymphocytes # (Manual) Sodium Potassium Chloride BUN Creatinine Glucose POC Glucose (mg/dL) Calcium AST ALT Troponin I 0.182 H* 0.171 H* Total Protein Albumin Vitamin B12 TSH Free T4 Urine Protein Coronavirus (PCR) Detected A 05/14/21 05/14/21 05/14/21 00:26 07:08 07:08 RBC 2.35 L Hgb 7.8 L Hct 24.1 L MCV 102.8 H RDW 15.9 H Lymphocytes # Lymphocytes # (Manual) 0.23 L Sodium 135 L Potassium 3.1 L Chloride BUN 39 H Creatinine 1.37 H Glucose POC Glucose (mg/dL) Calcium 8.2 L AST 80 H ALT 81 H Troponin I 0.140 H* Total Protein 5.4 L Albumin 2.9 L Vitamin B12 TSH Free T4 Urine Protein Coronavirus (PCR) 05/14/21 05/14/21 05/14/21 11:56 17:08 17:50 RBC Hgb Hct MCV RDW Lymphocytes # Lymphocytes # (Manual) Sodium Potassium Chloride BUN Creatinine Glucose POC Glucose (mg/dL) 124 H 143 H Calcium AST ALT Troponin I Total Protein Albumin Vitamin B12 1518.0 H TSH 35.700 H Free T4 0.45 L Urine Protein Coronavirus (PCR) 05/14/21 05/15/21 20:07 06:01 RBC Hgb Hct MCV RDW Lymphocytes # Lymphocytes # (Manual) Sodium Potassium Chloride BUN Creatinine Glucose POC Glucose (mg/dL) 118 H 141 H Calcium AST ALT Troponin I Total Protein Albumin Vitamin B12 TSH Free T4 Urine Protein Coronavirus (PCR) - Diagnostic Findings Chest x-ray: report reviewed, image reviewed Additional studies: CT of the brain, EEG, EKG, echocardiogram results have been reviewed Assessment and Plan Plan: Assessment: #1. Acute hypoxic respiratory failure, possibly related to mild CHF exacerbation with diastolic dysfunction, and recent COVID-19 infection. Initial positive COVID test was in 04/09/2021. Patient is vaccinated with more during a vaccine 2 and the booster. She is outside the window for Remdesivir. She is currently on Decadron 6 mg daily, and prophylactic anticoagulation with heparin #2. Altered mental status, worsened from baseline, related to metabolic encephalopathy. Please refer to the neurology consultation, brain CT showed severe bilateral encephalomalacia, EEG was consistent with toxic metabolic cephalopathy #3. Elevated troponins, please refer to the cardiology consultation, thought to be related to acute kidney injury. No acute ischemic changes on EKG, echocardiogram revealed preserved LV function #4. Underlying history of dementia #5. History of CVA with residual right hemiparesis, some aphasia #6. Hypertension #7. Chronic back pain with history of spinal cord stimulator implant #8. History of tobacco use currently in remission #9. History of non-Hodgkin's lymphoma, follicular lymphoma #10. Chronic anemia #11. History of hyperlipidemia #12. Depression #13. Gait dysfunction, patient walks with a limp Plan: Patient is outside the window for Remdesivir Continue prophylactic anticoagulation Continue Decadron Currently on 4 L of oxygen but her pulse ox is in the high 90s, she is breathing comfortably, no cough no wheezing, Low-grade fevers last night Send a procalcitonin level We'll repeat a follow-up chest x-ray will consider empiric antibiotics Wean FiO2 to keep O2 sats 90% Continue multivitamins, gentle IV hydration Maintain aspiration precautions Cardiology and neurology recs We'll continue to follow her clinical course I performed a history & physical examination of the patient and discussed their management with my nurse practitioner, Anabelle Stearns. I reviewed the nurse practitioner's note and agree with the documented findings and plan of care. Lung sounds are positive for diffuse wheezes throughout the lung swenson. The findings and the impression was discussed with the patient. I attest to the documentation by the nurse practitioner.
[2021-05-15 11:18] LABS: Anisocytosis Slight; Basophils % (A) 1 %; Eosinophils % (A) 0 %; HCT 21.7 % (34.0-46.0); Hypochromasia Marked; Lymphocytes # (A) 0.3 k/uL (1.0-4.8); Lymphocytes % (A) 7 %; MCH 33.6 pg (25.0-35.0); MCHC 32.2 g/dL (31.0-37.0); MCV 104.5 fL (80.0-100.0); Macrocytosis Moderate; Mean Platelet Volume 8.8; Monocytes # (A) 0.5 k/uL (0-1.0); Monocytes % (A) 11 %; Neutrophils # (A) 3.3 k/uL (1.3-7.7); Neutrophils % (A) 80 %; Poikilocytosis Moderate; RBC 2.08 m/uL (3.80-5.40); RDW 16.2 % (11.5-15.5); WBC 4.2 k/uL (3.8-10.6)
[2021-05-15 11:20] LABS: Platelet Count 342 k/uL (150-450)
[2021-05-15 11:29] LABS: Albumin 2.6 g/dL (3.5-5.0); Calcium 8.2 mg/dL (8.4-10.2); Potassium 4.3 mmol/L (3.5-5.1); Total Bilirubin 0.5 mg/dL (0.2-1.3); Total Protein 4.9 g/dL (6.3-8.2)
[2021-05-15 11:53] LABS: Glucose,Whole Blood 126 mg/dL (75-99)
[2021-05-15 11:57] LABS: C Reactive Protein 26.3 mg/dL (<1.0)
--- NOTE | 2021-05-15 12:00 | P.PN ---
Subjective Progress Note Date: 05/15/21 Principal diagnosis: lymphoma In f/u today pt has mild confusion that persists, denies any SOB, pain. Objective - Vital Signs Vital signs: Vital Signs Temp 97.8 F 05/15/21 08:00 Pulse 65 05/15/21 08:00 Resp 19 05/15/21 08:00 BP 97/59 05/15/21 08:00 Pulse Ox 98 05/15/21 08:00 Intake & Output 05/14/21 05/15/21 05/15/21 18:59 06:59 18:59 Intake Total 1380 240 Output Total 1850 Balance 1380 -1610 Intake: Oral 1380 240 Output: Urine 1850 Other: Voiding Method Indwelling Catheter Indwelling Catheter Indwelling Catheter - Exam A&Ox2, knew day but not month, NAD, mildly labored breathing observed. Pt was able to adjust her wt independently in the bed with some effort. Deferred otherwise, covid + patient. - Labs CBC & Chem 7: 05/15/21 10:19 05/15/21 10:19 Labs: Abnormal Lab Results - Last 24 Hours (Table) 05/14/21 05/14/21 05/14/21 Range/Units 07:08 11:56 17:08 RBC (3.80-5.40) m/uL Hgb (11.4-16.0) gm/dL Hct (34.0-46.0) % MCV (80.0-100.0) fL MCHC (31.0-37.0) g/dL RDW (11.5-15.5) % Lymphocytes # (1.0-4.8) k/uL Lymphocytes # (Manual) 0.23 L (1.0-4.8) k/uL Macrocytosis D-Dimer (<0.60) mg/L FEU Chloride (98-107) mmol/L BUN (7-17) mg/dL Glucose (74-99) mg/dL POC Glucose (mg/dL) 124 H 143 H (75-99) mg/dL Calcium (8.4-10.2) mg/dL Magnesium (1.6-2.3) mg/dL AST (14-36) U/L ALT (4-34) U/L Lactate Dehydrogenase (313-618) U/L Total Protein (6.3-8.2) g/dL Albumin (3.5-5.0) g/dL Vitamin B12 (200.0-944.0) pg/mL TSH (0.465-4.680) mIU/L Free T4 (0.78-2.19) ng/dL 05/14/21 05/14/21 05/15/21 Range/Units 17:50 20:07 06:01 RBC (3.80-5.40) m/uL Hgb (11.4-16.0) gm/dL Hct (34.0-46.0) % MCV (80.0-100.0) fL MCHC (31.0-37.0) g/dL RDW (11.5-15.5) % Lymphocytes # (1.0-4.8) k/uL Lymphocytes # (Manual) (1.0-4.8) k/uL Macrocytosis D-Dimer (<0.60) mg/L FEU Chloride (98-107) mmol/L BUN (7-17) mg/dL Glucose (74-99) mg/dL POC Glucose (mg/dL) 118 H 141 H (75-99) mg/dL Calcium (8.4-10.2) mg/dL Magnesium (1.6-2.3) mg/dL AST (14-36) U/L ALT (4-34) U/L Lactate Dehydrogenase (313-618) U/L Total Protein (6.3-8.2) g/dL Albumin (3.5-5.0) g/dL Vitamin B12 1518.0 H (200.0-944.0) pg/mL TSH 35.700 H (0.465-4.680) mIU/L Free T4 0.45 L (0.78-2.19) ng/dL 05/15/21 05/15/21 05/15/21 Range/Units 08:46 08:46 10:19 RBC 2.13 L 2.08 L (3.80-5.40) m/uL Hgb 7.1 L 7.0 L (11.4-16.0) gm/dL Hct 22.9 L 21.7 L (34.0-46.0) % MCV 107.5 H 104.5 H (80.0-100.0) fL MCHC 30.8 L (31.0-37.0) g/dL RDW 16.2 H 16.2 H (11.5-15.5) % Lymphocytes # 0.3 L (1.0-4.8) k/uL Lymphocytes # (Manual) (1.0-4.8) k/uL Macrocytosis Marked A D-Dimer (<0.60) mg/L FEU Chloride 108 H (98-107) mmol/L BUN 25 H (7-17) mg/dL Glucose 122 H (74-99) mg/dL POC Glucose (mg/dL) (75-99) mg/dL Calcium 8.2 L (8.4-10.2) mg/dL Magnesium 2.4 H (1.6-2.3) mg/dL AST (14-36) U/L ALT (4-34) U/L Lactate Dehydrogenase (313-618) U/L Total Protein (6.3-8.2) g/dL Albumin (3.5-5.0) g/dL Vitamin B12 (200.0-944.0) pg/mL TSH (0.465-4.680) mIU/L Free T4 (0.78-2.19) ng/dL 05/15/21 05/15/21 05/15/21 Range/Units 10:19 10:19 11:52 RBC (3.80-5.40) m/uL Hgb (11.4-16.0) gm/dL Hct (34.0-46.0) % MCV (80.0-100.0) fL MCHC (31.0-37.0) g/dL RDW (11.5-15.5) % Lymphocytes # (1.0-4.8) k/uL Lymphocytes # (Manual) (1.0-4.8) k/uL Macrocytosis D-Dimer 1.50 H (<0.60) mg/L FEU Chloride (98-107) mmol/L BUN 25 H (7-17) mg/dL Glucose 117 H (74-99) mg/dL POC Glucose (mg/dL) 126 H (75-99) mg/dL Calcium 8.2 L (8.4-10.2) mg/dL Magnesium (1.6-2.3) mg/dL AST 63 H (14-36) U/L ALT 83 H (4-34) U/L Lactate Dehydrogenase 968 H (313-618) U/L Total Protein 4.9 L (6.3-8.2) g/dL Albumin 2.6 L (3.5-5.0) g/dL Vitamin B12 (200.0-944.0) pg/mL TSH (0.465-4.680) mIU/L Free T4 (0.78-2.19) ng/dL Assessment and Plan (1) Macrocytic anemia Narrative/Plan: From chemo, lymphoma, marrow suppression from Hx of disease/treatment with superimposed infection. Awaiting call back from Primary Oncologist Dr. Stratton. Will update him on pt condition, covid status, and compare recent CBC, check when last anemia work up done and inquire about mental status. Transfuse for Hgb 6.5 or less. Pt Hgb 7 today Current Visit: Yes Status: Acute Priority: High Code(s): D53.9 - NUTRITIONAL ANEMIA, UNSPECIFIED SNOMED Code(s): 96893914 (2) Follicular lymphoma Narrative/Plan: Pt states oral treatment, no meds brought from home? Left message for with Primary Oncologist. Pending Ig level results, may need IVIG Current Visit: Yes Status: Chronic Priority: Medium Code(s): C82.90 - FOLLICULAR LYMPHOMA, UNSPECIFIED, UNSPECIFIED SITE SNOMED Code(s): 021257602
--- NOTE | 2021-05-15 15:03 | P.PN ---
Subjective This is a pleasant 65-year-old female past medical history significant for dementia, prior CVA with right sided weakness, Non-Hodgkins lymphoma, mitral stenosis, pulmonary hypertension, carotid stenosis s/p left carotid endarterectomy, hypertension, dyslipidemia, COPD. She follows with Dr. Lutz. We have been asked to see in consultation for congestive heart failure. Patient Presents to the Emergency Department with altered mental status. At bedside, patient is alert and oriented x 1, person only. Per emergency department note, patient was diagnosed with Covid-April 09, she has been confused and a steady decline per son. Confusion got worse over the past week. Per son, he was over at the house yesterday to check on her, "when she got up to use the restroom, she walked over to the couch and urinated." He states that she does have dementia at baseline however this is accelerated. Patient seen and examined at bedside, she has no complaints, she denies chest pain or shortness of breath. Unable to give accurate history. DIAGNOSTICS -EKG reveals sinus rhythm, heart rate 86, bundle-branch block, no significant past history of abnormalities. -Chest xray Cardiomegaly and mild pulmonary vascular congestion -Laboratory reviewed, WBC 7.7, hemoglobin 7.8, platelets 353, sodium 135, potassium 2.1, BUN 39, serum creatinine 1.3, magnesium 1.9, troponin 0.18, 0.17, 0.14, proBNP 8290, Covid positive. -CT brain bilateral frontal lobe encephalomalacia -Echocardiogram revealed an EF of 6065 percent, mild aortic stenosis peak/mean gradient of 20 mmHg/14 no murmurs mercury, mild mitral regurgitation, severe mitral stenosis peak/mean MV gradient 29 mmHg/16mmHg -Ultrasound of the kidneys revealed no hydronephrosis -Current home medications include Januvia, lisinopril 5 mg daily, Namenda, gabapentin, Lasix 40 mg daily, Plavix 75mg daily, atorvastatin 40 mg nightly 05/15/2021 Patient seen and examined at bedside, no distress. Mentation has improved. She is alert and oriented to person, she now she is of [place] unable to say what hospital she is intact. She states that last month was April but unable to tell what month it is currently. She denies any chest pain or shortness of breath. She denies any symptoms of orthopnea or PND. She is hemodynamically stable. Telemetry reviewed patient in sinus mechanism, heart rate 4860s PHYSICAL EXAMINATION Vitals Reviewed. CONSTITUTIONAL: No apparent distress. HEENT: Head is normocephalic. Sclerae anicteric. Mucous membranes of the mouth are dry. No JVD. CHEST EXAMINATION: Lungs with some wheezing bilaterally to auscultation. No chest wall tenderness is noted on palpation or with deep breathing. HEART EXAMINATION: Regular rate and rhythm. S1, S2 heard. Murmur noted. ABDOMEN: Soft, nontender. Positive bowel sounds. EXTREMITIES: no lower extremity edema and no calf tenderness. SKIN: warm, dry NEUROLOGIC EXAMINATION: Patient is awake, alert and oriented to person nly ASSESSMENT Altered mental status Acute Kidney Injury Covid-19 Infection Anemia Hypokalemia Elevated troponin, likely related to acute kidney injury, patient without chest pain, no evidence of ischemia on EKG, EF 60-65% Hypoalbuminemia Dementia History of prior CVA with right-sided weakness Non-Hodgkins lymphoma Mitral stenosis Pulmonary hypertension Carotid stenosis s/p prior left carotid endarterectomy History of hypertension Dyslipidemia COPD PLAN Continue metoprolol succinate 12.5mg Daily Plavix was on hold due to anemia, now restarted per neuro, monitor hemoglobin Lisinopril on hold due to hypotension at this time Continue statin Further recommendations based on clinical course Nurse practitioner note has been reviewed by physician. Signing provider agrees with the documented findings, assessment, and plan of care. Objective - Vital Signs Vital signs: Vital Signs Temp 97.8 F 05/15/21 13:10 Pulse 63 05/15/21 13:10 Resp 17 05/15/21 13:10 BP 100/64 05/15/21 13:10 Pulse Ox 96 05/15/21 13:10 Intake & Output 05/14/21 05/15/21 05/15/21 18:59 06:59 18:59 Intake Total 1380 240 Output Total 1850 400 Balance 1380 -1610 -400 Intake: Oral 1380 240 Output: Urine 1850 400 Other: Voiding Method Indwelling Catheter Indwelling Catheter Indwelling Catheter - Labs CBC & Chem 7: 05/15/21 10:19 05/15/21 10:19 Labs: Abnormal Lab Results - Last 24 Hours (Table) 05/14/21 05/14/21 05/14/21 Range/Units 17:08 17:50 20:07 RBC (3.80-5.40) m/uL Hgb (11.4-16.0) gm/dL Hct (34.0-46.0) % MCV (80.0-100.0) fL MCHC (31.0-37.0) g/dL RDW (11.5-15.5) % Lymphocytes # (1.0-4.8) k/uL Macrocytosis D-Dimer (<0.60) mg/L FEU Chloride (98-107) mmol/L BUN (7-17) mg/dL Glucose (74-99) mg/dL POC Glucose (mg/dL) 143 H 118 H (75-99) mg/dL Calcium (8.4-10.2) mg/dL Magnesium (1.6-2.3) mg/dL AST (14-36) U/L ALT (4-34) U/L Lactate Dehydrogenase (313-618) U/L C-Reactive Protein (<1.0) mg/dL Total Protein (6.3-8.2) g/dL Albumin (3.5-5.0) g/dL Vitamin B12 1518.0 H (200.0-944.0) pg/mL TSH 35.700 H (0.465-4.680) mIU/L Free T4 0.45 L (0.78-2.19) ng/dL 05/15/21 05/15/21 05/15/21 Range/Units 06:01 08:46 08:46 RBC 2.13 L (3.80-5.40) m/uL Hgb 7.1 L (11.4-16.0) gm/dL Hct 22.9 L (34.0-46.0) % MCV 107.5 H (80.0-100.0) fL MCHC 30.8 L (31.0-37.0) g/dL RDW 16.2 H (11.5-15.5) % Lymphocytes # (1.0-4.8) k/uL Macrocytosis Marked A D-Dimer (<0.60) mg/L FEU Chloride 108 H (98-107) mmol/L BUN 25 H (7-17) mg/dL Glucose 122 H (74-99) mg/dL POC Glucose (mg/dL) 141 H (75-99) mg/dL Calcium 8.2 L (8.4-10.2) mg/dL Magnesium 2.4 H (1.6-2.3) mg/dL AST (14-36) U/L ALT (4-34) U/L Lactate Dehydrogenase (313-618) U/L C-Reactive Protein (<1.0) mg/dL Total Protein (6.3-8.2) g/dL Albumin (3.5-5.0) g/dL Vitamin B12 (200.0-944.0) pg/mL TSH (0.465-4.680) mIU/L Free T4 (0.78-2.19) ng/dL 05/15/21 05/15/21 05/15/21 Range/Units 10:19 10:19 10:19 RBC 2.08 L (3.80-5.40) m/uL Hgb 7.0 L (11.4-16.0) gm/dL Hct 21.7 L (34.0-46.0) % MCV 104.5 H (80.0-100.0) fL MCHC (31.0-37.0) g/dL RDW 16.2 H (11.5-15.5) % Lymphocytes # 0.3 L (1.0-4.8) k/uL Macrocytosis D-Dimer 1.50 H (<0.60) mg/L FEU Chloride (98-107) mmol/L BUN 25 H (7-17) mg/dL Glucose 117 H (74-99) mg/dL POC Glucose (mg/dL) (75-99) mg/dL Calcium 8.2 L (8.4-10.2) mg/dL Magnesium (1.6-2.3) mg/dL AST 63 H (14-36) U/L ALT 83 H (4-34) U/L Lactate Dehydrogenase 968 H (313-618) U/L C-Reactive Protein 26.3 H (<1.0) mg/dL Total Protein 4.9 L (6.3-8.2) g/dL Albumin 2.6 L (3.5-5.0) g/dL Vitamin B12 (200.0-944.0) pg/mL TSH (0.465-4.680) mIU/L Free T4 (0.78-2.19) ng/dL 05/15/21 Range/Units 11:52 RBC (3.80-5.40) m/uL Hgb (11.4-16.0) gm/dL Hct (34.0-46.0) % MCV (80.0-100.0) fL MCHC (31.0-37.0) g/dL RDW (11.5-15.5) % Lymphocytes # (1.0-4.8) k/uL Macrocytosis D-Dimer (<0.60) mg/L FEU Chloride (98-107) mmol/L BUN (7-17) mg/dL Glucose (74-99) mg/dL POC Glucose (mg/dL) 126 H (75-99) mg/dL Calcium (8.4-10.2) mg/dL Magnesium (1.6-2.3) mg/dL AST (14-36) U/L ALT (4-34) U/L Lactate Dehydrogenase (313-618) U/L C-Reactive Protein (<1.0) mg/dL Total Protein (6.3-8.2) g/dL Albumin (3.5-5.0) g/dL Vitamin B12 (200.0-944.0) pg/mL TSH (0.465-4.680) mIU/L Free T4 (0.78-2.19) ng/dL
[2021-05-15 16:58] LABS: Glucose,Whole Blood 165 mg/dL (75-99)
[2021-05-15 18:03] LABS: Immunoglobulin A <50.0 mg/dL (60.0-350.0); Immunoglobulin G <300.0 mg/dL (700.0-1600.0); Immunoglobulin M <25.0 mg/dL (40.0-280.0)
[2021-05-15 20:04] LABS: Glucose,Whole Blood 223 mg/dL (75-99)
[2021-05-15] MEDS: DOCUSATE 100 MG CAP PO SCH (20:34)
[2021-05-15] MEDS: DONEPEZIL 10 MG TAB PO SCH (20:34)
[2021-05-15] MEDS: ATORVASTATIN 40 MG TAB PO SCH (20:34)
--- NOTE | 2021-05-15 22:16 | P.PN ---
Subjective Progress Note Date: 05/15/21 Patient is a 65-year-old female with history of non-Hodgkin's lymphoma recently received chemotherapy came in is of increased confusion patient is alert oriented 2. Patient doesn't answer questions all that appropriately. Patient is found to have fever and patient is found to have COVID-19 infection. Patient was believed to have congestive heart failure on admission because of which cardiology was consulted. Patient does have severe mitral stenosis and probable diastolic dysfunction, IV fluids were discontinued patient may be in borderline heart failure patient does have mild pedal edema is unable to clearly appreciate any JVD does have elevated BNP of 3300. Chest x-ray was suspicious for pul monary edema but can be COVID-19 as well. Patient has mildly elevated troponins of 0.171 and 0.140. Confusion has been going on for past week on known whether patient has any other symptoms were COVID-19 and how long. Patient does have history of pulmonary hypertension as well patient does have history of carotid stenosis status post carotid endarterectomy. Patient had history of CVA with the right-sided weakness some residual. 05/15/2021 Patient evaluated today sitting up in the chair. Alert and oriented x2, knows she is in the hospital but not which one, says the year is 2001, she is a bit aphasic having a hard time finding her words. Which is possibly baseline. Overall feeling better denies any shortness of breath, cough, or chest pain. Chest xray today shows mild cardiomegaly, diffuse interstitial opacities could reflect mild interstitial pulmonary edema versus COVID related pneumonia. EEG shows mild background slowing and presence of frontal intermittent rhythmic delta activity suggestive of generalized cerebral dysfunction as seen with toxic metabolic encephalopathy, intermittent left temporal slowing suggestive of focal cortical neuronal dysfunction. No epileptiform activity was seen. Labs today; WBC 4.2, hgb 7.0, platelet 342, D-Dimer 1.50, sodium 139, potassium 4.3, BUN 25, creatinine 0.83, glucose 160's, AST 63, ALT 83, LDH 968, CRP 26.3, Procalcitonin 0.81. On PO decadron, COVID positive, first positive test in Apr of this year. Blood pressure continues on the lower side 95/59, heart rate 86, afebrile, 96% on 2L NC. Multiple consultations including oncology, neurology, cardiology, pulmonary. REVIEW OF SYSTEMS: General: Denies fever, fatigue, Pulmonary: Denies cough, shortness of breath Cardiac: Denies chest pain, chest pressure, palpitations : Denies dysuria, urgency, frequency Neurologic: Denies headache, dizziness, lightheadedness, PHYSICAL EXAMINATION: GENERAL: The patient is alert and oriented x2, not in any acute distress. Well developed, well nourished. HEENT: Pupils are round and equally reacting to light. EOMI. No scleral icterus. No conjunctival pallor. Normocephalic, atraumatic. No pharyngeal erythema. No thyromegaly. CARDIOVASCULAR: S1 and S2 present. No rubs, or gallops. There is a mid diastolic murmur in the mitral area PULMONARY: Chest is tight with crackles in the bases. ABDOMEN: Soft, nontender, nondistended, normoactive bowel sounds. No palpable organomegaly. MUSCULOSKELETAL: No joint swelling or deformity. EXTREMITIES: No cyanosis, clubbing, or pedal edema. NEUROLOGICAL: may have some residual weakness in the right side SKIN: No rashes. Assessment and plan -Shortness of breath, acute hypoxic respiratory failure: Multifocal with COVID pneumonia, CHF exacerbation. -Congestive heart failure chronic diastolic dysfunction with mild acute exacerbation, patient was not started on any IV fluids because of borderline blood pressures -Non-Hodgkin's lymphoma recently received chemotherapy -Severe anemia with hemoglobin of 7.0: Secondary to recent chemotherapy for non- Hodgkin's lymphoma -Altered mental status: Toxic encephalopathy from infection component of metabolic from heart failure -Sepsis secondary to COVID-19 infection -Hypervolemic hyponatremia IV fluids were discontinued -Severe mitral stenosis -Mildly elevated troponins: Cardiology evaluated the patient, most probably not myocardial infarction, more consistent with acute renal failure. Creatinine normalized. -Acute renal failure secondary to sepsis there may be a competent of prerenal azotemia from congestive heart failure as well as -Pulmonary hypertension -Carotid stenosis status post endarterectomy -Hypertension she is presently hypotensive and cannot tolerate diuretics patient probably will need diuretics. Lisinopril is being held because of hypotension and acute renal failure -Dementia probably Alzheimer's -History CVA with right side residual weakness DVT prophylaxis: Subcutaneous heparin GI prophylaxis: Protonix FULL CODE Plan Continue to hold lisinopril for marginal blood pressures Continue neuro checks Plavix resumed Continue all other supportive care PT/OT consultation Repeat labs in AM Overall prognosis guarded Objective - Vital Signs Vital signs: Vital Signs Temp 97.8 F 05/15/21 13:10 Pulse 63 05/15/21 13:10 Resp 17 05/15/21 13:10 BP 100/64 05/15/21 13:10 Pulse Ox 96 05/15/21 13:10 Intake & Output 05/14/21 05/15/21 05/15/21 18:59 06:59 18:59 Intake Total 1380 240 Output Total 1850 400 Balance 1380 -1610 -400 Intake: Oral 1380 240 Output: Urine 1850 400 Other: Voiding Method Indwelling Catheter Indwelling Catheter Indwelling Catheter - Labs CBC & Chem 7: 05/15/21 10:19 05/15/21 10:19 Labs: Abnormal Lab Results - Last 24 Hours (Table) 05/14/21 05/14/21 05/14/21 Range/Units 17:08 17:50 20:07 RBC (3.80-5.40) m/uL Hgb (11.4-16.0) gm/dL Hct (34.0-46.0) % MCV (80.0-100.0) fL MCHC (31.0-37.0) g/dL RDW (11.5-15.5) % Lymphocytes # (1.0-4.8) k/uL Macrocytosis D-Dimer (<0.60) mg/L FEU Chloride (98-107) mmol/L BUN (7-17) mg/dL Glucose (74-99) mg/dL POC Glucose (mg/dL) 143 H 118 H (75-99) mg/dL Calcium (8.4-10.2) mg/dL Magnesium (1.6-2.3) mg/dL AST (14-36) U/L ALT (4-34) U/L Lactate Dehydrogenase (313-618) U/L C-Reactive Protein (<1.0) mg/dL Total Protein (6.3-8.2) g/dL Albumin (3.5-5.0) g/dL Vitamin B12 1518.0 H (200.0-944.0) pg/mL TSH 35.700 H (0.465-4.680) mIU/L Free T4 0.45 L (0.78-2.19) ng/dL 05/15/21 05/15/21 05/15/21 Range/Units 06:01 08:46 08:46 RBC 2.13 L (3.80-5.40) m/uL Hgb 7.1 L (11.4-16.0) gm/dL Hct 22.9 L (34.0-46.0) % MCV 107.5 H (80.0-100.0) fL MCHC 30.8 L (31.0-37.0) g/dL RDW 16.2 H (11.5-15.5) % Lymphocytes # (1.0-4.8) k/uL Macrocytosis Marked A D-Dimer (<0.60) mg/L FEU Chloride 108 H (98-107) mmol/L BUN 25 H (7-17) mg/dL Glucose 122 H (74-99) mg/dL POC Glucose (mg/dL) 141 H (75-99) mg/dL Calcium 8.2 L (8.4-10.2) mg/dL Magnesium 2.4 H (1.6-2.3) mg/dL AST (14-36) U/L ALT (4-34) U/L Lactate Dehydrogenase (313-618) U/L C-Reactive Protein (<1.0) mg/dL Total Protein (6.3-8.2) g/dL Albumin (3.5-5.0) g/dL Vitamin B12 (200.0-944.0) pg/mL TSH (0.465-4.680) mIU/L Free T4 (0.78-2.19) ng/dL 05/15/21 05/15/21 05/15/21 Range/Units 10:19 10:19 10:19 RBC 2.08 L (3.80-5.40) m/uL Hgb 7.0 L (11.4-16.0) gm/dL Hct 21.7 L (34.0-46.0) % MCV 104.5 H (80.0-100.0) fL MCHC (31.0-37.0) g/dL RDW 16.2 H (11.5-15.5) % Lymphocytes # 0.3 L (1.0-4.8) k/uL Macrocytosis D-Dimer 1.50 H (<0.60) mg/L FEU Chloride (98-107) mmol/L BUN 25 H (7-17) mg/dL Glucose 117 H (74-99) mg/dL POC Glucose (mg/dL) (75-99) mg/dL Calcium 8.2 L (8.4-10.2) mg/dL Magnesium (1.6-2.3) mg/dL AST 63 H (14-36) U/L ALT 83 H (4-34) U/L Lactate Dehydrogenase 968 H (313-618) U/L C-Reactive Protein 26.3 H (<1.0) mg/dL Total Protein 4.9 L (6.3-8.2) g/dL Albumin 2.6 L (3.5-5.0) g/dL Vitamin B12 (200.0-944.0) pg/mL TSH (0.465-4.680) mIU/L Free T4 (0.78-2.19) ng/dL 05/15/21 Range/Units 11:52 RBC (3.80-5.40) m/uL Hgb (11.4-16.0) gm/dL Hct (34.0-46.0) % MCV (80.0-100.0) fL MCHC (31.0-37.0) g/dL RDW (11.5-15.5) % Lymphocytes # (1.0-4.8) k/uL Macrocytosis D-Dimer (<0.60) mg/L FEU Chloride (98-107) mmol/L BUN (7-17) mg/dL Glucose (74-99) mg/dL POC Glucose (mg/dL) 126 H (75-99) mg/dL Calcium (8.4-10.2) mg/dL Magnesium (1.6-2.3) mg/dL AST (14-36) U/L ALT (4-34) U/L Lactate Dehydrogenase (313-618) U/L C-Reactive Protein (<1.0) mg/dL Total Protein (6.3-8.2) g/dL Albumin (3.5-5.0) g/dL Vitamin B12 (200.0-944.0) pg/mL TSH (0.465-4.680) mIU/L Free T4 (0.78-2.19) ng/dL
--- NOTE | 2021-05-15 23:39 | P.PN ---
Subjective Progress Note Date: 05/15/21 Patient was seen for a follow-up. Patient is laying comfortably in the bed. Offers no complaints. Telemetry monitoring showing sinus rhythm. Objective - Vital Signs Vital signs: Vital Signs Temp 98.3 F 05/15/21 20:00 Pulse 86 05/15/21 20:00 Resp 18 05/15/21 20:00 BP 108/61 05/15/21 20:00 Pulse Ox 96 05/15/21 20:00 Intake & Output 05/15/21 05/15/21 05/16/21 06:59 18:59 06:59 Intake Total 240 240 Output Total 1850 400 375 Balance -1610 -400 -135 Intake: Oral 240 240 Output: Urine 1850 400 375 Other: Voiding Method Indwelling Catheter Indwelling Catheter Indwelling Catheter - Exam Patient is alert and awake. In no distress. Detail examination deferred. - Labs CBC & Chem 7: 05/17/21 07:53 05/17/21 07:53 Labs: Abnormal Lab Results - Last 24 Hours (Table) 05/14/21 05/15/21 05/15/21 Range/Units 17:50 06:01 08:46 RBC (3.80-5.40) m/uL Hgb (11.4-16.0) gm/dL Hct (34.0-46.0) % MCV (80.0-100.0) fL MCHC (31.0-37.0) g/dL RDW (11.5-15.5) % Lymphocytes # (1.0-4.8) k/uL Macrocytosis D-Dimer (<0.60) mg/L FEU Chloride (98-107) mmol/L BUN (7-17) mg/dL Glucose (74-99) mg/dL POC Glucose (mg/dL) 141 H (75-99) mg/dL Calcium (8.4-10.2) mg/dL Magnesium (1.6-2.3) mg/dL AST (14-36) U/L ALT (4-34) U/L Lactate Dehydrogenase (313-618) U/L C-Reactive Protein (<1.0) mg/dL Total Protein (6.3-8.2) g/dL Albumin (3.5-5.0) g/dL Vitamin B12 1518.0 H (200.0-944.0) pg/mL Procalcitonin (0.02-0.09) ng/mL IgG <300.0 L (700.0-1600.0) mg/dL IgA <50.0 L (60.0-350.0) mg/dL IgM <25.0 L (40.0-280.0) mg/dL 05/15/21 05/15/21 05/15/21 Range/Units 08:46 08:46 10:19 RBC 2.13 L (3.80-5.40) m/uL Hgb 7.1 L (11.4-16.0) gm/dL Hct 22.9 L (34.0-46.0) % MCV 107.5 H (80.0-100.0) fL MCHC 30.8 L (31.0-37.0) g/dL RDW 16.2 H (11.5-15.5) % Lymphocytes # (1.0-4.8) k/uL Macrocytosis Marked A D-Dimer (<0.60) mg/L FEU Chloride 108 H (98-107) mmol/L BUN 25 H (7-17) mg/dL Glucose 122 H (74-99) mg/dL POC Glucose (mg/dL) (75-99) mg/dL Calcium 8.2 L (8.4-10.2) mg/dL Magnesium 2.4 H (1.6-2.3) mg/dL AST (14-36) U/L ALT (4-34) U/L Lactate Dehydrogenase (313-618) U/L C-Reactive Protein (<1.0) mg/dL Total Protein (6.3-8.2) g/dL Albumin (3.5-5.0) g/dL Vitamin B12 (200.0-944.0) pg/mL Procalcitonin 0.81 H (0.02-0.09) ng/mL IgG (700.0-1600.0) mg/dL IgA (60.0-350.0) mg/dL IgM (40.0-280.0) mg/dL 05/15/21 05/15/21 05/15/21 Range/Units 10:19 10:19 10:19 RBC 2.08 L (3.80-5.40) m/uL Hgb 7.0 L (11.4-16.0) gm/dL Hct 21.7 L (34.0-46.0) % MCV 104.5 H (80.0-100.0) fL MCHC (31.0-37.0) g/dL RDW 16.2 H (11.5-15.5) % Lymphocytes # 0.3 L (1.0-4.8) k/uL Macrocytosis D-Dimer 1.50 H (<0.60) mg/L FEU Chloride (98-107) mmol/L BUN 25 H (7-17) mg/dL Glucose 117 H (74-99) mg/dL POC Glucose (mg/dL) (75-99) mg/dL Calcium 8.2 L (8.4-10.2) mg/dL Magnesium (1.6-2.3) mg/dL AST 63 H (14-36) U/L ALT 83 H (4-34) U/L Lactate Dehydrogenase 968 H (313-618) U/L C-Reactive Protein 26.3 H (<1.0) mg/dL Total Protein 4.9 L (6.3-8.2) g/dL Albumin 2.6 L (3.5-5.0) g/dL Vitamin B12 (200.0-944.0) pg/mL Procalcitonin (0.02-0.09) ng/mL IgG (700.0-1600.0) mg/dL IgA (60.0-350.0) mg/dL IgM (40.0-280.0) mg/dL 05/15/21 05/15/21 05/15/21 Range/Units 11:52 16:56 20:03 RBC (3.80-5.40) m/uL Hgb (11.4-16.0) gm/dL Hct (34.0-46.0) % MCV (80.0-100.0) fL MCHC (31.0-37.0) g/dL RDW (11.5-15.5) % Lymphocytes # (1.0-4.8) k/uL Macrocytosis D-Dimer (<0.60) mg/L FEU Chloride (98-107) mmol/L BUN (7-17) mg/dL Glucose (74-99) mg/dL POC Glucose (mg/dL) 126 H 165 H 223 H (75-99) mg/dL Calcium (8.4-10.2) mg/dL Magnesium (1.6-2.3) mg/dL AST (14-36) U/L ALT (4-34) U/L Lactate Dehydrogenase (313-618) U/L C-Reactive Protein (<1.0) mg/dL Total Protein (6.3-8.2) g/dL Albumin (3.5-5.0) g/dL Vitamin B12 (200.0-944.0) pg/mL Procalcitonin (0.02-0.09) ng/mL IgG (700.0-1600.0) mg/dL IgA (60.0-350.0) mg/dL IgM (40.0-280.0) mg/dL Assessment and Plan Assessment: * Altered mental status, likely due to toxic metabolic encephalopathy. Results multifactorial as below. * Acute Covid-19 infection * Underlying dementia. Patient's dementia probably has also progressed with these medical/metabolic conditions. * Vitamin B6 deficiency * Mild B12 deficiency (elevated methylmalonic acid level) * History of CVA, with residual right hemiparesis. * Hypertension * Chronic back pain, history of spinal cord stimulator implant. * History of tobacco use Plan: * EEG revealed mild background slowing and presence of frontal intermittent rhythmic delta activity. This is suggestive of generalized cerebral dysfunction as can be seen with toxic metabolic encephalopathy. Intermittent left temporal slowing, suggestive of focal cortical neuronal dysfunction. No epileptiform activity was seen. No indication for AED. * Patient cannot undergo MRI of the brain because of presence of spinal cord stimulator. CT head was reviewed, shows no evidence of new stroke. * Resume Plavix 75 mg daily. Continue Lipitor 40 mg. * Patient's carotid Doppler from 08/26/2018 showed no significant stenosis. No need to repeat. * B12 1518, folate 19.90, hemoglobin A1c 5.7, TSH elevated 35.7, free T4 is low 0.45. IM to address abnormal thyroid functions. MMA is elevated 0.50 (<0.40), and B6 is borderline 9. We will start vitamin B6 50 mg daily and vitamin B12 1000 g orally daily. * Patient will be continued on Aricept 10 mg daily. Increase Namenda to 10 mg twice a day for worsening dementia. * Patient on heparin 5000 units subcu every 12 hours for DVT prophylaxis. * Neurologically clear. We will sign off. Please reconsult if any new concerns.
[2021-05-16 05:54] LABS: Glucose,Whole Blood 119 mg/dL (75-99)
[2021-05-16] MEDS: INSULIN ASPART (NovoLOG) 100 UNIT/ML VIAL SQ SCH ×4 (06:03→20:36)
[2021-05-16] MEDS: LEVOTHYROXINE 50 MCG TAB PO SCH (06:05)
[2021-05-16] MEDS: PANTOPRAZOLE 40 MG TABLET PO SCH (06:05)
--- NOTE | 2021-05-16 09:06 | P.PN ---
Subjective Progress Note Date: 05/16/21 This is a 65-year-old female patient with past medical history of non- Hodgkin's/follicular lymphoma patient has a primary oncologist at the [facility], macrocytic anemia, prior history of CVA with residual right- sided weakness, carotid artery stenosis status post left carotid endarterectomy, hypertension, dyslipidemia, COPD, mitral stenosis, pulmonary hypertension, and dementia. Patient was brought into the hospital on 05/13/2021 for evaluation of altered mental status. Patient had a recent history of COVID-19 infection on April 09, and she has been progressively more confused. Per the patient's son when he was visiting her on the day of presentation the patient got up to use the restroom and she walked over to the couch and had urinated. Patient is a poor historian, she currently denies any shortness of breath, no cough, no phlegm production, no chest pain. Brain CT in the emergency department showed no acute intracranial process, bilateral frontal lobe encephalomalacia. Chest x-ray showed cardiomegaly and mild pulmonary vascular congestion. And there was a right Ocrygl-y-Zibo in the right hemithorax. Patient is currently on 4 L of oxygen her pulse ox is 99%, this can probably be weaned down. Admission labs revealed normal white count of 6.5, hemoglobin is 7.3, correlation profile was normal, sodium is 1:30, potassium is 3.0, chloride is 90, CO2 27, BUN was 44, creatinine is 1.69, lactic acid was 1.3, AST was elevated at 91, ALT was 74, alk phos was 122, patient had troponin elevation of 0.182, 0.171, and 0.140, proBNP was 8390 TSH was elevated at 35.7 and free T4 was low at 0.45 urinalysis showed no evidence of infection, stool for occult blood was negative, urine drug screen was negative, and patient tested positive for COVID-19 per PCR test. [place] rdiogram revealed an EF of 60-65%, mild aortic stenosis, mild mitral regurgitation, severe mitral stenosis. Patient was evaluated by cardiology and elevation of her troponin was thought to be related to acute kidney injury. No acute ischemic changes on the EKG. Patient was also evaluated by neurology. EEG was completed showing mild background slowing and presence of frontal intermittent rhythmic delta activity suggestive of generalized cerebral dysfunction as seen with toxic metabolic encephalopathy, intermittent left temporal slowing suggestive of focal cortical neuronal dysfunction no ep ileptiform activity was seen. On today's evaluation patient is awake, she knows she is in the hospital, but she thinks she is at [facility], she couldn't tell me the date, the month or the year, she could not name the president. She is able to make her basic needs known, she denies any dyspnea, no cough, no phlegm production, no chest pain. She is currently on 4 L of oxygen pulse ox is 99%, breathing comfortably, physical exam reveals some mild crackles at the right base, no wheezing. On 05/16/2021 patient seen in follow-up on selective care unit, she is breathing comfortably, on 2 L of oxygen her pulse ox of 1%, supplemental oxygen has been removed, denies any cough, denies any worsening dyspnea, lung sounds reveal some diffuse bibasilar crackles, no rhonchi or wheezing. She's been afebrile, hemodynamically she is stable, she is sitting up in bed watching TV. She knows she is in the hospital, she could not tell me the month or the year. She is tolerating oral intake, no nausea vomiting or diarrhea, abdomen is soft. Inflammatory markers from yesterday showed LDH of 968, and CRP of 26.3, pro- calcitonin level came back elevated at 0.81 suggesting possibility of bacterial infection possibly pneumonia. Patient was having some low-grade fevers the day before, afebrile today. She remains on Decadron 6 mg daily, she is on subcu heparin 5000 units every 12 hours. Objective - Vital Signs Vital signs: Vital Signs Temp 97.6 F 05/16/21 08:44 Pulse 62 05/16/21 08:44 Resp 17 05/16/21 08:44 BP 116/69 05/16/21 08:44 Pulse Ox 96 05/16/21 08:44 Intake & Output 05/15/21 05/16/21 05/16/21 18:59 06:59 18:59 Intake Total 240 Output Total 400 725 Balance -400 -485 Intake: Oral 240 Output: Urine 400 725 Other: Voiding Method Indwelling Catheter Indwelling Catheter - Exam GENERAL EXAM: Alert, oriented to self, pleasant 65-year-old white female, slightly pale, but appears to be in no acute distress on 2 L of oxygen pulse ox of 100% comfortable in no apparent distress. HEAD: Normocephalic/atraumatic. EYES: Normal reaction of pupils, equal size. Conjunctiva pink, sclera white. NOSE: Clear with pink turbinates. THROAT: No erythema or exudates. NECK: No masses, no JVD, no thyroid enlargement, no adenopathy. CHEST: No chest wall deformity. Symmetrical expansion. LUNGS: Equal air entry with crackles at the right base CVS: Regular rate and rhythm, normal S1 and S2, no gallops, no murmurs, no rubs ABDOMEN: Soft, nontender. No hepatosplenomegaly, normal bowel sounds, no guarding or rigidity. EXTREMITIES: No clubbing, no edema, no cyanosis, 2+ pulses and upper and lower extremities. MUSCULOSKELETAL: Muscle strength and tone normal. SPINE: No scoliosis or deformity SKIN: No rashes CENTRAL NERVOUS SYSTEM: Alert and oriented -1. No focal deficits, tone is normal in all 4 extremities. PSYCHIATRIC: Alert and oriented -1. Appropriate affect. Intact judgment and insight. - Labs CBC & Chem 7: 05/15/21 10:19 05/15/21 10:19 Labs: Abnormal Lab Results - Last 24 Hours (Table) 05/14/21 05/15/21 05/15/21 Range/Units 17:50 08:46 08:46 RBC 2.13 L (3.80-5.40) m/uL Hgb 7.1 L (11.4-16.0) gm/dL Hct 22.9 L (34.0-46.0) % MCV 107.5 H (80.0-100.0) fL MCHC 30.8 L (31.0-37.0) g/dL RDW 16.2 H (11.5-15.5) % Lymphocytes # (1.0-4.8) k/uL Macrocytosis Marked A D-Dimer (<0.60) mg/L FEU Chloride (98-107) mmol/L BUN (7-17) mg/dL Glucose (74-99) mg/dL POC Glucose (mg/dL) (75-99) mg/dL Calcium (8.4-10.2) mg/dL Magnesium (1.6-2.3) mg/dL AST (14-36) U/L ALT (4-34) U/L Lactate Dehydrogenase (313-618) U/L C-Reactive Protein (<1.0) mg/dL Total Protein (6.3-8.2) g/dL Albumin (3.5-5.0) g/dL Methylmalonic Acid 0.50 H (<0.40) umol/L Procalcitonin (0.02-0.09) ng/mL IgG <300.0 L (700.0-1600.0) mg/dL IgA <50.0 L (60.0-350.0) mg/dL IgM <25.0 L (40.0-280.0) mg/dL 05/15/21 05/15/21 05/15/21 Range/Units 08:46 10:19 10:19 RBC 2.08 L (3.80-5.40) m/uL Hgb 7.0 L (11.4-16.0) gm/dL Hct 21.7 L (34.0-46.0) % MCV 104.5 H (80.0-100.0) fL MCHC (31.0-37.0) g/dL RDW 16.2 H (11.5-15.5) % Lymphocytes # 0.3 L (1.0-4.8) k/uL Macrocytosis D-Dimer (<0.60) mg/L FEU Chloride 108 H (98-107) mmol/L BUN 25 H (7-17) mg/dL Glucose 122 H (74-99) mg/dL POC Glucose (mg/dL) (75-99) mg/dL Calcium 8.2 L (8.4-10.2) mg/dL Magnesium 2.4 H (1.6-2.3) mg/dL AST (14-36) U/L ALT (4-34) U/L Lactate Dehydrogenase (313-618) U/L C-Reactive Protein (<1.0) mg/dL Total Protein (6.3-8.2) g/dL Albumin (3.5-5.0) g/dL Methylmalonic Acid (<0.40) umol/L Procalcitonin 0.81 H (0.02-0.09) ng/mL IgG (700.0-1600.0) mg/dL IgA (60.0-350.0) mg/dL IgM (40.0-280.0) mg/dL 05/15/21 05/15/21 05/15/21 Range/Units 10:19 10:19 11:52 RBC (3.80-5.40) m/uL Hgb (11.4-16.0) gm/dL Hct (34.0-46.0) % MCV (80.0-100.0) fL MCHC (31.0-37.0) g/dL RDW (11.5-15.5) % Lymphocytes # (1.0-4.8) k/uL Macrocytosis D-Dimer 1.50 H (<0.60) mg/L FEU Chloride (98-107) mmol/L BUN 25 H (7-17) mg/dL Glucose 117 H (74-99) mg/dL POC Glucose (mg/dL) 126 H (75-99) mg/dL Calcium 8.2 L (8.4-10.2) mg/dL Magnesium (1.6-2.3) mg/dL AST 63 H (14-36) U/L ALT 83 H (4-34) U/L Lactate Dehydrogenase 968 H (313-618) U/L C-Reactive Protein 26.3 H (<1.0) mg/dL Total Protein 4.9 L (6.3-8.2) g/dL Albumin 2.6 L (3.5-5.0) g/dL Methylmalonic Acid (<0.40) umol/L Procalcitonin (0.02-0.09) ng/mL IgG (700.0-1600.0) mg/dL IgA (60.0-350.0) mg/dL IgM (40.0-280.0) mg/dL 05/15/21 05/15/21 05/16/21 Range/Units 16:56 20:03 05:52 RBC (3.80-5.40) m/uL Hgb (11.4-16.0) gm/dL Hct (34.0-46.0) % MCV (80.0-100.0) fL MCHC (31.0-37.0) g/dL RDW (11.5-15.5) % Lymphocytes # (1.0-4.8) k/uL Macrocytosis D-Dimer (<0.60) mg/L FEU Chloride (98-107) mmol/L BUN (7-17) mg/dL Glucose (74-99) mg/dL POC Glucose (mg/dL) 165 H 223 H 119 H (75-99) mg/dL Calcium (8.4-10.2) mg/dL Magnesium (1.6-2.3) mg/dL AST (14-36) U/L ALT (4-34) U/L Lactate Dehydrogenase (313-618) U/L C-Reactive Protein (<1.0) mg/dL Total Protein (6.3-8.2) g/dL Albumin (3.5-5.0) g/dL Methylmalonic Acid (<0.40) umol/L Procalcitonin (0.02-0.09) ng/mL IgG (700.0-1600.0) mg/dL IgA (60.0-350.0) mg/dL IgM (40.0-280.0) mg/dL Assessment and Plan Plan: Assessment: #1. Acute hypoxic respiratory failure, possibly related to mild CHF exacerbation with diastolic dysfunction, and recent COVID-19 infection. Procalcitonin level was elevated at 0.81 suggesting possibility of underlying bacterial infection, possibly superinfection, possibly a bacterial pneumonia. Initial positive COVID test was in 04/09/2021. Patient is vaccinated with more during a vaccine 2 and the booster. She is outside the window for Remdesivir. She is currently on Decadron 6 mg daily, and prophylactic anticoagulation with heparin #2. Altered mental status, worsened from baseline, related to metabolic ence phalopathy. Please refer to the neurology consultation, brain CT showed severe bilateral encephalomalacia, EEG was consistent with toxic metabolic cephalopathy #3. Elevated troponins, please refer to the cardiology consultation, thought to be related to acute kidney injury. No acute ischemic changes on EKG, echocardiogram revealed preserved LV function #4. Underlying history of dementia #5. History of CVA with residual right hemiparesis, some aphasia #6. Hypertension #7. Chronic back pain with history of spinal cord stimulator implant #8. History of tobacco use currently in remission #9. History of non-Hodgkin's lymphoma, follicular lymphoma #10. Chronic anemia #11. History of hyperlipidemia #12. Depression #13. Gait dysfunction, patient walks with a limp Plan: Continue current treatment We will add empiric antibiotics in the form of Augmentin Pro-calcitonin level was elevated suggesting possibility of bacterial pneumonia Sputum for culture Continue Decadron, continue prophylactic anticoagulation We'll add multivitamins Follow-up chest x-ray inflammatory markers CBC and CMP tomorrow We'll obtain lower extremity Dopplers to rule out possibility of DVT Continue weaning FiO2 and patient has been placed on room air, she is breathing comfortably Cardiology neurology Rubin We'll continue to follow I performed a history & physical examination of the patient and discussed their management with my nurse practitioner, Anabelle Stearns. I reviewed the nurse practitioner's note and agree with the documented findings and plan of care. Lung sounds are positive for diffuse wheezes throughout the lung swenson. The findings and the impression was discussed with the patient. I attest to the documentation by the nurse practitioner. Time with Patient: Less than 30
[2021-05-16 09:20] LABS: Anisocytosis Slight; Basophils % (A) 0 %; Eosinophils % (A) 0 %; HCT 23.2 % (34.0-46.0); HGB 7.2 gm/dL (11.4-16.0); Hypochromasia Marked; Lymphocytes # (A) 0.4 k/uL (1.0-4.8); Lymphocytes % (A) 7 %; MCH 32.6 pg (25.0-35.0); Macrocytosis Moderate; Mean Platelet Volume 8.8; Monocytes # (A) 0.4 k/uL (0-1.0); Monocytes % (A) 8 %; Neutrophils # (A) 4.3 k/uL (1.3-7.7); Neutrophils % (A) 81 %; Platelet Count 422 k/uL (150-450); Poikilocytosis Moderate; RBC 2.21 m/uL (3.80-5.40); RDW 16.6 % (11.5-15.5); WBC 5.3 k/uL (3.8-10.6)
[2021-05-16] MEDS: AMOXIC-POT CLAV 875-125MG 1 EACH TAB PO SCH ×2 (09:48→20:36)
[2021-05-16] MEDS: MEMANTINE 10 MG TAB PO SCH ×2 (09:48→20:35)
[2021-05-16] MEDS: HEPARIN SODIUM,PORCINE/PF 5,000 UNIT/0.5 ML SYRINGE SQ SCH ×2 (09:48→20:36)
[2021-05-16] MEDS: ASCORBIC ACID 500 MG TAB PO SCH ×2 (09:48→20:35)
[2021-05-16] MEDS: CHOLECALCIFEROL 125 MCG (5000 IU) TABLET PO SCH (09:48)
[2021-05-16] MEDS: dexAMETHasone 2 MG TAB PO SCH (09:48)
[2021-05-16] MEDS: METOPROLOL SUCCINATE (ER) 25 MG TAB.ER.24H PO SCH (09:48)
[2021-05-16] MEDS: CLOPIDOGREL 75 MG TAB PO SCH (09:48)
[2021-05-16] MEDS: NON FORMULARY DRUG (Mirabegron [Myrbetriq] 50 MG Tablet) PO SCH (09:49)
[2021-05-16] MEDS: ZINC SULFATE 220 MG CAP PO SCH (09:49)
--- NOTE | 2021-05-16 10:24 | US ---
EXAMINATION TYPE: US venous doppler duplex LE BI DATE OF EXAM: 05/16/2021 9:47 AM COMPARISON: Multiple US LE latest = 05/09/20 right side CLINICAL HISTORY: elevated d-dimer. Swelling. SIDE PERFORMED: Bilateral TECHNIQUE: The lower extremity deep venous system is examined utilizing real time linear array sonog leonela with graded compression, doppler sonography and color-flow sonography. VESSELS IMAGED: Common Femoral Vein Deep Femoral Vein Greater Saphenous Vein * Femoral Vein Popliteal Vein Small Saphenous Vein * Proximal Calf Veins (* superficial vessels) Right Leg: Negative for DVT Left Leg: Negative for DVT Grayscale, color doppler, spectral doppler imaging performed of the deep veins of the bilateral lower extremities. There is normal flow, compressibility, vascular waveforms. IMPRESSION: No ultrasound evidence for acute DVT in either lower extremity.
[2021-05-16 11:21] LABS: Glucose,Whole Blood 96 mg/dL (75-99)
--- NOTE | 2021-05-16 13:27 | P.PN ---
Subjective This is a pleasant 65-year-old female past medical history significant for dementia, prior CVA with right sided weakness, Non-Hodgkins lymphoma, mitral stenosis, pulmonary hypertension, carotid stenosis s/p left carotid endarterectomy, hypertension, dyslipidemia, COPD. She follows with Dr. Lutz. We have been asked to see in consultation for congestive heart failure. Patient Presents to the Emergency Department with altered mental status. At bedside, patient is alert and oriented x 1, person only. Per emergency department note, patient was diagnosed with Covid-April 09, she has been confused and a steady decline per son. Confusion got worse over the past week. Per son, he was over at the house yesterday to check on her, "when she got up to use the restroom, she walked over to the couch and urinated." He states that she does have dementia at baseline however this is accelerated. Patient seen and examined at bedside, she has no complaints, she denies chest pain or shortness of breath. Unable to give accurate history. DIAGNOSTICS -EKG reveals sinus rhythm, heart rate 86, bundle-branch block, no significant past history of abnormalities. -Chest xray Cardiomegaly and mild pulmonary vascular congestion -Laboratory reviewed, WBC 7.7, hemoglobin 7.8, platelets 353, sodium 135, potassium 2.1, BUN 39, serum creatinine 1.3, magnesium 1.9, troponin 0.18, 0.17, 0.14, proBNP 8290, Covid positive. -CT brain bilateral frontal lobe encephalomalacia -Echocardiogram revealed an EF of 6065 percent, mild aortic stenosis peak/mean gradient of 20 mmHg/14 no murmurs mercury, mild mitral regurgitation, severe mitral stenosis peak/mean MV gradient 29 mmHg/16mmHg -Ultrasound of the kidneys revealed no hydronephrosis -Current home medications include Januvia, lisinopril 5 mg daily, Namenda, gabapentin, Lasix 40 mg daily, Plavix 75mg daily, atorvastatin 40 mg nightly 05/16/2021 Patient seen and examined at bedside, no distress. Mentation has improved. She is alert and oriented x 2-3. She denies any chest pain or shortness of breath. She denies any symptoms of orthopnea or PND. She is hemodynamically stable.Telemetry reviewed patient in sinus mechanism, heart rate 60s-70s PHYSICAL EXAMINATION Vitals Reviewed. CONSTITUTIONAL: No apparent distress. HEENT: Head is normocephalic. Sclerae anicteric. Mucous membranes of the mouth are dry. No JVD. CHEST EXAMINATION: Lungs with some wheezing bilaterally to auscultation. No chest wall tenderness is noted on palpation or with deep breathing. HEART EXAMINATION: Regular rate and rhythm. S1, S2 heard. Murmur noted. ABDOMEN: Soft, nontender. Positive bowel sounds. EXTREMITIES: no lower extremity edema and no calf tenderness. SKIN: warm, dry NEUROLOGIC EXAMINATION: Patient is awake, alert and oriented to person nly ASSESSMENT Altered mental status Acute Kidney Injury Covid-19 Infection Anemia Hypokalemia Elevated troponin, likely related to acute kidney injury, patient without chest pain, no evidence of ischemia on EKG, EF 60-65% Hypoalbuminemia Dementia History of prior CVA 10+ years ago per patient with right-sided weakness Non-Hodgkins lymphoma Mitral stenosis Pulmonary hypertension Carotid stenosis s/p prior left carotid endarterectomy 10+ years ago per patient History of hypertension Dyslipidemia COPD PLAN Continue metoprolol succinate 12.5mg Daily Discussed with Neurology, patient states she had a prior stroke and prior left carotid endarterectomy 10+ years ago. Due to anemia, we recommend holding Plavix. Patient's blood pressure and renal function have improved, ok to restart lisinopril Continue statin From a cardiology perspective, no further inpatient workup. We will sign off at this time. Please reconsult if needed. Patient to follow up with Dr. Lutz Nurse practitioner note has been reviewed by physician. Signing provider agrees with the documented findings, assessment, and plan of care. Objective - Vital Signs Vital signs: Vital Signs Temp 98 F 05/16/21 12:09 Pulse 66 05/16/21 12:09 Resp 15 05/16/21 12:09 BP 113/76 05/16/21 12:09 Pulse Ox 93 L 05/16/21 12:09 Intake & Output 05/15/21 05/16/21 05/16/21 18:59 06:59 18:59 Intake Total 240 150 Output Total 400 725 Balance -400 -485 150 Intake: Oral 240 150 Output: Urine 400 725 Other: Voiding Method Indwelling Catheter Indwelling Catheter Indwelling Catheter - Labs CBC & Chem 7: 05/16/21 08:41 05/15/21 10:19 Labs: Abnormal Lab Results - Last 24 Hours (Table) 05/14/21 05/15/21 05/15/21 Range/Units 17:50 08:46 10:19 RBC (3.80-5.40) m/uL Hgb (11.4-16.0) gm/dL Hct (34.0-46.0) % MCV (80.0-100.0) fL RDW (11.5-15.5) % Lymphocytes # (1.0-4.8) k/uL POC Glucose (mg/dL) (75-99) mg/dL Methylmalonic Acid 0.50 H (<0.40) umol/L Procalcitonin 0.81 H (0.02-0.09) ng/mL IgG <300.0 L (700.0-1600.0) mg/dL IgA <50.0 L (60.0-350.0) mg/dL IgM <25.0 L (40.0-280.0) mg/dL 05/15/21 05/15/21 05/16/21 Range/Units 16:56 20:03 05:52 RBC (3.80-5.40) m/uL Hgb (11.4-16.0) gm/dL Hct (34.0-46.0) % MCV (80.0-100.0) fL RDW (11.5-15.5) % Lymphocytes # (1.0-4.8) k/uL POC Glucose (mg/dL) 165 H 223 H 119 H (75-99) mg/dL Methylmalonic Acid (<0.40) umol/L Procalcitonin (0.02-0.09) ng/mL IgG (700.0-1600.0) mg/dL IgA (60.0-350.0) mg/dL IgM (40.0-280.0) mg/dL 05/16/21 Range/Units 08:41 RBC 2.21 L (3.80-5.40) m/uL Hgb 7.2 L (11.4-16.0) gm/dL Hct 23.2 L (34.0-46.0) % MCV 105.0 H (80.0-100.0) fL RDW 16.6 H (11.5-15.5) % Lymphocytes # 0.4 L (1.0-4.8) k/uL POC Glucose (mg/dL) (75-99) mg/dL Methylmalonic Acid (<0.40) umol/L Procalcitonin (0.02-0.09) ng/mL IgG (700.0-1600.0) mg/dL IgA (60.0-350.0) mg/dL IgM (40.0-280.0) mg/dL
[2021-05-16 13:52] LABS: Glucose,Whole Blood 108 mg/dL (75-99)
[2021-05-16] MEDS ORDERED: IMMUNE GLOBULIN (GAMMAGARD) 30 GM in EMPTY BAG 1 BAG IV ONE (15:00)
--- NOTE | 2021-05-16 15:25 | P.PN ---
Subjective Progress Note Date: 05/16/21 Principal diagnosis: lymphoma, covid In f/u today pt has mild confusion that persists, denies any SOB, pain, unusual harsh cough, chest pain. Objective - Vital Signs Vital signs: Vital Signs Temp 98 F 05/16/21 12:09 Pulse 66 05/16/21 12:09 Resp 15 05/16/21 12:09 BP 113/76 05/16/21 12:09 Pulse Ox 93 L 05/16/21 12:09 Intake & Output 05/15/21 05/16/21 05/16/21 18:59 06:59 18:59 Intake Total 240 150 Output Total 400 725 Balance -400 -485 150 Intake: Oral 240 150 Output: Urine 400 725 Other: Voiding Method Indwelling Catheter Indwelling Catheter Indwelling Catheter - Exam A&Ox2, NAD, mildly labored breathing observed. Pt was able to adjust her wt independently in the bed with some effort. Deferred otherwise, covid + patient. - Labs CBC & Chem 7: 05/16/21 08:41 05/15/21 10:19 Labs: Abnormal Lab Results - Last 24 Hours (Table) 05/14/21 05/15/21 05/15/21 Range/Units 17:50 08:46 10:19 RBC (3.80-5.40) m/uL Hgb (11.4-16.0) gm/dL Hct (34.0-46.0) % MCV (80.0-100.0) fL RDW (11.5-15.5) % Lymphocytes # (1.0-4.8) k/uL POC Glucose (mg/dL) (75-99) mg/dL Methylmalonic Acid 0.50 H (<0.40) umol/L Procalcitonin 0.81 H (0.02-0.09) ng/mL IgG <300.0 L (700.0-1600.0) mg/dL IgA <50.0 L (60.0-350.0) mg/dL IgM <25.0 L (40.0-280.0) mg/dL 05/15/21 05/15/21 05/16/21 Range/Units 16:56 20:03 05:52 RBC (3.80-5.40) m/uL Hgb (11.4-16.0) gm/dL Hct (34.0-46.0) % MCV (80.0-100.0) fL RDW (11.5-15.5) % Lymphocytes # (1.0-4.8) k/uL POC Glucose (mg/dL) 165 H 223 H 119 H (75-99) mg/dL Methylmalonic Acid (<0.40) umol/L Procalcitonin (0.02-0.09) ng/mL IgG (700.0-1600.0) mg/dL IgA (60.0-350.0) mg/dL IgM (40.0-280.0) mg/dL 05/16/21 Range/Units 08:41 RBC 2.21 L (3.80-5.40) m/uL Hgb 7.2 L (11.4-16.0) gm/dL Hct 23.2 L (34.0-46.0) % MCV 105.0 H (80.0-100.0) fL RDW 16.6 H (11.5-15.5) % Lymphocytes # 0.4 L (1.0-4.8) k/uL POC Glucose (mg/dL) (75-99) mg/dL Methylmalonic Acid (<0.40) umol/L Procalcitonin (0.02-0.09) ng/mL IgG (700.0-1600.0) mg/dL IgA (60.0-350.0) mg/dL IgM (40.0-280.0) mg/dL Assessment and Plan (1) Macrocytic anemia Narrative/Plan: From chemo, lymphoma, marrow suppression from Hx of disease/treatment with superimposed infection. Spoke with Dr. Stratton, pt mental status is A&Ox2, sometimes more lucid then others. Would assess pt mental status as normal for her. Her Hgb is a lower then normal, suspect r/t infection. Transfuse for Hgb 6.5 or lower, unless symptomatic. Hgb stable, 7.2 today Current Visit: Yes Status: Acute Priority: High Code(s): D53.9 - NUTRITIONAL ANEMIA, UNSPECIFIED SNOMED Code(s): 64442964 (2) Follicular lymphoma Narrative/Plan: Primary Oncologist treating pt with Q 3 mo Rituxan and Revlimid. Hold revlimid until seen by Oncologist. Pending Ig level results, may need IVIG Current Visit: Yes Status: Chronic Priority: Medium Code(s): C82.90 - FOLLICULAR LYMPHOMA, UNSPECIFIED, UNSPECIFIED SITE SNOMED Code(s): 639226120 (3) Hypogammaglobulinemia Narrative/Plan: Covid infection, IgG <300. Discuss with Pharmacist, dose ordered Current Visit: Yes Status: Chronic Priority: Medium Code(s): D80.1 - NONFAMILIAL HYPOGAMMAGLOBULINEMIA SNOMED Code(s): 733360723 Plan: Doctor attests: I performed a history and physical examination of this patient, developed impr ession and plan of care, discussed with dictator. I agree with dictators note, documented as a scribe.
[2021-05-16 16:27] LABS: Glucose,Whole Blood 198 mg/dL (75-99)
[2021-05-16 20:16] LABS: Glucose,Whole Blood 112 mg/dL (75-99)
[2021-05-16] MEDS: DOCUSATE 100 MG CAP PO SCH (20:35)
[2021-05-16] MEDS: DONEPEZIL 10 MG TAB PO SCH (20:35)
[2021-05-16] MEDS: ATORVASTATIN 40 MG TAB PO SCH (20:36)
--- NOTE | 2021-05-16 21:41 | P.PN ---
Subjective Progress Note Date: 05/16/21 Patient is a 65-year-old female with history of non-Hodgkin's lymphoma recently received chemotherapy came in is of increased confusion patient is alert oriented 2. Patient doesn't answer questions all that appropriately. Patient is found to have fever and patient is found to have COVID-19 infection. Patient was believed to have congestive heart failure on admission because of which cardiology was consulted. Patient does have severe mitral stenosis and probable diastolic dysfunction, IV fluids were discontinued patient may be in borderline heart failure patient does have mild pedal edema is unable to clearly appreciate any JVD does have elevated BNP of 3300. Chest x-ray was suspicious for pul monary edema but can be COVID-19 as well. Patient has mildly elevated troponins of 0.171 and 0.140. Confusion has been going on for past week on known whether patient has any other symptoms were COVID-19 and how long. Patient does have history of pulmonary hypertension as well patient does have history of carotid stenosis status post carotid endarterectomy. Patient had history of CVA with the right-sided weakness some residual. 05/15/2021 Patient evaluated today sitting up in the chair. Alert and oriented x2, knows she is in the hospital but not which one, says the year is 2001, she is a bit aphasic having a hard time finding her words. Which is possibly baseline. Overall feeling better denies any shortness of breath, cough, or chest pain. Chest xray today shows mild cardiomegaly, diffuse interstitial opacities could reflect mild interstitial pulmonary edema versus COVID related pneumonia. EEG shows mild background slowing and presence of frontal intermittent rhythmic delta activity suggestive of generalized cerebral dysfunction as seen with toxic metabolic encephalopathy, intermittent left temporal slowing suggestive of focal cortical neuronal dysfunction. No epileptiform activity was seen. Labs today; WBC 4.2, hgb 7.0, platelet 342, D-Dimer 1.50, sodium 139, potassium 4.3, BUN 25, creatinine 0.83, glucose 160's, AST 63, ALT 83, LDH 968, CRP 26.3, Procalcitonin 0.81. On PO decadron, COVID positive, first positive test in Apr of this year. Blood pressure continues on the lower side 95/59, heart rate 86, afebrile, 96% on 2L NC. Multiple consultations including oncology, neurology, cardiology, pulmonary. 05/16/2021 Patient evaluated today resting in bed. She was taken off oxygen support today with pulse ox 96%. Upon exam today patient was 70% on room air resting and required 4L of oxygen before saturations improved. She denies chest pain, cough, did have some shortness of breath. She was started on oral augmentin by pulmonary, continues on PO decadron, zinc, Patient started on synthroid, was found to be hypothyroid with TSH elevated to 35.700, checked a T4, was low at 0.45. Blood pressures on the lower side today 84/50, negative fluid balance. Labs today show WBC 5.3, hgb 7.2. Venous doppler negative for bilateral DVT. Patient got a dose of IVIG today. Plavix now on hold due to anemia as prior stroke and endarectomy 10 + years ago. REVIEW OF SYSTEMS: General: Denies fever, fatigue, Pulmonary: Denies cough, reports shortness of breath, pt hypoxic at that time Cardiac: Denies chest pain, chest pressure, palpitations : Denies dysuria, urgency, frequency Neurologic: Denies headache, dizziness, lightheadedness, PHYSICAL EXAMINATION: GENERAL: The patient is alert and oriented x2, which is baseline, not in any acute distress. Well developed, well nourished. HEENT: Pupils are round and equally reacting to light. EOMI. No scleral icterus. No conjunctival pallor. Normocephalic, atraumatic. No pharyngeal erythema. No thyromegaly. CARDIOVASCULAR: S1 and S2 present. No rubs, or gallops. There is a mid diastolic murmur in the mitral area PULMONARY: Increased aeration today with faint crackles bilateral bases ABDOMEN: Soft, nontender, nondistended, normoactive bowel sounds. No palpable organomegaly. MUSCULOSKELETAL: No joint swelling or deformity. EXTREMITIES: No cyanosis, clubbing, or pedal edema. NEUROLOGICAL: may have some residual weakness in the right side SKIN: No rashes. Assessment and plan -Shortness of breath, acute hypoxic respiratory failure: Multifocal with COVID pneumonia, CHF exacerbation. on 2L NC, 70% on room air. -Congestive heart failure chronic diastolic dysfunction with mild acute exacerbation, not on IV lasix due to borderline blood pressures -Non-Hodgkin's lymphoma recently received chemotherapy -Severe anemia with hemoglobin of 7.2: Secondary to recent chemotherapy for non- Hodgkin's lymphoma -Altered mental status: Toxic encephalopathy from infection component of metabolic from heart failure, seems improved -Sepsis secondary to COVID-19 infection -Hypervolemic hyponatremia on admission, sodium normalized -Severe mitral stenosis -Mildly elevated troponins: Cardiology evaluated the patient, most probably not myocardial infarction, more consistent with acute renal failure. Creatinine normalized. -Acute renal failure secondary to sepsis there may be a competent of prerenal azotemia from congestive heart failure as well as -Pulmonary hypertension -Carotid stenosis status post endarterectomy -Hypertension she is presently hypotensive and cannot tolerate diuretics patient probably will need diuretics. Lisinopril is being held because of hypotension and acute renal failure -Dementia probably Alzheimer's -History CVA with right side residual weakness DVT prophylaxis: Subcutaneous heparin GI prophylaxis: Protonix FULL CODE Plan Oxygen support Continue to hold lisinopril for marginal blood pressures, once normalized can resume per cardiology. Continue neuro checks Plavix on hold due to anemia Continue all other supportive care PT/OT consultation Repeat labs/inflammatory markers in AM Subacute rehab when stable Overall prognosis guarded Objective - Vital Signs Vital signs: Vital Signs Temp 98 F 05/16/21 12:09 Pulse 66 05/16/21 12:09 Resp 15 05/16/21 12:09 BP 113/76 05/16/21 12:09 Pulse Ox 93 L 05/16/21 12:09 Intake & Output 05/15/21 05/16/21 05/16/21 18:59 06:59 18:59 Intake Total 240 150 Output Total 400 725 Balance -400 -485 150 Intake: Oral 240 150 Output: Urine 400 725 Other: Voiding Method Indwelling Catheter Indwelling Catheter Indwelling Catheter - Labs CBC & Chem 7: 05/16/21 08:41 05/15/21 10:19 Labs: Abnormal Lab Results - Last 24 Hours (Table) 05/14/21 05/15/21 05/15/21 Range/Units 17:50 08:46 10:19 RBC (3.80-5.40) m/uL Hgb (11.4-16.0) gm/dL Hct (34.0-46.0) % MCV (80.0-100.0) fL RDW (11.5-15.5) % Lymphocytes # (1.0-4.8) k/uL POC Glucose (mg/dL) (75-99) mg/dL Methylmalonic Acid 0.50 H (<0.40) umol/L Procalcitonin 0.81 H (0.02-0.09) ng/mL IgG <300.0 L (700.0-1600.0) mg/dL IgA <50.0 L (60.0-350.0) mg/dL IgM <25.0 L (40.0-280.0) mg/dL 05/15/21 05/15/21 05/16/21 Range/Units 16:56 20:03 05:52 RBC (3.80-5.40) m/uL Hgb (11.4-16.0) gm/dL Hct (34.0-46.0) % MCV (80.0-100.0) fL RDW (11.5-15.5) % Lymphocytes # (1.0-4.8) k/uL POC Glucose (mg/dL) 165 H 223 H 119 H (75-99) mg/dL Methylmalonic Acid (<0.40) umol/L Procalcitonin (0.02-0.09) ng/mL IgG (700.0-1600.0) mg/dL IgA (60.0-350.0) mg/dL IgM (40.0-280.0) mg/dL 05/16/21 05/16/21 Range/Units 08:41 13:51 RBC 2.21 L (3.80-5.40) m/uL Hgb 7.2 L (11.4-16.0) gm/dL Hct 23.2 L (34.0-46.0) % MCV 105.0 H (80.0-100.0) fL RDW 16.6 H (11.5-15.5) % Lymphocytes # 0.4 L (1.0-4.8) k/uL POC Glucose (mg/dL) 108 H (75-99) mg/dL Methylmalonic Acid (<0.40) umol/L Procalcitonin (0.02-0.09) ng/mL IgG (700.0-1600.0) mg/dL IgA (60.0-350.0) mg/dL IgM (40.0-280.0) mg/dL
[2021-05-17 06:22] LABS: Glucose,Whole Blood 75 mg/dL (75-99)
[2021-05-17] MEDS: INSULIN ASPART (NovoLOG) 100 UNIT/ML VIAL SQ SCH ×4 (06:25→22:14)
[2021-05-17] MEDS: LEVOTHYROXINE 50 MCG TAB PO SCH (06:27)
[2021-05-17] MEDS: PANTOPRAZOLE 40 MG TABLET PO SCH (06:31)
--- NOTE | 2021-05-17 08:05 | XR ---
EXAMINATION TYPE: XR chest 1V portable DATE OF EXAM: 05/17/2021 HISTORY: Shortness of breath. COMPARISON: 05/15/2021 TECHNIQUE: Single view of the chest is submitted. FINDINGS: Demonstrated are scattered senescent parenchymal change. Progressive interstitial infiltrates seen bilaterally compatible with Covid 19 pneumonia. MediPort ca theter is in place. The heart is stable. Hilar and mediastinal structures are within normal limits. Degenerative changes are seen of the dorsal spine. IMPRESSION: 1. Progressive interstitial infiltrates seen bilaterally compatible with Covid 19 pneumonia.
[2021-05-17] MEDS: ZINC SULFATE 220 MG CAP PO SCH (08:32)
[2021-05-17] MEDS: MEMANTINE 10 MG TAB PO SCH ×2 (08:32→20:33)
[2021-05-17] MEDS: CHOLECALCIFEROL 125 MCG (5000 IU) TABLET PO SCH (08:33)
[2021-05-17] MEDS: METOPROLOL SUCCINATE (ER) 25 MG TAB.ER.24H PO SCH (08:33)
[2021-05-17] MEDS: AMOXIC-POT CLAV 875-125MG 1 EACH TAB PO SCH ×2 (08:33→20:33)
[2021-05-17] MEDS: HEPARIN SODIUM,PORCINE/PF 5,000 UNIT/0.5 ML SYRINGE SQ SCH ×2 (08:33→20:33)
[2021-05-17] MEDS: dexAMETHasone 2 MG TAB PO SCH (08:33)
[2021-05-17] MEDS: ASCORBIC ACID 500 MG TAB PO SCH ×2 (08:33→20:33)
[2021-05-17] MEDS: NON FORMULARY DRUG (Mirabegron [Myrbetriq] 50 MG Tablet) PO SCH (08:34)
[2021-05-17 08:36] LABS: Albumin 2.7 g/dL (3.5-5.0); Potassium 3.9 mmol/L (3.5-5.1); Total Bilirubin 0.5 mg/dL (0.2-1.3); Total Protein 5.5 g/dL (6.3-8.2)
[2021-05-17 08:50] LABS: Anisocytosis Slight; HCT 23.6 % (34.0-46.0); HGB 7.7 gm/dL (11.4-16.0); Hypochromasia Moderate; MCH 33.4 pg (25.0-35.0); MCHC 32.7 g/dL (31.0-37.0); MCV 102.2 fL (80.0-100.0); Macrocytosis Slight; Mean Platelet Volume 8.4; Platelet Count 387 k/uL (150-450); Poikilocytosis Moderate; RBC 2.31 m/uL (3.80-5.40); RDW 16.6 % (11.5-15.5); WBC 4.6 k/uL (3.8-10.6)
[2021-05-17 09:01] LABS: C Reactive Protein 11.9 mg/dL (<1.0)
[2021-05-17 09:29] LABS: Band Neutrophils % 4 %; Lymphocytes # (M) 0.41 k/uL (1.0-4.8); Metamyelocytes # (M) 0.09 k/uL (0); Metamyelocytes % 2 %; Monocytes # (M) 0.28 k/uL (0-1.0); Myelocytes # (M) 0.09 k/uL (0); Myelocytes % 2 %; Neutrophils % (M) 78 %; Nucleated Red Blood Cells 1 /100 WBC (0-0); Total Cells Counted 200
[2021-05-17 09:30] LABS: Polychromasia Present
--- NOTE | 2021-05-17 10:53 | P.PN ---
Subjective Patient is a 65-year-old female with history of non-Hodgkin's lymphoma recently received chemotherapy came in is of increased confusion patient is alert oriented 2. Patient doesn't answer questions all that appropriately. Patient is found to have fever and patient is found to have COVID-19 infection. Patient was believed to have congestive heart failure on admission because of which cardiology was consulted. Patient does have severe mitral stenosis and probable diastolic dysfunction, IV fluids were discontinued patient may be in borderline heart failure patient does have mild pedal edema is unable to clearly appreciate any JVD does have elevated BNP of 3300. Chest x-ray was suspicious for pulmonary edema but can be COVID-19 as well. Patient has mildly elevated troponins of 0.171 and 0.140. Confusion has been going on for past week on known whether patient has any other symptoms were COVID-19 and how long. Patient does have history of pulmonary hypertension as well patient does have history of carotid stenosis status post carotid endarterectomy. Patient had history of CVA with the right-sided weakness some residual. 05/15/2021 Patient evaluated today sitting up in the chair. Alert and oriented x2, knows she is in the hospital but not which one, says the year is 2001, she is a bit aphasic having a hard time finding her words. Which is possibly baseline. Overall feeling better denies any shortness of breath, cough, or chest pain. Chest xray today shows mild cardiomegaly, diffuse interstitial opacities could reflect mild interstitial pulmonary edema versus COVID related pneumonia. EEG shows mild background slowing and presence of frontal intermittent rhythmic delta activity suggestive of generalized cerebral dysfunction as seen with toxic metabolic encephalopathy, intermittent left temporal slowing suggestive of focal cortical neuronal dysfunction. No epileptiform activity was seen. Labs today; WBC 4.2, hgb 7.0, platelet 342, D-Dimer 1.50, sodium 139, potassium 4.3, BUN 25, creatinine 0.83, glucose 160's, AST 63, ALT 83, LDH 968, CRP 26.3, Procalcitonin 0.81. On PO decadron, COVID positive, first positive test in Apr of this year. Blood pressure continues on the lower side 95/59, heart rate 86, afebrile, 96% on 2L NC. Multiple consultations including oncology, neurology, cardiology, pulmonary. 05/16/2021 Patient evaluated today resting in bed. She was taken off oxygen support today with pulse ox 96%. Upon exam today patient was 70% on room air resting and required 4L of oxygen before saturations improved. She denies chest pain, cough, did have some shortness of breath. She was started on oral augmentin by pulmonary, continues on PO decadron, zinc, Patient started on synthroid, was found to be hypothyroid with TSH elevated to 35.700, checked a T4, was low at 0.45. Blood pressures on the lower side today 84/50, negative fluid balance. Labs today show WBC 5.3, hgb 7.2. Venous doppler negative for bilateral DVT. Patient got a dose of IVIG today. Plavix now on hold due to anemia as prior stroke and endarectomy 10 + years ago. Subjective: this is first time i am taking care of the patient 05/17/2021 Patient is with history of dementia admitted with bilateral Covid pneumonia and metabolic encephalopathy and hypoxia with some mild diastolic CHF. Patient has been evaluated by neurologist and cleared her for discharge. However patient is still with respiratory symptoms, she still receiving treatment for Covid bilateral pneumonia with dexamethasone, vitamin C, vitamin D and zinc and she is saturating 93% on 2 L but chest x-ray showing a progressive interstitial infiltrates. Also she was placed on Augmentin for elevated bloodcalcitonin 0.81. Hematology/oncology team for her history of follicular lymphoma, her home dose of remvilid is on hold oncology and follow-up as an outpatient with her oncologist to resume it. Also patient with anemia secondary to her lymphoma. Plavix is on hold for this purpose. REVIEW OF SYSTEMS: General: Denies fever, fatigue, Pulmonary: Denies cough, reports shortness of breath, pt hypoxic at that time Cardiac: Denies chest pain, chest pressure, palpitations : Denies dysuria, urgency, frequency Neurologic: Denies headache, dizziness, lightheadedness, Active Medications Generic Name Dose Route Start Last Admin Trade Name Freq PRN Reason Stop Dose Admin Acetaminophen 650 mg 05/13/21 20:09 05/14/21 08:45 Acetaminophen Tab 325 Mg Tab PO 650 mg Q6HR PRN Administration Mild Pain or Fever > 100.5 Amoxicillin/Clavulanate Potassium 1 each 05/16/21 09:00 05/17/21 08:33 Amoxic-Pot Clav 875-125mg 1 Each Tab PO 1 each Q12HR KRISTA Administration Ascorbic Acid 500 mg 05/16/21 09:00 05/17/21 08:33 Ascorbic Acid 500 Mg Tab PO 500 mg BID KRISTA Administration Atorvastatin Calcium 40 mg 05/14/21 21:00 05/16/21 20:36 Atorvastatin 40 Mg Tab PO 40 mg HS KRISTA Administration Cholecalciferol 125 mcg 05/16/21 09:00 05/17/21 08:33 Cholecalciferol 125 Mcg (5000 Iu) Tablet PO 125 mcg DAILY KRISTA Administration Dexamethasone 6 mg 05/14/21 15:15 05/17/21 08:33 Dexamethasone 2 Mg Tab PO 6 mg DAILY KRISTA Administration Dextrose/Water 50 ml 05/14/21 00:05 Dextrose 50% Syringe 50 Ml IVP ONCE PRN Hypoglycemia Docusate Sodium 100 mg 05/14/21 21:00 05/16/21 20:35 Docusate 100 Mg Cap PO 100 mg HS KRISTA Administration Donepezil HCl 10 mg 05/14/21 21:00 05/16/21 20:35 Donepezil 10 Mg Tab PO 10 mg HS KRISTA Administration Heparin Sodium (Porcine) 5,000 unit 05/14/21 21:00 05/17/21 08:33 Heparin Sodium,Porcine/Pf 5,000 Unit/0.5 Ml Syringe SQ 5,000 unit Q12HR KRISTA Administration Insulin Aspart 0 unit 05/14/21 17:30 05/17/21 06:25 Insulin Aspart (Novolog) 100 Unit/Ml Vial SQ Not Given ACHS [facility] Protocol Levothyroxine Sodium 50 mcg 05/16/21 06:30 05/17/21 06:27 Levothyroxine 50 Mcg Tab PO 50 mcg DAILY@0630 KRISTA Administration Memantine 10 mg 05/14/21 21:00 05/17/21 08:32 Memantine 10 Mg Tab PO 10 mg BID KRISTA Administration Metoprolol Succinate 12.5 mg 05/14/21 13:30 05/17/21 08:33 Metoprolol Succinate (Er) 25 Mg Tab.Er.24h PO 12.5 mg DAILY KRISTA Administration Miscellaneous Information 1 each 05/14/21 08:22 Potassium Replacement Protocol 1 Each Misc MISCELLANE DAILY PRN Per Protocol Protocol Naloxone HCl 0.2 mg 05/13/21 20:09 Naloxone 0.4 Mg/Ml 1 Ml Vial IV Q2M PRN Opioid Reversal Non-Formulary Medication 50 mg 05/14/21 09:00 05/17/21 08:34 Mirabegron [Myrbetriq] PO Not Given DAILY [facility] Pantoprazole Sodium 40 mg 05/15/21 07:30 05/17/21 06:31 Pantoprazole 40 Mg Tablet PO 40 mg [id number] KRISTA Administration Zinc Sulfate 220 mg 05/16/21 09:00 05/17/21 08:32 Zinc Sulfate 220 Mg Cap PO 220 mg DAILY KRISTA Administration Objective - Vital Signs Vital signs: Vital Signs Temp 98.3 F 05/17/21 08:00 Pulse 75 05/17/21 08:00 Resp 20 05/17/21 08:00 BP 123/65 05/17/21 08:00 Pulse Ox 93 L 05/17/21 08:00 Intake & Output 05/16/21 05/17/21 05/17/21 18:59 06:59 18:59 Intake Total 270 Output Total 500 550 Balance -230 -550 Intake: Oral 270 Output: Urine 500 550 Other: Voiding Method Indwelling Catheter Indwelling Catheter - Exam -GENERAL: The patient is alert and oriented x0, she is confused to time, place and person. She follows some commands but not appropriately correct, not in any acute distress. Obese HEENT: Pupils are round and equally reacting to light. EOMI. No scleral icterus. No conjunctival pallor. Normocephalic, atraumatic. No pharyngeal erythema. No thyromegaly. CARDIOVASCULAR: S1 and S2 present. No murmurs, rubs, or gallops. PULMONARY: Chest is clear to auscultation, no wheezing or crackles. ABDOMEN: Soft, nontender, nondistended, normoactive bowel sounds. No palpable organomegaly. MUSCULOSKELETAL: No joint swelling or deformity. EXTREMITIES: No cyanosis, clubbing, or pedal edema. NEUROLOGICAL: Gross neurological examination did not reveal any focal deficits. SKIN: No rashes. no petechiae. - Labs CBC & Chem 7: 05/17/21 07:53 05/17/21 07:53 Labs: Abnormal Lab Results - Last 24 Hours (Table) 05/16/21 05/16/21 05/16/21 Range/Units 08:41 13:51 16:26 RBC 2.21 L (3.80-5.40) m/uL Hgb 7.2 L (11.4-16.0) gm/dL Hct 23.2 L (34.0-46.0) % MCV 105.0 H (80.0-100.0) fL RDW 16.6 H (11.5-15.5) % Lymphocytes # 0.4 L (1.0-4.8) k/uL D-Dimer (<0.60) mg/L FEU BUN (7-17) mg/dL Glucose (74-99) mg/dL POC Glucose (mg/dL) 108 H 198 H (75-99) mg/dL Calcium (8.4-10.2) mg/dL AST (14-36) U/L ALT (4-34) U/L Alkaline Phosphatase (38-126) U/L Lactate Dehydrogenase (313-618) U/L C-Reactive Protein (<1.0) mg/dL Total Protein (6.3-8.2) g/dL Albumin (3.5-5.0) g/dL 05/16/21 05/17/21 05/17/21 Range/Units 20:12 07:53 07:53 RBC 2.31 L (3.80-5.40) m/uL Hgb 7.7 L (11.4-16.0) gm/dL Hct 23.6 L (34.0-46.0) % MCV 102.2 H (80.0-100.0) fL RDW 16.6 H (11.5-15.5) % Lymphocytes # (1.0-4.8) k/uL D-Dimer 1.23 H (<0.60) mg/L FEU BUN (7-17) mg/dL Glucose (74-99) mg/dL POC Glucose (mg/dL) 112 H (75-99) mg/dL Calcium (8.4-10.2) mg/dL AST (14-36) U/L ALT (4-34) U/L Alkaline Phosphatase (38-126) U/L Lactate Dehydrogenase (313-618) U/L C-Reactive Protein (<1.0) mg/dL Total Protein (6.3-8.2) g/dL Albumin (3.5-5.0) g/dL 02/11/22 Range/Units 07:53 RBC (3.80-5.40) m/uL Hgb (11.4-16.0) gm/dL Hct (34.0-46.0) % MCV (80.0-100.0) fL RDW (11.5-15.5) % Lymphocytes # (1.0-4.8) k/uL D-Dimer (<0.60) mg/L FEU BUN 26 H (7-17) mg/dL Glucose 72 L (74-99) mg/dL POC Glucose (mg/dL) (75-99) mg/dL Calcium 8.0 L (8.4-10.2) mg/dL AST 43 H (14-36) U/L ALT 93 H (4-34) U/L Alkaline Phosphatase 132 H (38-126) U/L Lactate Dehydrogenase 1045 H (313-618) U/L C-Reactive Protein 11.9 H (<1.0) mg/dL Total Protein 5.5 L (6.3-8.2) g/dL Albumin 2.7 L (3.5-5.0) g/dL Assessment and Plan Assessment: Assessment and plan -Shortness of breath, acute hypoxic respiratory failure: Multifocal with COVID pneumonia, CHF exacerbation. on 2L NC, 70% on room air. -Congestive heart failure chronic diastolic dysfunction with mild acute exacerbation, not on IV lasix due to borderline blood pressures -Non-Hodgkin's lymphoma recently received chemotherapy -Severe anemia with hemoglobin of 7.2: Secondary to recent chemotherapy for non- Hodgkin's lymphoma -Altered mental status: Toxic encephalopathy from infection component of metabolic from heart failure, seems improved -Sepsis secondary to COVID-19 infection -Hypervolemic hyponatremia on admission, sodium normalized -Severe mitral stenosis -Mildly elevated troponins: Cardiology evaluated the patient, most probably not myocardial infarction, more consistent with acute renal failure. Creatinine normalized. -Acute renal failure secondary to sepsis there may be a competent of prerenal azotemia from congestive heart failure as well as -Pulmonary hypertension -Carotid stenosis status post endarterectomy -Hypertension she is presently hypotensive and cannot tolerate diuretics patient probably will need diuretics. Lisinopril is being held because of hypotension and acute renal failure -Dementia probably Alzheimer's -History CVA with right side residual weakness Plan: Oxygen support Continue to hold lisinopril for marginal blood pressures, once normalized can resume per cardiology. Continue neuro checks Plavix on hold due to anemia Continue all other supportive care PT/OT consultation Subacute rehab when stable DVT prophylaxis: Subcutaneous heparin GI prophylaxis: Protonix Prognosis is guarded FULL CODE
[2021-05-17 11:49] LABS: Glucose,Whole Blood 141 mg/dL (75-99)
[2021-05-17 13:10] LABS: Phosphorus 2.9 mg/dL (2.5-4.5)
[2021-05-17 13:56] LABS: INR 0.9 (<1.2); Partial Thromboplastin Time 23.7 sec (22.0-30.0); Prothrombin Time 10.3 sec (9.0-12.0)
[2021-05-17] MEDS ORDERED: IMMUNE GLOBULIN (GAMMAGARD) 30 GM in EMPTY BAG 1 BAG IV ONE (14:00)
[2021-05-17 16:30] LABS: Glucose,Whole Blood 141 mg/dL (75-99)
--- NOTE | 2021-05-17 19:22 | P.PN ---
Subjective Progress Note Date: 05/17/21 Principal diagnosis: Lymphoma, COVID and Hypogammaglobulemia Sarah has received 30gram IVIG yesterday. Given her weight and IgG level (<300). With her oncologic diagnosis, Lymphoma. Covid, and Low IgG I have asked discussed with pharmacy and will give another 30grams today. Objective - Vital Signs Vital signs: Vital Signs Temp 99.2 F 05/17/21 12:00 Pulse 74 05/17/21 12:00 Resp 20 05/17/21 12:00 BP 129/75 05/17/21 12:00 Pulse Ox 94 L 05/17/21 12:00 Intake & Output 05/16/21 05/17/21 05/17/21 18:59 06:59 18:59 Intake Total 270 Output Total 500 550 Balance -230 -550 Intake: Oral 270 Output: Urine 500 550 Other: Voiding Method Indwelling Catheter Indwelling Catheter - Exam A&Ox2, NAD, mildly labored breathing observed. Pt was able to adjust her wt independently in the bed with some effort. Deferred otherwise, covid + patient. - Labs CBC & Chem 7: 05/17/21 07:53 05/17/21 07:53 Labs: Abnormal Lab Results - Last 24 Hours (Table) 05/16/21 05/16/21 05/16/21 Range/Units 13:51 16:26 20:12 RBC (3.80-5.40) m/uL Hgb (11.4-16.0) gm/dL Hct (34.0-46.0) % MCV (80.0-100.0) fL RDW (11.5-15.5) % Lymphocytes # (Manual) (1.0-4.8) k/uL Metamyelocytes # (Man) (0) k/uL Myelocytes # (Manual) (0) k/uL Nucleated RBCs (0-0) /100 WBC D-Dimer (<0.60) mg/L FEU BUN (7-17) mg/dL Glucose (74-99) mg/dL POC Glucose (mg/dL) 108 H 198 H 112 H (75-99) mg/dL Calcium (8.4-10.2) mg/dL AST (14-36) U/L ALT (4-34) U/L Alkaline Phosphatase (38-126) U/L Lactate Dehydrogenase (313-618) U/L C-Reactive Protein (<1.0) mg/dL Total Protein (6.3-8.2) g/dL Albumin (3.5-5.0) g/dL 05/17/21 05/17/21 05/17/21 Range/Units 07:53 07:53 07:53 RBC 2.31 L (3.80-5.40) m/uL Hgb 7.7 L (11.4-16.0) gm/dL Hct 23.6 L (34.0-46.0) % MCV 102.2 H (80.0-100.0) fL RDW 16.6 H (11.5-15.5) % Lymphocytes # (Manual) 0.41 L (1.0-4.8) k/uL Metamyelocytes # (Man) 0.09 H (0) k/uL Myelocytes # (Manual) 0.09 H (0) k/uL Nucleated RBCs 1 H (0-0) /100 WBC D-Dimer 1.23 H (<0.60) mg/L FEU BUN 26 H (7-17) mg/dL Glucose 72 L (74-99) mg/dL POC Glucose (mg/dL) (75-99) mg/dL Calcium 8.0 L (8.4-10.2) mg/dL AST 43 H (14-36) U/L ALT 93 H (4-34) U/L Alkaline Phosphatase 132 H (38-126) U/L Lactate Dehydrogenase 1045 H (313-618) U/L C-Reactive Protein 11.9 H (<1.0) mg/dL Total Protein 5.5 L (6.3-8.2) g/dL Albumin 2.7 L (3.5-5.0) g/dL 05/17/21 Range/Units 11:48 RBC (3.80-5.40) m/uL Hgb (11.4-16.0) gm/dL Hct (34.0-46.0) % MCV (80.0-100.0) fL RDW (11.5-15.5) % Lymphocytes # (Manual) (1.0-4.8) k/uL Metamyelocytes # (Man) (0) k/uL Myelocytes # (Manual) (0) k/uL Nucleated RBCs (0-0) /100 WBC D-Dimer (<0.60) mg/L FEU BUN (7-17) mg/dL Glucose (74-99) mg/dL POC Glucose (mg/dL) 141 H (75-99) mg/dL Calcium (8.4-10.2) mg/dL AST (14-36) U/L ALT (4-34) U/L Alkaline Phosphatase (38-126) U/L Lactate Dehydrogenase (313-618) U/L C-Reactive Protein (<1.0) mg/dL Total Protein (6.3-8.2) g/dL Albumin (3.5-5.0) g/dL Assessment and Plan Plan: Assessment and Plan (1) Macrocytic anemia Narrative/Plan: From chemo, lymphoma, marrow suppression from Hx of disease/treatment with superimposed infection. Spoke with Dr. Stratton, pt mental status is A&Ox2, sometimes more lucid then others. Would assess pt mental status as normal for her. Her Hgb is a lower then normal, suspect r/t infection. Transfuse for Hgb 6.5 or lower, unless symptomatic (parameter per hospital and shortage). Hgb stable, 7.7 today Current Visit: Yes Status: Acute Priority: High Code(s): D53.9 - NUTRITI ONAL ANEMIA, UNSPECIFIED SNOMED Code(s): 39214509 (2) Follicular lymphoma Narrative/Plan: Primary Oncologist treating pt with Q 3 mo Rituxan and Revlimid. Hold revlimid until seen by Oncologist. Follow-up with Dr. Stratton after discharge Current Visit: Yes Status: Chronic Priority: Medium Code(s): C82.90 - FOLLICULAR LYMPHOMA, UNSPECIFIED, UNSPECIFIED SITE SNOMED Code(s): 657278556 (3) Hypogammaglobulinemia with Active COVID Infection Narrative/Plan: Covid infection, IgG <300. Status POST 30grams IVIG on 05/16/21. A Second 30gram dose ordered today after discussing further with pharmacy Total of 60grams Current Visit: Yes Status: Chronic Priority: Medium Code(s): D80.1 - NONFAMILIAL HYPOGAMMAGLOBULINEMIA SNOMED Code(s): 258948709 Plan: Doctor attests: I performed a history and physical examination of this patient, developed impression and plan of care, discussed with dictator. I agree with dictators note, documented as a scribe.
[2021-05-17 20:04] LABS: Glucose,Whole Blood 126 mg/dL (75-99)
[2021-05-17] MEDS: DONEPEZIL 10 MG TAB PO SCH (20:33)
[2021-05-17] MEDS: DOCUSATE 100 MG CAP PO SCH (20:33)
[2021-05-17] MEDS: ATORVASTATIN 40 MG TAB PO SCH (20:33)
[2021-05-18 06:10] LABS: Glucose,Whole Blood 66 mg/dL (75-99)
[2021-05-18 06:29] LABS: Glucose,Whole Blood 83 mg/dL (75-99)
[2021-05-18] MEDS: PANTOPRAZOLE 40 MG TABLET PO SCH (06:34)
[2021-05-18] MEDS: INSULIN ASPART (NovoLOG) 100 UNIT/ML VIAL SQ SCH ×4 (06:34→21:08)
[2021-05-18] MEDS: LEVOTHYROXINE 50 MCG TAB PO SCH (06:34)
[2021-05-18] MEDS: HEPARIN SODIUM,PORCINE/PF 5,000 UNIT/0.5 ML SYRINGE SQ SCH ×2 (09:48→21:08)
[2021-05-18] MEDS: METOPROLOL SUCCINATE (ER) 25 MG TAB.ER.24H PO SCH (09:49)
[2021-05-18] MEDS: MEMANTINE 10 MG TAB PO SCH ×2 (09:49→21:08)
[2021-05-18] MEDS: CHOLECALCIFEROL 125 MCG (5000 IU) TABLET PO SCH (09:49)
[2021-05-18] MEDS: CYANOCOBALAMIN 500 MCG TAB PO SCH (09:49)
[2021-05-18] MEDS: ASCORBIC ACID 500 MG TAB PO SCH ×2 (09:49→21:08)
[2021-05-18] MEDS: ZINC SULFATE 220 MG CAP PO SCH (09:49)
[2021-05-18] MEDS: AMOXIC-POT CLAV 875-125MG 1 EACH TAB PO SCH ×2 (09:49→21:08)
[2021-05-18] MEDS: dexAMETHasone 2 MG TAB PO SCH (09:49)
[2021-05-18] MEDS: NON FORMULARY DRUG (Mirabegron [Myrbetriq] 50 MG Tablet) PO SCH (09:50)
[2021-05-18] MEDS: PYRIDOXINE 50 MG TAB PO SCH (09:50)
[2021-05-18 10:00] LABS: Phosphorus 2.3 mg/dL (2.5-4.5); Uric Acid 5.3 mg/dL (3.7-7.4)
[2021-05-18 10:10] LABS: Anisocytosis Slight; Basophils % (A) 1 %; Eosinophils % (A) 0 %; HCT 24.5 % (34.0-46.0); HGB 7.6 gm/dL (11.4-16.0); Hypochromasia Marked; Lymphocytes # (A) 0.5 k/uL (1.0-4.8); Lymphocytes % (A) 15 %; MCH 32.4 pg (25.0-35.0); MCHC 30.8 g/dL (31.0-37.0); MCV 105.2 fL (80.0-100.0); Macrocytosis Moderate; Mean Platelet Volume 8.6; Monocytes # (A) 0.4 k/uL (0-1.0); Monocytes % (A) 11 %; Neutrophils # (A) 2.3 k/uL (1.3-7.7); Neutrophils % (A) 69 %; Platelet Count 358 k/uL (150-450); Poikilocytosis Moderate; RBC 2.33 m/uL (3.80-5.40); RDW 17.5 % (11.5-15.5); WBC 3.4 k/uL (3.8-10.6)
[2021-05-18 11:36] LABS: Glucose,Whole Blood 131 mg/dL (75-99)
--- NOTE | 2021-05-18 15:34 | P.PN ---
Subjective Patient is a 65-year-old female with history of non-Hodgkin's lymphoma recently received chemotherapy came in is of increased confusion patient is alert oriented 2. Patient doesn't answer questions all that appropriately. Patient is found to have fever and patient is found to have COVID-19 infection. Patient was believed to have congestive heart failure on admission because of which cardiology was consulted. Patient does have severe mitral stenosis and probable diastolic dysfunction, IV fluids were discontinued patient may be in borderline heart failure patient does have mild pedal edema is unable to clearly appreciate any JVD does have elevated BNP of 3300. Chest x-ray was suspicious for pulmonary edema but can be COVID-19 as well. Patient has mildly elevated troponins of 0.171 and 0.140. Confusion has been going on for past week on known whether patient has any other symptoms were COVID-19 and how long. Patient does have history of pulmonary hypertension as well patient does have history of carotid stenosis status post carotid endarterectomy. Patient had history of CVA with the right-sided weakness some residual. 05/15/2021 Patient evaluated today sitting up in the chair. Alert and oriented x2, knows she is in the hospital but not which one, says the year is 2001, she is a bit aphasic having a hard time finding her words. Which is possibly baseline. Overall feeling better denies any shortness of breath, cough, or chest pain. Chest xray today shows mild cardiomegaly, diffuse interstitial opacities could reflect mild interstitial pulmonary edema versus COVID related pneumonia. EEG shows mild background slowing and presence of frontal intermittent rhythmic delta activity suggestive of generalized cerebral dysfunction as seen with toxic metabolic encephalopathy, intermittent left temporal slowing suggestive of focal cortical neuronal dysfunction. No epileptiform activity was seen. Labs today; WBC 4.2, hgb 7.0, platelet 342, D-Dimer 1.50, sodium 139, potassium 4.3, BUN 25, creatinine 0.83, glucose 160's, AST 63, ALT 83, LDH 968, CRP 26.3, Procalcitonin 0.81. On PO decadron, COVID positive, first positive test in Apr of this year. Blood pressure continues on the lower side 95/59, heart rate 86, afebrile, 96% on 2L NC. Multiple consultations including oncology, neurology, cardiology, pulmonary. 05/16/2021 Patient evaluated today resting in bed. She was taken off oxygen support today with pulse ox 96%. Upon exam today patient was 70% on room air resting and required 4L of oxygen before saturations improved. She denies chest pain, cough, did have some shortness of breath. She was started on oral augmentin by pulmonary, continues on PO decadron, zinc, Patient started on synthroid, was found to be hypothyroid with TSH elevated to 35.700, checked a T4, was low at 0.45. Blood pressures on the lower side today 84/50, negative fluid balance. Labs today show WBC 5.3, hgb 7.2. Venous doppler negative for bilateral DVT. Patient got a dose of IVIG today. Plavix now on hold due to anemia as prior stroke and endarectomy 10 + years ago. Subjective: this is first time i am taking care of the patient 05/17/2021 Patient is with history of dementia admitted with bilateral Covid pneumonia and metabolic encephalopathy and hypoxia with some mild diastolic CHF. Patient has been evaluated by neurologist and cleared her for discharge. However patient is still with respiratory symptoms, she still receiving treatment for Covid bilateral pneumonia with dexamethasone, vitamin C, vitamin D and zinc and she is saturating 93% on 2 L but chest x-ray showing a progressive interstitial infiltrates. Also she was placed on Augmentin for elevated bloodcalcitonin 0.81. Hematology/oncology team for her history of follicular lymphoma, her home dose of remvilid is on hold oncology and follow-up as an outpatient with her oncologist to resume it. Also patient with anemia secondary to her lymphoma. Plavix is on hold for this purpose. 05/18/2021 Patient is with bilateral Covid pneumonia, she is minimally symptomatic at rest she has some occasional coughing. She is saturating 93% and 2 L oxygen via n newton cannula. She was much confused related to her infection but today is much better compared to yesterday she couldn't tell me she is in the hospital although she could not locate facility in [facility]. She could not tell the year but she remember the name of the present compared to complete disorientation yesterday this is significant improvement. While she stated that she does not have more symptoms, no chest pain or dyspnea. No GI symptoms. No diarrhea. She is eating well. Because hemoglobin stable we resumed her home dose of Plavix, lisinopril because her blood pressure stable. Monitor blood pressure, hemoglobin and other labs tomorrow. Checked forcalcitonin tomorrow. Patient will benefit from ECF upon discharge Keep holding bupropion and gabapentin as her mentation is keep improvement Objective - Vital Signs Vital signs: Vital Signs Temp 98.3 F 05/18/21 12:00 Pulse 66 05/18/21 12:00 Resp 20 05/18/21 12:00 BP 133/66 05/18/21 12:00 Pulse Ox 93 L 05/18/21 12:00 Intake & Output 05/17/21 05/18/21 05/18/21 18:59 06:59 18:59 Intake Total 240 Output Total 625 600 300 Balance -625 -600 -60 Intake: Oral 240 Output: Urine 625 600 300 Other: Voiding Method Indwelling Catheter Indwelling Catheter # Voids 1 - Exam -GENERAL: The patient is alert and oriented x0, she is confused to time, place and person. She follows some commands but not appropriately correct, not in any acute distress. Obese HEENT: Pupils are round and equally reacting to light. EOMI. No scleral icterus. No conjunctival pallor. Normocephalic, atraumatic. No pharyngeal erythema. No thyromegaly. CARDIOVASCULAR: S1 and S2 present. No murmurs, rubs, or gallops. PULMONARY: Chest is clear to auscultation, no wheezing or crackles. ABDOMEN: Soft, nontender, nondistended, normoactive bowel sounds. No palpable organomegaly. MUSCULOSKELETAL: No joint swelling or deformity. EXTREMITIES: No cyanosis, clubbing, or pedal edema. NEUROLOGICAL: Gross neurological examination did not reveal any focal deficits. SKIN: No rashes. no petechiae. - Labs CBC & Chem 7: 05/18/21 09:04 05/17/21 07:53 Labs: Abnormal Lab Results - Last 24 Hours (Table) 05/17/21 05/17/21 05/18/21 Range/Units 16:27 20:03 06:08 WBC (3.8-10.6) k/uL RBC (3.80-5.40) m/uL Hgb (11.4-16.0) gm/dL Hct (34.0-46.0) % MCV (80.0-100.0) fL MCHC (31.0-37.0) g/dL RDW (11.5-15.5) % Lymphocytes # (1.0-4.8) k/uL POC Glucose (mg/dL) 141 H 126 H 66 L (75-99) mg/dL Phosphorus (2.5-4.5) mg/dL Lactate Dehydrogenase (313-618) U/L 05/18/21 05/18/21 05/18/21 Range/Units 09:04 09:04 11:34 WBC 3.4 L (3.8-10.6) k/uL RBC 2.33 L (3.80-5.40) m/uL Hgb 7.6 L (11.4-16.0) gm/dL Hct 24.5 L (34.0-46.0) % MCV 105.2 H (80.0-100.0) fL MCHC 30.8 L (31.0-37.0) g/dL RDW 17.5 H (11.5-15.5) % Lymphocytes # 0.5 L (1.0-4.8) k/uL POC Glucose (mg/dL) 131 H (75-99) mg/dL Phosphorus 2.3 L (2.5-4.5) mg/dL Lactate Dehydrogenase 911 H (313-618) U/L Assessment and Plan Assessment: Assessment and plan -Shortness of breath, acute hypoxic respiratory failure: Multifocal with COVID pneumonia, CHF exacerbation. on 2L NC, 70% on room air. -Congestive heart failure chronic diastolic dysfunction with mild acute exacerbation, not on IV lasix due to borderline blood pressures -Non-Hodgkin's lymphoma recently received chemotherapy -Severe anemia with hemoglobin of 7.2: Secondary to recent chemotherapy for non- Hodgkin's lymphoma -Altered mental status: Toxic encephalopathy from infection component of metabolic from heart failure, seems improved -Sepsis secondary to COVID-19 infection -Hypervolemic hyponatremia on admission, sodium normalized -Severe mitral stenosis -Mildly elevated troponins: Cardiology evaluated the patient, most probably not myocardial infarction, more consistent with acute renal failure. Creatinine normalized. -Acute renal failure secondary to sepsis there may be a competent of prerenal azotemia from congestive heart failure as well as -Pulmonary hypertension -Carotid stenosis status post endarterectomy -Hypertension she is presently hypotensive and cannot tolerate diuretics patient probably will need diuretics. Lisinopril is being held because of hypotension and acute renal failure -Dementia probably Alzheimer's -History CVA with right side residual weakness Plan: Oxygen support Continue to hold lisinopril for marginal blood pressures, once normalized can resume per cardiology. Continue neuro checks Plavix on hold due to anemia Continue all other supportive care PT/OT consultation Subacute rehab when stable DVT prophylaxis: Subcutaneous heparin GI prophylaxis: Protonix Prognosis is guarded FULL CODE
[2021-05-18] MEDS: CLOPIDOGREL 75 MG TAB PO SCH (16:23)
[2021-05-18] MEDS: lisinopriL 5 MG TAB PO SCH (16:23)
[2021-05-18 16:57] LABS: Glucose,Whole Blood 177 mg/dL (75-99)
[2021-05-18 20:28] LABS: Glucose,Whole Blood 228 mg/dL (75-99)
[2021-05-18] MEDS: DOCUSATE 100 MG CAP PO SCH (21:08)
[2021-05-18] MEDS: DONEPEZIL 10 MG TAB PO SCH (21:09)
[2021-05-18] MEDS: ATORVASTATIN 40 MG TAB PO SCH (21:09)
[2021-05-19 06:36] LABS: Glucose,Whole Blood 71 mg/dL (75-99)
[2021-05-19] MEDS: PANTOPRAZOLE 40 MG TABLET PO SCH (06:49)
[2021-05-19] MEDS: INSULIN ASPART (NovoLOG) 100 UNIT/ML VIAL SQ SCH ×4 (06:49→20:40)
[2021-05-19 08:21] LABS: African American GFR (CKD) >90 (>60 ml/min/1.73 sqM); Anion Gap 5 mmol/L; Blood Urea Nitrogen 20 mg/dL (7-17); C Reactive Protein 5.8 mg/dL (<1.0); Calcium 8.2 mg/dL (8.4-10.2); Carbon Dioxide 29 mmol/L (22-30); Chloride 106 mmol/L (98-107); Glucose 95 mg/dL (74-99); LDH 895 U/L (313-618); Non-African American GFR(CKD) 85 (>60 ml/min/1.73 sqM); Potassium 3.9 mmol/L (3.5-5.1); Sodium 140 mmol/L (137-145)
[2021-05-19] MEDS: dexAMETHasone 2 MG TAB PO SCH (08:42)
[2021-05-19] MEDS: MEMANTINE 10 MG TAB PO SCH ×2 (08:42→20:40)
[2021-05-19] MEDS: ZINC SULFATE 220 MG CAP PO SCH (08:42)
[2021-05-19] MEDS: AMOXIC-POT CLAV 875-125MG 1 EACH TAB PO SCH ×2 (08:42→20:39)
[2021-05-19] MEDS: lisinopriL 5 MG TAB PO SCH (08:42)
[2021-05-19] MEDS: CLOPIDOGREL 75 MG TAB PO SCH (08:42)
[2021-05-19] MEDS: HEPARIN SODIUM,PORCINE/PF 5,000 UNIT/0.5 ML SYRINGE SQ SCH ×2 (08:42→20:40)
[2021-05-19] MEDS: METOPROLOL SUCCINATE (ER) 25 MG TAB.ER.24H PO SCH (08:43)
[2021-05-19] MEDS: PYRIDOXINE 50 MG TAB PO SCH (08:43)
[2021-05-19] MEDS: CHOLECALCIFEROL 125 MCG (5000 IU) TABLET PO SCH (08:43)
[2021-05-19] MEDS: ASCORBIC ACID 500 MG TAB PO SCH ×2 (08:43→20:39)
[2021-05-19] MEDS: FUROSEMIDE 20 MG TAB PO SCH (08:43)
[2021-05-19] MEDS: CYANOCOBALAMIN 500 MCG TAB PO SCH (08:43)
[2021-05-19] MEDS: NON FORMULARY DRUG (Mirabegron [Myrbetriq] 50 MG Tablet) PO SCH (08:47)
[2021-05-19 08:53] LABS: Anisocytosis Slight; Basophils % (A) 1 %; Eosinophils % (A) 0 %; HCT 26.8 % (34.0-46.0); HGB 8.1 gm/dL (11.4-16.0); Hypochromasia Marked; Lymphocytes # (A) 0.7 k/uL (1.0-4.8); Lymphocytes % (A) 20 %; MCH 32.2 pg (25.0-35.0); MCHC 30.4 g/dL (31.0-37.0); MCV 106.1 fL (80.0-100.0); Macrocytosis Marked; Monocytes # (A) 0.3 k/uL (0-1.0); Monocytes % (A) 9 %; Neutrophils # (A) 2.4 k/uL (1.3-7.7); Neutrophils % (A) 67 %; Platelet Count 359 k/uL (150-450); Poikilocytosis Moderate; RBC 2.52 m/uL (3.80-5.40); RDW 18.1 % (11.5-15.5); WBC 3.6 k/uL (3.8-10.6)
[2021-05-19 09:51] LABS: Polychromasia Present
--- NOTE | 2021-05-19 10:20 | P.PN ---
Subjective Patient is a 65-year-old female with history of non-Hodgkin's lymphoma recently received chemotherapy came in is of increased confusion patient is alert oriented 2. Patient doesn't answer questions all that appropriately. Patient is found to have fever and patient is found to have COVID-19 infection. Patient was believed to have congestive heart failure on admission because of which cardiology was consulted. Patient does have severe mitral stenosis and probable diastolic dysfunction, IV fluids were discontinued patient may be in borderline heart failure patient does have mild pedal edema is unable to clearly appreciate any JVD does have elevated BNP of 3300. Chest x-ray was suspicious for pulmonary edema but can be COVID-19 as well. Patient has mildly elevated troponins of 0.171 and 0.140. Confusion has been going on for past week on known whether patient has any other symptoms were COVID-19 and how long. Patient does have history of pulmonary hypertension as well patient does have history of carotid stenosis status post carotid endarterectomy. Patient had history of CVA with the right-sided weakness some residual. 05/15/2021 Patient evaluated today sitting up in the chair. Alert and oriented x2, knows she is in the hospital but not which one, says the year is 2001, she is a bit aphasic having a hard time finding her words. Which is possibly baseline. Overall feeling better denies any shortness of breath, cough, or chest pain. Chest xray today shows mild cardiomegaly, diffuse interstitial opacities could reflect mild interstitial pulmonary edema versus COVID related pneumonia. EEG shows mild background slowing and presence of frontal intermittent rhythmic delta activity suggestive of generalized cerebral dysfunction as seen with toxic metabolic encephalopathy, intermittent left temporal slowing suggestive of focal cortical neuronal dysfunction. No epileptiform activity was seen. Labs today; WBC 4.2, hgb 7.0, platelet 342, D-Dimer 1.50, sodium 139, potassium 4.3, BUN 25, creatinine 0.83, glucose 160's, AST 63, ALT 83, LDH 968, CRP 26.3, Procalcitonin 0.81. On PO decadron, COVID positive, first positive test in Apr of this year. Blood pressure continues on the lower side 95/59, heart rate 86, afebrile, 96% on 2L NC. Multiple consultations including oncology, neurology, cardiology, pulmonary. 05/16/2021 Patient evaluated today resting in bed. She was taken off oxygen support today with pulse ox 96%. Upon exam today patient was 70% on room air resting and required 4L of oxygen before saturations improved. She denies chest pain, cough, did have some shortness of breath. She was started on oral augmentin by pulmonary, continues on PO decadron, zinc, Patient started on synthroid, was found to be hypothyroid with TSH elevated to 35.700, checked a T4, was low at 0.45. Blood pressures on the lower side today 84/50, negative fluid balance. Labs today show WBC 5.3, hgb 7.2. Venous doppler negative for bilateral DVT. Patient got a dose of IVIG today. Plavix now on hold due to anemia as prior stroke and endarectomy 10 + years ago. Subjective: this is first time i am taking care of the patient 05/17/2021 Patient is with history of dementia admitted with bilateral Covid pneumonia and metabolic encephalopathy and hypoxia with some mild diastolic CHF. Patient has been evaluated by neurologist and cleared her for discharge. However patient is still with respiratory symptoms, she still receiving treatment for Covid bilateral pneumonia with dexamethasone, vitamin C, vitamin D and zinc and she is saturating 93% on 2 L but chest x-ray showing a progressive interstitial infiltrates. Also she was placed on Augmentin for elevated bloodcalcitonin 0.81. Hematology/oncology team for her history of follicular lymphoma, her home dose of remvilid is on hold oncology and follow-up as an outpatient with her oncologist to resume it. Also patient with anemia secondary to her lymphoma. Plavix is on hold for this purpose. 05/18/2021 Patient is with bilateral Covid pneumonia, she is minimally symptomatic at rest she has some occasional coughing. She is saturating 93% and 2 L oxygen via n newton cannula. She was much confused related to her infection but today is much better compared to yesterday she couldn't tell me she is in the hospital although she could not locate facility in [facility]. She could not tell the year but she remember the name of the present compared to complete disorientation yesterday this is significant improvement. While she stated that she does not have more symptoms, no chest pain or dyspnea. No GI symptoms. No diarrhea. She is eating well. Because hemoglobin stable we resumed her home dose of Plavix, lisinopril because her blood pressure stable. Monitor blood pressure, hemoglobin and other labs tomorrow. Checked forcalcitonin tomorrow. Patient will benefit from ECF upon discharge Keep holding bupropion and gabapentin as her mentation is keep improvement 05/18/2011 Patient here for Covid pneumonia with possible bacterial elements of superinfection and swell as she has some metabolic encephalopathy on the top of her dementia Yasmine mild CHF and hypoxia. Also she has pancytopenia or anemia related to her history of lymphoma, her revlimid is put on hold by oncologist who she sees her on oncologist Dr. morales an outpatient. Conveyor Loader and neurologist signed off. Pulmonary on the case. Her mentation improved although she is somewhat confused at baseline. She does she is the hospital and she is calm. No respiratory symptoms while she stated bed most of the time. To increase her mobility and out of bed to chair today wi th going to discontinue her Lama catheter and check a bladder scan. Lama catheter was placed during admission, checked with bedside nurse. Yesterday resumed her Plavix and lisinopril 5 mg as well as continued on her oral Lasix. Today her hemoglobin is stable at blood pressure is stable. Hemoglobin 8.1, she has mild leukopenia 3.6. Inflammatory markers are trending down. Patient remains on Augmentin, dexamethasone seen and vitamins. Objective - Vital Signs Vital signs: Vital Signs Temp 98.4 F 05/19/21 08:41 Pulse 64 05/19/21 08:41 Resp 18 05/19/21 08:41 BP 116/62 05/19/21 08:41 Pulse Ox 92 L 05/19/21 08:41 Intake & Output 05/18/21 05/19/21 05/19/21 18:59 06:59 18:59 Intake Total 420 200 Output Total 300 900 Balance 120 -700 Intake: Oral 420 200 Output: Urine 300 900 Other: Voiding Method Indwelling Catheter Indwelling Catheter # Bowel Movements 0 - Exam -GENERAL: The patient is alert and oriented x0, she is confused to time, place and person. She follows some commands but not appropriately correct, not in any acute distress. Obese HEENT: Pupils are round and equally reacting to light. EOMI. No scleral icterus. No conjunctival pallor. Normocephalic, atraumatic. No pharyngeal erythema. No thyromegaly. CARDIOVASCULAR: S1 and S2 present. No murmurs, rubs, or gallops. PULMONARY: Chest is clear to auscultation, no wheezing or crackles. ABDOMEN: Soft, nontender, nondistended, normoactive bowel sounds. No palpable organomegaly. MUSCULOSKELETAL: No joint swelling or deformity. EXTREMITIES: No cyanosis, clubbing, or pedal edema. NEUROLOGICAL: Gross neurological examination did not reveal any focal deficits. SKIN: No rashes. no petechiae. - Labs CBC & Chem 7: 05/19/21 07:43 05/19/21 07:43 Labs: Abnormal Lab Results - Last 24 Hours (Table) 05/18/21 05/18/21 05/18/21 Range/Units 09:04 09:04 11:34 WBC 3.4 L (3.8-10.6) k/uL RBC 2.33 L (3.80-5.40) m/uL Hgb 7.6 L (11.4-16.0) gm/dL Hct 24.5 L (34.0-46.0) % MCV 105.2 H (80.0-100.0) fL MCHC 30.8 L (31.0-37.0) g/dL RDW 17.5 H (11.5-15.5) % Lymphocytes # 0.5 L (1.0-4.8) k/uL Macrocytosis BUN (7-17) mg/dL POC Glucose (mg/dL) 131 H (75-99) mg/dL Calcium (8.4-10.2) mg/dL Phosphorus 2.3 L (2.5-4.5) mg/dL Lactate Dehydrogenase 911 H (313-618) U/L C-Reactive Protein (<1.0) mg/dL 05/18/21 05/18/21 05/19/21 Range/Units 16:53 20:10 06:33 WBC (3.8-10.6) k/uL RBC (3.80-5.40) m/uL Hgb (11.4-16.0) gm/dL Hct (34.0-46.0) % MCV (80.0-100.0) fL MCHC (31.0-37.0) g/dL RDW (11.5-15.5) % Lymphocytes # (1.0-4.8) k/uL Macrocytosis BUN (7-17) mg/dL POC Glucose (mg/dL) 177 H 228 H 71 L (75-99) mg/dL Calcium (8.4-10.2) mg/dL Phosphorus (2.5-4.5) mg/dL Lactate Dehydrogenase (313-618) U/L C-Reactive Protein (<1.0) mg/dL 05/19/21 05/19/21 Range/Units 07:43 07:43 WBC 3.6 L (3.8-10.6) k/uL RBC 2.52 L (3.80-5.40) m/uL Hgb 8.1 L (11.4-16.0) gm/dL Hct 26.8 L (34.0-46.0) % MCV 106.1 H (80.0-100.0) fL MCHC 30.4 L (31.0-37.0) g/dL RDW 18.1 H (11.5-15.5) % Lymphocytes # (1.0-4.8) k/uL Macrocytosis Marked A BUN 20 H (7-17) mg/dL POC Glucose (mg/dL) (75-99) mg/dL Calcium 8.2 L (8.4-10.2) mg/dL Phosphorus (2.5-4.5) mg/dL Lactate Dehydrogenase 895 H (313-618) U/L C-Reactive Protein 5.8 H (<1.0) mg/dL Assessment and Plan Assessment: Assessment and plan -Shortness of breath, acute hypoxic respiratory failure: Multifocal with COVID pneumonia, CHF exacerbation. on 2L NC, 70% on room air. -Congestive heart failure chronic diastolic dysfunction with mild acute exacerbation, not on IV lasix due to borderline blood pressures -Non-Hodgkin's lymphoma recently received chemotherapy -Severe anemia with hemoglobin of 7.2: Secondary to recent chemotherapy for non- Hodgkin's lymphoma -Altered mental status: Toxic encephalopathy from infection component of metabolic from heart failure, seems improved -Sepsis secondary to COVID-19 infection -Hypervolemic hyponatremia on admission, sodium normalized -Severe mitral stenosis -Mildly elevated troponins: Cardiology evaluated the patient, most probably not myocardial infarction, more consistent with acute renal failure. Creatinine normalized. -Acute renal failure secondary to sepsis there may be a competent of prerenal azotemia from congestive heart failure as well as -Pulmonary hypertension -Carotid stenosis status post endarterectomy -Hypertension she is presently hypotensive and cannot tolerate diuretics patient probably will need diuretics. Lisinopril is being held because of hypotension and acute renal failure -Dementia probably Alzheimer's -History CVA with right side residual weakness Plan: Oxygen support Continue with Norvasc and Plavix Discontinue Lama catheter and check a bladder scan Pulmonary and oncology team on the case Continue all other supportive care PT/OT consultation Subacute rehab when stable DVT prophylaxis: Subcutaneous heparin GI prophylaxis: Protonix Prognosis is guarded FULL CODE
[2021-05-19 11:51] LABS: Glucose,Whole Blood 151 mg/dL (75-99)
[2021-05-19 16:21] LABS: Glucose,Whole Blood 141 mg/dL (75-99)
[2021-05-19 20:20] LABS: Glucose,Whole Blood 170 mg/dL (75-99)
[2021-05-19] MEDS: DONEPEZIL 10 MG TAB PO SCH (20:40)
[2021-05-19] MEDS: ATORVASTATIN 40 MG TAB PO SCH (20:40)
[2021-05-19] MEDS: DOCUSATE 100 MG CAP PO SCH (20:40)
[2021-05-20 06:20] LABS: Glucose,Whole Blood 76 mg/dL (75-99)
[2021-05-20] MEDS: LEVOTHYROXINE 50 MCG TAB PO SCH (06:22)
[2021-05-20] MEDS: INSULIN ASPART (NovoLOG) 100 UNIT/ML VIAL SQ SCH ×4 (06:22→21:06)
[2021-05-20] MEDS: PANTOPRAZOLE 40 MG TABLET PO SCH (06:22)
[2021-05-20] MEDS: AMOXIC-POT CLAV 875-125MG 1 EACH TAB PO SCH ×2 (08:28→21:07)
[2021-05-20] MEDS: CYANOCOBALAMIN 500 MCG TAB PO SCH (08:28)
[2021-05-20] MEDS: dexAMETHasone 2 MG TAB PO SCH (08:28)
[2021-05-20] MEDS: lisinopriL 5 MG TAB PO SCH (08:28)
[2021-05-20] MEDS: MEMANTINE 10 MG TAB PO SCH ×2 (08:28→21:06)
[2021-05-20] MEDS: CLOPIDOGREL 75 MG TAB PO SCH (08:28)
[2021-05-20] MEDS: ZINC SULFATE 220 MG CAP PO SCH (08:28)
[2021-05-20] MEDS: HEPARIN SODIUM,PORCINE/PF 5,000 UNIT/0.5 ML SYRINGE SQ SCH ×2 (08:28→21:06)
[2021-05-20] MEDS: ASCORBIC ACID 500 MG TAB PO SCH ×2 (08:29→21:06)
[2021-05-20] MEDS: PYRIDOXINE 50 MG TAB PO SCH (08:29)
[2021-05-20] MEDS: FUROSEMIDE 20 MG TAB PO SCH (08:29)
[2021-05-20] MEDS: METOPROLOL SUCCINATE (ER) 25 MG TAB.ER.24H PO SCH (08:29)
[2021-05-20] MEDS: CHOLECALCIFEROL 125 MCG (5000 IU) TABLET PO SCH (08:29)
[2021-05-20] MEDS: NON FORMULARY DRUG (Mirabegron [Myrbetriq] 50 MG Tablet) PO SCH (08:40)
[2021-05-20 09:46] LABS: Calcium 8.2 mg/dL (8.4-10.2); Potassium 3.5 mmol/L (3.5-5.1)
[2021-05-20 10:12] LABS: Anisocytosis Slight; Basophils % (A) 1 %; Eosinophils % (A) 0 %; HCT 29.7 % (34.0-46.0); HGB 9.2 gm/dL (11.4-16.0); Hypochromasia Marked; Lymphocytes # (A) 1.3 k/uL (1.0-4.8); Lymphocytes % (A) 27 %; MCH 32.3 pg (25.0-35.0); MCHC 30.8 g/dL (31.0-37.0); MCV 104.9 fL (80.0-100.0); Macrocytosis Moderate; Mean Platelet Volume 9.4; Monocytes # (A) 0.5 k/uL (0-1.0); Monocytes % (A) 9 %; Neutrophils # (A) 2.9 k/uL (1.3-7.7); Neutrophils % (A) 59 %; Platelet Count 401 k/uL (150-450); Poikilocytosis Moderate; RBC 2.83 m/uL (3.80-5.40); RDW 18.1 % (11.5-15.5)
--- NOTE | 2021-05-20 11:23 | P.PN ---
Subjective Progress Note Date: 05/20/21 Principal diagnosis: lymphoma, covid In f/u today pt denies fever, cough, chest pain. She has received 2 doses of IVIg with no SE to report Objective - Vital Signs Vital signs: Vital Signs Temp 97.7 F 05/20/21 08:25 Pulse 66 05/20/21 08:25 Resp 16 05/20/21 08:25 BP 137/81 05/20/21 08:25 Pulse Ox 94 L 05/20/21 08:25 Intake & Output 05/19/21 05/20/21 05/20/21 18:59 06:59 18:59 Output Total 1974 500 Balance -1974 Output: Urine 1974 500 Straight 500 Other: Voiding Method Indwelling Catheter Indwelling Catheter # Bowel Movements 1 1 - Exam A&Ox2, NAD, resting comfortably, no labored breathing observed. Pt was able to adjust her wt independently in the bed with some effort. Deferred otherwise, covid + patient. - Labs CBC & Chem 7: 05/20/21 08:42 05/20/21 08:42 Labs: Abnormal Lab Results - Last 24 Hours (Table) 05/19/21 05/19/21 05/19/21 Range/Units 07:43 11:47 16:20 RBC (3.80-5.40) m/uL Hgb (11.4-16.0) gm/dL Hct (34.0-46.0) % MCV (80.0-100.0) fL MCHC (31.0-37.0) g/dL RDW (11.5-15.5) % BUN (7-17) mg/dL POC Glucose (mg/dL) 151 H 141 H (75-99) mg/dL Calcium (8.4-10.2) mg/dL Procalcitonin 0.11 H (0.02-0.09) ng/mL 05/19/21 05/20/21 05/20/21 Range/Units 20:17 08:42 08:42 RBC 2.83 L (3.80-5.40) m/uL Hgb 9.2 L (11.4-16.0) gm/dL Hct 29.7 L (34.0-46.0) % MCV 104.9 H (80.0-100.0) fL MCHC 30.8 L (31.0-37.0) g/dL RDW 18.1 H (11.5-15.5) % BUN 19 H (7-17) mg/dL POC Glucose (mg/dL) 170 H (75-99) mg/dL Calcium 8.2 L (8.4-10.2) mg/dL Procalcitonin (0.02-0.09) ng/mL Assessment and Plan (1) Macrocytic anemia Narrative/Plan: From chemo, lymphoma, marrow suppression from Hx of disease/treatment with superimposed infection. Her Hgb wass a lower then normal on admit, suspect r/t infection. Transfuse for Hgb 6.5 or lower, unless symptomatic. Hgb stable, improved today for 9.2 today. Current Visit: Yes Status: Acute Priority: High Code(s): D53.9 - NUTRITIONAL ANEMIA, UNSPECIFIED SNOMED Code(s): 17577185 (2) Follicular lymphoma Narrative/Plan: Primary Oncologist treating pt with Q 3 mo Rituxan and Revlimid. Hold revlimid until seen by Oncologist. Verbalized this to pt. Current Visit: Yes Status: Chronic Priority: Medium Code(s): C82.90 - FOLLICULAR LYMPHOMA, UNSPECIFIED, UNSPECIFIED SITE SNOMED Code(s): 947256980 (3) Hypogammaglobulinemia Narrative/Plan: Covid infection, IgG <300. Two 30g doses given Current Visit: Yes Status: Chronic Priority: Medium Code(s): D80.1 - NONFAMILIAL HYPOGAMMAGLOBULINEMIA SNOMED Code(s): 874965164
[2021-05-20 11:50] LABS: Glucose,Whole Blood 130 mg/dL (75-99)
[2021-05-20 16:19] LABS: Glucose,Whole Blood 172 mg/dL (75-99)
[2021-05-20 20:22] LABS: Glucose,Whole Blood 146 mg/dL (75-99)
[2021-05-20] MEDS: DOCUSATE 100 MG CAP PO SCH (21:06)
[2021-05-20] MEDS: DONEPEZIL 10 MG TAB PO SCH (21:06)
[2021-05-20] MEDS: ATORVASTATIN 40 MG TAB PO SCH (21:06)
[2021-05-21 06:07] LABS: Glucose,Whole Blood 78 mg/dL (75-99)
[2021-05-21] MEDS: INSULIN ASPART (NovoLOG) 100 UNIT/ML VIAL SQ SCH ×4 (06:13→21:28)
[2021-05-21] MEDS: PANTOPRAZOLE 40 MG TABLET PO SCH (06:15)
[2021-05-21] MEDS: LEVOTHYROXINE 50 MCG TAB PO SCH (06:15)
[2021-05-21] MEDS: NON FORMULARY DRUG (Mirabegron [Myrbetriq] 50 MG Tablet) PO SCH (09:30)
[2021-05-21] MEDS: dexAMETHasone 2 MG TAB PO SCH (09:31)
[2021-05-21] MEDS: CHOLECALCIFEROL 125 MCG (5000 IU) TABLET PO SCH (09:31)
[2021-05-21] MEDS: ZINC SULFATE 220 MG CAP PO SCH (09:31)
[2021-05-21] MEDS: CLOPIDOGREL 75 MG TAB PO SCH (09:32)
[2021-05-21] MEDS: ASCORBIC ACID 500 MG TAB PO SCH ×2 (09:32→21:28)
[2021-05-21] MEDS: METOPROLOL SUCCINATE (ER) 25 MG TAB.ER.24H PO SCH (09:32)
[2021-05-21] MEDS: CYANOCOBALAMIN 500 MCG TAB PO SCH (09:32)
[2021-05-21] MEDS: MEMANTINE 10 MG TAB PO SCH ×2 (09:32→21:28)
[2021-05-21] MEDS: PYRIDOXINE 50 MG TAB PO SCH (09:32)
[2021-05-21] MEDS: FUROSEMIDE 20 MG TAB PO SCH (09:32)
[2021-05-21] MEDS: lisinopriL 5 MG TAB PO SCH (09:32)
[2021-05-21] MEDS: AMOXIC-POT CLAV 875-125MG 1 EACH TAB PO SCH ×2 (09:32→21:28)
[2021-05-21] MEDS: HEPARIN SODIUM,PORCINE/PF 5,000 UNIT/0.5 ML SYRINGE SQ SCH ×2 (09:33→21:27)
[2021-05-21 11:18] LABS: Glucose,Whole Blood 118 mg/dL (75-99)
--- NOTE | 2021-05-21 12:46 | P.PN ---
Subjective Progress Note Date: 05/21/21 Principal diagnosis: lymphoma, covid In f/u today pt is in good spirits, denies fevers, cough, chest pain. She has received 2 doses of IVIg. Objective - Vital Signs Vital signs: Vital Signs Temp 98.5 F 05/21/21 08:00 Pulse 65 05/21/21 08:00 Resp 17 05/21/21 08:00 BP 119/67 05/21/21 08:00 Pulse Ox 98 05/21/21 08:00 Intake & Output 05/20/21 05/21/21 05/21/21 18:59 06:59 18:59 Intake Total 236 0 Output Total 1350 500 Balance -1114 -500 0 Weight 92.6 kg Intake: Oral 236 0 Output: Urine 1350 500 Uretheral (Lama) 550 Other: Voiding Method Indwelling Catheter Indwelling Catheter Indwelling Catheter # Bowel Movements 1 - Exam A&Ox2, NAD, resting comfortably, she is laughing today, no labored breathing observed. Pt was able to adjust her wt independently in the bed with some effort. Deferred otherwise, covid + patient. - Labs CBC & Chem 7: 05/20/21 08:42 05/20/21 08:42 Labs: Abnormal Lab Results - Last 24 Hours (Table) 05/20/21 05/20/21 05/21/21 Range/Units 16:17 20:20 11:17 POC Glucose (mg/dL) 172 H 146 H 118 H (75-99) mg/dL Assessment and Plan (1) Macrocytic anemia Narrative/Plan: From chemo, lymphoma, marrow suppression from Hx of disease/treatment with superimposed infection. Her Hgb was a lower then normal on admit, suspect r/t infection. Transfuse for Hgb 6.5 or lower, unless symptomatic. Hgb previously stable. Current Visit: Yes Status: Acute Priority: High Code(s): D53.9 - NUTRITIONAL ANEMIA, UNSPECIFIED SNOMED Code(s): 48361378 (2) Follicular lymphoma Narrative/Plan: Primary Oncologist treating pt with Q 3 mo Rituxan and Revlimid. Hold revlimid until seen by Oncologist. Verbalized this to pt again today. Made note in discharge plan. Did update Primary Onc on her condition, IVIg administration and confirmed holding Revlimid Current Visit: Yes Status: Chronic Priority: Medium Code(s): C82.90 - FOLLICULAR LYMPHOMA, UNSPECIFIED, UNSPECIFIED SITE SNOMED Code(s): 518634124 (3) Hypogammaglobulinemia Narrative/Plan: Covid infection, IgG <300. Two 30g doses given Current Visit: Yes Status: Chronic Priority: Medium Code(s): D80.1 - NONFAMILIAL HYPOGAMMAGLOBULINEMIA SNOMED Code(s): 984301117
[2021-05-21 16:35] LABS: Glucose,Whole Blood 149 mg/dL (75-99)
[2021-05-21 20:04] LABS: Glucose,Whole Blood 243 mg/dL (75-99)
[2021-05-21] MEDS: ATORVASTATIN 40 MG TAB PO SCH (21:27)
[2021-05-21] MEDS: DOCUSATE 100 MG CAP PO SCH (21:28)
[2021-05-21] MEDS: DONEPEZIL 10 MG TAB PO SCH (21:28)
[2021-05-22] MEDS: PANTOPRAZOLE 40 MG TABLET PO SCH (05:57)
[2021-05-22] MEDS: LEVOTHYROXINE 50 MCG TAB PO SCH (05:57)
[2021-05-22] MEDS: INSULIN ASPART (NovoLOG) 100 UNIT/ML VIAL SQ SCH ×4 (06:17→21:02)
[2021-05-22 06:18] LABS: Glucose,Whole Blood 74 mg/dL (75-99)
[2021-05-22] MEDS: dexAMETHasone 2 MG TAB PO SCH (10:00)
[2021-05-22] MEDS: CYANOCOBALAMIN 500 MCG TAB PO SCH (10:00)
[2021-05-22] MEDS: FUROSEMIDE 20 MG TAB PO SCH (10:00)
[2021-05-22] MEDS: ZINC SULFATE 220 MG CAP PO SCH (10:01)
[2021-05-22] MEDS: PYRIDOXINE 50 MG TAB PO SCH (10:01)
[2021-05-22] MEDS: ASCORBIC ACID 500 MG TAB PO SCH ×2 (10:01→21:02)
[2021-05-22] MEDS: AMOXIC-POT CLAV 875-125MG 1 EACH TAB PO SCH ×2 (10:01→21:02)
[2021-05-22] MEDS: METOPROLOL SUCCINATE (ER) 25 MG TAB.ER.24H PO SCH (10:01)
[2021-05-22] MEDS: CLOPIDOGREL 75 MG TAB PO SCH (10:01)
[2021-05-22] MEDS: CHOLECALCIFEROL 125 MCG (5000 IU) TABLET PO SCH (10:01)
[2021-05-22] MEDS: MEMANTINE 10 MG TAB PO SCH ×2 (10:01→21:02)
[2021-05-22] MEDS: lisinopriL 5 MG TAB PO SCH (10:01)
[2021-05-22] MEDS: HEPARIN SODIUM,PORCINE/PF 5,000 UNIT/0.5 ML SYRINGE SQ SCH ×2 (10:52→21:03)
[2021-05-22] MEDS: NON FORMULARY DRUG (Mirabegron [Myrbetriq] 50 MG Tablet) PO SCH (10:52)
[2021-05-22 11:32] LABS: Glucose,Whole Blood 198 mg/dL (75-99)
--- NOTE | 2021-05-22 11:45 | P.DS ---
Providers Date of admission: 05/13/21 20:09 Attending physician: Bridgette Dallas Consults: 05/13/21 20:13 Consult Physician Urgent Consulting Provider: [facility] Consult Reason/Comments: hypoxic resp failure, new onset hf, adrienne Do you want consulting provider notified?: Yes 05/13/21 20:16 Consult Physician Urgent Consulting Provider: Walter Nguyen Consult Reason/Comments: follicular lymphoma, acute anemia Do you want consulting provider notified?: Yes 05/13/21 23:54 Consult Physician Urgent Consulting Provider: Nataly Martin Consult Reason/Comments: confusion on admission, history of stroke Do you want consulting provider notified?: Yes, Notify in am 05/14/21 15:05 Consult Physician Routine Consulting Provider: Aidee Boles Consult Reason/Comments: COVID Do you want consulting provider notified?: Yes Primary care physician: Dinesh Dukes [facility] Course: Diagnoses: -Bilateral Covid pneumonia with suspected superimposed bacterial infection, improved -Shortness of breath, acute hypoxic respiratory failure: Multifocal with COVID pneumonia, CHF exacerbation. Currently she is saturating 99% 200% on room air -Congestive heart failure chronic diastolic dysfunction with mild acute exacerbation, not on IV lasix due to borderline blood pressures -Non-Hodgkin's lymphoma recently received chemotherapy. With low immunoglobulin, been replaced per oncologist. (Patient recommended to hold Revlimid till she sees her oncologist - hypothyroidism with pseudodementia O's with starting levothyroxine 50 g daily -Severe anemia with hemoglobin of 9.2: Secondary to recent chemotherapy for non- Hodgkin's lymphoma -Altered mental status: Toxic and metabolic encephalopathy from infection component of metabolic from heart failure, seems improved and patient back to baseline -Hypervolemic hyponatremia on admission, sodium normalized -Severe mitral stenosis -Mildly elevated troponins: Cardiology evaluated the patient, most probably not myocardial infarction, more consistent with acute renal failure. Creatinine normalized. -Acute renal failure secondary to sepsis there may be a competent of prerenal azotemia from congestive heart failure as well as. Improved -Pulmonary hypertension -Carotid stenosis status post endarterectomy -Hypertension she is presently hypotensive and cannot tolerate diuretics patient probably will need diuretics. Lisinopril is being held because of hypotension and acute renal failure -Dementia probably Alzheimer's -History CVA with right side residual weakness hospital course: Patient is a 65-year-old female with history of non-Hodgkin's lymphoma recently received chemotherapy came in is of increased confusion patient is alert oriented 1-2. Was admitted with altered mental status and respiratory symptoms and hypoxia found to be secondary to bilateral Covid pneumonia and bacterial infection also suspected and patient has been treated with dexamethasone, Augmentin, multiple vitamins per protocol and followed closely by pulmonary service, she showed interval improvement and her mentation back to her baseline although she still have some memory problems, she remembers she is in the hospital only but she could not tell other details most likely related to her worsening Alzheimer dementia. Her breathing improved and currently she is denying any chest pain or dyspnea. No coughing and she is saturating 99 200% on room air. Front End Loader Operator also on the case and signed off. Patient currently is euvolemic. Oncologist were following the patient closely, they recommended to hold Revlimid till she sees her oncologist , patient informed and she agrees as well. Patient today denies any abdominal pain or change in urine or bowel habits. No fever. Hemodynamically stable. Patient was cleared for discharge by all consultants including hematology/oncology today. As well as pulmonary, neurology and cardiology services. Patient today was awake and back to her baseline and she was asking "when I may going to go home", she wants to go home and explained for the patient she needs some rehab and she agrees. She agrees that she is ready to be discharged today. Also on admission her gabapentin and Ativan were held with improved her mentation, resuming these medications are deferred to her PCP, currently it was felt patient does not be them. Patient will resume bupropion as an outpatient with close monitoring of mental health keep holding Januvia as patient's glucose is borderline, keep monitoring glucose Problems and management plan were discussed with the patient and he verbalized understanding and acceptance Patient was found stable and can be discharged home however he needs follow-up as an outpatient. Patient was instructed to follow up with PCP within one week and patient agrees patient will need to follow up with her oncologist Dr. Stratton 1-2 weeks, and to follow up with her pst specialist Dr. Boles in 2 weeks and patient was informed with this recommendation and she agrees note: Patient will need to follow-up with her oncologist , to resume her Revlimid(which was stopped in the hospital) Physical exam -Gen: patient is a AAOx1-2, no distress CVS: S1-S2, RRR, no murmur Lungs: B/L CTA, no wheezing Abdomen: soft, no distention, no tenderness, positive bowel sounds. Lama catheter is in place Extremity: no leg edema or induration Time spent more than 35 minuteHypothyroidism with pseudodementia, improved with replacement of levothyroxine 50 g dailys Patient Condition at Discharge: Stable Plan - Discharge Summary New Discharge Prescriptions: New Metoprolol Succinate (ER) [Toprol XL] 12.5 mg PO DAILY 30 Days #15 tab No Action Clopidogrel [Plavix] 75 mg PO DAILY Donepezil [Aricept] 10 mg PO HS Memantine [Namenda] 10 mg PO HS Furosemide [Lasix] 40 mg PO DAILY Albuterol Nebulized [Ventolin Nebulized] 2.5 mg INHALATION RT-QID Lenalidomide [Revlimid] 20 mg PO DIRECTED Mirabegron [Myrbetriq] 50 mg PO DAILY Multivit-Min/FA/Lycopen/Lutein [Centrum Silver Tablet] 1 tab PO DAILY Gabapentin 300 mg PO BID Albuterol Sulfate [Ventolin HFA] 2 puff INHALATION RT-QID PRN PRN Reason: Shortness Of Breath buPROPion HCL [Wellbutrin XL] 300 mg PO DAILY Umeclidinium Brm/Vilanterol Tr [Anoro Ellipta 62.5-25 Mcg INH] 1 puff INHALATION RT-DAILY Ergocalciferol [Vitamin D2 (1250 Mcg = 38578 Iu)] 1,250 mcg PO SHAW Ondansetron HCl [Zofran] 8 mg PO Q8H PRN PRN Reason: Nausea And Vomiting sitaGLIPtin [Januvia] 100 mg PO DAILY Lisinopril [Prinivil] 5 mg PO DAILY LORazepam [Ativan] 0.5 mg PO BID PRN PRN Reason: Anxiety Docusate [Colace] 100 mg PO HS Atorvastatin [Lipitor] 40 mg PO HS Discharge Medication List Clopidogrel [Plavix] 75 mg PO DAILY 09/15/13 [History] Donepezil [Aricept] 10 mg PO HS 08/25/18 [History] Memantine [Namenda] 10 mg PO HS 11/17/18 [History] Furosemide [Lasix] 40 mg PO DAILY 11/20/19 [History] Albuterol Nebulized [Ventolin Nebulized] 2.5 mg INHALATION RT-QID 02/25/19 [History] Albuterol Sulfate [Ventolin HFA] 2 puff INHALATION RT-QID PRN 05/13/21 [History] Atorvastatin [Lipitor] 40 mg PO HS 05/13/21 [History] Docusate [Colace] 100 mg PO HS 05/13/21 [History] Ergocalciferol [Vitamin D2 (1250 Mcg = 81646 Iu)] 1,250 mcg PO SHAW 05/13/21 [History] Gabapentin 300 mg PO BID 05/13/21 [History] LORazepam [Ativan] 0.5 mg PO BID PRN 05/13/21 [History] Lenalidomide [Revlimid] 20 mg PO DIRECTED 05/13/21 [History] Lisinopril [Prinivil] 5 mg PO DAILY 05/13/21 [History] Mirabegron [Myrbetriq] 50 mg PO DAILY 05/13/21 [History] Multivit-Min/FA/Lycopen/Lutein [Centrum Silver Tablet] 1 tab PO DAILY 05/13/21 [History] Ondansetron HCl [Zofran] 8 mg PO Q8H PRN 05/13/21 [History] Umeclidinium Brm/Vilanterol Tr [Anoro Ellipta 62.5-25 Mcg INH] 1 puff INHALATION RT-DAILY 05/13/21 [History] buPROPion HCL [Wellbutrin XL] 300 mg PO DAILY 05/13/21 [History] sitaGLIPtin [Januvia] 100 mg PO DAILY 05/13/21 [History] Metoprolol Succinate (ER) [Toprol XL] 12.5 mg PO DAILY 30 Days #15 tab 05/16/21 [Rx] Follow up Appointment(s)/Referral(s): Marc Lutz MD [STAFF PHYSICIAN] - 2 Weeks Dinesh Dukes DO [Primary Care Provider] - 1-2 days Ulisses Stratton DO [REFERRING] - 1 Week (message left for office to call you to set up appointment. If you do not hear back please call office) Activity/Diet/Wound Care/Special Instructions: HOLD Revlimid until seen br Dr. Stratton Heart healthy diet Activity as tolerated
[2021-05-22 14:20] VITALS: BMI 34.0
[2021-05-22 16:46] LABS: Glucose,Whole Blood 121 mg/dL (75-99)
[2021-05-22 19:48] LABS: Glucose,Whole Blood 271 mg/dL (75-99)
[2021-05-22] MEDS: DONEPEZIL 10 MG TAB PO SCH (21:02)
[2021-05-22] MEDS: DOCUSATE 100 MG CAP PO SCH (21:02)
[2021-05-22] MEDS: ATORVASTATIN 40 MG TAB PO SCH (21:02)
[2021-05-23 04:23] VITALS: RESP 18
[2021-05-23 06:25] LABS: Glucose,Whole Blood 86 mg/dL (75-99)
[2021-05-23] MEDS: INSULIN ASPART (NovoLOG) 100 UNIT/ML VIAL SQ SCH ×2 (06:25→13:03)
[2021-05-23] MEDS: PANTOPRAZOLE 40 MG TABLET PO SCH (06:35)
[2021-05-23] MEDS: LEVOTHYROXINE 50 MCG TAB PO SCH (06:35)
[2021-05-23] MEDS: CHOLECALCIFEROL 125 MCG (5000 IU) TABLET PO SCH (09:05)
[2021-05-23] MEDS: CLOPIDOGREL 75 MG TAB PO SCH (09:05)
[2021-05-23] MEDS: MEMANTINE 10 MG TAB PO SCH (09:05)
[2021-05-23] MEDS: PYRIDOXINE 50 MG TAB PO SCH (09:05)
[2021-05-23] MEDS: dexAMETHasone 2 MG TAB PO SCH (09:05)
[2021-05-23] MEDS: lisinopriL 5 MG TAB PO SCH (09:05)
[2021-05-23] MEDS: CYANOCOBALAMIN 500 MCG TAB PO SCH (09:05)
[2021-05-23] MEDS: ASCORBIC ACID 500 MG TAB PO SCH (09:05)
[2021-05-23] MEDS: AMOXIC-POT CLAV 875-125MG 1 EACH TAB PO SCH (09:05)
[2021-05-23] MEDS: FUROSEMIDE 20 MG TAB PO SCH (09:05)
[2021-05-23] MEDS: METOPROLOL SUCCINATE (ER) 25 MG TAB.ER.24H PO SCH (09:05)
[2021-05-23] MEDS: ZINC SULFATE 220 MG CAP PO SCH (09:05)
[2021-05-23] MEDS: HEPARIN SODIUM,PORCINE/PF 5,000 UNIT/0.5 ML SYRINGE SQ SCH (09:05)
[2021-05-23] MEDS: NON FORMULARY DRUG (Mirabegron [Myrbetriq] 50 MG Tablet) PO SCH (09:08)
[2021-05-23 11:20] VITALS: BP 90/55; PULSE 60; TEMP 97.8
--- NOTE | 2021-05-23 11:34 | P.PN ---
Subjective Progress Note Date: 05/23/21 Principal diagnosis: lymphoma, covid In f/u today pt is pending transfer to rehab. Objective - Vital Signs Vital signs: Vital Signs Temp 97.8 F 05/23/21 08:00 Pulse 60 05/23/21 08:00 Resp 18 05/23/21 08:00 BP 90/55 05/23/21 08:00 Pulse Ox 98 05/23/21 08:00 Intake & Output 05/22/21 05/23/21 05/23/21 18:59 06:59 18:59 Intake Total 490 240 Output Total 625 100 Balance -135 140 Weight 92.6 kg Intake: Oral 490 240 Output: Urine 625 100 Stool 0 Urine/Stool Mix 0 Emesis 0 Other: Voiding Method Indwelling Catheter Indwelling Catheter Indwelling Catheter # Voids 0 # Bowel Movements 0 - Exam A&Ox2, NAD, resting comfortably, no labored breathing observed. - Labs CBC & Chem 7: 05/20/21 08:42 05/20/21 08:42 Labs: Abnormal Lab Results - Last 24 Hours (Table) 05/22/21 05/22/21 05/22/21 Range/Units 11:28 16:44 19:44 POC Glucose (mg/dL) 198 H 121 H 271 H (75-99) mg/dL Assessment and Plan (1) Macrocytic anemia Narrative/Plan: From chemo, lymphoma, marrow suppression from Hx of disease/treatment with superimposed infection. Hgb stable. Cont off Revlimid for now Current Visit: Yes Status: Acute Priority: High Code(s): D53.9 - NUTRITIONAL ANEMIA, UNSPECIFIED SNOMED Code(s): 17932512 (2) Follicular lymphoma Narrative/Plan: Primary Oncologist treating pt with Q 3 mo Rituxan and Revlimid. Plan is to homd revlimid until after rehab and then seen by Oncologist. Verbalized this to pt again today. Made note in discharge plan. Primary Onc previously updated. S/P IVIG Current Visit: Yes Status: Chronic Priority: Medium Code(s): C82.90 - FO LLICULAR LYMPHOMA, UNSPECIFIED, UNSPECIFIED SITE SNOMED Code(s): 778743909 (3) Hypogammaglobulinemia Narrative/Plan: Covid infection, IgG <300. Two 30g doses given Current Visit: Yes Status: Chronic Priority: Medium Code(s): D80.1 - NONFAMILIAL HYPOGAMMAGLOBULINEMIA SNOMED Code(s): 710951806
[2021-05-23 12:17] LABS: Glucose,Whole Blood 102 mg/dL (75-99)
--- NOTE | 2021-05-23 19:03 | P.DS ---
Providers Date of admission: 05/13/21 20:09 Attending physician: Bridgette Dallas Consults: 05/13/21 20:13 Consult Physician Urgent Consulting Provider: [facility] Consult Reason/Comments: hypoxic resp failure, new onset hf, adrienne Do you want consulting provider notified?: Yes 05/13/21 20:16 Consult Physician Urgent Consulting Provider: Walter Nguyen Consult Reason/Comments: follicular lymphoma, acute anemia Do you want consulting provider notified?: Yes 05/13/21 23:54 Consult Physician Urgent Consulting Provider: Nataly Martin Consult Reason/Comments: confusion on admission, history of stroke Do you want consulting provider notified?: Yes, Notify in am 05/14/21 15:05 Consult Physician Routine Consulting Provider: Aidee Boles Consult Reason/Comments: COVID Do you want consulting provider notified?: Yes Primary care physician: Dinesh [facility] Course: Please refer to the discharge summary note from yesterday. Clinically patient looks the same as of yesterday and actually better, she still oriented to place only to the hospital, she is disoriented to time and person although she is fully awake and follow commands and answers questions appropriately. She looks calm and asking when she can go home. I explained for her she is going for rehab first and she agrees. She is saturating 9098% on room air. Denies chest pain or dyspnea. No abdominal pain. No change in urine or bowel symptoms. No fever line patient remains clinically stable for discharge to rehab today. Physical exam - Gen: patient is a AAOx1 to place only, no distress CVS: S1-S2, RRR, no murmur Lungs: B/L CTA, no wheezing Abdomen: soft, no distention, no tenderness, positive bowel sounds Extremity: no leg edema or induration Time spent more than 35 minutes Patient Condition at Discharge: Stable Plan - Discharge Summary New Discharge Prescriptions: New Amoxic-Pot Clav 875-125Mg [Augmentin 875-125] 1 each PO Q12HR 5 Days #10 tab Zinc Sulfate [Orazinc] 220 mg PO DAILY cap Pantoprazole [Protonix] 40 mg PO AC-BRKFST tab Cyanocobalamin [Vitamin B-12] 1,000 mcg PO DAILY tab Ascorbic Acid [Vitamin C] 500 mg PO BID tab Metoprolol Succinate (ER) [Toprol XL] 12.5 mg PO DAILY 30 Days #15 tab dexAMETHasone ORAL [Hexadrol] 6 mg PO DAILY 2 Days #6 tab INSULIN ASPART (NovoLOG) [NovoLOG (formulary)] 0 unit SQ ACHS ml Levothyroxine Sodium [Synthroid] 50 mcg PO DAILY@0630 tab Pyridoxine [Vitamin B-6] 50 mg PO DAILY tab Cholecalciferol [Vitamin D3 (125 Mcg = 5000 Iu)] 125 mcg PO DAILY tablet Continue Clopidogrel [Plavix] 75 mg PO DAILY Donepezil [Aricept] 10 mg PO HS Memantine [Namenda] 10 mg PO HS Furosemide [Lasix] 40 mg PO DAILY Albuterol Nebulized [Ventolin Nebulized] 2.5 mg INHALATION RT-QID Mirabegron [Myrbetriq] 50 mg PO DAILY Albuterol Sulfate [Ventolin HFA] 2 puff INHALATION RT-QID PRN PRN Reason: Shortness Of Breath buPROPion HCL [Wellbutrin XL] 300 mg PO DAILY Umeclidinium Brm/Vilanterol Tr [Anoro Ellipta 62.5-25 Mcg INH] 1 puff INHALATION RT-DAILY Ergocalciferol [Vitamin D2 (1250 Mcg = 95420 Iu)] 1,250 mcg PO SHAW ondansetron HCL [Zofran] 8 mg PO Q8H PRN PRN Reason: Nausea And Vomiting Lisinopril [Prinivil] 5 mg PO DAILY Docusate [Colace] 100 mg PO HS Atorvastatin [Lipitor] 40 mg PO HS Discontinued Lenalidomide [Revlimid] 20 mg PO DIRECTED Multivit-Min/FA/Lycopen/Lutein [Centrum Silver Tablet] 1 tab PO DAILY Gabapentin 300 mg PO BID sitaGLIPtin [Januvia] 100 mg PO DAILY LORazepam [Ativan] 0.5 mg PO BID PRN PRN Reason: Anxiety Discharge Medication List Clopidogrel [Plavix] 75 mg PO DAILY 09/15/13 [History] Donepezil [Aricept] 10 mg PO HS 08/25/18 [History] Memantine [Namenda] 10 mg PO HS 11/17/18 [History] Furosemide [Lasix] 40 mg PO DAILY 02/23/19 [History] Albuterol Nebulized [Ventolin Nebulized] 2.5 mg INHALATION RT-QID 02/25/19 [History] Albuterol Sulfate [Ventolin HFA] 2 puff INHALATION RT-QID PRN 05/13/21 [History] Atorvastatin [Lipitor] 40 mg PO HS 05/13/21 [History] Docusate [Colace] 100 mg PO HS 05/13/21 [History] Ergocalciferol [Vitamin D2 (1250 Mcg = 44338 Iu)] 1,250 mcg PO SHAW 05/13/21 [History] Lisinopril [Prinivil] 5 mg PO DAILY 05/13/21 [History] Mirabegron [Myrbetriq] 50 mg PO DAILY 05/13/21 [History] Umeclidinium Brm/Vilanterol Tr [Anoro Ellipta 62.5-25 Mcg INH] 1 puff INHALATION RT-DAILY 05/13/21 [History] buPROPion HCL [Wellbutrin XL] 300 mg PO DAILY 05/13/21 [History] ondansetron HCL [Zofran] 8 mg PO Q8H PRN 05/13/21 [History] Metoprolol Succinate (ER) [Toprol XL] 12.5 mg PO DAILY 30 Days #15 tab 05/16/21 [Rx] Amoxic-Pot Clav 875-125Mg [Augmentin 875-125] 1 each PO Q12HR 5 Days #10 tab 05/22/21 [Rx] Ascorbic Acid [Vitamin C] 500 mg PO BID tab 05/22/21 [Rx] Cholecalciferol [Vitamin D3 (125 Mcg = 5000 Iu)] 125 mcg PO DAILY tablet 05/22/21 [Rx] Cyanocobalamin [Vitamin B-12] 1,000 mcg PO DAILY tab 05/22/21 [Rx] INSULIN ASPART (NovoLOG) [NovoLOG (formulary)] 0 unit SQ ACHS ml 05/22/21 [Rx] Levothyroxine Sodium [Synthroid] 50 mcg PO DAILY@0630 tab 05/22/21 [Rx] Pantoprazole [Protonix] 40 mg PO AC-BRKFST tab 05/22/21 [Rx] Pyridoxine [Vitamin B-6] 50 mg PO DAILY tab 05/22/21 [Rx] Zinc Sulfate [Orazinc] 220 mg PO DAILY cap 05/22/21 [Rx] dexAMETHasone ORAL [Hexadrol] 6 mg PO DAILY 2 Days #6 tab 05/22/21 [Rx] Follow up Appointment(s)/Referral(s): Marc Lutz MD [STAFF PHYSICIAN] - 2 Weeks Dinesh Dukes DO [Primary Care Provider] - 1-2 days Ulisses Stratton DO [REFERRING] - 1 Week (message left for office to call you to set up appointment. If you do not hear back please call office) Aidee Boles MD [STAFF PHYSICIAN] - 2 Weeks Activity/Diet/Wound Care/Special Instructions: HOLD Revlimid until dc'd from rehab Heart healthy diet Activity as tolerated Discharge Disposition: TRANSFER TO SNF/ECF
--- NOTE | 2021-05-24 10:51 | P.PN ---
Subjective Progress Note Date: 05/20/21 Patient is a 65-year-old female with history of non-Hodgkin's lymphoma recently received chemotherapy came in is of increased confusion patient is alert oriented 2. Patient doesn't answer questions all that appropriately. Patient is found to have fever and patient is found to have COVID-19 infection. Patient was believed to have congestive heart failure on admission because of which cardiology was consulted. Patient does have severe mitral stenosis and probable diastolic dysfunction, IV fluids were discontinued patient may be in borderline heart failure patient does have mild pedal edema is unable to clearly appreciate any JVD does have elevated BNP of 3300. Chest x-ray was suspicious for pu lmonary edema but can be COVID-19 as well. Patient has mildly elevated troponins of 0.171 and 0.140. Confusion has been going on for past week on known whether patient has any other symptoms were COVID-19 and how long. Patient does have history of pulmonary hypertension as well patient does have history of carotid stenosis status post carotid endarterectomy. Patient had history of CVA with the right-sided weakness some residual. 05/15/2021 Patient evaluated today sitting up in the chair. Alert and oriented x2, knows she is in the hospital but not which one, says the year is 2001, she is a bit aphasic having a hard time finding her words. Which is possibly baseline. Overall feeling better denies any shortness of breath, cough, or chest pain. Chest xray today shows mild cardiomegaly, diffuse interstitial opacities could reflect mild interstitial pulmonary edema versus COVID related pneumonia. EEG shows mild background slowing and presence of frontal intermittent rhythmic delta activity suggestive of generalized cerebral dysfunction as seen with toxic metabolic encephalopathy, intermittent left temporal slowing suggestive of focal cortical neuronal dysfunction. No epileptiform activity was seen. Labs today; WBC 4.2, hgb 7.0, platelet 342, D-Dimer 1.50, sodium 139, potassium 4.3, BUN 25, creatinine 0.83, glucose 160's, AST 63, ALT 83, LDH 968, CRP 26.3, Procalcitonin 0.81. On PO decadron, COVID positive, first positive test in Apr of this year. Blood pressure continues on the lower side 95/59, heart rate 86, afebrile, 96% on 2L NC. Multiple consultations including oncology, neurology, cardiology, pulmonary. 05/16/2021 Patient evaluated today resting in bed. She was taken off oxygen support today with pulse ox 96%. Upon exam today patient was 70% on room air resting and required 4L of oxygen before saturations improved. She denies chest pain, cough, did have some shortness of breath. She was started on oral augmentin by pulmonary, continues on PO decadron, zinc, Patient started on synthroid, was found to be hypothyroid with TSH elevated to 35.700, checked a T4, was low at 0.45. Blood pressures on the lower side today 84/50, negative fluid balance. Labs today show WBC 5.3, hgb 7.2. Venous doppler negative for bilateral DVT. Patient got a dose of IVIG today. Plavix now on hold due to anemia as prior stroke and endarectomy 10 + years ago. Subjective: this is first time i am taking care of the patient 05/17/2021 Patient is with history of dementia admitted with bilateral Covid pneumonia and metabolic encephalopathy and hypoxia with some mild diastolic CHF. Patient has been evaluated by neurologist and cleared her for discharge. However patient is still with respiratory symptoms, she still receiving treatment for Covid bilateral pneumonia with dexamethasone, vitamin C, vitamin D and zinc and she is saturating 93% on 2 L but chest x-ray showing a progressive interstitial infiltrates. Also she was placed on Augmentin for elevated bloodcalcitonin 0.81. Hematology/oncology team for her history of follicular lymphoma, her home dose of remvilid is on hold oncology and follow-up as an outpatient with her oncologist to resume it. Also patient with anemia secondary to her lymphoma. Plavix is on hold for this purpose. 05/18/2021 Patient is with bilateral Covid pneumonia, she is minimally symptomatic at rest she has some occasional coughing. She is saturating 93% and 2 L oxygen via nasal cannula. She was much confused related to her infection but today is much better compared to yesterday she couldn't tell me she is in the hospital [facility] she could not locate facility in [place] or [facility]. She could not tell the year but she remember the name of the present compared to complete disorientation yesterday this is significant improvement. While she stated that she does not have more symptoms, no chest pain or dyspnea. No GI symptoms. No diarrhea. She is eating well. Because hemoglobin stable we resumed her home dose of Plavix, lisinopril because her blood pressure stable. Monitor blood pressure, hemoglobin and other labs tomorrow. Checked forcalcitonin tomorrow. Patient will benefit from ECF upon discharge Keep holding bupropion and gabapentin as her mentation is keep improvement 05/18/2011 Patient here for Covid pneumonia with possible bacterial elements of superinfection and swell as she has some metabolic encephalopathy on the top of her dementia Yasmine mild CHF and hypoxia. Also she has pancytopenia or anemia related to her history of lymphoma, her revlimid is put on hold by oncologist who she sees her on oncologist Dr. morales an outpatient. Quality Assurance Tester and neurologist signed off. Pulmonary on the case. Her mentation improved although she is somewhat confused at baseline. She does she is the hospital and she is calm. No respiratory symptoms while she stated bed most of the time. To increase her mobility and out of bed to chair today with going to discontinue her Lama catheter and check a bladder scan. Lama catheter was placed during admission, checked with bedside nurse. Yesterday resumed her Plavix and lisinopril 5 mg as well as continued on her oral Lasix. Today her hemoglobin is stable at blood pressure is stable. Hemoglobin 8.1, she has mild leukopenia 3.6. Inflammatory markers are trending down. Patient remains on Augmentin, dexamethasone seen and vitamins. 05/20/2021 Patient was admitted to hospital due to COVID-19 pneumonia and hypoxic respiratory failure and possible superimposed bacterial infection. Does have a history of lymphoma. Revlimid is on hold and oncology is following. Patient is currently resting in bed. On room air above 90 %. No complaints of chest pain or shortness of breath. Patient is able to tolerate oral diet. Requiring assistance with ambulation. Patient is still on Lama catheter and having retention. No complaints of abdominal pain. No fever no chills. Patient on antibiotics in the form of Augmentin. Continued on dexamethasone and platelets and lisinopril and oral Lasix. Laboratory showed WBC 5.0 hemoglobin 9.2 and platelets 401 BUN 19 and creatinine 0.89 potassium 3.5 calcium 8.2 Patient received 2 units of IV immunoglobulin. Oncology is on board. Possible discharge to rehab in the next 24 to 48 hours. Current medications reviewed. Objective - Vital Signs Vital signs: Vital Signs Temp 98.2 F 05/20/21 15:35 Pulse 71 05/20/21 15:35 Resp 16 05/20/21 15:35 BP 125/78 05/20/21 15:35 Pulse Ox 96 05/20/21 15:35 Intake & Output 05/19/21 05/20/21 05/20/21 18:59 06:59 18:59 Intake Total 118 Output Total 1974 500 950 Balance -1974 Weight 92.6 kg Intake: Oral 118 Output: Urine 1974 500 950 Straight 500 Uretheral (Lama) 550 Other: Voiding Method Indwelling Catheter Indwelling Catheter # Bowel Movements 1 1 - Exam - Exam -GENERAL: The patient is alert and oriented x2-3, , not in any acute distress. Obese HEENT: Pupils are round and equally reacting to light. EOMI. No scleral icterus. No conjunctival pallor. Normocephalic, atraumatic. No pharyngeal erythema. No thyromegaly. CARDIOVASCULAR: S1 and S2 present. No murmurs, rubs, or gallops. PULMONARY: Chest is clear to auscultation, no wheezing or crackles. ABDOMEN: Soft, nontender, nondistended, normoactive bowel sounds. No palpable organomegaly. MUSCULOSKELETAL: No joint swelling or deformity. EXTREMITIES: No cyanosis, clubbing, or pedal edema. NEUROLOGICAL: Gross neurological examination did not reveal any focal deficits. SKIN: No rashes. no petechiae. - Labs CBC & Chem 7: 05/20/21 08:42 05/20/21 08:42 Labs: Abnormal Lab Results - Last 24 Hours (Table) 05/19/21 05/20/21 05/20/21 Range/Units 20:17 08:42 08:42 RBC 2.83 L (3.80-5.40) m/uL Hgb 9.2 L (11.4-16.0) gm/dL Hct 29.7 L (34.0-46.0) % MCV 104.9 H (80.0-100.0) fL MCHC 30.8 L (31.0-37.0) g/dL RDW 18.1 H (11.5-15.5) % BUN 19 H (7-17) mg/dL POC Glucose (mg/dL) 170 H (75-99) mg/dL Calcium 8.2 L (8.4-10.2) mg/dL 05/20/21 05/20/21 Range/Units 11:48 16:17 RBC (3.80-5.40) m/uL Hgb (11.4-16.0) gm/dL Hct (34.0-46.0) % MCV (80.0-100.0) fL MCHC (31.0-37.0) g/dL RDW (11.5-15.5) % BUN (7-17) mg/dL POC Glucose (mg/dL) 130 H 172 H (75-99) mg/dL Calcium (8.4-10.2) mg/dL Assessment and Plan Assessment: Assessment and plan -Shortness of breath, acute hypoxic respiratory failure: Multifocal with COVID pneumonia, CHF exacerbation. was on 2L NC, 70% on room air. currently >90% on RA -Congestive heart failure chronic diastolic dysfunction with mild acute exacerbation, not on IV lasix due to borderline blood pressures -Non-Hodgkin's lymphoma recently received chemotherapy -Severe anemia with hemoglobin of 7.2: Secondary to recent chemotherapy for non- Hodgkin's lymphoma -Altered mental status: Toxic encephalopathy from infection component of metabolic from heart failure, seems improved -Sepsis secondary to COVID-19 infection -Hypervolemic hyponatremia on admission, sodium normalized -Severe mitral stenosis -Mildly elevated troponins: Cardiology evaluated the patient, most probably not myocardial infarction, more consistent with acute renal failure. Creatinine normalized. -Acute renal failure secondary to sepsis there may be a competent of prerenal azotemia from congestive heart failure as well as -Pulmonary hypertension -Carotid stenosis status post endarterectomy -Hypertension she is presently hypotensive and cannot tolerate diuretics patient probably will need diuretics. Lisinopril is being held because of hypotension and acute renal failure -Dementia probably Alzheimer's -History CVA with right side residual weakness Plan: Continue with Norvasc and Plavix Discontinue Lama catheter and check a bladder scan. pt. is still retaining. Patient was placed back Lama catheter. Pulmonary and oncology team on the case Continue all other supportive care PT/OT consultation Subacute rehab when stable DVT prophylaxis: Subcutaneous heparin GI prophylaxis: Protonix Prognosis is guarded FULL CODE Time with Patient: Greater than 30
--- NOTE | 2021-05-24 10:54 | P.PN ---
Subjective Progress Note Date: 05/21/21 Patient is a 65-year-old female with history of non-Hodgkin's lymphoma recently received chemotherapy came in is of increased confusion patient is alert oriented 2. Patient doesn't answer questions all that appropriately. Patient is found to have fever and patient is found to have COVID-19 infection. Patient was believed to have congestive heart failure on admission because of which cardiology was consulted. Patient does have severe mitral stenosis and probable diastolic dysfunction, IV fluids were discontinued patient may be in borderline heart failure patient does have mild pedal edema is unable to clearly appreciate any JVD does have elevated BNP of 3300. Chest x-ray was suspicious for pu lmonary edema but can be COVID-19 as well. Patient has mildly elevated troponins of 0.171 and 0.140. Confusion has been going on for past week on known whether patient has any other symptoms were COVID-19 and how long. Patient does have history of pulmonary hypertension as well patient does have history of carotid stenosis status post carotid endarterectomy. Patient had history of CVA with the right-sided weakness some residual. 05/15/2021 Patient evaluated today sitting up in the chair. Alert and oriented x2, knows she is in the hospital but not which one, says the year is 2001, she is a bit aphasic having a hard time finding her words. Which is possibly baseline. Overall feeling better denies any shortness of breath, cough, or chest pain. Chest xray today shows mild cardiomegaly, diffuse interstitial opacities could reflect mild interstitial pulmonary edema versus COVID related pneumonia. EEG shows mild background slowing and presence of frontal intermittent rhythmic delta activity suggestive of generalized cerebral dysfunction as seen with toxic metabolic encephalopathy, intermittent left temporal slowing suggestive of focal cortical neuronal dysfunction. No epileptiform activity was seen. Labs today; WBC 4.2, hgb 7.0, platelet 342, D-Dimer 1.50, sodium 139, potassium 4.3, BUN 25, creatinine 0.83, glucose 160's, AST 63, ALT 83, LDH 968, CRP 26.3, Procalcitonin 0.81. On PO decadron, COVID positive, first positive test in Apr of this year. Blood pressure continues on the lower side 95/59, heart rate 86, afebrile, 96% on 2L NC. Multiple consultations including oncology, neurology, cardiology, pulmonary. 05/16/2021 Patient evaluated today resting in bed. She was taken off oxygen support today with pulse ox 96%. Upon exam today patient was 70% on room air resting and required 4L of oxygen before saturations improved. She denies chest pain, cough, did have some shortness of breath. She was started on oral augmentin by pulmonary, continues on PO decadron, zinc, Patient started on synthroid, was found to be hypothyroid with TSH elevated to 35.700, checked a T4, was low at 0.45. Blood pressures on the lower side today 84/50, negative fluid balance. Labs today show WBC 5.3, hgb 7.2. Venous doppler negative for bilateral DVT. Patient got a dose of IVIG today. Plavix now on hold due to anemia as prior stroke and endarectomy 10 + years ago. Subjective: this is first time i am taking care of the patient 05/17/2021 Patient is with history of dementia admitted with bilateral Covid pneumonia and metabolic encephalopathy and hypoxia with some mild diastolic CHF. Patient has been evaluated by neurologist and cleared her for discharge. However patient is still with respiratory symptoms, she still receiving treatment for Covid bilateral pneumonia with dexamethasone, vitamin C, vitamin D and zinc and she is saturating 93% on 2 L but chest x-ray showing a progressive interstitial infiltrates. Also she was placed on Augmentin for elevated bloodcalcitonin 0.81. Hematology/oncology team for her history of follicular lymphoma, her home dose of remvilid is on hold oncology and follow-up as an outpatient with her oncologist to resume it. Also patient with anemia secondary to her lymphoma. Plavix is on hold for this purpose. 05/18/2021 Patient is with bilateral Covid pneumonia, she is minimally symptomatic at rest she has some occasional coughing. She is saturating 93% and 2 L oxygen via nasal cannula. She was much confused related to her infection but today is much better compared to yesterday she couldn't tell me she is in the hospital [facility] she could not locate facility in [place] or [facility]. She could not tell the year but she remember the name of the present compared to complete disorientation yesterday this is significant improvement. While she stated that she does not have more symptoms, no chest pain or dyspnea. No GI symptoms. No diarrhea. She is eating well. Because hemoglobin stable we resumed her home dose of Plavix, lisinopril because her blood pressure stable. Monitor blood pressure, hemoglobin and other labs tomorrow. Checked forcalcitonin tomorrow. Patient will benefit from ECF upon discharge Keep holding bupropion and gabapentin as her mentation is keep improvement 05/18/2011 Patient here for Covid pneumonia with possible bacterial elements of superinfection and swell as she has some metabolic encephalopathy on the top of her dementia Yasmine mild CHF and hypoxia. Also she has pancytopenia or anemia related to her history of lymphoma, her revlimid is put on hold by oncologist who she sees her on oncologist Dr. morales an outpatient. Produce Department Supervisor and neurologist signed off. Pulmonary on the case. Her mentation improved although she is somewhat confused at baseline. She does she is the hospital and she is calm. No respiratory symptoms while she stated bed most of the time. To increase her mobility and out of bed to chair today with going to discontinue her Lama catheter and check a bladder scan. Lama catheter was placed during admission, checked with bedside nurse. Yesterday resumed her Plavix and lisinopril 5 mg as well as continued on her oral Lasix. Today her hemoglobin is stable at blood pressure is stable. Hemoglobin 8.1, she has mild leukopenia 3.6. Inflammatory markers are trending down. Patient remains on Augmentin, dexamethasone seen and vitamins. 05/20/2021 Patient was admitted to hospital due to COVID-19 pneumonia and hypoxic respiratory failure and possible superimposed bacterial infection. Does have a history of lymphoma. Revlimid is on hold and oncology is following. Patient is currently resting in bed. On room air above 90 %. No complaints of chest pain or shortness of breath. Patient is able to tolerate oral diet. Requiring assistance with ambulation. Patient is still on Lama catheter and having retention. No complaints of abdominal pain. No fever no chills. Patient on antibiotics in the form of Augmentin. Continued on dexamethasone and platelets and lisinopril and oral Lasix. Laboratory showed WBC 5.0 hemoglobin 9.2 and platelets 401 BUN 19 and creatinine 0.89 potassium 3.5 calcium 8.2 Patient received 2 units of IV immunoglobulin. Oncology is on board. Possible discharge to rehab in the next 24 to 48 hours. 05/21/2021 Patient is awake alert and oriented x2 3. Able to participate in physical therapy. Will need rehab transfer. Otherwise patient is antibiotics at home Augmentin for possible superimposed bacterial infection. Currently saturating on room air. No complaints of chest pain or shortness of air. Patient has been afebrile. No headache or dizziness or lightheadedness. No nausea vomiting abdomen pain or diarrhea. Hemoglobin is fairly stable. Patient does have hypogammaglobulinemia and received 2 units of IV immunoglobulins. Oncology is following. Was on Revlimid for non-Hodgkin's lymphoma currently on hold. Laboratory data reviewed. Current medications reviewed. . Objective - Vital Signs Vital signs: Vital Signs Temp 98.1 F 05/21/21 18:14 Pulse 67 05/21/21 18:14 Resp 20 05/21/21 18:14 BP 128/78 05/21/21 18:14 Pulse Ox 97 05/21/21 18:14 Intake & Output 05/21/21 05/21/21 05/22/21 06:59 18:59 06:59 Intake Total 660 Output Total 500 Balance -500 660 Intake: Oral 660 Output: Urine 500 Other: Voiding Method Indwelling Catheter Indwelling Catheter # Voids 2 - Exam - Exam -GENERAL: The patient is alert and oriented x2-3, , not in any acute distress. Obese HEENT: Pupils are round and equally reacting to light. EOMI. No scleral icterus. No conjunctival pallor. Normocephalic, atraumatic. No pharyngeal erythema. No thyromegaly. CARDIOVASCULAR: S1 and S2 present. No murmurs, rubs, or gallops. PULMONARY: Chest is clear to auscultation, no wheezing or crackles. ABDOMEN: Soft, nontender, nondistended, normoactive bowel sounds. No palpable organomegaly. MUSCULOSKELETAL: No joint swelling or deformity. EXTREMITIES: No cyanosis, clubbing, or pedal edema. NEUROLOGICAL: Gross neurological examination did not reveal any focal deficits. SKIN: No rashes. no petechiae. - Labs CBC & Chem 7: 05/20/21 08:42 05/20/21 08:42 Labs: Abnormal Lab Results - Last 24 Hours (Table) 05/20/21 05/21/21 05/21/21 Range/Units 20:20 11:17 16:34 POC Glucose (mg/dL) 146 H 118 H 149 H (75-99) mg/dL 05/21/21 Range/Units 20:03 POC Glucose (mg/dL) 243 H (75-99) mg/dL Assessment and Plan Assessment: Assessment and plan -Shortness of breath, acute hypoxic respiratory failure: Multifocal with COVID pneumonia, CHF exacerbation. was on 2L NC, 70% on room air. currently >90% on RA -Congestive heart failure chronic diastolic dysfunction with mild acute exacerbation, not on IV lasix due to borderline blood pressures -Non-Hodgkin's lymphoma recently received chemotherapy -Severe anemia with hemoglobin of 7.2: Secondary to recent chemotherapy for non- Hodgkin's lymphoma -Hypogammaglobulinemia -Altered mental status: Toxic encephalopathy from infection component of metabolic from heart failure, seems improved -Sepsis secondary to COVID-19 infection -Hypervolemic hyponatremia on admission, sodium normalized -Severe mitral stenosis -Mildly elevated troponins: Cardiology evaluated the patient, most probably not myocardial infarction, more consistent with acute renal failure. Creatinine normalized. -Acute renal failure secondary to sepsis there may be a competent of prerenal azotemia from congestive heart failure as well as -Pulmonary hypertension -Carotid stenosis status post endarterectomy -Hypertension she is presently hypotensive and cannot tolerate diuretics patient probably will need diuretics. Lisinopril is being held because of hypotension and acute renal failure -Dementia probably Alzheimer's -History CVA with right side residual weakness Plan: Continue with Norvasc and Plavix Discontinue Lama catheter and check a bladder scan. pt. is still retaining. Patient was placed back Lama catheter. Pulmonary and oncology team on the case Continue all other supportive care PT/OT consultation Subacute rehab when stable DVT prophylaxis: Subcutaneous heparin GI prophylaxis: Protonix Prognosis is guarded FULL CODE
== END 2021-05-23 13:43 | DRG 871 ==
LOC: EC 15:40 → 3SCARD 20:09
PROVIDERS: ADMIT Internal Medicine; ATTEND Internal Medicine
DX: A41.89 Other specified sepsis (principal); U07.1 COVID-19; J96.01 Acute respiratory failure with hypoxia; J12.82 Pneumonia due to coronavirus disease 2019; I50.33 Acute on chronic diastolic (congestive) heart failure; J15.9 Unspecified bacterial pneumonia; G92.8 Other toxic encephalopathy; N39.0 Urinary tract infection, site not specified; C82.90 Follicular lymphoma, unspecified, unspecified site; D61.818 Other pancytopenia; E87.1 Hypo-osmolality and hyponatremia; I69.351 Hemiplegia and hemiparesis following cerebral infarction affecting right dominant side; J44.0 Chronic obstructive pulmonary disease with (acute) lower respiratory infection; N17.9 Acute kidney failure, unspecified; D80.1 Nonfamilial hypogammaglobulinemia; F02.81 Dementia in other diseases classified elsewhere, unspecified severity, with behavioral disturbance; R41.0 Disorientation, unspecified; D64.81 Anemia due to antineoplastic chemotherapy; F32.A Depression, unspecified; E53.8 Deficiency of other specified B group vitamins; E53.1 Pyridoxine deficiency; G89.29 Other chronic pain; I05.0 Rheumatic mitral stenosis; T45.1X5A Adverse effect of antineoplastic and immunosuppressive drugs, initial encounter; E03.9 Hypothyroidism, unspecified; I11.0 Hypertensive heart disease with heart failure; E78.5 Hyperlipidemia, unspecified; E87.6 Hypokalemia; I27.20 Pulmonary hypertension, unspecified; E88.09 Other disorders of plasma-protein metabolism, not elsewhere classified; M54.9 Dorsalgia, unspecified; G30.9 Alzheimer's disease, unspecified; Z79.890 Hormone replacement therapy; I69.320 Aphasia following cerebral infarction; Z98.890 Other specified postprocedural states; Z87.891 Personal history of nicotine dependence; Z79.02 Long term (current) use of antithrombotics/antiplatelets; Z79.84 Long term (current) use of oral hypoglycemic drugs; Z79.899 Other long term (current) drug therapy; Z96.82 Presence of neurostimulator
CPT/HCPCS: 36415; 51798; 70450; 71045; 71046; 76770; 80048; 80053; 80306; 81003; 82272; 82607; 82746; 82784; 83036; 83605; 83615; 83735; 83880; 83921; 84100; 84145; 84207; 84439; 84443; 84484; 84550; 85025; 85027; 85379; 85384; 85610; 85730; 86140; 87635; 93005; 93306; 93970; 94760; 95816; 96361; 96365; 99285

== ENCOUNTER 2021-07-30 11:00 | Inpatient (IN) | payer MEDICARE ==
--- NOTE | 2021-07-30 11:53 | XR ---
EXAMINATION TYPE: XR chest 2V DATE OF EXAM: 07/30/2021 COMPARISON: Chest x-ray May 17, 2021 HISTORY: Increased difficulty in breathing. History of lymphoma. TECHNIQUE: Frontal and lateral views of the chest are obtained. FINDINGS: Stable right internal jugular Mediport catheter. New moderate-sized right pleural effusion . Persisting cardiomegaly. Left lung currently clear. Spinal stimulator device in the thoracic spina l canal redemonstrated. IMPRESSION: New moderate to borderline large size right pleural effusion.
[2021-07-30 14:47] LABS: Anisocytosis Slight; Basophils # (A) 0.1 k/uL (0-0.2); Basophils % (A) 1 %; Eosinophils # (A) 0.4 k/uL (0-0.7); Eosinophils % (A) 6 %; HCT 32.4 % (34.0-46.0); HGB 10.5 gm/dL (11.4-16.0); Hypochromasia Moderate; Lymphocytes # (A) 0.6 k/uL (1.0-4.8); Lymphocytes % (A) 10 %; MCH 31.4 pg (25.0-35.0); MCHC 32.4 g/dL (31.0-37.0); MCV 97.1 fL (80.0-100.0); Macrocytosis Slight; Mean Platelet Volume 9.6; Monocytes # (A) 0.5 k/uL (0-1.0); Monocytes % (A) 9 %; Neutrophils # (A) 4.4 k/uL (1.3-7.7); Neutrophils % (A) 72 %; Platelet Count 193 k/uL (150-450); Poikilocytosis Slight; RBC 3.33 m/uL (3.80-5.40); RDW 16.4 % (11.5-15.5); WBC 6.2 k/uL (3.8-10.6)
[2021-07-30 14:50] LABS: INR 0.9 (<1.2); Partial Thromboplastin Time 23.3 sec (22.0-30.0); Prothrombin Time 10.2 sec (9.0-12.0)
[2021-07-30 14:53] LABS: ALT 21 U/L (4-34); AST 26 U/L (14-36); African American GFR (CKD) >90 (>60 ml/min/1.73 sqM); Alkaline Phosphatase 121 U/L (38-126); Anion Gap 8 mmol/L; Blood Urea Nitrogen 14 mg/dL (7-17); Calcium 8.1 mg/dL (8.4-10.2); Carbon Dioxide 30 mmol/L (22-30); Chloride 99 mmol/L (98-107); Glucose 82 mg/dL (74-99); Magnesium 1.8 mg/dL (1.6-2.3); Non-African American GFR(CKD) >90 (>60 ml/min/1.73 sqM); Potassium 2.9 mmol/L (3.5-5.1); Sodium 137 mmol/L (137-145); Total Bilirubin 0.7 mg/dL (0.2-1.3); Total Protein 5.5 g/dL (6.3-8.2)
--- NOTE | 2021-07-30 14:56 | ED ---
SOB HPI <Walt Paredes - Last Filed: 07/30/21 17:03> - General Source: patient Mode of arrival: ambulatory Limitations: no limitations <Crys Kimble - Last Filed: 07/31/21 00:01> - General Chief Complaint: Shortness of Breath Stated Complaint: HENRIQUE Time Seen by Provider: 07/30/21 11:35 - History of Present Illness Initial Comments: Patient is a 65-year-old female with past medical history of lymphoma, CVA presents emergency room with reported shortness of breath. Aunt is at bedside and helps provide the history. They state that over the past week the patient has had worsening shortness of breath. Oxygenation is normal around 95% however it has been falling into the high 80s on their home pulse ox. Patient has no previous history of pulmonary or cardiac issues. Today she saw her oncologist Dr. Stratton who recommended that she be evaluated for PE. She denies history of PE. No lower extremity swelling. She denies chest pain. Does admit to a nonproductive cough. No fevers. Shortness of breath is worse with ambulation. No other alleviating, precipitating or modifying factors (Crys Kimble) - Related Data Home Medications Medication Instructions Recorded Confirmed Clopidogrel [Plavix] 75 mg PO DAILY 09/15/13 07/30/21 Donepezil [Aricept] 10 mg PO HS 08/25/18 07/30/21 Memantine [Namenda] 10 mg PO HS 11/17/18 07/30/21 Furosemide [Lasix] 40 mg PO DAILY 02/23/19 07/30/21 Albuterol Nebulized [Ventolin 2.5 mg INHALATION RT-QID PRN 02/25/19 07/30/21 Nebulized] Albuterol Sulfate [Ventolin HFA] 2 puff INHALATION RT-QID PRN 05/13/21 07/30/21 Atorvastatin [Lipitor] 40 mg PO HS 05/13/21 07/30/21 Docusate [Colace] 100 mg PO HS 05/13/21 07/30/21 Ergocalciferol [Vitamin D2 (1250 1,250 mcg PO SHAW 05/13/21 07/30/21 Mcg = 89533 Iu)] Lisinopril [Prinivil] 5 mg PO DAILY 05/13/21 07/30/21 Mirabegron [Myrbetriq] 50 mg PO DAILY 05/13/21 07/30/21 Umeclidinium Brm/Vilanterol Tr 1 puff INHALATION RT-DAILY 05/13/21 07/30/21 [Anoro Ellipta 62.5-25 Mcg INH] buPROPion HCL [Wellbutrin XL] 300 mg PO DAILY 05/13/21 07/30/21 ondansetron HCL [Zofran] 8 mg PO Q8H PRN 05/13/21 07/30/21 Gabapentin [Neurontin] 300 mg PO BID 07/30/21 07/30/21 INSULIN ASPART (NovoLOG) [NovoLOG See Protocol SQ ACHS PRN 07/30/21 07/30/21 (formulary)] Lenalidomide [Revlimid] 20 mg PO DIRECTED 07/30/21 07/30/21 sitaGLIPtin [Januvia] 100 mg PO DAILY 07/30/21 07/30/21 Previous Rx's Medication Instructions Recorded Metoprolol Succinate (ER) [Toprol 12.5 mg PO DAILY 30 Days #15 tab 05/16/21 XL] Ascorbic Acid [Vitamin C] 500 mg PO BID tab 05/22/21 Cholecalciferol [Vitamin D3 (125 125 mcg PO DAILY tablet 05/22/21 Mcg = 5000 Iu)] Cyanocobalamin [Vitamin B-12] 1,000 mcg PO DAILY tab 05/22/21 Levothyroxine Sodium [Synthroid] 50 mcg PO DAILY@0630 tab 05/22/21 Pyridoxine [Vitamin B-6] 50 mg PO DAILY tab 05/22/21 Allergies Allergy/AdvReac Type Severity Reaction Status Date / Time naproxen sodium [From Aleve] Allergy Rash/Hives Verified 07/30/21 16:06 Review of Systems ROS Other: All systems not noted in ROS Statement are negative. <Walt Paredes - Last Filed: 07/30/21 17:03> ROS Other: All systems not noted in ROS Statement are negative. <Crys Kimble - Last Filed: 07/31/21 00:01> ROS Statement: Those systems with pertinent positive or pertinent negative responses have been documented in the HPI. Past Medical History Past Medical History: CVA/TIA, Dementia, Hyperlipidemia, Memory Impairment Additional Past Medical History / Comment(s): lymphoma. CVA APPROX 2003 PER AUNT PT WALKS WITH LIMP, RT ARM PARESIS, PT HAS SOME APHASIA, SHORT TERM MEMORY NOT GOOD. History of Any Multi-Drug Resistant Organisms: None Reported Past Surgical History: Tubal Ligation Additional Past Surgical History / Comment(s): carpal tunnel, neck, medi port, per son pt had carotid surgery Past Anesthesia/Blood Transfusion Reactions: No Reported Reaction Past Psychological History: Depression Smoking Status: Unknown if ever smoked Past Alcohol Use History: None Reported Past Drug Use History: None Reported - Past Family History Mother Family Medical History: Cancer Father Family Medical History: Deep Vein Thrombosis (DVT) <Marlo Kimbleah Marylou - Last Filed: 07/31/21 00:01> General Exam Limitations: no limitations General appearance: alert, in no apparent distress Head exam: Present: atraumatic, normocephalic, normal inspection Eye exam: Present: normal appearance, PERRL, EOMI. Absent: scleral icterus, conjunctival injection, periorbital swelling ENT exam: Present: normal exam, mucous membranes moist Neck exam: Present: normal inspection. Absent: tenderness, meningismus, lymphadenopathy Respiratory exam: Present: rales (Right base), decreased breath sounds. Absent: respiratory distress, wheezes, rhonchi, stridor Cardiovascular Exam: Present: regular rate, normal rhythm, normal heart sounds. Absent: systolic murmur, diastolic murmur, rubs, gallop, clicks GI/Abdominal exam: Present: soft, normal bowel sounds. Absent: distended, tenderness, guarding, rebound, rigid Extremities exam: Present: normal inspection, full ROM, normal capillary refill. Absent: tenderness, pedal edema, joint swelling, calf tenderness Back exam: Present: normal inspection Neurological exam: Present: alert, oriented X3, CN II-XII intact Psychiatric exam: Present: normal affect, normal mood Skin exam: Present: warm, dry, intact, normal color. Absent: rash <Crys Kimble - Last Filed: 07/31/21 00:01> Course Vital Signs 07/30/21 07/30/21 07/30/21 11:34 14:36 16:42 Temperature 98.5 F Pulse Rate 87 87 Respiratory 22 20 18 Rate Blood Pressure 117/70 132/62 O2 Sat by Pulse 92 L 92 L Oximetry 07/30/21 20:56 Temperature 98.3 F Pulse Rate 99 Respiratory 24 Rate Blood Pressure 144/55 O2 Sat by Pulse 91 L Oximetry Medical Decision Making - Lab Data Result diagrams: 07/30/21 14:13 07/30/21 14:13 <Walt Paredes - Last Filed: 07/30/21 17:03> - Lab Data Result diagrams: 07/30/21 14:13 07/30/21 14:13 <Crys Kimble Maryluo - Last Filed: 07/31/21 00:01> - Medical Decision Making Patient was signed out to me pending results of CT imaging. 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 Initial workup revealed laboratory studies that were remarkable for a chronic normocytic anemia with hemoglobin of 10.5. D-dimer was elevated to 1.8. Patient is hypokalemic to 2.9 which will be replenished by myself. Troponin is indeterminate. BNP is 1450. Remainder the labs were unremarkable. Chest x-ray showed a right-sided pleural effusion with recommendation to obtain a CT imaging to rule out pulmonary embolism due to the elevated d-dimer. I followed up on results of the CT which revealed no pulmonary embolism but did demonstrate the small to borderline moderate sized right pleural effusion with any suspicious right midlung mass an abnormal right hilar and subcarinal adenopathy worrisome for neoplasm. Was not seen on PET scans in her system from 2 years ago. She was recently admitted for Covid with no pleural effusion back in May of this year. I discussed results with the patient. I believe she requires admission for her hypokalemia as well as exertional dyspnea secondary to a pleural effusion. Pulmonology, Dr. Boles will be consulted for evaluation. I spoke with Dr. Boles who was in agreement to consult. Patient remains 92-94% on room air, and remaining vital signs within normal limits. Patient will be admitted to [facility], and I spoke with [facility] who accepted the patient. (Walt Paredes) Upon arrival patient is placed into room 16. History and physical exam is performed. Oxygen saturation saturations of 92%. IV is established and laboratory studies are conducted. D-dimer elevated at 1.8. Chest x-ray demonstrates new moderate to borderline large size right pleural effusion. Awaiting remaining laboratory studies at this time and pending CT the patient's chest. [facility] - Lab Data Lab Results 07/30/21 07/30/21 07/30/21 Range/Units 14:13 14:13 14:13 WBC 6.2 (3.8-10.6) k/uL RBC 3.33 L (3.80-5.40) m/uL Hgb 10.5 L (11.4-16.0) gm/dL Hct 32.4 L (34.0-46.0) % MCV 97.1 (80.0-100.0) fL MCH 31.4 (25.0-35.0) pg MCHC 32.4 (31.0-37.0) g/dL RDW 16.4 H (11.5-15.5) % Plt Count 193 (150-450) k/uL MPV 9.6 Neutrophils % 72 % Lymphocytes % 10 % Monocytes % 9 % Eosinophils % 6 % Basophils % 1 % Neutrophils # 4.4 (1.3-7.7) k/uL Lymphocytes # 0.6 L (1.0-4.8) k/uL Monocytes # 0.5 (0-1.0) k/uL Eosinophils # 0.4 (0-0.7) k/uL Basophils # 0.1 (0-0.2) k/uL Hypochromasia Moderate Poikilocytosis Slight Anisocytosis Slight Macrocytosis Slight PT 10.2 (9.0-12.0) sec INR 0.9 (<1.2) APTT 23.3 (22.0-30.0) sec D-Dimer 1.80 H (<0.60) mg/L FEU Sodium 137 (137-145) mmol/L Potassium 2.9 L (3.5-5.1) mmol/L Chloride 99 (98-107) mmol/L Carbon Dioxide 30 (22-30) mmol/L Anion Gap 8 mmol/L BUN 14 (7-17) mg/dL Creatinine 0.71 (0.52-1.04) mg/dL Est GFR (CKD-EPI)AfAm >90 (>60 ml/min/1.73 sqM) Est GFR (CKD-EPI)NonAf >90 (>60 ml/min/1.73 sqM) Glucose 82 (74-99) mg/dL Plasma Lactic Acid Praneeth (0.7-2.0) mmol/L Calcium 8.1 L (8.4-10.2) mg/dL Magnesium 1.8 (1.6-2.3) mg/dL Total Bilirubin 0.7 (0.2-1.3) mg/dL AST 26 (14-36) U/L ALT 21 (4-34) U/L Alkaline Phosphatase 121 (38-126) U/L Troponin I (0.000-0.034) ng/mL NT-Pro-B Natriuret Pep pg/mL Total Protein 5.5 L (6.3-8.2) g/dL Albumin 3.0 L (3.5-5.0) g/dL 07/30/21 07/30/21 07/30/21 Range/Units 14:13 14:13 14:13 WBC (3.8-10.6) k/uL RBC (3.80-5.40) m/uL Hgb (11.4-16.0) gm/dL Hct (34.0-46.0) % MCV (80.0-100.0) fL MCH (25.0-35.0) pg MCHC (31.0-37.0) g/dL RDW (11.5-15.5) % Plt Count (150-450) k/uL MPV Neutrophils % % Lymphocytes % % Monocytes % % Eosinophils % % Basophils % % Neutrophils # (1.3-7.7) k/uL Lymphocytes # (1.0-4.8) k/uL Monocytes # (0-1.0) k/uL Eosinophils # (0-0.7) k/uL Basophils # (0-0.2) k/uL Hypochromasia Poikilocytosis Anisocytosis Macrocytosis PT (9.0-12.0) sec INR (<1.2) APTT (22.0-30.0) sec D-Dimer (<0.60) mg/L FEU Sodium (137-145) mmol/L Potassium (3.5-5.1) mmol/L Chloride (98-107) mmol/L Carbon Dioxide (22-30) mmol/L Anion Gap mmol/L BUN (7-17) mg/dL Creatinine (0.52-1.04) mg/dL Est GFR (CKD-EPI)AfAm (>60 ml/min/1.73 sqM) Est GFR (CKD-EPI)NonAf (>60 ml/min/1.73 sqM) Glucose (74-99) mg/dL Plasma Lactic Acid Praneeth 1.4 (0.7-2.0) mmol/L Calcium (8.4-10.2) mg/dL Magnesium (1.6-2.3) mg/dL Total Bilirubin (0.2-1.3) mg/dL AST (14-36) U/L ALT (4-34) U/L Alkaline Phosphatase (38-126) U/L Troponin I 0.025 (0.000-0.034) ng/mL NT-Pro-B Natriuret Pep 1450 pg/mL Total Protein (6.3-8.2) g/dL Albumin (3.5-5.0) g/dL - EKG Data EKG Comments: EKG demonstrates sinus rhythm with a rate of 82. NJ interval 177. QRS 109. QTC of 449. No acute ST segment elevations or depressions. (Crys Kimble) Disposition Time of Disposition: 16:00 <Walt Paredes - Last Filed: 07/30/21 17:03> <Crys Kimble - Last Filed: 07/31/21 00:01> Clinical Impression: Lung mass, Pleural effusion, Exertional dyspnea, History of CVA (cerebrovascular accident), History of non-Hodgkin's lymphoma Disposition: ADMITTED IP TO THIS HOSP Condition: Stable
--- NOTE | 2021-07-30 15:40 | CT ---
EXAMINATION TYPE: CT chest angio for PE DATE OF EXAM: 07/30/2021 COMPARISON: Chest x-ray earlier today. PET/CT May 13, 2019 HISTORY: HENRIQUE, elevated d-dimer CT DLP: 373.8 mGycm. Automated Exposure Control for Dose Reduction was Utilized. CONTRAST: CTA scan of the thorax is performed with IV Contrast, patient injected with 100 mL of Isovue 370, pul monary embolism protocol. MIP Images are created on CT scanner and reviewed. FINDINGS: LUNGS: Background mild to moderate underlying emphysematous change is redemonstrated greatest in the upper lungs. There is only a small to borderline moderate sized right pleural effusion. This extends to the right lung apex however. Majority of abnormal x-ray or right lung opacity corresponds to suspe cted new anterior right midlung mass from recent PET/CT measuring roughly 9.2 x 8.0 cm axial image 72 . Finding could reflect masslike consolidation but there appears to be transversing vessels predomina ntly posterior to this lesion. This is felt less likely. There are some areas of compressive atelecta sis adjacent to the pleural effusion. Left lung is clear. Satisfactory enhancement of the thoracic ao rta without aneurysm or dissection. 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 MEDIASTINUM: There is satisfactory enhancement of the pulmonary artery and its branches, there is no CT evidence for pulmonary embolism. Abnormal right hilar and subcarinal lymph nodes on current study. For reference subcarinal lymph node measures 3.4 x 2.3 cm axial image 65. No cardiomegaly or peric ardial effusion is seen. OTHER: Focal prominent tissue lateral left breast axial image 41 unchanged from PET/CT. No new adrena l masses. Underlying scoliotic curvature with mild to moderate multilevel spurring. Spinal stimulator leads are noted. IMPRESSION: 1. No CT evidence for acute pulmonary embolism. 2. Only small to borderline moderate sized right pleural effusion. New suspicious right midlung mass and abnormal right hilar and subcarinal adenopathy worrisome for neoplasm. Consider repeat PET CT and /or bronchoscopy to further evaluate.
[2021-07-30] MEDS ORDERED: POTASSIUM CHLORIDE ER 20 MEQ TAB.ER PO STA (15:56)
[2021-07-30] MEDS ORDERED: NALOXONE 0.4 MG/ML 1 ML VIAL IV PRN (16:03)
[2021-07-30] MEDS ORDERED: ACETAMINOPHEN TAB 325 MG TAB PO PRN (16:03)
[2021-07-30] MEDS ORDERED: ALBUTEROL NEBULIZED 2.5 MG/3 ML INHALATION PRN ×2 (17:26)
[2021-07-30] MEDS ORDERED: ONDANSETRON 4 MG TAB PO PRN (17:26)
[2021-07-30] MEDS ORDERED: NON FORMULARY DRUG (Lenalidomide [Revlimid] 20 MG Capsule) PO SCH (17:30)
[2021-07-30 18:18] LABS: Glucose,Whole Blood 129 mg/dL (75-99)
[2021-07-30] MEDS: INSULIN ASPART (NovoLOG) 100 UNIT/ML VIAL SQ SCH (18:18)
[2021-07-30] MEDS: LENALIDOMIDE PO SCH (20:42)
[2021-07-30] MEDS: GABAPENTIN 300 MG CAP PO SCH (20:58)
[2021-07-30] MEDS: DOCUSATE 100 MG CAP PO SCH (20:58)
[2021-07-30] MEDS: ASCORBIC ACID 500 MG TAB PO SCH (20:58)
[2021-07-30] MEDS: MEMANTINE 10 MG TAB PO SCH (20:58)
[2021-07-30] MEDS: DONEPEZIL 10 MG TAB PO SCH (20:58)
[2021-07-30] MEDS: ATORVASTATIN 40 MG TAB PO SCH (20:58)
[2021-07-31] MEDS: HEPARIN SODIUM,PORCINE/PF 5,000 UNIT/0.5 ML SYRINGE SQ SCH ×4 (03:31→23:57)
--- NOTE | 2021-07-31 06:30 | XR ---
EXAMINATION TYPE: XR chest 1V DATE OF EXAM: 07/31/2021 CLINICAL HISTORY: Cough progress study. TECHNIQUE: Single AP portable upright view of the chest is obtained. COMPARISON: Chest x-ray and CTA chest from one day earlier and older studies. FINDINGS: Stable right internal jugular Mediport catheter. Stable right mid to lower lung opacity. Persistent mild cardiomegaly. Left lung shows developing low er lung opacity. Spinal stimulator device in the thoracic spinal canal redemonstrated. IMPRESSION: Mild cardiomegaly with Stable small to moderate-sized right pleural fluid collection wit h associated right lung masslike consolidation is stable. New patchy left basilar acute atelectasis a nd/or developing infiltrate
[2021-07-31] MEDS: IPRATROPIUM 0.5 MG/2.5 ML NEBU INHALATION SCH ×4 (07:31→20:34)
[2021-07-31] MEDS: FORMOTEROL FUMARATE 20 MCG/2 ML NEBU INHALATION SCH ×2 (07:31→20:35)
--- NOTE | 2021-07-31 08:06 | US ---
EXAMINATION TYPE: US chest DATE OF EXAM: 07/31/2021 COMPARISON: Chest x-ray earlier today CLINICAL HISTORY: right pl effusion . TECHNIQUE: Targeted ultrasound of the posterior lower right hemithorax EXAM MEASUREMENTS: Right Pleural Effusion pocket size: 11.5 cm Right skin surface to fluid distance: 3.3 cm Right side marked for possible thoracentesis outside the dept. Pulmonologists are able to review the images in the patient?s EMR. IMPRESSIONS: Moderate size right basilar pleural effusion correlates with most recent chest x-ray and recent CT.
[2021-07-31 08:12] LABS: Glucose,Whole Blood 115 mg/dL (75-99)
[2021-07-31] MEDS: INSULIN ASPART (NovoLOG) 100 UNIT/ML VIAL SQ SCH ×3 (08:12→16:57)
[2021-07-31] MEDS: LEVOTHYROXINE 50 MCG TAB PO SCH (08:16)
[2021-07-31] MEDS ORDERED: Potassium Replacement Protocol 1 EACH MISC MISCELLANE PRN (08:54)
[2021-07-31] MEDS ORDERED: Magnesium Replacement Protocol 1 EACH MISC MISCELLANE PRN (08:54)
--- NOTE | 2021-07-31 08:55 | P.HPIM ---
History of Present Illness This is a pleasant 65 years old female with past medical history of CVA/TIA, Dementia, Hyperlipidemia, Memory Impairment, hypertension, lymphoma. ,Depression Pt has been having increasing dyspnea over 4-5 days associated with little dry cough but no chest pain. She is slightly tachypneic at rest. She is not on home oxygen. She denies any GI or urinary symptoms. No headache or dizziness or weakness or numbness. She denies smoking, alcohol or illicit drugs. She still on chemotherapy revlemid Patient is saturating 91% on room air Labs show an unremarkable CBC except for mild anemia with hemoglobin 10.5, lymphocyte 0.6. D-dimer elevated at 1.8. INR is normal 0.9 BMP and liver enzymes are unremarkable except for mild hypokalemia at 2.9 which is been replaced per protocol. Coronavirus: None detected. CTA of the chest: No pulmonary embolism, small to moderate right pleural effusion. No suspicious right mid lung mass and abnormal right hilar and subcarinal adenopathy worrisome for neoplasm. Consider repeat PET/CAT scan or bronchoscopy EKG: Normal sinus rhythm at [address] T changes, QTC 449. Chest ultrasound showing right pleural effusion with pockets-11.5 cm with skin to surface area 3.3 cm Repeat chest x-ray on 07/31: Mild cardiomegaly with stable small to moderate- sized right pleural effusion with associated masslike consolidation stable. Patchy left basilar acute atelectasis and/or development infiltrated Review of Systems Review of systems CONSTITUTIONAL: No fever, no malaise, no fatigue. HEENT: No recent visual problems or hearing problems. Denied any sore throat. CARDIOVASCULAR: No orthopnea, PND, no palpitations, no syncope. PULMONARY: No chest wall tenderness, no hemoptysis. GASTROINTESTINAL: No diarrhea, no nausea, no vomiting, no abdominal pain. Normoactive bowel sounds. NEUROLOGICAL: No headaches, no weakness, no numbness. HEMATOLOGICAL: Denies any bleeding or petechiae. GENITOURINARY: Denies any burning micturition, frequency, or urgency. MUSCULOSKELETAL/RHEUMATOLOGICAL: Denies any joint pain, swelling, or any muscle pain. ENDOCRINE: Denies any polyuria or polydipsia. Past Medical History Past Medical History: CVA/TIA, Dementia, Hyperlipidemia, Memory Impairment Additional Past Medical History / Comment(s): lymphoma. CVA APPROX 2003 PER AUNT PT WALKS WITH LIMP, RT ARM PARESIS, PT HAS SOME APHASIA, SHORT TERM MEMORY NOT GOOD. History of Any Multi-Drug Resistant Organisms: None Reported Past Surgical History: Tubal Ligation Additional Past Surgical History / Comment(s): carpal tunnel, neck, medi port, per son pt had carotid surgery Past Anesthesia/Blood Transfusion Reactions: No Reported Reaction Past Psychological History: Depression Smoking Status: Unknown if ever smoked Past Alcohol Use History: None Reported Past Drug Use History: None Reported - Past Family History Mother Family Medical History: Cancer Father Family Medical History: Deep Vein Thrombosis (DVT) Medications and Allergies Home Medications Medication Instructions Recorded Confirmed Type Clopidogrel [Plavix] 75 mg PO DAILY 09/15/13 07/30/21 History Donepezil [Aricept] 10 mg PO HS 08/25/18 07/30/21 History Memantine [Namenda] 10 mg PO HS 11/17/18 07/30/21 History Furosemide [Lasix] 40 mg PO DAILY 02/23/19 07/30/21 History Albuterol Nebulized [Ventolin 2.5 mg INHALATION RT-QID PRN 02/25/19 07/30/21 History Nebulized] Albuterol Sulfate [Ventolin HFA] 2 puff INHALATION RT-QID PRN 05/13/21 07/30/21 History Atorvastatin [Lipitor] 40 mg PO HS 05/13/21 07/30/21 History Docusate [Colace] 100 mg PO HS 05/13/21 07/30/21 History Ergocalciferol [Vitamin D2 (1250 1,250 mcg PO SHAW 05/13/21 07/30/21 History Mcg = 29337 Iu)] Lisinopril [Prinivil] 5 mg PO DAILY 05/13/21 07/30/21 History Mirabegron [Myrbetriq] 50 mg PO DAILY 05/13/21 07/30/21 History Umeclidinium Brm/Vilanterol Tr 1 puff INHALATION RT-DAILY 05/13/21 07/30/21 History [Anoro Ellipta 62.5-25 Mcg INH] buPROPion HCL [Wellbutrin XL] 300 mg PO DAILY 05/13/21 07/30/21 History ondansetron HCL [Zofran] 8 mg PO Q8H PRN 05/13/21 07/30/21 History Metoprolol Succinate (ER) [Toprol 12.5 mg PO DAILY 30 Days #15 tab 05/16/21 07/30/21 Rx XL] Ascorbic Acid [Vitamin C] 500 mg PO BID tab 05/22/21 07/30/21 Rx Cholecalciferol [Vitamin D3 (125 125 mcg PO DAILY tablet 05/22/21 07/30/21 Rx Mcg = 5000 Iu)] Cyanocobalamin [Vitamin B-12] 1,000 mcg PO DAILY tab 05/22/21 07/30/21 Rx Levothyroxine Sodium [Synthroid] 50 mcg PO DAILY@0630 tab 05/22/21 07/30/21 Rx Pyridoxine [Vitamin B-6] 50 mg PO DAILY tab 05/22/21 07/30/21 Rx Gabapentin [Neurontin] 300 mg PO BID 07/30/21 07/30/21 History INSULIN ASPART (NovoLOG) [NovoLOG See Protocol SQ ACHS PRN 07/30/21 07/30/21 History (formulary)] Lenalidomide [Revlimid] 20 mg PO DIRECTED 07/30/21 07/30/21 History sitaGLIPtin [Januvia] 100 mg PO DAILY 07/30/21 07/30/21 History Allergies Allergy/AdvReac Type Severity Reaction Status Date / Time naproxen sodium [From Aleve] Allergy Rash/Hives Verified 07/30/21 16:06 Physical Exam Vitals: Vital Signs Temp Pulse Resp BP Pulse Ox 07/31/21 06:00 98.3 F 93 17 134/61 94 L 07/30/21 23:53 90 18 07/30/21 20:56 98.3 F 99 24 144/55 91 L 07/30/21 16:42 87 18 132/62 92 L 07/30/21 14:36 20 07/30/21 11:34 98.5 F 87 22 117/70 92 L Intake and Output 07/30/21 07/30/21 07/31/21 14:59 22:59 06:59 Other: Weight 86.183 kg -GENERAL: The patient is alert and oriented x3, in mild respiratory acute distress. Well developed, well nourished. HEENT: Pupils are round and equally reacting to light. EOMI. No scleral icterus. No conjunctival pallor. Normocephalic, atraumatic. No pharyngeal erythema. No thyromegaly. CARDIOVASCULAR: S1 and S2 present. No murmurs, rubs, or gallops. -PULMONARY: Chest is clear to auscultation, no wheezing or crackles. Tachypneic ABDOMEN: Soft, nontender, nondistended, normoactive bowel sounds. No palpable organomegaly. MUSCULOSKELETAL: No joint swelling or deformity. EXTREMITIES: No cyanosis, clubbing, or pedal edema. NEUROLOGICAL: Gross neurological examination did not reveal any focal deficits. SKIN: No rashes. no petechiae. Results CBC & Chem 7: 07/30/21 14:13 07/30/21 14:13 Labs: Abnormal Lab Results - Last 24 Hours (Table) 07/30/21 07/30/21 07/30/21 Range/Units 14:13 14:13 14:13 RBC 3.33 L (3.80-5.40) m/uL Hgb 10.5 L (11.4-16.0) gm/dL Hct 32.4 L (34.0-46.0) % RDW 16.4 H (11.5-15.5) % Lymphocytes # 0.6 L (1.0-4.8) k/uL D-Dimer 1.80 H (<0.60) mg/L FEU Potassium 2.9 L (3.5-5.1) mmol/L POC Glucose (mg/dL) (75-99) mg/dL Calcium 8.1 L (8.4-10.2) mg/dL Total Protein 5.5 L (6.3-8.2) g/dL Albumin 3.0 L (3.5-5.0) g/dL 07/30/21 Range/Units 18:17 RBC (3.80-5.40) m/uL Hgb (11.4-16.0) gm/dL Hct (34.0-46.0) % RDW (11.5-15.5) % Lymphocytes # (1.0-4.8) k/uL D-Dimer (<0.60) mg/L FEU Potassium (3.5-5.1) mmol/L POC Glucose (mg/dL) 129 H (75-99) mg/dL Calcium (8.4-10.2) mg/dL Total Protein (6.3-8.2) g/dL Albumin (3.5-5.0) g/dL Assessment and Plan Assessment: Right lung mass with hilar lymphadenopathy Small right pleural effusion secondary to above Hypertension Hyperlipidemia Dementia History of stroke/TIA History of lymphoma History of depression Plan: This is a pleasant 65 years old female Continue with present treatment Check a follow-up chest ultrasound Pulmonary consult Oncology consult Check clinic ultrasound Labs and medication were reviewed.. Continue same treatment. Continue with symptomatic treatment. Resume home medication. Monitor lytes and vitals. DVT and GI prophylaxis. Further recommendations as per clinical course of the patient DVT prophylaxis: Subcutaneous heparin GI Prophylaxis: Pepcid PT/OT: Pending Prognosis is guarded
[2021-07-31] MEDS ORDERED: CLOPIDOGREL 75 MG TAB PO SCH (09:00)
[2021-07-31] MEDS: ASCORBIC ACID 500 MG TAB PO SCH ×2 (09:41→21:16)
[2021-07-31] MEDS: CHOLECALCIFEROL 125 MCG (5000 IU) TABLET PO SCH (09:41)
[2021-07-31] MEDS: GABAPENTIN 300 MG CAP PO SCH ×2 (09:41→21:16)
[2021-07-31] MEDS: buPROPion XL 300 MG TAB.ER.24H PO SCH (09:41)
[2021-07-31] MEDS: FUROSEMIDE 40 MG TAB PO SCH (09:41)
[2021-07-31] MEDS: METOPROLOL SUCCINATE (ER) 25 MG TAB.ER.24H PO SCH (09:41)
[2021-07-31] MEDS: LINAGLIPTIN 5 MG TABLET PO SCH (09:41)
[2021-07-31] MEDS: CYANOCOBALAMIN 500 MCG TAB PO SCH (09:41)
[2021-07-31] MEDS: FAMOTIDINE 20 MG/2 ML VIAL IV SCH ×2 (09:43→21:17)
[2021-07-31] MEDS: NON FORMULARY DRUG (Mirabegron [Myrbetriq] 50 MG Tablet) PO SCH (09:47)
[2021-07-31] MEDS: lisinopriL 5 MG TAB PO SCH (09:47)
--- NOTE | 2021-07-31 10:26 | US ---
EXAMINATION TYPE: US venous doppler duplex LE DATE OF EXAM: 07/31/2021 10:19 AM COMPARISON: US May 16 2021 CLINICAL HISTORY: leg swelling. SIDE PERFORMED: Bilateral TECHNIQUE: The lower extremity deep venous system is examined utilizing real time linear array sonog leonela with graded compression, doppler sonography and color-flow sonography. VESSELS IMAGED: Common Femoral Vein Deep Femoral Vein Greater Saphenous Vein * Femoral Vein Popliteal Vein Small Saphenous Vein * Proximal Calf Veins (* superficial vessels) Right Leg: Appears negative for DVT Left Leg: Appears negative for DVT Grayscale, color doppler, spectral doppler imaging performed of the deep veins of the bilateral lower extremities. There is normal flow, compressibility, vascular waveforms. IMPRESSION: No ultrasound evidence for acute DVT in either lower extremity. No significant change fr om prior.
[2021-07-31] MEDS: PYRIDOXINE 50 MG TAB PO SCH (11:11)
[2021-07-31 11:38] LABS: Glucose,Whole Blood 97 mg/dL (75-99)
--- NOTE | 2021-07-31 12:17 | XR ---
EXAMINATION TYPE: XR chest 1V DATE OF EXAM: 07/31/2021 COMPARISON: Chest x-ray 07/31/2021 HISTORY: Thoracentesis TECHNIQUE: Single frontal view of the chest is obtained. FINDINGS: There is a Port-A-Cath on the right via jugular approach the catheter shows the tip overly ing superior vena cava near the cavoatrial junction. There is a stimulator lead over the midthoracic spine level. No evident pneumothorax. Suspect some improved aeration at the right lung base, persiste nt abnormal densities present. Patient is rotated. Heart is likely stable. Aorta is dense. IMPRESSION: No evident complication status post thoracentesis.
--- NOTE | 2021-07-31 14:21 | P.CONS ---
History of Present Illness - Reason for Consult Consult date: 07/31/21 History Lymphoma Requesting physician: Tylor E Sheet - History of Present Illness Sarah is a 65 year old female who was seen back in 2013 in our office for abnormal labs, with Dr. Cedillo. Originally evaluated for lymphocytosis. A CBC one month earlier was relativly normal. The patient reported having a viral syndrome just before cbc done, she had sore throat and diarrhea, both resolved. Feels well at present, denies any constitutional symptoms of Neoplasia. No Fever, night sweats or unexplained weight loss reported. The patient smokes 2 PPD x 30 years, was noted to have slight erythrocytosis on 2 most recent CBC. Not feeling well, was seen by Dr Bailey for abdominal pain, CT Scan : Pelvic Lymphadenopathy. CT of ne ck & chest : diffuse adenopathy. She is C/O generalized edema, Underwent LN biopsy. Bone marrow biopsy in 2013 was consistent with Low Grade Follicular B cell Lymphoma. She had not returned to us but in 2015 there is an excisional cervical lymph node that revealed the same. She was recently admitted to hospital with similiar complaints. She follows with Dr. Stratton in [facility] for oncology care. Review of Systems All systems: negative Constitutional: Reports as per HPI Past Medical History Past Medical History: CVA/TIA, Dementia, Hyperlipidemia, Memory Impairment Additional Past Medical History / Comment(s): lymphoma. CVA APPROX 2003 PER AUNT PT WALKS WITH LIMP, RT ARM PARESIS, PT HAS SOME APHASIA, SHORT TERM MEMORY NOT GOOD. History of Any Multi-Drug Resistant Organisms: None Reported Past Surgical History: Tubal Ligation Additional Past Surgical History / Comment(s): carpal tunnel, neck, medi port, per son pt had carotid surgery Past Anesthesia/Blood Transfusion Reactions: No Reported Reaction Past Psychological History: Depression Smoking Status: Unknown if ever smoked Past Alcohol Use History: None Reported Past Drug Use History: None Reported - Past Family History Mother Family Medical History: Cancer Father Family Medical History: Deep Vein Thrombosis (DVT) Medications and Allergies Home Medications Medication Instructions Recorded Confirmed Type Clopidogrel [Plavix] 75 mg PO DAILY 09/15/13 07/30/21 History Donepezil [Aricept] 10 mg PO HS 08/25/18 07/30/21 History Memantine [Namenda] 10 mg PO HS 11/17/18 07/30/21 History Furosemide [Lasix] 40 mg PO DAILY 02/23/19 07/30/21 History Albuterol Nebulized [Ventolin 2.5 mg INHALATION RT-QID PRN 02/25/19 07/30/21 History Nebulized] Albuterol Sulfate [Ventolin HFA] 2 puff INHALATION RT-QID PRN 05/13/21 07/30/21 History Atorvastatin [Lipitor] 40 mg PO HS 05/13/21 07/30/21 History Docusate [Colace] 100 mg PO HS 05/13/21 07/30/21 History Ergocalciferol [Vitamin D2 (1250 1,250 mcg PO SHAW 05/13/21 07/30/21 History Mcg = 01798 Iu)] Lisinopril [Prinivil] 5 mg PO DAILY 05/13/21 07/30/21 History Mirabegron [Myrbetriq] 50 mg PO DAILY 05/13/21 07/30/21 History Umeclidinium Brm/Vilanterol Tr 1 puff INHALATION RT-DAILY 05/13/21 07/30/21 History [Anoro Ellipta 62.5-25 Mcg INH] buPROPion HCL [Wellbutrin XL] 300 mg PO DAILY 05/13/21 07/30/21 History ondansetron HCL [Zofran] 8 mg PO Q8H PRN 05/13/21 07/30/21 History Metoprolol Succinate (ER) [Toprol 12.5 mg PO DAILY 30 Days #15 tab 05/16/21 07/30/21 Rx XL] Ascorbic Acid [Vitamin C] 500 mg PO BID tab 05/22/21 07/30/21 Rx Cholecalciferol [Vitamin D3 (125 125 mcg PO DAILY tablet 05/22/21 07/30/21 Rx Mcg = 5000 Iu)] Cyanocobalamin [Vitamin B-12] 1,000 mcg PO DAILY tab 05/22/21 07/30/21 Rx Levothyroxine Sodium [Synthroid] 50 mcg PO DAILY@0630 tab 05/22/21 07/30/21 Rx Pyridoxine [Vitamin B-6] 50 mg PO DAILY tab 05/22/21 07/30/21 Rx Gabapentin [Neurontin] 300 mg PO BID 07/30/21 07/30/21 History INSULIN ASPART (NovoLOG) [NovoLOG See Protocol SQ ACHS PRN 07/30/21 07/30/21 History (formulary)] Lenalidomide [Revlimid] 20 mg PO DIRECTED 07/30/21 07/30/21 History sitaGLIPtin [Januvia] 100 mg PO DAILY 07/30/21 07/30/21 History Allergies Allergy/AdvReac Type Severity Reaction Status Date / Time naproxen sodium [From Aleve] Allergy Rash/Hives Verified 07/30/21 16:06 Physical Exam Vitals: Vital Signs Temp Pulse Resp BP Pulse Ox 07/31/21 07:57 94 20 136/64 94 L 07/31/21 07:51 75 07/31/21 07:43 73 07/31/21 07:41 73 07/31/21 07:31 71 07/31/21 06:00 98.3 F 93 17 134/61 94 L 07/30/21 23:53 90 18 07/30/21 20:56 98.3 F 99 24 144/55 91 L 07/30/21 16:42 87 18 132/62 92 L 07/30/21 14:36 20 07/30/21 11:34 98.5 F 87 22 117/70 92 L Poor historian. Results CBC & Chem 7: 07/30/21 14:13 07/30/21 14:13 Labs: Abnormal Lab Results - Last 24 Hours (Table) 07/30/21 07/30/21 07/30/21 Range/Units 14:13 14:13 14:13 RBC 3.33 L (3.80-5.40) m/uL Hgb 10.5 L (11.4-16.0) gm/dL Hct 32.4 L (34.0-46.0) % RDW 16.4 H (11.5-15.5) % Lymphocytes # 0.6 L (1.0-4.8) k/uL D-Dimer 1.80 H (<0.60) mg/L FEU Potassium 2.9 L (3.5-5.1) mmol/L POC Glucose (mg/dL) (75-99) mg/dL Calcium 8.1 L (8.4-10.2) mg/dL Total Protein 5.5 L (6.3-8.2) g/dL Albumin 3.0 L (3.5-5.0) g/dL 07/30/21 07/31/21 Range/Units 18:17 08:10 RBC (3.80-5.40) m/uL Hgb (11.4-16.0) gm/dL Hct (34.0-46.0) % RDW (11.5-15.5) % Lymphocytes # (1.0-4.8) k/uL D-Dimer (<0.60) mg/L FEU Potassium (3.5-5.1) mmol/L POC Glucose (mg/dL) 129 H 115 H (75-99) mg/dL Calcium (8.4-10.2) mg/dL Total Protein (6.3-8.2) g/dL Albumin (3.5-5.0) g/dL CT scan - chest: report reviewed Assessment and Plan (1) Lung mass Current Visit: Yes Status: Acute Code(s): R91.8 - OTHER NONSPECIFIC ABNORMAL FINDING OF LUNG FIELD SNOMED Code(s): 252997176 (2) Pleural effusion Current Visit: Yes Status: Acute Code(s): J90 - PLEURAL EFFUSION, NOT ELSEWHERE CLASSIFIED SNOMED Code(s): 08906984 Plan: Follicular lymphoma Narrative/Plan: Primary Oncologist treating pt with Q 3 mo Rituxan and Revlimid. Hold revlimid until seen by Oncologist. Verbalized this to pt again today. Made note in discharge plan. - Hold Revlamid until fluid cytology has returned as she maybe progressing requiring next line treatment - Primary oncologist Dr. Stratton Current Visit: Yes Status: Chronic Priority: Medium Code(s): C82.90 - FOLLICULAR LYMPHOMA, UNSPECIFIED, UNSPECIFIED SITE SNOMED Code(s): 653936964 Dr. Shanks: I have completed the full history and physical and developed the above impression and plan, agree with dictation, dictated as a scribe.
--- NOTE | 2021-07-31 14:55 | P.CNPUL ---
History of Present Illness Consult date: 07/31/21 Reason for consult: dyspnea History of present illness: 65-year-old female patient presented to the hospital because of worsening shortness of breath. A CT of the chest was done in the emergency department that showed no evidence of any pulmonary embolism. There was a moderate-sized right-sided pleural effusion. There was a mass in the right midlung area causing significant narrowing of the distal bronchus intermedius and the right middle lobe and the right lower lobe bronchus in addition to abnormal right hilar and subcarinal lymphadenopathy worrisome for neoplasm. Based on that, a pulmonary consultation was requested. The patient currently has a white cell count 6.2 with hemoglobin of 10.5. D-dimer is 1.8 with a normal coagulation profile. Potassium level was at 2.9 at time of admission with a sodium level of 137 and the BUN of 14 with a creatinine of 0.7. The COVID 19 testing was negative This patient has history of non-Hodgkin's lymphoma/follicular lymphoma, treated in the past in addition to that the patient has history of CVA with sudden chronic right-sided weakness, can't artery stenosis with previous endarterectomy on the left, hypertension, hyperlipidemia, stenosis of the mitral valve in addition to COPD and previous history of dementia. Furthermore, the patient had a recent hospitalization on May 2021 for COVID 19 pneumonia. She came into the hospital with hypoxic respiratory failure and confusion. Subsequently, the patient was discharged home on 05/23/2021 on oral Decadron. In terms of her n on-Hodgkin's lymphoma, the patient has been treated with a combination of Cytoxan every 3 months on Revlimid, and the last PET scan was done on 05/13/2019 showed response in terms of lymphadenopathy and the patient continued to have some bilateral superficial inguinal lymph nodes that are decreased in SUV with treatment. Review of Systems Constitutional: Denies chills, Denies fever Eyes: denies blurred vision, denies pain Ears, nose, mouth and throat: Denies headache, Denies sore throat Cardiovascular: Denies chest pain, Denies shortness of breath Respiratory: Denies cough, there is increased shortness of breath without any chest pain or pleurisy. Gastrointestinal: Denies abdominal pain, Denies diarrhea, Denies nausea, Denies vomiting Genitourinary: Denies dysuria, Denies hematuria Musculoskeletal: Denies myalgias Integumentary: Denies pruritus, Denies rash Neurological: No change in mentation, Denies numbness, Denies weakness Psychiatric: Denies anxiety, Denies depression Endocrine: Denies fatigue, Denies weight change Past Medical History Past Medical History: COPD, CVA/TIA, Dementia, Hyperlipidemia, Hypertension, Memory Impairment Additional Past Medical History / Comment(s): Non-Hodgkin's lymphoma/follicular. COVID 19 pneumonia back in May 2021. CVA APPROX 2003 PER AUNT PT WALKS WITH LIMP, RT ARM PARESIS, PT HAS SOME APHASIA, SHORT TERM MEMORY NOT GOOD. Valvular heart disease with severe mitral stenosis. Dementia. Chronic anemia. Depression. Chronic back pain and the patient has a spinal cord stimulator. Gait dysfunction secondary to above. COPD. Hypertension. GERD artery disease with previous endarterectomy on the left History of Any Multi-Drug Resistant Organisms: None Reported Past Surgical History: Tubal Ligation Additional Past Surgical History / Comment(s): carpal tunnel, neck, medi port, per son pt had carotid surgery Past Anesthesia/Blood Transfusion Reactions: No Reported Reaction Past Psychological History: Depression Smoking Status: Unknown if ever smoked Past Alcohol Use History: None Reported Past Drug Use History: None Reported - Past Family History Mother Family Medical History: Cancer Father Family Medical History: Deep Vein Thrombosis (DVT) Medications and Allergies Home Medications Medication Instructions Recorded Confirmed Type Clopidogrel [Plavix] 75 mg PO DAILY 09/15/13 07/30/21 History Donepezil [Aricept] 10 mg PO HS 08/25/18 07/30/21 History Memantine [Namenda] 10 mg PO HS 11/17/18 07/30/21 History Furosemide [Lasix] 40 mg PO DAILY 02/23/19 07/30/21 History Albuterol Nebulized [Ventolin 2.5 mg INHALATION RT-QID PRN 02/25/19 07/30/21 History Nebulized] Albuterol Sulfate [Ventolin HFA] 2 puff INHALATION RT-QID PRN 05/13/21 07/30/21 History Atorvastatin [Lipitor] 40 mg PO HS 05/13/21 07/30/21 History Docusate [Colace] 100 mg PO HS 05/13/21 07/30/21 History Ergocalciferol [Vitamin D2 (1250 1,250 mcg PO SHAW 05/13/21 07/30/21 History Mcg = 77299 Iu)] Lisinopril [Prinivil] 5 mg PO DAILY 05/13/21 07/30/21 History Mirabegron [Myrbetriq] 50 mg PO DAILY 05/13/21 07/30/21 History Umeclidinium Brm/Vilanterol Tr 1 puff INHALATION RT-DAILY 05/13/21 07/30/21 History [Anoro Ellipta 62.5-25 Mcg INH] buPROPion HCL [Wellbutrin XL] 300 mg PO DAILY 05/13/21 07/30/21 History ondansetron HCL [Zofran] 8 mg PO Q8H PRN 05/13/21 07/30/21 History Metoprolol Succinate (ER) [Toprol 12.5 mg PO DAILY 30 Days #15 tab 05/16/21 07/30/21 Rx XL] Ascorbic Acid [Vitamin C] 500 mg PO BID tab 05/22/21 07/30/21 Rx Cholecalciferol [Vitamin D3 (125 125 mcg PO DAILY tablet 05/22/21 07/30/21 Rx Mcg = 5000 Iu)] Cyanocobalamin [Vitamin B-12] 1,000 mcg PO DAILY tab 05/22/21 07/30/21 Rx Levothyroxine Sodium [Synthroid] 50 mcg PO DAILY@0630 tab 05/22/21 07/30/21 Rx Pyridoxine [Vitamin B-6] 50 mg PO DAILY tab 05/22/21 07/30/21 Rx Gabapentin [Neurontin] 300 mg PO BID 07/30/21 07/30/21 History INSULIN ASPART (NovoLOG) [NovoLOG See Protocol SQ ACHS PRN 07/30/21 07/30/21 History (formulary)] Lenalidomide [Revlimid] 20 mg PO DIRECTED 07/30/21 07/30/21 History sitaGLIPtin [Januvia] 100 mg PO DAILY 07/30/21 07/30/21 History Allergies Allergy/AdvReac Type Severity Reaction Status Date / Time naproxen sodium [From Aleve] Allergy Rash/Hives Verified 07/30/21 16:06 Physical Exam Vitals: Vital Signs Temp Pulse Resp BP Pulse Ox 07/31/21 06:00 98.3 F 93 17 134/61 94 L 07/30/21 23:53 90 18 07/30/21 20:56 98.3 F 99 24 144/55 91 L 07/30/21 16:42 87 18 132/62 92 L 07/30/21 14:36 20 07/30/21 11:34 98.5 F 87 22 117/70 92 L GENERAL EXAM: Alert, oriented to self, pleasant 65-year-old white female, no active respirator distress and the patient's breathing is nonlabored and the patient has been on room air oxygen. HEAD: Normocephalic/atraumatic. EYES: Normal reaction of pupils, equal size. Conjunctiva pink, sclera white. NOSE: Clear with pink turbinates. THROAT: No erythema or exudates. NECK: No masses, no JVD, no thyroid enlargement, no adenopathy. CHEST: No chest wall deformity. Symmetrical expansion. LUNGS: Equal air entry with crackles at the right base, there is diminished breath sounds in the right lung base along with dullness to percussion CVS: Regular rate and rhythm, normal S1 and S2, no gallops, no murmurs, no rubs ABDOMEN: Soft, nontender. No hepatosplenomegaly, normal bowel sounds, no guarding or rigidity. EXTREMITIES: No clubbing, no edema, no cyanosis, 2+ pulses and upper and lower extremities. MUSCULOSKELETAL: Muscle strength and tone normal. SPINE: No scoliosis or deformity SKIN: No rashes CENTRAL NERVOUS SYSTEM: Alert and and awake. No focal deficits, tone is normal in all 4 extremities. PSYCHIATRIC: Alert and oriented -1. Appropriate affect. Intact judgment and insight. Results - Laboratory Findings CBC and BMP: 07/30/21 14:13 07/30/21 14:13 PT/INR, D-dimer PT 10.2 sec (9.0-12.0) 07/30/21 14:13 INR 0.9 (<1.2) 07/30/21 14:13 D-Dimer 1.80 mg/L FEU (<0.60) H 07/30/21 14:13 Abnormal lab findings: Abnormal Labs 07/30/21 07/30/21 07/30/21 14:13 14:13 14:13 RBC 3.33 L Hgb 10.5 L Hct 32.4 L RDW 16.4 H Lymphocytes # 0.6 L D-Dimer 1.80 H Potassium 2.9 L POC Glucose (mg/dL) Calcium 8.1 L Total Protein 5.5 L Albumin 3.0 L 07/30/21 18:17 RBC Hgb Hct RDW Lymphocytes # D-Dimer Potassium POC Glucose (mg/dL) 129 H Calcium Total Protein Albumin - Diagnostic Findings Chest x-ray: image reviewed CT scan - chest: image reviewed Assessment and Plan Plan: Right lung mass with hilar/subcarinal lymphadenopathy, suspicious for carcinoma, consider primary bronchogenic carcinoma although possibilities such as lymphoma with pulmonary metastases and mediastinal lymphadenopathy and secondary to pleural effusion cannot be completely excluded. Moderate-sized right-sided pleural effusion Shortness of breath secondary to above COPD maintained on Anoro on an outpatient basis COVID 19 infection back in May 2021 with secondary pneumonia, recovered Non-Hodgkin's lymphoma/follicular type maintain on Revlimid on outpatient basis in addition to Rituxan infusions CVA with residual right-sided weakness and some aphasia. The patient undergone left carotid endarterectomy Dementia Hypertension Hyperlipidemia Chronic back pain and the patient has a spinal course terminated Gait dysfunction secondary to above Chronic anemia Hypothyroidism Plan We'll proceed with a diagnostic/therapy thoracentesis of the right lung. Pleural fluid will be sent for analysis including cytology. Highlighted for based on the above-mentioned computed tomography scan of the chest findings. Suspect a solid tumor such as primary bronchogenic carcinoma. Other possible this could include lymphoma. The sample should be sent for cytology and flow cytometry May need a bronchoscopy, chest buccal biopsies of the right lung mass and EBUS directed subcarinal transbronchial needle aspirate We'll continue to follow
--- NOTE | 2021-07-31 14:56 | P.PCN ---
Date of Procedure: 07/31/21 Preoperative Diagnosis: Right-sided pleural effusion Postoperative Diagnosis: Right-sided pleural effusion Procedure(s) Performed: Right-sided thoracentesis Anesthesia: local Surgeon: Aidee Boles Estimated Blood Loss (ml): 0 Pathology: other Condition: stable Disposition: floor Operative Findings: A time out was performed and the chest x-ray was reviewed, the appropriate side was confirmed and marked. My hands were washed immediately prior to the procedure. I wore a surgical cap, mask with protective eyewear, sterile gown and sterile gloves throughout the procedure. The patient was prepped and draped in a sterile manner using chlorhexidine scrub after the appropriate level was percussed and confirmed by ultrasound. 1% lidocaine was used to anesthesize the skin, subcutaneous tissue, superior aspect of the rib periosteum and parietal pleura. A finder needle was then introduced over the superior aspect of the rib to locate the pleural fluid; 2colored fluid was aspirated at a depth of approximately 2 cm. A 10-blade scalpel was used to genoveva the skin at the insertio n site. The [id number] needle was then introduced through the skin incision into the pleural space using negative aspiration pressure and the red colometric indicator to confirm appropriate positioning of the needle. The thoracentesis catheter was then threaded without difficulty. 850 ml of turbid colored fluid was removed without difficulty. The catheter was then removed. No immediate complications were noted during the procedure. A post-procedure chest x-ray is pending at the time of this note. The fluid will be sent for studies. Estimated blood loss is 0cc
[2021-07-31 15:07] LABS: HCT 33.3 % (34.0-46.0); HGB 10.4 gm/dL (11.4-16.0); Hypochromasia Moderate; MCH 31.2 pg (25.0-35.0); MCHC 31.3 g/dL (31.0-37.0); MCV 99.8 fL (80.0-100.0); Macrocytosis Slight; Mean Platelet Volume 9.3; Platelet Count 185 k/uL (150-450); RBC 3.34 m/uL (3.80-5.40); RDW 15.9 % (11.5-15.5); WBC 6.8 k/uL (3.8-10.6)
[2021-07-31 15:18] LABS: ALT 20 U/L (4-34); AST 22 U/L (14-36); African American GFR (CKD) >90 (>60 ml/min/1.73 sqM); Albumin 2.8 g/dL (3.5-5.0); Albumin/Globulin Ratio 1.2; Alkaline Phosphatase 111 U/L (38-126); Anion Gap 6 mmol/L; Blood Urea Nitrogen 15 mg/dL (7-17); Calcium 8.2 mg/dL (8.4-10.2); Carbon Dioxide 32 mmol/L (22-30); Chloride 98 mmol/L (98-107); Globulin 2.3 g/dL; Glucose 101 mg/dL (74-99); Magnesium 1.8 mg/dL (1.6-2.3); Non-African American GFR(CKD) 87 (>60 ml/min/1.73 sqM); Potassium 3.2 mmol/L (3.5-5.1); Sodium 136 mmol/L (137-145); Total Bilirubin 0.5 mg/dL (0.2-1.3); Total Protein 5.1 g/dL (6.3-8.2)
[2021-07-31 15:18] LABS: HCT 31.2 % (37.2-46.3); HGB 9.4 g/dL (12.0-15.0); MCH 29.7 pg (27.0-32.0); MCHC 30.1 g/dL (32.0-37.0); MCV 98.7 fL (80.0-97.0); Mean Platelet Volume 11.9 fL (9.5-12.2); NRBC Per 100 WBC 0 /100 WBCS (0.0-0.0); Platelet Count 181 X 10*3/uL (140-440); RBC 3.16 X 10*6/uL (4.10-5.20); RDW 16.1 % (11.5-14.5); WBC 6.55 X 10*3/uL (4.50-10.00)
[2021-07-31 15:58] LABS: Band Neutrophils % 2 %; Eosinophils # (M) 0.95 k/uL (0-0.7); Lymphocytes # (M) 0.54 k/uL (1.0-4.8); Monocytes # (M) 0.14 k/uL (0-1.0); Neutrophils % (M) 74 %; Nucleated Red Blood Cells 0 /100 WBC (0-0); Total Cells Counted 100
[2021-07-31 15:59] LABS: African American GFR (CKD) 90.3 (60.0-200.0); Anion Gap 13.4 mmol/L (10.00-18.00); BUN/Creat Ratio 15.38 Ratio (12.00-20.00); Blood Urea Nitrogen 12.3 mg/dL (9.0-27.0); Calcium 8.5 mg/dL (8.7-10.3); Carbon Dioxide 24.6 mmol/L (20.0-27.5); Non-African American GFR(CKD) 77.9 (60.0-200.0); Potassium 3.6 mmol/L (3.5-5.5)
[2021-07-31 16:13] LABS: Eosinophils # (M) 0.92 X 10*3/uL (0.04-0.35); Lymphocytes # (M) 0.66 X 10*3/uL (0.90-5.00); Metamyelocytes % 1 % (0-0); Monocytes # (M) 0.26 X 10*3/uL (0.20-1.00); Myelocytes % 1 % (0-0); Neutrophils # (M) 4.39 X 10*3/uL (2.00-8.90); Neutrophils % (M) 67 %; RBC Morphology NORMAL
[2021-07-31 16:39] LABS: Glucose,Whole Blood 103 mg/dL (75-99)
[2021-07-31 19:50] LABS: Appearance,BF Slightly Cloudy
[2021-07-31 20:59] LABS: Glucose,Whole Blood 140 mg/dL (75-99)
[2021-07-31] MEDS: DOCUSATE 100 MG CAP PO SCH (21:16)
[2021-07-31] MEDS: MEMANTINE 10 MG TAB PO SCH (21:16)
[2021-07-31] MEDS: ATORVASTATIN 40 MG TAB PO SCH (21:16)
[2021-07-31] MEDS: DONEPEZIL 10 MG TAB PO SCH (21:16)
[2021-07-31] MEDS: LENALIDOMIDE PO SCH (21:18)
[2021-08-01 01:09] LABS: LDH, Body Fluid Source Thoracentesis Fluid; T. Protein, Body Fluid Source Thoracentesis Fluid; Total Protein, Body Fluid 2890 mg/dL
[2021-08-01 01:44] LABS: Reticulocyte % 2.68 % (0.10-1.80)
[2021-08-01] MEDS: LEVOTHYROXINE 50 MCG TAB PO SCH (05:54)
[2021-08-01 06:55] LABS: Glucose,Whole Blood 96 mg/dL (75-99)
[2021-08-01] MEDS: INSULIN ASPART (NovoLOG) 100 UNIT/ML VIAL SQ SCH ×3 (07:36→17:17)
[2021-08-01] MEDS: IPRATROPIUM 0.5 MG/2.5 ML NEBU INHALATION SCH ×4 (08:17→20:41)
[2021-08-01] MEDS: FORMOTEROL FUMARATE 20 MCG/2 ML NEBU INHALATION SCH ×2 (08:18→20:41)
[2021-08-01] MEDS: HEPARIN SODIUM,PORCINE/PF 5,000 UNIT/0.5 ML SYRINGE SQ SCH ×3 (09:13→23:29)
[2021-08-01] MEDS: ASCORBIC ACID 500 MG TAB PO SCH ×2 (09:15→23:30)
[2021-08-01] MEDS: LINAGLIPTIN 5 MG TABLET PO SCH (09:16)
[2021-08-01] MEDS: NON FORMULARY DRUG (Mirabegron [Myrbetriq] 50 MG Tablet) PO SCH (09:16)
[2021-08-01] MEDS: lisinopriL 5 MG TAB PO SCH (09:16)
[2021-08-01] MEDS: CYANOCOBALAMIN 500 MCG TAB PO SCH (09:16)
[2021-08-01] MEDS: CHOLECALCIFEROL 125 MCG (5000 IU) TABLET PO SCH (09:16)
[2021-08-01] MEDS: PYRIDOXINE 50 MG TAB PO SCH (09:17)
[2021-08-01 09:24] LABS: Basophils # (A) 0.1 k/uL (0-0.2); Basophils % (A) 1 %; Eosinophils # (A) 0.6 k/uL (0-0.7); Eosinophils % (A) 11 %; HCT 32.2 % (34.0-46.0); HGB 9.9 gm/dL (11.4-16.0); Hypochromasia Marked; Lymphocytes # (A) 0.5 k/uL (1.0-4.8); Lymphocytes % (A) 8 %; MCH 30.5 pg (25.0-35.0); MCHC 30.6 g/dL (31.0-37.0); MCV 99.9 fL (80.0-100.0); Macrocytosis Slight; Mean Platelet Volume 9.4; Monocytes # (A) 0.5 k/uL (0-1.0); Monocytes % (A) 8 %; Neutrophils # (A) 4.1 k/uL (1.3-7.7); Neutrophils % (A) 68 %; Platelet Count 173 k/uL (150-450); Poikilocytosis Slight; RBC 3.23 m/uL (3.80-5.40); WBC 5.9 k/uL (3.8-10.6)
[2021-08-01 09:53] LABS: ALT 21 U/L (4-34); AST 24 U/L (14-36); African American GFR (CKD) >90 (>60 ml/min/1.73 sqM); Albumin 2.5 g/dL (3.5-5.0); Albumin/Globulin Ratio 1.1; Alkaline Phosphatase 106 U/L (38-126); Anion Gap 7 mmol/L; Blood Urea Nitrogen 12 mg/dL (7-17); Calcium 8.2 mg/dL (8.4-10.2); Carbon Dioxide 30 mmol/L (22-30); Chloride 100 mmol/L (98-107); Globulin 2.2 g/dL; Glucose 89 mg/dL (74-99); Magnesium 1.8 mg/dL (1.6-2.3); Non-African American GFR(CKD) >90 (>60 ml/min/1.73 sqM); Potassium 3.1 mmol/L (3.5-5.1); Sodium 137 mmol/L (137-145); Total Bilirubin 0.6 mg/dL (0.2-1.3); Total Protein 4.7 g/dL (6.3-8.2)
[2021-08-01] MEDS: METOPROLOL SUCCINATE (ER) 25 MG TAB.ER.24H PO SCH (10:28)
[2021-08-01] MEDS: FAMOTIDINE 20 MG/2 ML VIAL IV SCH ×2 (10:28→21:22)
[2021-08-01] MEDS: GABAPENTIN 300 MG CAP PO SCH ×2 (10:28→21:22)
[2021-08-01] MEDS: buPROPion XL 300 MG TAB.ER.24H PO SCH (10:28)
[2021-08-01] MEDS: FUROSEMIDE 40 MG TAB PO SCH (10:28)
[2021-08-01 11:02] LABS: Albumin 3.4 g/dL (3.8-4.9); Albumin/Globulin Ratio 1.55 (1.60-3.17); Globulin 2.2 g/dL (1.6-3.3); Total Bilirubin 0.3 mg/dL (0.30-1.20); Total Protein 5.6 g/dL (6.2-8.2)
[2021-08-01 11:10] VITALS: BMI 31.6
[2021-08-01 11:33] LABS: % Iron Saturation 8.88 (12.00-45.00); Uric Acid 5.9 mg/dL (2.9-7.7)
[2021-08-01 11:37] LABS: Glucose,Whole Blood 100 mg/dL (75-99)
[2021-08-01] MEDS ORDERED: PROPOFOL 10 MG/ML 20 ML VIAL IV ONE (13:26)
[2021-08-01] MEDS ORDERED: MIDAZOLAM 2 MG/2 ML VIAL ONE (13:26)
[2021-08-01] MEDS ORDERED: LIDOCAINE 2% INJ 20 MG/ML (2 ML VIAL) ONE (13:26)
[2021-08-01] MEDS ORDERED: fentaNYL (PF) 50 MCG/ML 2 ML AMP ONE (13:26)
[2021-08-01] MEDS ORDERED: SUCCINYLCHOLINE CHLORIDE 100 MG/5 ML SYR IV ONE (13:26)
[2021-08-01] MEDS ORDERED: SODIUM CHLORIDE 0.9% 500 ML 500 ML IV ONE ×2 (13:30)
--- NOTE | 2021-08-01 14:24 | P.PN ---
Subjective Progress Note Date: 08/01/21 Stats post Right thoracentesis with pulmonology 07/31/21 - Flow cytometry ordered on cytology Objective - Vital Signs Vital signs: Vital Signs Temp 98.5 F 08/01/21 07:49 Pulse 92 08/01/21 12:18 Resp 18 08/01/21 10:21 BP 96/61 08/01/21 07:49 Pulse Ox 93 L 08/01/21 07:49 Intake & Output 07/31/21 08/01/21 08/01/21 18:59 06:59 18:59 Intake Total 200 Balance 200 Weight 86.183 kg 86.183 kg Intake: Oral 200 Other: Voiding Method Toilet Toilet # Voids 2 1 1 - Exam A&Ox2, NAD, resting comfortably no labored breathing Irr Diminished lung sounds - Labs CBC & Chem 7: 08/01/21 08:33 08/01/21 08:33 Labs: Abnormal Lab Results - Last 24 Hours (Table) 07/31/21 07/31/21 07/31/21 Range/Units 08:03 08:03 08:03 RBC 3.16 L (4.10-5.20) X 10*6/uL Hgb 9.4 L (12.0-15.0) g/dL Hct 31.2 L (37.2-46.3) % MCV 98.7 H (80.0-97.0) fL MCHC 30.1 L (32.0-37.0) g/dL RDW 16.1 H (11.5-14.5) % Metamyelocytes % 1 H (0-0) % Myelocytes % 1 H (0-0) % Lymphocytes # (1.0-4.8) k/uL Lymphocytes # (Manual) 0.66 L (0.90-5.00) X 10*3/uL Eosinophils # (Manual) 0.92 H (0.04-0.35) X 10*3/uL Basophils # (Manual) 0.20 H (0.00-0.10) X 10*3/uL Retic Count (0.10-1.80) % Sodium (137-145) mmol/L Potassium (3.5-5.1) mmol/L Carbon Dioxide (22-30) mmol/L Glucose (74-99) mg/dL POC Glucose (mg/dL) (75-99) mg/dL Calcium 8.5 L (8.7-10.3) mg/dL Iron 29 L (50-170) ug/dL % Saturation 8.88 L (12.00-45.00) Alkaline Phosphatase 137 H (41-126) U/L Lactate Dehydrogenase 460 H (120-246) U/L Total Protein 5.6 L (6.2-8.2) g/dL Albumin 3.4 L (3.8-4.9) g/dL Albumin/Globulin Ratio 1.55 L (1.60-3.17) g/dL Vitamin B12 1282.0 H (200.0-944.0) pg/mL 07/31/21 07/31/21 07/31/21 Range/Units 08:03 14:49 14:49 RBC 3.34 L (4.10-5.20) X 10*6/uL Hgb 10.4 L (12.0-15.0) g/dL Hct 33.3 L (37.2-46.3) % MCV (80.0-97.0) fL MCHC (32.0-37.0) g/dL RDW 15.9 H (11.5-14.5) % Metamyelocytes % (0-0) % Myelocytes % (0-0) % Lymphocytes # (1.0-4.8) k/uL Lymphocytes # (Manual) 0.54 L (0.90-5.00) X 10*3/uL Eosinophils # (Manual) 0.95 H (0.04-0.35) X 10*3/uL Basophils # (Manual) (0.00-0.10) X 10*3/uL Retic Count 2.68 H (0.10-1.80) % Sodium 136 L (137-145) mmol/L Potassium 3.2 L (3.5-5.1) mmol/L Carbon Dioxide 32 H (22-30) mmol/L Glucose 101 H (74-99) mg/dL POC Glucose (mg/dL) (75-99) mg/dL Calcium 8.2 L (8.7-10.3) mg/dL Iron (50-170) ug/dL % Saturation (12.00-45.00) Alkaline Phosphatase (41-126) U/L Lactate Dehydrogenase (120-246) U/L Total Protein 5.1 L (6.2-8.2) g/dL Albumin 2.8 L (3.8-4.9) g/dL Albumin/Globulin Ratio (1.60-3.17) g/dL Vitamin B12 (200.0-944.0) pg/mL 07/31/21 07/31/21 08/01/21 Range/Units 16:37 20:51 08:33 RBC (4.10-5.20) X 10*6/uL Hgb (12.0-15.0) g/dL Hct (37.2-46.3) % MCV (80.0-97.0) fL MCHC (32.0-37.0) g/dL RDW (11.5-14.5) % Metamyelocytes % (0-0) % Myelocytes % (0-0) % Lymphocytes # (1.0-4.8) k/uL Lymphocytes # (Manual) (0.90-5.00) X 10*3/uL Eosinophils # (Manual) (0.04-0.35) X 10*3/uL Basophils # (Manual) (0.00-0.10) X 10*3/uL Retic Count (0.10-1.80) % Sodium (137-145) mmol/L Potassium 3.1 L (3.5-5.1) mmol/L Carbon Dioxide (22-30) mmol/L Glucose (74-99) mg/dL POC Glucose (mg/dL) 103 H 140 H (75-99) mg/dL Calcium 8.2 L (8.7-10.3) mg/dL Iron (50-170) ug/dL % Saturation (12.00-45.00) Alkaline Phosphatase (41-126) U/L Lactate Dehydrogenase (120-246) U/L Total Protein 4.7 L (6.2-8.2) g/dL Albumin 2.5 L (3.8-4.9) g/dL Albumin/Globulin Ratio (1.60-3.17) g/dL Vitamin B12 (200.0-944.0) pg/mL 08/01/21 08/01/21 Range/Units 08:33 11:35 RBC 3.23 L (4.10-5.20) X 10*6/uL Hgb 9.9 L (12.0-15.0) g/dL Hct 32.2 L (37.2-46.3) % MCV (80.0-97.0) fL MCHC 30.6 L (32.0-37.0) g/dL RDW 16.0 H (11.5-14.5) % Metamyelocytes % (0-0) % Myelocytes % (0-0) % Lymphocytes # 0.5 L (1.0-4.8) k/uL Lymphocytes # (Manual) (0.90-5.00) X 10*3/uL Eosinophils # (Manual) (0.04-0.35) X 10*3/uL Basophils # (Manual) (0.00-0.10) X 10*3/uL Retic Count (0.10-1.80) % Sodium (137-145) mmol/L Potassium (3.5-5.1) mmol/L Carbon Dioxide (22-30) mmol/L Glucose (74-99) mg/dL POC Glucose (mg/dL) 100 H (75-99) mg/dL Calcium (8.7-10.3) mg/dL Iron (50-170) ug/dL % Saturation (12.00-45.00) Alkaline Phosphatase (41-126) U/L Lactate Dehydrogenase (120-246) U/L Total Protein (6.2-8.2) g/dL Albumin (3.8-4.9) g/dL Albumin/Globulin Ratio (1.60-3.17) g/dL Vitamin B12 (200.0-944.0) pg/mL Microbiology - Last 24 Hours (Table) 07/31/21 11:45 Fungal Culture - Preliminary Thoracic Fluid 07/31/21 11:45 Acid Fast Bacilli Culture - Preliminary Thoracic Fluid 07/31/21 11:45 Body Fluid Culture - Preliminary Thoracic Fluid Assessment and Plan (1) Lung mass Current Visit: Yes Status: Acute Code(s): R91.8 - OTHER NONSPECIFIC ABNORMAL FINDING OF LUNG FIELD SNOMED Code(s): 792937851 (2) Pleural effusion Current Visit: Yes Status: Acute Code(s): J90 - PLEURAL EFFUSION, NOT ELSEWHERE CLASSIFIED SNOMED Code(s): 53430974 Plan: Follicular lymphoma Narrative/Plan: Primary Oncologist treating pt with Q 3 mo Rituxan and Revlimid. Hold revlimid until seen by Oncologist. Verbalized this to pt again today. Made note in discharge plan. - Hold Revlamid until fluid cytology has returned as she maybe progressing requiring next line treatment - Primary oncologist Dr. Stratton PLeural effusion: - Status post thoracentesis 07/31/21 - FLow cytometry ordered on fluid await results Current Visit: Yes Status: Chronic Priority: Medium Code(s): C82.90 - FOLLICULAR LYMPHOMA, UNSPECIFIED, UNSPECIFIED SITE SNOMED Code(s): 373846663 Dr. Shanks: I have completed the full history and physical and developed the above impression and plan, agree with dictation, dictated as a scribe.
--- NOTE | 2021-08-01 14:28 | P.PCN ---
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 Endobronchial irregularities also seen at the orifice of the lateral segment of the right middle lobe. The right lower lobe bronchus distally is deformed and narrowed without any endobronchial lesions. Procedure(s) Performed: 1 flexible bronchoscopy, airway inspection, transbronchial biopsies of the right middle lobe mass, bronchial alveolar lavage of the right middle lobe. 2 endoscopic ultrasound (EBUS) 3 transbronchial needle aspirate of station 11R -S and station 7 lymph nodes Surgeon: Aidee Boles Reinforced Ironworker #1: Sarah Lewis (miquel Stearns) Estimated Blood Loss (ml): 0 Pathology: other Condition: stable Disposition: same day Operative Findings: After obtaining the consent the patient was taken to the OR suite he was intubated and put on MV by anesthesia then the scope was advanced to the ET tube until the Trachea was seen and it was normal and then the kyra appears normal then the scope advanced to the left main and ANTHONY LB1-LB3 were seen and no endobronchial lesions were seen then the scope advanced to the lingula and the LB4 and LB5 were seen and no endobronchial lesions were seen the scope retracted and advanced to the left lower lobes LB6 to LB12 were seen one by one and no endobronchial lesions, then the scope was retracted back to the kyra and advanced to the Right main and RUL RB1 and RB2 and RB3 were seen one by one and no endobronchial lesions were seen the scope then retracted and advanced to the BI and RML RB4 and RB5 were seen and the right middle lobe bronchus orifice was narrowed and deformed and I was able to pursue bronchoscope into the right middle lobe bronchus and the lateral segment orifice showed some irregularities in is because of the wall and was significantly narrowed. I was able to pass the forceps through the lateral segment of the right middle lobe. Right middle lobe bronchus medial segment was also narrowed with some limited endobronchial irregularities as orifice. Following that the bronchoscope was advanced to the RLL RB6 to RB12 were seen one by one and no endobronchial lesions. Under direct visualization, transbuccal biopsies of the right middle lobe was done regarding it is on a at the level of the lateral segment of the right middle lobe and extending distally. Multiple transbronchial biopsies were taken. Following that, I bronchioalveolar lavage of the right middle lobe was done. A total of 60 mL of fluid was infused and 20 mL Then EBUS was used and the lymph nodes were examined. Direct measurement of the mediastinal lymph nodes revealed a 10.3x15 mm station 4R lymph node, , 17.1 x 14 mm station 11 R s lymph nodes, 21x25 mm station 7 lymph node . I performed transbronchial needle aspirate of station 7 and a total of 5 passes FNA without major bleeding station 11 R-s lymph nodes were a total of 3 passes were obtained. No major bleeding and the scope was removed and taken out in total the patient was send to the floor in stable condition
--- NOTE | 2021-08-01 14:44 | P.PN ---
Subjective Progress Note Date: 08/01/21 On today's evaluation of 08/01/2021, the patient is feeling better compared to yesterday as the patient underwent a right lung thoracentesis yesterday which improved her respiratory status. No palpitation following the procedure. The patient continued to have volume loss in the right lung due to a right lower lobe mass and the patient mediastinal lymphadenopathy is noted on previous CAT scan of the chest. The fluid analysis was consistent with exudate. Fluid cytology still pending. The plan is to proceed with a bronchoscopy, EBUS of the subcarinal and mediastinal lymph nodes and transbronchial biopsies of the right middle lobe mass. Patient is agreeable. The patient understands the risks of the procedure. Objective - Vital Signs Vital signs: Vital Signs Temp 98.5 F 08/01/21 07:49 Pulse 92 08/01/21 12:18 Resp 18 08/01/21 10:21 BP 96/61 08/01/21 07:49 Pulse Ox 93 L 08/01/21 07:49 Intake & Output 07/31/21 08/01/21 08/01/21 18:59 06:59 18:59 Intake Total 200 400 Balance 200 400 Weight 86.183 kg 86.183 kg Intake: IV 400 Oral 200 Other: Voiding Method Toilet Toilet # Voids 2 1 1 - Exam GENERAL EXAM: Alert, oriented to self, pleasant 65-year-old white female, no active respirator distress and the patient's breathing is nonlabored and the patient has been on room air oxygen. HEAD: Normocephalic/atraumatic. EYES: Normal reaction of pupils, equal size. Conjunctiva pink, sclera white. NOSE: Clear with pink turbinates. THROAT: No erythema or exudates. NECK: No masses, no JVD, no thyroid enlargement, no adenopathy. CHEST: No chest wall deformity. Symmetrical expansion. LUNGS: Equal air entry with crackles at the right base, there is diminished breath sounds in the right lung base along with dullness to percussion CVS: Regular rate and rhythm, normal S1 and S2, no gallops, no murmurs, no rubs ABDOMEN: Soft, nontender. No hepatosplenomegaly, normal bowel sounds, no guarding or rigidity. EXTREMITIES: No clubbing, no edema, no cyanosis, 2+ pulses and upper and lower extremities. MUSCULOSKELETAL: Muscle strength and tone normal. SPINE: No scoliosis or deformity SKIN: No rashes CENTRAL NERVOUS SYSTEM: Alert and and awake. No focal deficits, tone is normal in all 4 extremities. PSYCHIATRIC: Alert and oriented -1. Appropriate affect. Intact judgment and insight. - Labs CBC & Chem 7: 08/01/21 08:33 08/01/21 08:33 Labs: Abnormal Lab Results - Last 24 Hours (Table) 07/31/21 07/31/21 07/31/21 Range/Units 08:03 08:03 08:03 RBC 3.16 L (4.10-5.20) X 10*6/uL Hgb 9.4 L (12.0-15.0) g/dL Hct 31.2 L (37.2-46.3) % MCV 98.7 H (80.0-97.0) fL MCHC 30.1 L (32.0-37.0) g/dL RDW 16.1 H (11.5-14.5) % Metamyelocytes % 1 H (0-0) % Myelocytes % 1 H (0-0) % Lymphocytes # (1.0-4.8) k/uL Lymphocytes # (Manual) 0.66 L (0.90-5.00) X 10*3/uL Eosinophils # (Manual) 0.92 H (0.04-0.35) X 10*3/uL Basophils # (Manual) 0.20 H (0.00-0.10) X 10*3/uL Retic Count (0.10-1.80) % Sodium (137-145) mmol/L Potassium (3.5-5.1) mmol/L Carbon Dioxide (22-30) mmol/L Glucose (74-99) mg/dL POC Glucose (mg/dL) (75-99) mg/dL Calcium 8.5 L (8.7-10.3) mg/dL Iron 29 L (50-170) ug/dL % Saturation 8.88 L (12.00-45.00) Alkaline Phosphatase 137 H (41-126) U/L Lactate Dehydrogenase 460 H (120-246) U/L Total Protein 5.6 L (6.2-8.2) g/dL Albumin 3.4 L (3.8-4.9) g/dL Albumin/Globulin Ratio 1.55 L (1.60-3.17) g/dL Vitamin B12 1282.0 H (200.0-944.0) pg/mL 07/31/21 07/31/21 07/31/21 Range/Units 08:03 14:49 14:49 RBC 3.34 L (4.10-5.20) X 10*6/uL Hgb 10.4 L (12.0-15.0) g/dL Hct 33.3 L (37.2-46.3) % MCV (80.0-97.0) fL MCHC (32.0-37.0) g/dL RDW 15.9 H (11.5-14.5) % Metamyelocytes % (0-0) % Myelocytes % (0-0) % Lymphocytes # (1.0-4.8) k/uL Lymphocytes # (Manual) 0.54 L (0.90-5.00) X 10*3/uL Eosinophils # (Manual) 0.95 H (0.04-0.35) X 10*3/uL Basophils # (Manual) (0.00-0.10) X 10*3/uL Retic Count 2.68 H (0.10-1.80) % Sodium 136 L (137-145) mmol/L Potassium 3.2 L (3.5-5.1) mmol/L Carbon Dioxide 32 H (22-30) mmol/L Glucose 101 H (74-99) mg/dL POC Glucose (mg/dL) (75-99) mg/dL Calcium 8.2 L (8.7-10.3) mg/dL Iron (50-170) ug/dL % Saturation (12.00-45.00) Alkaline Phosphatase (41-126) U/L Lactate Dehydrogenase (120-246) U/L Total Protein 5.1 L (6.2-8.2) g/dL Albumin 2.8 L (3.8-4.9) g/dL Albumin/Globulin Ratio (1.60-3.17) g/dL Vitamin B12 (200.0-944.0) pg/mL 07/31/21 07/31/21 08/01/21 Range/Units 16:37 20:51 08:33 RBC (4.10-5.20) X 10*6/uL Hgb (12.0-15.0) g/dL Hct (37.2-46.3) % MCV (80.0-97.0) fL MCHC (32.0-37.0) g/dL RDW (11.5-14.5) % Metamyelocytes % (0-0) % Myelocytes % (0-0) % Lymphocytes # (1.0-4.8) k/uL Lymphocytes # (Manual) (0.90-5.00) X 10*3/uL Eosinophils # (Manual) (0.04-0.35) X 10*3/uL Basophils # (Manual) (0.00-0.10) X 10*3/uL Retic Count (0.10-1.80) % Sodium (137-145) mmol/L Potassium 3.1 L (3.5-5.1) mmol/L Carbon Dioxide (22-30) mmol/L Glucose (74-99) mg/dL POC Glucose (mg/dL) 103 H 140 H (75-99) mg/dL Calcium 8.2 L (8.7-10.3) mg/dL Iron (50-170) ug/dL % Saturation (12.00-45.00) Alkaline Phosphatase (41-126) U/L Lactate Dehydrogenase (120-246) U/L Total Protein 4.7 L (6.2-8.2) g/dL Albumin 2.5 L (3.8-4.9) g/dL Albumin/Globulin Ratio (1.60-3.17) g/dL Vitamin B12 (200.0-944.0) pg/mL 08/01/21 08/01/21 Range/Units 08:33 11:35 RBC 3.23 L (4.10-5.20) X 10*6/uL Hgb 9.9 L (12.0-15.0) g/dL Hct 32.2 L (37.2-46.3) % MCV (80.0-97.0) fL MCHC 30.6 L (32.0-37.0) g/dL RDW 16.0 H (11.5-14.5) % Metamyelocytes % (0-0) % Myelocytes % (0-0) % Lymphocytes # 0.5 L (1.0-4.8) k/uL Lymphocytes # (Manual) (0.90-5.00) X 10*3/uL Eosinophils # (Manual) (0.04-0.35) X 10*3/uL Basophils # (Manual) (0.00-0.10) X 10*3/uL Retic Count (0.10-1.80) % Sodium (137-145) mmol/L Potassium (3.5-5.1) mmol/L Carbon Dioxide (22-30) mmol/L Glucose (74-99) mg/dL POC Glucose (mg/dL) 100 H (75-99) mg/dL Calcium (8.7-10.3) mg/dL Iron (50-170) ug/dL % Saturation (12.00-45.00) Alkaline Phosphatase (41-126) U/L Lactate Dehydrogenase (120-246) U/L Total Protein (6.2-8.2) g/dL Albumin (3.8-4.9) g/dL Albumin/Globulin Ratio (1.60-3.17) g/dL Vitamin B12 (200.0-944.0) pg/mL Microbiology - Last 24 Hours (Table) 07/31/21 11:45 Fungal Culture - Preliminary Thoracic Fluid 07/31/21 11:45 Acid Fast Bacilli Culture - Preliminary Thoracic Fluid 07/31/21 11:45 Body Fluid Culture - Preliminary Thoracic Fluid Assessment and Plan Plan: Right lung mass with hilar/subcarinal lymphadenopathy, suspicious for carcinoma, consider primary bronchogenic carcinoma although possibilities such as lymphoma with pulmonary metastases and mediastinal lymphadenopathy and secondary to pleural effusion cannot be completely excluded. Moderate-sized right-sided pleural effusion, and the patient is post thoracentesis of fluids and the pathology is still pending. The fluid itself is an exudate. 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 The patient undergone left carotid endarterectomy Dementia Hypertension Hyperlipidemia Chronic back pain and the patient has a spinal course terminated Gait dysfunction secondary to above Chronic anemia Hypothyroidism Plan Awaiting pleural fluid cytology results Pleural fluid is an exudate We'll proceed with bronchoscopy, and the bronchial ultrasound and mediastinal lymph node sampling, and transbronchial biopsies Patient is agreeable and we'll proceed accordingly. We'll make final recommendations based on the overall findings.
--- NOTE | 2021-08-01 14:53 | XR ---
EXAMINATION TYPE: XR chest 1V DATE OF EXAM: 08/01/2021 COMPARISON: Chest x-ray 07/31/2021 HISTORY: Status post bronchoscopy TECHNIQUE: Single frontal view of the chest is obtained. FINDINGS: Patient is rotated. There is a port over the right pectoral region, catheter is present ri ght atrium. Lead is present over the midthoracic spine. There is no evident pneumothorax. Left lung r elatively spared, there may be some minimal patchy basilar retrocardiac density. Abnormal density rig ht lung base persists, there is been progression of abnormal density in the lower right hemithorax ex tending two thirds of the way into the right hemithorax about the top. IMPRESSION: No evident pneumothorax status post biopsy with additional findings above.
--- NOTE | 2021-08-01 16:51 | P.PN ---
Subjective This is a pleasant 65 years old female with past medical history of CVA/TIA, Dementia, Hyperlipidemia, Memory Impairment, hypertension, lymphoma. ,Depression Pt has been having increasing dyspnea over 4-5 days associated with little dry cough but no chest pain. She is slightly tachypneic at rest. She is not on home oxygen. She denies any GI or urinary symptoms. No headache or dizziness or weakness or numbness. She denies smoking, alcohol or illicit drugs. She still on chemotherapy revlemid Patient is saturating 91% on room air Labs show an unremarkable CBC except for mild anemia with hemoglobin 10.5, lymphocyte 0.6. D-dimer elevated at 1.8. INR is normal 0.9 BMP and liver enzymes are unremarkable except for mild hypokalemia at 2.9 which is been replaced per protocol. Coronavirus: None detected. CTA of the chest: No pulmonary embolism, small to moderate right pleural effusion. No suspicious right mid lung mass and abnormal right hilar and subcarinal adenopathy worrisome for neoplasm. Consider repeat PET/CAT scan or bronchoscopy EKG: Normal sinus rhythm at [address] T changes, QTC 449. Chest ultrasound showing right pleural effusion with pockets-11.5 cm with skin to surface area 3.3 cm Repeat chest x-ray on 07/31: Mild cardiomegaly with stable small to moderate- sized right pleural effusion with associated masslike consolidation stable. Patchy left basilar acute atelectasis and/or development infiltrated 08/02/2019 pt is slighlty better and less tachypneic but not completely resovled . pleural fluis is exudate, cytology is pending pt will go for bronchoscopy hold revlimed per oncology team , pt informed and she agrees. f/u with own oncologist to resume treatment hold plavis till after bronchoscopy Objective - Vital Signs Vital signs: Vital Signs Temp 97 F L 08/01/21 14:28 Pulse 87 08/01/21 15:00 Resp 14 08/01/21 15:00 BP 121/56 08/01/21 15:00 Pulse Ox 95 08/01/21 15:00 Intake & Output 07/31/21 08/01/21 08/01/21 18:59 06:59 18:59 Intake Total 200 430 Balance 200 430 Weight 86.183 kg 86.183 kg Intake: IV 430 Oral 200 Other: Voiding Method Toilet Toilet # Voids 2 1 1 - Exam -GENERAL: The patient is alert and oriented x3, in mild respiratory acute distress. Well developed, well nourished. HEENT: Pupils are round and equally reacting to light. EOMI. No scleral icterus. No conjunctival pallor. Normocephalic, atraumatic. No pharyngeal erythema. No thyromegaly. CARDIOVASCULAR: S1 and S2 present. No murmurs, rubs, or gallops. -PULMONARY: Chest is clear to auscultation, no wheezing or crackles. Tachypneic ABDOMEN: Soft, nontender, nondistended, normoactive bowel sounds. No palpable organomegaly. MUSCULOSKELETAL: No joint swelling or deformity. EXTREMITIES: No cyanosis, clubbing, or pedal edema. NEUROLOGICAL: Gross neurological examination did not reveal any focal deficits. SKIN: No rashes. no petechiae. - Labs CBC & Chem 7: 08/01/21 08:33 08/01/21 08:33 Labs: Abnormal Lab Results - Last 24 Hours (Table) 07/31/21 07/31/21 07/31/21 Range/Units 08:03 08:03 08:03 RBC 3.16 L (4.10-5.20) X 10*6/uL Hgb 9.4 L (12.0-15.0) g/dL Hct 31.2 L (37.2-46.3) % MCV 98.7 H (80.0-97.0) fL MCHC 30.1 L (32.0-37.0) g/dL RDW 16.1 H (11.5-14.5) % Metamyelocytes % 1 H (0-0) % Myelocytes % 1 H (0-0) % Lymphocytes # (1.0-4.8) k/uL Lymphocytes # (Manual) 0.66 L (0.90-5.00) X 10*3/uL Eosinophils # (Manual) 0.92 H (0.04-0.35) X 10*3/uL Basophils # (Manual) 0.20 H (0.00-0.10) X 10*3/uL Retic Count (0.10-1.80) % Sodium (137-145) mmol/L Potassium (3.5-5.1) mmol/L Carbon Dioxide (22-30) mmol/L Glucose (74-99) mg/dL POC Glucose (mg/dL) (75-99) mg/dL Calcium 8.5 L (8.7-10.3) mg/dL Iron 29 L (50-170) ug/dL % Saturation 8.88 L (12.00-45.00) Alkaline Phosphatase 137 H (41-126) U/L Lactate Dehydrogenase 460 H (120-246) U/L Total Protein 5.6 L (6.2-8.2) g/dL Albumin 3.4 L (3.8-4.9) g/dL Albumin/Globulin Ratio 1.55 L (1.60-3.17) g/dL Vitamin B12 1282.0 H (200.0-944.0) pg/mL 07/31/21 07/31/21 07/31/21 Range/Units 08:03 14:49 14:49 RBC 3.34 L (4.10-5.20) X 10*6/uL Hgb 10.4 L (12.0-15.0) g/dL Hct 33.3 L (37.2-46.3) % MCV (80.0-97.0) fL MCHC (32.0-37.0) g/dL RDW 15.9 H (11.5-14.5) % Metamyelocytes % (0-0) % Myelocytes % (0-0) % Lymphocytes # (1.0-4.8) k/uL Lymphocytes # (Manual) 0.54 L (0.90-5.00) X 10*3/uL Eosinophils # (Manual) 0.95 H (0.04-0.35) X 10*3/uL Basophils # (Manual) (0.00-0.10) X 10*3/uL Retic Count 2.68 H (0.10-1.80) % Sodium 136 L (137-145) mmol/L Potassium 3.2 L (3.5-5.1) mmol/L Carbon Dioxide 32 H (22-30) mmol/L Glucose 101 H (74-99) mg/dL POC Glucose (mg/dL) (75-99) mg/dL Calcium 8.2 L (8.7-10.3) mg/dL Iron (50-170) ug/dL % Saturation (12.00-45.00) Alkaline Phosphatase (41-126) U/L Lactate Dehydrogenase (120-246) U/L Total Protein 5.1 L (6.2-8.2) g/dL Albumin 2.8 L (3.8-4.9) g/dL Albumin/Globulin Ratio (1.60-3.17) g/dL Vitamin B12 (200.0-944.0) pg/mL 07/31/21 07/31/21 08/01/21 Range/Units 16:37 20:51 08:33 RBC (4.10-5.20) X 10*6/uL Hgb (12.0-15.0) g/dL Hct (37.2-46.3) % MCV (80.0-97.0) fL MCHC (32.0-37.0) g/dL RDW (11.5-14.5) % Metamyelocytes % (0-0) % Myelocytes % (0-0) % Lymphocytes # (1.0-4.8) k/uL Lymphocytes # (Manual) (0.90-5.00) X 10*3/uL Eosinophils # (Manual) (0.04-0.35) X 10*3/uL Basophils # (Manual) (0.00-0.10) X 10*3/uL Retic Count (0.10-1.80) % Sodium (137-145) mmol/L Potassium 3.1 L (3.5-5.1) mmol/L Carbon Dioxide (22-30) mmol/L Glucose (74-99) mg/dL POC Glucose (mg/dL) 103 H 140 H (75-99) mg/dL Calcium 8.2 L (8.7-10.3) mg/dL Iron (50-170) ug/dL % Saturation (12.00-45.00) Alkaline Phosphatase (41-126) U/L Lactate Dehydrogenase (120-246) U/L Total Protein 4.7 L (6.2-8.2) g/dL Albumin 2.5 L (3.8-4.9) g/dL Albumin/Globulin Ratio (1.60-3.17) g/dL Vitamin B12 (200.0-944.0) pg/mL 08/01/21 08/01/21 Range/Units 08:33 11:35 RBC 3.23 L (4.10-5.20) X 10*6/uL Hgb 9.9 L (12.0-15.0) g/dL Hct 32.2 L (37.2-46.3) % MCV (80.0-97.0) fL MCHC 30.6 L (32.0-37.0) g/dL RDW 16.0 H (11.5-14.5) % Metamyelocytes % (0-0) % Myelocytes % (0-0) % Lymphocytes # 0.5 L (1.0-4.8) k/uL Lymphocytes # (Manual) (0.90-5.00) X 10*3/uL Eosinophils # (Manual) (0.04-0.35) X 10*3/uL Basophils # (Manual) (0.00-0.10) X 10*3/uL Retic Count (0.10-1.80) % Sodium (137-145) mmol/L Potassium (3.5-5.1) mmol/L Carbon Dioxide (22-30) mmol/L Glucose (74-99) mg/dL POC Glucose (mg/dL) 100 H (75-99) mg/dL Calcium (8.7-10.3) mg/dL Iron (50-170) ug/dL % Saturation (12.00-45.00) Alkaline Phosphatase (41-126) U/L Lactate Dehydrogenase (120-246) U/L Total Protein (6.2-8.2) g/dL Albumin (3.8-4.9) g/dL Albumin/Globulin Ratio (1.60-3.17) g/dL Vitamin B12 (200.0-944.0) pg/mL Microbiology - Last 24 Hours (Table) 07/31/21 11:45 Fungal Culture - Preliminary Thoracic Fluid 07/31/21 11:45 Acid Fast Bacilli Culture - Preliminary Thoracic Fluid 07/31/21 11:45 Body Fluid Culture - Preliminary Thoracic Fluid Assessment and Plan Assessment: Right lung mass with hilar lymphadenopathy Small right pleural effusion secondary to above, s/p thoracocentasis , showing exudate pleural fluid chronic lymphoma, on chemotherapy Hypertension Hyperlipidemia Dementia History of stroke/TIA History of depression Plan: This is a pleasant 65 years old female, p/w pleural effusion and lung mass pt will go for bronchoscopy Pulmonary consult Oncology consult Labs and medication were reviewed.. Continue same treatment. Continue with sy mptomatic treatment. Resume home medication. Monitor lytes and vitals. DVT and GI prophylaxis. Further recommendations as per clinical course of the patient DVT prophylaxis: Subcutaneous heparin GI Prophylaxis: Pepcid PT/OT: Pending Prognosis is guarded
[2021-08-01 16:54] LABS: Glucose,Whole Blood 97 mg/dL (75-99)
[2021-08-01 20:13] LABS: Glucose,Whole Blood 120 mg/dL (75-99)
[2021-08-01] MEDS: DOCUSATE 100 MG CAP PO SCH (21:22)
[2021-08-01] MEDS: DONEPEZIL 10 MG TAB PO SCH (21:22)
[2021-08-01] MEDS: ATORVASTATIN 40 MG TAB PO SCH (21:22)
[2021-08-01] MEDS: MEMANTINE 10 MG TAB PO SCH (23:30)
[2021-08-01 23:42] LABS: Appearance,BF Bloody
[2021-08-02] MEDS: LEVOTHYROXINE 50 MCG TAB PO SCH (06:18)
[2021-08-02 07:02] LABS: Glucose,Whole Blood 120 mg/dL (75-99)
[2021-08-02] MEDS: INSULIN ASPART (NovoLOG) 100 UNIT/ML VIAL SQ SCH ×2 (08:11→08:25)
[2021-08-02] MEDS: lisinopriL 5 MG TAB PO SCH (08:18)
[2021-08-02] MEDS: CYANOCOBALAMIN 500 MCG TAB PO SCH (08:18)
[2021-08-02] MEDS: LINAGLIPTIN 5 MG TABLET PO SCH (08:18)
[2021-08-02] MEDS: GABAPENTIN 300 MG CAP PO SCH (08:18)
[2021-08-02] MEDS: METOPROLOL SUCCINATE (ER) 25 MG TAB.ER.24H PO SCH (08:18)
[2021-08-02] MEDS: HEPARIN SODIUM,PORCINE/PF 5,000 UNIT/0.5 ML SYRINGE SQ SCH (08:19)
[2021-08-02] MEDS: ASCORBIC ACID 500 MG TAB PO SCH (08:19)
[2021-08-02] MEDS: FUROSEMIDE 40 MG TAB PO SCH (08:19)
[2021-08-02] MEDS: PYRIDOXINE 50 MG TAB PO SCH (08:19)
[2021-08-02] MEDS: NON FORMULARY DRUG (Mirabegron [Myrbetriq] 50 MG Tablet) PO SCH (08:19)
[2021-08-02] MEDS: buPROPion XL 300 MG TAB.ER.24H PO SCH (08:19)
[2021-08-02] MEDS: CHOLECALCIFEROL 125 MCG (5000 IU) TABLET PO SCH (08:19)
[2021-08-02] MEDS: FAMOTIDINE 20 MG/2 ML VIAL IV SCH (08:31)
[2021-08-02] MEDS: FORMOTEROL FUMARATE 20 MCG/2 ML NEBU INHALATION SCH (08:54)
[2021-08-02] MEDS: IPRATROPIUM 0.5 MG/2.5 ML NEBU INHALATION SCH ×3 (08:54→15:35)
[2021-08-02] MEDS ORDERED: CLOPIDOGREL 75 MG TAB PO SCH (09:45)
[2021-08-02 11:07] LABS: Glucose,Whole Blood 119 mg/dL (75-99)
--- NOTE | 2021-08-02 12:51 | P.PN ---
Subjective This is a pleasant 65 years old female with past medical history of CVA/TIA, Dementia, Hyperlipidemia, Memory Impairment, hypertension, lymphoma. ,Depression Pt has been having increasing dyspnea over 4-5 days associated with little dry cough but no chest pain. She is slightly tachypneic at rest. She is not on home oxygen. She denies any GI or urinary symptoms. No headache or dizziness or weakness or numbness. She denies smoking, alcohol or illicit drugs. She still on chemotherapy revlemid Patient is saturating 91% on room air Labs show an unremarkable CBC except for mild anemia with hemoglobin 10.5, lymphocyte 0.6. D-dimer elevated at 1.8. INR is normal 0.9 BMP and liver enzymes are unremarkable except for mild hypokalemia at 2.9 which is been replaced per protocol. Coronavirus: None detected. CTA of the chest: No pulmonary embolism, small to moderate right pleural effusion. No suspicious right mid lung mass and abnormal right hilar and subcarinal adenopathy worrisome for neoplasm. Consider repeat PET/CAT scan or bronchoscopy EKG: Normal sinus rhythm at [address] T changes, QTC 449. Chest ultrasound showing right pleural effusion with pockets-11.5 cm with skin to surface area 3.3 cm Repeat chest x-ray on 07/31: Mild cardiomegaly with stable small to moderate- sized right pleural effusion with associated masslike consolidation stable. Patchy left basilar acute atelectasis and/or development infiltrated 08/01/2021 pt is slighlty better and less tachypneic but not completely resovled . pleural fluis is exudate, cytology is pending pt will go for bronchoscopy hold revlimed per oncology team , pt informed and she agrees. f/u with own oncologist to resume treatment hold plavis till after bronchoscopy 08/02/2021 Patient is a status post bronchoscopy yesterday which showing narrowing the bronchus. Also bronchial and alveolar biopsy R obtained and results are pending. Cytology from thoracocentesis is also pending. Patient dyspnea looks better. Patient might qualify for home oxygen, we will check prior to discharge Pulmonary team following the case closely. Objective - Vital Signs Vital signs: Vital Signs Temp 97.6 F 08/02/21 08:32 Pulse 89 08/02/21 09:09 Resp 20 08/02/21 08:32 BP 100/52 08/02/21 08:00 Pulse Ox 90 L 08/02/21 08:32 Intake & Output 08/01/21 08/02/21 08/02/21 18:59 06:59 18:59 Intake Total 680 Balance 680 Weight 86.183 kg Intake: IV 430 Oral 250 Other: Voiding Method Toilet Toilet # Voids 2 2 - Exam -GENERAL: The patient is alert and oriented x3, in mild respiratory acute distress. Well developed, well nourished. HEENT: Pupils are round and equally reacting to light. EOMI. No scleral icterus. No conjunctival pallor. Normocephalic, atraumatic. No pharyngeal erythema. No thyromegaly. CARDIOVASCULAR: S1 and S2 present. No murmurs, rubs, or gallops. -PULMONARY: Chest is clear to auscultation, no wheezing or crackles. Tachypneic ABDOMEN: Soft, nontender, nondistended, normoactive bowel sounds. No palpable organomegaly. MUSCULOSKELETAL: No joint swelling or deformity. EXTREMITIES: No cyanosis, clubbing, or pedal edema. NEUROLOGICAL: Gross neurological examination did not reveal any focal deficits. SKIN: No rashes. no petechiae. - Labs CBC & Chem 7: 08/01/21 08:33 08/01/21 08:33 Labs: Abnormal Lab Results - Last 24 Hours (Table) 07/31/21 07/31/21 08/01/21 Range/Units 08:03 08:03 11:35 POC Glucose (mg/dL) 100 H (75-99) mg/dL Iron 29 L (50-170) ug/dL % Saturation 8.88 L (12.00-45.00) Alkaline Phosphatase 137 H (41-126) U/L Lactate Dehydrogenase 460 H (120-246) U/L Total Protein 5.6 L (6.2-8.2) g/dL Albumin 3.4 L (3.8-4.9) g/dL Albumin/Globulin Ratio 1.55 L (1.60-3.17) g/dL Vitamin B12 1282.0 H (200.0-944.0) pg/mL 08/01/21 08/02/21 Range/Units 20:05 07:00 POC Glucose (mg/dL) 120 H 120 H (75-99) mg/dL Iron (50-170) ug/dL % Saturation (12.00-45.00) Alkaline Phosphatase (41-126) U/L Lactate Dehydrogenase (120-246) U/L Total Protein (6.2-8.2) g/dL Albumin (3.8-4.9) g/dL Albumin/Globulin Ratio (1.60-3.17) g/dL Vitamin B12 (200.0-944.0) pg/mL Microbiology - Last 24 Hours (Table) 08/01/21 14:00 Gram Stain - Preliminary Bronchoalviolar Lavage - Right Bronchial Washings Culture - Preliminary 07/31/21 11:45 Gram Stain - Preliminary Thoracic Fluid Body Fluid Culture - Preliminary 08/01/21 14:00 Fungal Culture - Preliminary Bronchoalviolar Lavage - Right 08/01/21 14:00 Acid Fast Bacilli Culture - Preliminary Bronchoalviolar Lavage - Right 07/31/21 11:45 Acid Fast Bacilli Smear - Final Thoracic Fluid Acid Fast Bacilli Culture - Preliminary Assessment and Plan Assessment: Right lung mass with hilar lymphadenopathy Small right pleural effusion secondary to above, s/p thoracocentasis , showing exudate pleural fluid chronic lymphoma, on chemotherapy Hypertension Hyperlipidemia Dementia History of stroke/TIA History of depression Plan: This is a pleasant 65 years old female, p/w pleural effusion and lung mass Follow-up lung biopsy from bronchoscopy Pulmonary consult Oncology consult Labs and medication were reviewed.. Continue same treatment. Continue with symptomatic treatment. Resume home medication. Monitor lytes and vitals. DVT and GI prophylaxis. Further recommendations as per clinical course of the patient DVT prophylaxis: Subcutaneous heparin GI Prophylaxis: Pepcid PT/OT: Pending Prognosis is guarded
--- NOTE | 2021-08-02 13:44 | P.PN ---
Subjective Progress Note Date: 08/02/21 On today's evaluation of 08/01/2021, the patient is feeling better compared to yesterday as the patient underwent a right lung thoracentesis yesterday which improved her respiratory status. No palpitation following the procedure. The patient continued to have volume loss in the right lung due to a right lower lobe mass and the patient mediastinal lymphadenopathy is noted on previous CAT scan of the chest. The fluid analysis was consistent with exudate. Fluid cytology still pending. The plan is to proceed with a bronchoscopy, EBUS of the subcarinal and mediastinal lymph nodes and transbronchial biopsies of the right middle lobe mass. Patient is agreeable. The patient understands the risks of the procedure. 08/02/2021, the patient is on room air oxygen. She will be evaluated for home O2. The pleural fluid cytology still pending. I also performed a bronchoscopy on this patient with endobronchial ultrasound and sampling of the subcarinal lymph nodes and right hilar lymph nodes. The preliminary findings are consistent with carcinoma, poorly differentiated. Final results are still pending. Meanwhile, the repeat chest exit from yesterday showed a right lower lobe opacity possibly a combination of a mass/effusion. The patient has no specific complaints. She tolerated the procedure without any major difficulties. I think should be able to get discharged home with home O2 to be followed up with me in the office to discuss the results of the biopsies and the pleural fluid once available. No fever. No chills. No hemoptysis. No chest pain. No other significant events otherwise for now. Objective - Vital Signs Vital signs: Vital Signs Temp 97.6 F 08/02/21 08:32 Pulse 88 08/02/21 12:22 Resp 20 08/02/21 10:37 BP 100/52 08/02/21 08:00 Pulse Ox 90 L 08/02/21 12:04 Intake & Output 08/01/21 08/02/21 08/02/21 18:59 06:59 18:59 Intake Total 680 450 Balance 680 450 Weight 86.183 kg 86.183 kg Intake: IV 430 Oral 250 450 Other: Voiding Method Toilet Toilet Toilet # Voids 2 2 - Exam GENERAL EXAM: Alert, oriented to self, pleasant 65-year-old white female, no active respirator distress and the patient's breathing is nonlabored and the patient has been on room air oxygen. HEAD: Normocephalic/atraumatic. EYES: Normal reaction of pupils, equal size. Conjunctiva pink, sclera white. NOSE: Clear with pink turbinates. THROAT: No erythema or exudates. NECK: No masses, no JVD, no thyroid enlargement, no adenopathy. CHEST: No chest wall deformity. Symmetrical expansion. LUNGS: Equal air entry with crackles at the right base, there is diminished breath sounds in the right lung base along with dullness to percussion CVS: Regular rate and rhythm, normal S1 and S2, no gallops, no murmurs, no rubs ABDOMEN: Soft, nontender. No hepatosplenomegaly, normal bowel sounds, no guarding or rigidity. EXTREMITIES: No clubbing, no edema, no cyanosis, 2+ pulses and upper and lower extremities. MUSCULOSKELETAL: Muscle strength and tone normal. SPINE: No scoliosis or deformity SKIN: No rashes CENTRAL NERVOUS SYSTEM: Alert and and awake. No focal deficits, tone is normal in all 4 extremities. PSYCHIATRIC: Alert and oriented -1. Appropriate affect. Intact judgment and insight. - Labs CBC & Chem 7: 08/01/21 08:33 08/01/21 08:33 Labs: Abnormal Lab Results - Last 24 Hours (Table) 08/01/21 08/02/21 08/02/21 Range/Units 20:05 07:00 11:05 POC Glucose (mg/dL) 120 H 120 H 119 H (75-99) mg/dL Microbiology - Last 24 Hours (Table) 08/01/21 14:00 Gram Stain - Preliminary Bronchoalviolar Lavage - Right Bronchial Washings Culture - Preliminary 07/31/21 11:45 Gram Stain - Preliminary Thoracic Fluid Body Fluid Culture - Preliminary 08/01/21 14:00 Fungal Culture - Preliminary Bronchoalviolar Lavage - Right 08/01/21 14:00 Acid Fast Bacilli Culture - Preliminary Bronchoalviolar Lavage - Right 07/31/21 11:45 Acid Fast Bacilli Smear - Final Thoracic Fluid Acid Fast Bacilli Culture - Preliminary Assessment and Plan Plan: Right lung mass with hilar/subcarinal lymphadenopathy, suspicious for carcinoma, consider primary bronchogenic carcinoma although possibilities such as lymphoma with pulmonary metastases and mediastinal lymphadenopathy and secondary to pleural effusion cannot be completely excluded. The patient is post thoracentesis of the right lung and the pleural fluid was an exudate and the cytology still pending. The patient is post endobronchial ultrasound and subcarinal lymph node sampling and right hilar lymph node sampling and biopsy of the right middle lobe mass. Moderate-sized right-sided pleural effusion, and the patient is post thoracentesis of fluids and the pathology is still pending. The fluid itself is an exudate. 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 The patient undergone left carotid endarterectomy Dementia Hypertension Hyperlipidemia Chronic back pain and the patient has a spinal course terminated Gait dysfunction secondary to above Chronic anemia Hypothyroidism Plan Awaiting pleural fluid cytology results Pleural fluid is an exudate Awaiting the results of the endobronchial ultrasound and biopsies of the subcarinal and right hilar and right middle lobe mass. Arrange the patient for home O2 if she qualifies discharged home to be followed up with me on outpatient basis
[2021-08-02 14:30] VITALS: BP 90/51; RESP 18; TEMP 98.4
[2021-08-02 14:53] LABS: ALT 24 U/L (4-34); AST 32 U/L (14-36); African American GFR (CKD) 76 (>60 ml/min/1.73 sqM); Albumin 2.8 g/dL (3.5-5.0); Albumin/Globulin Ratio 1.2; Alkaline Phosphatase 111 U/L (38-126); Anion Gap 11 mmol/L; Blood Urea Nitrogen 16 mg/dL (7-17); Calcium 8.2 mg/dL (8.4-10.2); Carbon Dioxide 26 mmol/L (22-30); Chloride 96 mmol/L (98-107); Globulin 2.4 g/dL; Glucose 86 mg/dL (74-99); Non-African American GFR(CKD) 66 (>60 ml/min/1.73 sqM); Potassium 3.2 mmol/L (3.5-5.1); Sodium 133 mmol/L (137-145); Total Bilirubin 0.6 mg/dL (0.2-1.3); Total Protein 5.2 g/dL (6.3-8.2)
[2021-08-02 15:50] VITALS: PULSE 92
[2021-08-02] MEDS ORDERED: FAMOTIDINE 20 MG TAB PO SCH (21:00)
--- NOTE | 2021-08-02 22:02 | P.DS ---
Providers Date of admission: 07/30/21 16:07 Attending physician: Alexei Willson Consults: 07/30/21 16:05 Consult Physician Routine Consulting Provider: Aidee Boles Consult Reason/Comments: Right moderate pleural effusion, suspected right lung mass Do you want consulting provider notified?: Yes 07/30/21 21:12 Consult Physician Routine Consulting Provider: Walter Nguyen Consult Reason/Comments: h.o lymphoma ,now with lung mass Do you want consulting provider notified?: Yes, Notify in am Primary care physician: [facility] Hospital Course: Please see progress note from today Patient Condition at Discharge: Stable Plan - Discharge Summary New Discharge Prescriptions: New Ferrous Sulfate [Feosol] 325 mg PO BID #60 tab Continue Clopidogrel [Plavix] 75 mg PO DAILY Donepezil [Aricept] 10 mg PO HS Memantine [Namenda] 10 mg PO HS Furosemide [Lasix] 40 mg PO DAILY Albuterol Nebulized [Ventolin Nebulized] 2.5 mg INHALATION RT-QID PRN PRN Reason: Shortness Of Breath Mirabegron [Myrbetriq] 50 mg PO DAILY Albuterol Sulfate [Ventolin HFA] 2 puff INHALATION RT-QID PRN PRN Reason: Shortness Of Breath buPROPion HCL [Wellbutrin XL] 300 mg PO DAILY Umeclidinium Brm/Vilanterol Tr [Anoro Ellipta 62.5-25 Mcg INH] 1 puff INHALATION RT-DAILY Ascorbic Acid [Vitamin C] 500 mg PO BID tab INSULIN ASPART (NovoLOG) [NovoLOG (formulary)] See Protocol SQ ACHS PRN PRN Reason: HIGH BLOOD SUGAR Lenalidomide [Revlimid] 20 mg PO DIRECTED sitaGLIPtin [Januvia] 100 mg PO DAILY Ergocalciferol [Vitamin D2 (1250 Mcg = 60515 Iu)] 1,250 mcg PO SHAW ondansetron HCL [Zofran] 8 mg PO Q8H PRN PRN Reason: Nausea And Vomiting Lisinopril [Prinivil] 5 mg PO DAILY Docusate [Colace] 100 mg PO HS Atorvastatin [Lipitor] 40 mg PO HS Metoprolol Succinate (ER) [Toprol XL] 12.5 mg PO DAILY 30 Days #15 tab Levothyroxine Sodium [Synthroid] 50 mcg PO DAILY@0630 tab Pyridoxine [Vitamin B-6] 50 mg PO DAILY tab Cholecalciferol [Vitamin D3 (125 Mcg = 5000 Iu)] 125 mcg PO DAILY tablet Gabapentin [Neurontin] 300 mg PO BID Discontinued Cyanocobalamin [Vitamin B-12] 1,000 mcg PO DAILY tab Discharge Medication List Clopidogrel [Plavix] 75 mg PO DAILY 09/15/13 [History] Donepezil [Aricept] 10 mg PO HS 08/25/18 [History] Memantine [Namenda] 10 mg PO HS 11/17/18 [History] Furosemide [Lasix] 40 mg PO DAILY 02/23/19 [History] Albuterol Nebulized [Ventolin Nebulized] 2.5 mg INHALATION RT-QID PRN 02/25/19 [History] Albuterol Sulfate [Ventolin HFA] 2 puff INHALATION RT-QID PRN 05/13/21 [History] Atorvastatin [Lipitor] 40 mg PO HS 05/13/21 [History] Docusate [Colace] 100 mg PO HS 05/13/21 [History] Ergocalciferol [Vitamin D2 (1250 Mcg = 49084 Iu)] 1,250 mcg PO SHAW 05/13/21 [History] Lisinopril [Prinivil] 5 mg PO DAILY 05/13/21 [History] Mirabegron [Myrbetriq] 50 mg PO DAILY 05/13/21 [History] Umeclidinium Brm/Vilanterol Tr [Anoro Ellipta 62.5-25 Mcg INH] 1 puff INHALATION RT-DAILY 05/13/21 [History] buPROPion HCL [Wellbutrin XL] 300 mg PO DAILY 05/13/21 [History] ondansetron HCL [Zofran] 8 mg PO Q8H PRN 05/13/21 [History] Metoprolol Succinate (ER) [Toprol XL] 12.5 mg PO DAILY 30 Days #15 tab 05/16/21 [Rx] Ascorbic Acid [Vitamin C] 500 mg PO BID tab 05/22/21 [Rx] Cholecalciferol [Vitamin D3 (125 Mcg = 5000 Iu)] 125 mcg PO DAILY tablet 05/22/21 [Rx] Levothyroxine Sodium [Synthroid] 50 mcg PO DAILY@0630 tab 05/22/21 [Rx] Pyridoxine [Vitamin B-6] 50 mg PO DAILY tab 05/22/21 [Rx] Gabapentin [Neurontin] 300 mg PO BID 07/30/21 [History] INSULIN ASPART (NovoLOG) [NovoLOG (formulary)] See Protocol SQ ACHS PRN 07/30/21 [History] Lenalidomide [Revlimid] 20 mg PO DIRECTED 07/30/21 [History] sitaGLIPtin [Januvia] 100 mg PO DAILY 07/30/21 [History] Ferrous Sulfate [Feosol] 325 mg PO BID #60 tab 08/02/21 [Rx] Follow up Appointment(s)/Referral(s): Walter Nguyen MD [STAFF PHYSICIAN] - 2 Weeks (cnacer doctor ) [facility],Equipment [NON-STAFF] - (*Please call [facility] once home to arrange delivery of the oxygen concentrator. ) iDnesh Dukes DO [Primary Care Provider] - 08/14/21 9:30 am [facility] [NON-STAFF] - As Needed ([facility] will call you to schedule your in home visits. Please call them if you have any questions about home care.) Aidee Boles MD [STAFF PHYSICIAN] - 08/21/21 3:45 pm Patient Instructions/Handouts: Using Oxygen at Home (DC), Pleural Effusion (DC), Hypoxia (GEN) Discharge Disposition: HOME SELF-CARE
[2021-08-02 23:16] LABS: HCT 32.9 % (37.2-46.3); HGB 9.4 g/dL (12.0-15.0); MCH 29.4 pg (27.0-32.0); MCHC 28.6 g/dL (32.0-37.0); MCV 102.8 fL (80.0-97.0); Mean Platelet Volume 11.9 fL (9.5-12.2); NRBC Per 100 WBC 0 /100 WBCS (0.0-0.0); Platelet Count 194 X 10*3/uL (140-440); RDW 16.4 % (11.5-14.5); WBC 8.66 X 10*3/uL (4.50-10.00)
[2021-08-02 23:52] LABS: Basophils # (M) 0.09 X 10*3/uL (0.00-0.10); Elliptocytes 2+; Eosinophils # (M) 0.69 X 10*3/uL (0.04-0.35); Lymphocytes # (M) 0.61 X 10*3/uL (0.90-5.00); Macrocytosis (M) 2+; Metamyelocytes % 3 % (0-0); Monocytes # (M) 0.78 X 10*3/uL (0.20-1.00); Neutrophils # (M) 6.24 X 10*3/uL (2.00-8.90); Neutrophils % (M) 72 %; Toxic Vacuolation 2+
[2021-08-04] MEDS ORDERED: ERGOCALCIFEROL 1,250 MCG (50,000 IU) CAPSULE PO SCH (09:00)
[2021-08-12] MEDS ORDERED: LENALIDOMIDE PO SCH (21:00)
== END 2021-08-02 17:03 | disposition home or self-care (01) | DRG 167 ==
LOC: EC 11:00 → 4SSUR 16:07
PROVIDERS: ADMIT Hospitalist; ATTEND Hospitalist
PROC: 0W993ZX Drainage of Right Pleural Cavity, Percutaneous Approach, Diagnostic (ICD-10-PCS; 2021-07-31)
PROC: 0BJ08ZZ Inspection of Tracheobronchial Tree, Via Natural or Artificial Opening Endoscopic (ICD-10-PCS; principal; 2021-08-01 08:20)
PROC: 07974ZX Drainage of Thorax Lymphatic, Percutaneous Endoscopic Approach, Diagnostic (ICD-10-PCS; principal; 2021-08-01 08:20)
PROC: 0B9D8ZX Drainage of Right Middle Lung Lobe, Via Natural or Artificial Opening Endoscopic, Diagnostic (ICD-10-PCS; principal; 2021-08-01 08:20)
PROC: 0BBD4ZX Excision of Right Middle Lung Lobe, Percutaneous Endoscopic Approach, Diagnostic (ICD-10-PCS; principal; 2021-08-01 08:20)
DX: C34.2 Malignant neoplasm of middle lobe, bronchus or lung (principal); J91.0 Malignant pleural effusion; C78.2 Secondary malignant neoplasm of pleura; C82.90 Follicular lymphoma, unspecified, unspecified site; I69.351 Hemiplegia and hemiparesis following cerebral infarction affecting right dominant side; Z87.891 Personal history of nicotine dependence; B34.9 Viral infection, unspecified; D64.9 Anemia, unspecified; E78.5 Hyperlipidemia, unspecified; E87.6 Hypokalemia; G89.29 Other chronic pain; F03.90 Unspecified dementia, unspecified severity, without behavioral disturbance, psychotic disturbance, mood disturbance, and anxiety; M54.9 Dorsalgia, unspecified; F32.A Depression, unspecified; I69.320 Aphasia following cerebral infarction; I05.0 Rheumatic mitral stenosis; I10 Essential (primary) hypertension; J44.9 Chronic obstructive pulmonary disease, unspecified; J98.09 Other diseases of bronchus, not elsewhere classified; Z20.822 Contact with and (suspected) exposure to COVID-19; Z28.311 Partially vaccinated for COVID-19; Z98.890 Other specified postprocedural states; Z98.51 Tubal ligation status; Z79.02 Long term (current) use of antithrombotics/antiplatelets; Z79.84 Long term (current) use of oral hypoglycemic drugs; Z79.890 Hormone replacement therapy; Z79.899 Other long term (current) drug therapy; Z86.16 Personal history of COVID-19; Z87.01 Personal history of pneumonia (recurrent)
CPT/HCPCS: 31624; 31625; 31652; 36415; 71045; 71046; 71275; 76604; 80053; 82607; 82728; 82746; 83540; 83550; 83605; 83615; 83735; 83880; 83921; 84157; 84484; 84550; 85025; 85045; 85379; 85610; 85730; 87070; 87102; 87116; 87205; 87206; 87252; 87496; 87498; 87502; 87529; 87634; 87635; 87798; 88108; 88173; 88305; 88341; 88342; 89050; 93005; 93970; 94640; 94760; 99285

== ENCOUNTER 2021-08-07 13:03 | Inpatient (IN) | payer MEDICARE ==
[2021-08-07 14:42] LABS: Albumin 2.8 g/dL (3.5-5.0); Calcium 8.5 mg/dL (8.4-10.2); Partial Thromboplastin Time 22.4 sec (22.0-30.0); Potassium 3.1 mmol/L (3.5-5.1); Prothrombin Time 10.7 sec (9.0-12.0); Total Bilirubin 0.3 mg/dL (0.2-1.3); Total Protein 5.2 g/dL (6.3-8.2)
[2021-08-07 14:48] LABS: Anisocytosis Slight; HCT 31.1 % (34.0-46.0); HGB 9.6 gm/dL (11.4-16.0); Hypochromasia Moderate; MCHC 30.8 g/dL (31.0-37.0); MCV 97.3 fL (80.0-100.0); Macrocytosis Slight; Mean Platelet Volume 8.2; Platelet Count 370 k/uL (150-450); Poikilocytosis Slight; WBC 8.5 k/uL (3.8-10.6)
--- NOTE | 2021-08-07 14:51 | XR ---
EXAMINATION TYPE: XR chest 2V DATE OF EXAM: 08/07/2021 COMPARISON: 08/01/2021 HISTORY: Shortness of breath TECHNIQUE: Frontal and lateral views of the chest are obtained. FINDINGS: Large right-sided pleural effusion with a small aerated portion of lung right upper lobe. The left russ ng is clear. Heart size is stable. Mediastinal structures are stable and grossly unremarkable. No evidence for hilar prominence. Degenerative changes dorsal spine. IMPRESSION: 1. Large right-sided pleural effusion with underlying infiltrate and/or atelectasis difficult to excl ude.
--- NOTE | 2021-08-07 15:14 | ED ---
General Adult HPI - General Chief complaint: Shortness of Breath Stated complaint: HENRIQUE, on oxygen Time Seen by Provider: 08/07/21 14:01 Source: patient Mode of arrival: wheelchair Limitations: no limitations - History of Present Illness Initial comments: This 65-year-old female with a past medical history dementia, lymphoma x 8 years and recent diagnosis of lung cancer presents emergency Department with increasing shortness of breath. Patient states she was discharged from this hospital on Thursday where she had a right pleural effusion and was diagnosed with cancer in her right lung. She states she was discharged on 2 L of oxygen and has been progressively experiencing increased shortness of breath. Patient states she is currently on infusion once every 3 months along with taking cancer pills, however she is unsure what they are. Aunt in room states patient does live alone in a senior assisted living facility. Patient room denies any other symptoms besides feeling short of breath. She states her oxygen dropped to 78% while at home when she was on 2 L of oxygen. Patient denies any chest pain, difficulty swallowing, abdominal pain, nausea, vomiting, change in bowel or bladder, change in appetite, lightheadedness, dizziness, fever, change in vision, rash. - Related Data Home Medications Medication Instructions Recorded Confirmed Clopidogrel [Plavix] 75 mg PO DAILY 09/15/13 08/07/21 Donepezil [Aricept] 10 mg PO HS 08/25/18 08/07/21 Memantine [Namenda] 10 mg PO HS 11/17/18 08/07/21 Furosemide [Lasix] 40 mg PO DAILY 02/23/19 08/07/21 Albuterol Nebulized [Ventolin 2.5 mg INHALATION RT-QID PRN 02/25/19 08/07/21 Nebulized] Albuterol Sulfate [Ventolin HFA] 2 puff INHALATION RT-QID PRN 05/13/21 08/07/21 Atorvastatin [Lipitor] 40 mg PO HS 05/13/21 08/07/21 Docusate [Colace] 100 mg PO HS 05/13/21 08/07/21 Ergocalciferol [Vitamin D2 (1250 1,250 mcg PO SHAW 05/13/21 08/07/21 Mcg = 09862 Iu)] Lisinopril [Prinivil] 5 mg PO DAILY 05/13/21 08/07/21 Mirabegron [Myrbetriq] 50 mg PO DAILY 05/13/21 08/07/21 Umeclidinium Brm/Vilanterol Tr 1 puff INHALATION RT-DAILY 05/13/21 08/07/21 [Anoro Ellipta 62.5-25 Mcg INH] buPROPion HCL [Wellbutrin XL] 300 mg PO DAILY 05/13/21 08/07/21 Gabapentin [Neurontin] 300 mg PO BID 07/30/21 08/07/21 INSULIN ASPART (NovoLOG) [NovoLOG See Protocol SQ ACHS PRN 07/30/21 08/07/21 (formulary)] Lenalidomide [Revlimid] 20 mg PO DIRECTED 07/30/21 08/07/21 sitaGLIPtin [Januvia] 100 mg PO DAILY 07/30/21 08/07/21 Previous Rx's Medication Instructions Recorded Metoprolol Succinate (ER) [Toprol 12.5 mg PO DAILY 30 Days #15 tab 05/16/21 XL] Ascorbic Acid [Vitamin C] 500 mg PO BID tab 05/22/21 Cholecalciferol [Vitamin D3 (125 125 mcg PO DAILY tablet 05/22/21 Mcg = 5000 Iu)] Levothyroxine Sodium [Synthroid] 50 mcg PO DAILY@0630 tab 05/22/21 Pyridoxine [Vitamin B-6] 50 mg PO DAILY tab 05/22/21 Ferrous Sulfate [Feosol] 325 mg PO BID #60 tab 08/02/21 Allergies Allergy/AdvReac Type Severity Reaction Status Date / Time naproxen sodium [From Aleve] Allergy Rash/Hives Verified 08/07/21 17:09 Review of Systems ROS Statement: Those systems with pertinent positive or pertinent negative responses have been documented in the HPI. ROS Other: All systems not noted in ROS Statement are negative. Past Medical History Past Medical History: COPD, CVA/TIA, Dementia, Hyperlipidemia, Hypertension, Memory Impairment Additional Past Medical History / Comment(s): Non-Hodgkin's lymphoma/follicular. COVID 19 pneumonia back in May 2021. CVA APPROX 2003 PER AUNT PT WALKS WITH LIMP, RT ARM PARESIS, PT HAS SOME APHASIA, SHORT TERM MEMORY NOT GOOD. Valvular heart disease with severe mitral stenosis. Dementia. Chronic anemia. Depression. Chronic back pain and the patient has a spinal cord stimulator. Gait dysfunction secondary to above. COPD. Hypertension. GERD artery disease with previous endarterectomy on the left History of Any Multi-Drug Resistant Organisms: None Reported Past Surgical History: Tubal Ligation Additional Past Surgical History / Comment(s): carpal tunnel, neck, medi port, per son pt had carotid surgery Past Anesthesia/Blood Transfusion Reactions: No Reported Reaction Past Psychological History: Depression Smoking Status: Former smoker Past Alcohol Use History: None Reported Past Drug Use History: None Reported - Past Family History Mother Family Medical History: Cancer Father Family Medical History: Deep Vein Thrombosis (DVT) Additional Family Medical History / Comment(s): Multiple MIs General Exam Limitations: no limitations General appearance: alert, in no apparent distress (100% oxygen on nonrebreather) Head exam: Present: atraumatic, normocephalic, normal inspection Eye exam: Present: normal appearance, PERRL, EOMI. Absent: scleral icterus, conjunctival injection, periorbital swelling ENT exam: Present: normal exam, mucous membranes moist Neck exam: Present: normal inspection. Absent: tenderness, meningismus, lymphadenopathy Respiratory exam: Present: normal lung sounds bilaterally, decreased breath sounds (Right lung). Absent: respiratory distress, wheezes, rales, rhonchi, stridor, chest wall tenderness Cardiovascular Exam: Present: regular rate, normal rhythm, normal heart sounds. Absent: systolic murmur, diastolic murmur, rubs, gallop, clicks GI/Abdominal exam: Present: soft, normal bowel sounds. Absent: distended, tenderness, guarding, rebound, rigid Extremities exam: Present: normal inspection, full ROM, normal capillary refill. Absent: tenderness, pedal edema, joint swelling, calf tenderness Back exam: Present: normal inspection, full ROM. Absent: CVA tenderness (R), CVA tenderness (L), paraspinal tenderness, vertebral tenderness Neurological exam: Present: alert, oriented X3, CN II-XII intact Psychiatric exam: Present: normal affect, normal mood Skin exam: Present: warm, dry, intact, normal color. Absent: rash Course Vital Signs 08/07/21 08/07/21 08/07/21 13:15 14:27 15:46 Temperature 98.2 F Pulse Rate 105 H 87 85 Respiratory 24 28 H 22 Rate Blood Pressure 104/66 94/56 93/62 O2 Sat by Pulse 90 L 100 100 Oximetry 08/07/21 17:35 Temperature Pulse Rate 89 Respiratory 24 Rate Blood Pressure 112/69 O2 Sat by Pulse 97 Oximetry EKG Findings - EKG Comments: EKG Findings:: EKG impression: Sinus rhythm. Ventricular rate 90 bpm. VT interval 158. QRS duration 88. QT/QTc 378/425 Medical Decision Making - Medical Decision Making This 65-year-old female with past medical history of lymphoma and recent diagnosis of lung cancer presents emergency department with increasing shortness of breath over the last few days. Labs with hemoglobin 9.6, hematocrit 31.1, d- dimer 2.23. Sodium 136, potassium 3.1, total protein 5.2, albumin 2.8. Oral potassium given to patient. X-ray chest impression: Large right-sided pleural effusion with underlying infiltrate and/or adductus is difficult to exclude. CT chest angiogram for PE impression: No evidence for pulmonary embolism at this time. Larger pleural effusion with underlying right hilar mass difficult to exclude. Associated volume loss. Correlate for left breast mass. Spoke with Anaya Vergara from [facility] who agreed to admit patient to her services with pulmonology consulted. Patient placed nothing by mouth after midnight. Patient verbally agreed to be admitted for further workup, evaluation and treatment. Discussed case in detail my attending, - Lab Data Result diagrams: 08/07/21 14:21 08/07/21 14:21 Lab Results 08/07/21 08/07/21 08/07/21 Range/Units 14:21 14:21 14:21 WBC 8.5 (3.8-10.6) k/uL RBC 3.20 L (3.80-5.40) m/uL Hgb 9.6 L (11.4-16.0) gm/dL Hct 31.1 L (34.0-46.0) % MCV 97.3 (80.0-100.0) fL MCH 30.0 (25.0-35.0) pg MCHC 30.8 L (31.0-37.0) g/dL RDW 17.0 H (11.5-15.5) % Plt Count 370 D (150-450) k/uL MPV 8.2 Neutrophils % (Manual) 77 % Band Neuts % (Manual) 6 % Lymphocytes % (Manual) 7 % Monocytes % (Manual) 7 % Eosinophils % (Manual) 2 % Basophils % (Manual) 1 % Neutrophils # (Manual) 7.00 (1.3-7.7) k/uL Lymphocytes # (Manual) 0.60 L (1.0-4.8) k/uL Monocytes # (Manual) 0.60 (0-1.0) k/uL Eosinophils # (Manual) 0.17 (0-0.7) k/uL Basophils # (Manual) 0.09 (0-0.2) k/uL Nucleated RBCs 0 (0-0) /100 WBC Manual Slide Review Performed Hypochromasia Moderate Poikilocytosis Slight Poikilocytosis (manual Present Anisocytosis Slight Macrocytosis Slight Ovalocytes Present PT 10.7 (9.0-12.0) sec INR 1.0 (<1.2) APTT 22.4 (22.0-30.0) sec D-Dimer 2.23 H (<0.60) mg/L FEU Sodium 136 L (137-145) mmol/L Potassium 3.1 L (3.5-5.1) mmol/L Chloride 98 (98-107) mmol/L Carbon Dioxide 31 H (22-30) mmol/L Anion Gap 7 mmol/L BUN 25 H (7-17) mg/dL Creatinine 0.85 (0.52-1.04) mg/dL Est GFR (CKD-EPI)AfAm 84 (>60 ml/min/1.73 sqM) Est GFR (CKD-EPI)NonAf 73 (>60 ml/min/1.73 sqM) Glucose 142 H (74-99) mg/dL Plasma Lactic Acid Praneeth (0.7-2.0) mmol/L Calcium 8.5 (8.4-10.2) mg/dL Total Bilirubin 0.3 (0.2-1.3) mg/dL AST 25 (14-36) U/L ALT 24 (4-34) U/L Alkaline Phosphatase 105 (38-126) U/L Troponin I (0.000-0.034) ng/mL NT-Pro-B Natriuret Pep pg/mL Total Protein 5.2 L (6.3-8.2) g/dL Albumin 2.8 L (3.5-5.0) g/dL 05/07/2608/07/21 08/07/21 Range/Units 14:21 14:21 15:59 WBC (3.8-10.6) k/uL RBC (3.80-5.40) m/uL Hgb (11.4-16.0) gm/dL Hct (34.0-46.0) % MCV (80.0-100.0) fL MCH (25.0-35.0) pg MCHC (31.0-37.0) g/dL RDW (11.5-15.5) % Plt Count (150-450) k/uL MPV Neutrophils % (Manual) % Band Neuts % (Manual) % Lymphocytes % (Manual) % Monocytes % (Manual) % Eosinophils % (Manual) % Basophils % (Manual) % Neutrophils # (Manual) (1.3-7.7) k/uL Lymphocytes # (Manual) (1.0-4.8) k/uL Monocytes # (Manual) (0-1.0) k/uL Eosinophils # (Manual) (0-0.7) k/uL Basophils # (Manual) (0-0.2) k/uL Nucleated RBCs (0-0) /100 WBC Manual Slide Review Hypochromasia Poikilocytosis Poikilocytosis (manual Anisocytosis Macrocytosis Ovalocytes PT (9.0-12.0) sec INR (<1.2) APTT (22.0-30.0) sec D-Dimer (<0.60) mg/L FEU Sodium (137-145) mmol/L Potassium (3.5-5.1) mmol/L Chloride (98-107) mmol/L Carbon Dioxide (22-30) mmol/L Anion Gap mmol/L BUN (7-17) mg/dL Creatinine (0.52-1.04) mg/dL Est GFR (CKD-EPI)AfAm (>60 ml/min/1.73 sqM) Est GFR (CKD-EPI)NonAf (>60 ml/min/1.73 sqM) Glucose (74-99) mg/dL Plasma Lactic Acid Praneeth 1.9 (0.7-2.0) mmol/L Calcium (8.4-10.2) mg/dL Total Bilirubin (0.2-1.3) mg/dL AST (14-36) U/L ALT (4-34) U/L Alkaline Phosphatase (38-126) U/L Troponin I 0.015 (0.000-0.034) ng/mL NT-Pro-B Natriuret Pep 880 pg/mL Total Protein (6.3-8.2) g/dL Albumin (3.5-5.0) g/dL Disposition Clinical Impression: Hypoxia, History of lymphoma, History of lung cancer, Pleural effusion, right Disposition: ADMITTED IP TO THIS HOSP Condition: Serious Referrals: Dinesh Dukes DO [Primary Care Provider] - 1-2 days
[2021-08-07 15:19] LABS: Band Neutrophils % 6 %; Basophils # (M) 0.09 k/uL (0-0.2); Eosinophils # (M) 0.17 k/uL (0-0.7); Neutrophils % (M) 77 %; Nucleated Red Blood Cells 0 /100 WBC (0-0); Total Cells Counted 100
[2021-08-07 15:20] LABS: Ovalocytes Present; Poikilocytosis (M) Present
--- NOTE | 2021-08-07 15:48 | CT ---
EXAMINATION TYPE: CT chest angio for PE DATE OF EXAM: 08/07/2021 COMPARISON: 07/30/2021 HISTORY: SOB, elevated d-dimer CT DLP: 401.6 mGycm CONTRAST: CT chest with contrast and 3D reconstruction with MIP imaging is performed with IV Contrast, patient injected with 86cc mL of Isovue 370. Contrast-enhanced CT of the chest was performed through the course of the pulmonary arteries with master g and mediastinal window settings submitted. 3D reconstruction with MIP imaging was also performed. PULMONARY ARTERIES: The pulmonary arteries and their major tributaries are patent. I do not see brook dence for sizable filling defect to suggest pulmonary embolic process. LUNGS: Increasing large right-sided pleural effusion with probable underlying atelectasis and/or infi ltrate. Mass is not excluded. The left lung is clear. MEDIASTINUM: Thoracic aorta is of normal caliber,however, evaluation is limited given timing of the contrast bolus. If there is concern for thoracic aortic pathology consider OMAR. Correlate clinicall y . The heart is not enlarged. No evidence for mediastinal mass. No mediastinal lymph nodes greater than 1cm. HILAR STRUCTURES: No evidence for mass. No hilar lymph nodes greater than 1 cm. UPPER ABDOMEN: No significant abnormality is seen. Other: Partially imaged left breast mass that at least 1.3 cm. IMPRESSION: 1. No evidence for Pulmonary embolism at this time. 2. Large right pleural effusion with underlying right hilar mass difficult to exclude. Associated vol ume loss. 3. Correlate for left breast mass.
[2021-08-07] MEDS ORDERED: POTASSIUM CHLORIDE ER 20 MEQ TAB.ER PO STA (16:54)
[2021-08-07] MEDS ORDERED: NALOXONE 0.4 MG/ML 1 ML VIAL IV PRN (17:59)
[2021-08-07] MEDS ORDERED: MORPHINE SULFATE 4 MG/ML SYRINGE IV PRN (17:59)
[2021-08-07] MEDS ORDERED: ACETAMINOPHEN TAB 325 MG TAB PO PRN (17:59)
[2021-08-07] MEDS ORDERED: ONDANSETRON 4 MG/2 ML VIAL IVP PRN (17:59)
[2021-08-07] MEDS ORDERED: SODIUM CHLORIDE 0.9% 1,000 ML IV SCH (18:00)
[2021-08-07 19:03] LABS: Appearance,Urine Clear (Clear); Bilirubin,Urine Negative (Negative); Blood,Urine Negative (Negative); Color,Urine Light Yellow; Glucose,Urine (UA) Negative (Negative); Ketones,Urine Negative (Negative); Leukocyte Esterase,Urine Trace (Negative); Nitrite,Urine Negative (Negative); PH, Urine 6.5 (5.0-8.0); Protein,Urine Trace (Negative); RBC,Urine 3 /hpf (0-5); Squamous Epithelial Cell,Urine 11 /hpf (0-4); Urobilinogen,Urine <2.0 mg/dL (<2.0); WBC,Urine 9 /hpf (0-5)
[2021-08-07 19:22] LABS: Specific Gravity,Urine >1.050 (1.001-1.035)
[2021-08-08] MEDS ORDERED: SODIUM CHLORIDE 0.9% 1,000 ML IV SCH (00:01)
[2021-08-08] MEDS ORDERED: ALBUTEROL HFA INHALER INHALATION PRN (00:17)
[2021-08-08] MEDS ORDERED: ALBUTEROL NEBULIZED 2.5 MG/3 ML INHALATION PRN (00:17)
[2021-08-08] MEDS ORDERED: ATORVASTATIN 40 MG TAB PO SCH (00:30)
[2021-08-08] MEDS ORDERED: DOCUSATE 100 MG CAP PO SCH (00:30)
[2021-08-08] MEDS ORDERED: MEMANTINE 10 MG TAB PO SCH (00:30)
[2021-08-08] MEDS ORDERED: DONEPEZIL 10 MG TAB PO SCH (00:30)
[2021-08-08] MEDS: GABAPENTIN 300 MG CAP PO SCH ×2 (00:58→08:29)
[2021-08-08] MEDS: FERROUS SULFATE 325 MG TAB PO SCH ×2 (01:16→08:29)
[2021-08-08 05:42] VITALS: RESP 20
[2021-08-08 07:24] LABS: Glucose,Whole Blood 168 mg/dL (75-99)
[2021-08-08] MEDS ORDERED: FORMOTEROL FUMARATE 20 MCG/2 ML NEBU INHALATION SCH (08:00)
[2021-08-08] MEDS: IPRATROPIUM 0.5 MG/2.5 ML NEBU INHALATION SCH ×2 (08:34→11:39)
--- NOTE | 2021-08-08 08:38 | XR ---
EXAMINATION TYPE: XR chest 1V portable DATE OF EXAM: 08/08/2021 HISTORY: Status post right-sided thoracentesis COMPARISON: 08/07/2021 TECHNIQUE: Single view of the chest is submitted. FINDINGS: Right-sided pleural effusion has diminished in size. Persistent right basilar opacity which may in pa rt be related to elevated right hemidiaphragm. No evidence for pneumothorax. Right-sided MediPort cat heter in place. There is no evidence for focal infiltrate. The heart is stable. Hilar and mediastinal structures are within normal limits. Degenerative changes are seen of the dorsal spine. IMPRESSION: 1. No evidence for pneumothorax in a patient who is status post right-sided thoracentesis.
--- NOTE | 2021-08-08 10:59 | P.CNPUL ---
History of Present Illness Consult date: 08/08/21 Requesting physician: Alexei Willson Reason for consult: dyspnea, pleural effusion, abnormal CXR/CT Chief complaint: Shortness of breath History of present illness: This is a very pleasant 65-year-old female patient with a history of non- Hodgkin's lymphoma/follicular lymphoma, treated in the past in addition to that the patient has history of CVA with sudden chronic right-sided weakness, carotid artery stenosis with previous endarterectomy on the left, hypertension, hyperlipidemia, stenosis of the mitral valve in addition to COPD and previous history of dementia. Furthermore, the patient had a hospitalization in May 2021 for COVID 19 pneumonia. In terms of her non-Hodgkin's lymphoma, the patient has been treated with a combination of Cytoxan every 3 months on Revlimid. If the patient had recently been admitted last month with increasing shortness of breath and was found to have a large right pleural effusion and had undergone thoracentesis on 07/31/2021 that was positive for non-small cell carcinoma with features of adenocarcinoma. On 08/01/2021 she had undergone a bronchoscopy with transbronchial biopsies of the right middle lobe and an EBUS procedure. Both proved positive for invasive non-small cell carcinoma consistent with poorly differentiated adenocarcinoma. She repeats and to the emergency room yesterday with complaints of increasing shortness of breath. Chest x-ray done showed a significant amount of right-sided pleural effusion. CT angiogram ruled out pu lmonary embolism. There is a large right pleural effusion with underlying right hilar mass. Associated volume loss. Possible left breast mass measuring 1.3 cm. White count 8.5. Hemoglobin 9.6. Platelets 370. D-dimer 2.23. Sodium 136. Potassium 3.1. Chloride 98. Bicarb 31. BUN 25. Creatinine 0.85. Glucose 142. AST 25. ALT 24. Troponin negative 1. ProBNP 880. She is seen today in consultation on the regular medical floor. She is awake and alert. She is dyspneic with minimal exertion. She is maintaining O2 saturations in the 90s on 5 L. Review of Systems REVIEW OF SYSTEMS: CONSTITUTIONAL: Denies any recent significant weight loss or weight gain. EYES: Denies change in vision. EARS, NOSE, MOUTH, THROAT: Denies headaches, denies sore throat. CARDIOVASCULAR: Denies chest pain, palpitations or syncopal episodes. RESPIRATORY: Positive for shortness of breath, cough, congestion or hemoptysis. GASTROINTESTINAL: Denies change in appetite, denies abdominal pain GENITOURINARY: Denies hematuria, denies infections. MUSKULOSKELETAL: Denies pain, denies swelling. INTEGUMENTARY: Denies rash, denies eczema. NEUROLOGICAL: Denies recent memory loss, no recent seizure activity. PSYCHIATRIC: Denies anxiety, denies depression. HEMATOLOGIC/LYMPHATIC: Denies anemia, denies enlarged lymph nodes. Past Medical History Past Medical History: Cancer, COPD, CVA/TIA, Dementia, GERD/Reflux, Hyperlipidemia, Hypertension, Memory Impairment Additional Past Medical History / Comment(s): Non-Hodgkin's lymphoma/follicular. COVID 19 pneumonia back in May 2021. CVA APPROX 2004 PER AUNT PT WALKS WITH LIMP, RT ARM PARESIS, PT HAS SOME APHASIA, SHORT TERM MEMORY NOT GOOD. Valvular heart disease with severe mitral stenosis. Dementia. Chronic anemia. Depression. Chronic back pain and the patient has a spinal cord stimulator. Gait dysfunction secondary to above. COPD. Hypertension. GERD History of Any Multi-Drug Resistant Organisms: None Reported Past Surgical History: Tubal Ligation Additional Past Surgical History / Comment(s): carpal tunnel, neck, medi port, left carotid endarterectomy, right-sided thoracentesis in July 2021, JO needle biopsy in July 2021. Past Anesthesia/Blood Transfusion Reactions: No Reported Reaction Additional Past Anesthesia/Blood Transfusion Reaction / Comment(s): states she has some trouble waking from anesthesia Past Psychological History: Depression Additional Psychological History / Comment(s): Pt resides at [facility]. She ambulates with a cane or walker. Her son-in-law, Mega, manages her medications. She has a nebulizer. Family assists pt with glucose management. She goes to dining room for meals. Her family takes her to [facility]. Smoking Status: Former smoker Past Alcohol Use History: None Reported Additional Past Alcohol Use History / Comment(s): Pt started smoking in 1981 and quit in 2019. She was a 2 ppd smoker. Past Drug Use History: None Reported - Past Family History Mother Family Medical History: Cancer (Brain cancer) Father Family Medical History: Coronary Artery Disease (CAD), Deep Vein Thrombosis (DVT), Myocardial Infarction (MD) Additional Family Medical History / Comment(s): Multiple MIs Medications and Allergies Home Medications Medication Instructions Recorded Confirmed Type Clopidogrel [Plavix] 75 mg PO DAILY 09/15/13 08/07/21 History Donepezil [Aricept] 10 mg PO HS 08/25/18 08/07/21 History Memantine [Namenda] 10 mg PO HS 11/17/18 08/07/21 History Furosemide [Lasix] 40 mg PO DAILY 02/23/19 08/07/21 History Albuterol Nebulized [Ventolin 2.5 mg INHALATION RT-QID PRN 02/25/19 08/07/21 History Nebulized] Albuterol Sulfate [Ventolin HFA] 2 puff INHALATION RT-QID PRN 05/13/21 08/07/21 History Atorvastatin [Lipitor] 40 mg PO HS 05/13/21 08/07/21 History Docusate [Colace] 100 mg PO HS 05/13/21 08/07/21 History Ergocalciferol [Vitamin D2 (1250 1,250 mcg PO SHAW 05/13/21 08/07/21 History Mcg = 02756 Iu)] Lisinopril [Prinivil] 5 mg PO DAILY 05/13/21 08/07/21 History Mirabegron [Myrbetriq] 50 mg PO DAILY 05/13/21 08/07/21 History Umeclidinium Brm/Vilanterol Tr 1 puff INHALATION RT-DAILY 05/13/21 08/07/21 History [Anoro Ellipta 62.5-25 Mcg INH] buPROPion HCL [Wellbutrin XL] 300 mg PO DAILY 05/13/21 08/07/21 History Metoprolol Succinate (ER) [Toprol 12.5 mg PO DAILY 30 Days #15 tab 05/16/21 08/07/21 Rx XL] Ascorbic Acid [Vitamin C] 500 mg PO BID tab 05/22/21 08/07/21 Rx Cholecalciferol [Vitamin D3 (125 125 mcg PO DAILY tablet 05/22/21 08/07/21 Rx Mcg = 5000 Iu)] Levothyroxine Sodium [Synthroid] 50 mcg PO DAILY@0630 tab 05/22/21 08/07/21 Rx Pyridoxine [Vitamin B-6] 50 mg PO DAILY tab 05/22/21 08/07/21 Rx Gabapentin [Neurontin] 300 mg PO BID 07/30/21 08/07/21 History INSULIN ASPART (NovoLOG) [NovoLOG See Protocol SQ ACHS PRN 07/30/21 08/07/21 History (formulary)] Lenalidomide [Revlimid] 20 mg PO DIRECTED 07/30/21 08/07/21 History sitaGLIPtin [Januvia] 100 mg PO DAILY 07/30/21 08/07/21 History Ferrous Sulfate [Feosol] 325 mg PO BID #60 tab 08/02/21 08/07/21 Rx Allergies Allergy/AdvReac Type Severity Reaction Status Date / Time naproxen sodium [From Aleve] Allergy Rash/Hives Verified 08/07/21 17:09 Physical Exam Vitals: Vital Signs Temp Pulse Pulse Resp BP BP Pulse Ox 08/08/21 08:50 82 08/08/21 08:42 85 08/08/21 08:34 83 08/08/21 07:40 20 08/08/21 05:00 98.6 F 94 20 88/53 97 08/07/21 22:40 98.7 F 95 16 108/60 98 08/07/21 21:03 98 26 H 116/71 98 08/07/21 17:35 89 24 112/69 97 08/07/21 15:46 85 22 93/62 100 08/07/21 14:27 87 28 H 94/56 100 08/07/21 13:15 98.2 F 105 H 24 104/66 90 L Intake and Output 08/07/21 08/08/21 08/08/21 22:59 06:59 14:59 Intake Total 675 Output Total 1999 Balance -1999 Intake: Intake, IV Titration 675 Amount Sodium Chloride 0.9% 1, 675 000 ml @ 75 mls/hr IV . [id number] [facility] Rx#:[id number] Output: Chest Tube Drainage 1999 Right Posterior Chest 1999 Other: # Voids 1 1 Weight 88.451 kg GENERAL EXAM: Alert, very pleasant 65-year-old female, on 5 L nasal cannula, fairly comfortable in no apparent distress. HEAD: Normocephalic. EYES: Normal reaction of pupils, equal size. NOSE: Clear with pink turbinates. THROAT: No erythema or exudates. NECK: No masses, no JVD. CHEST: No chest wall deformity. LUNGS: Equal air entry with crackles in the right lung base, diminished, dullness. CVS: S1 and S2 normal with no audible murmur, regular rhythm. ABDOMEN: No hepatosplenomegaly, normal bowel sounds, no guarding or rigidity. SPINE: No scoliosis or deformity SKIN: No rashes CENTRAL NERVOUS SYSTEM: No focal deficits, tone is normal in all 4 extremities. EXTREMITIES: There is no peripheral edema. No clubbing, no cyanosis. Peripheral pulses are intact. Results - Laboratory Findings CBC and BMP: 08/07/21 14:21 08/07/21 14:21 PT/INR, D-dimer PT 10.7 sec (9.0-12.0) 08/07/21 14: INR 1.0 (<1.2) 08/07/21 14: D-Dimer 2.23 mg/L FEU (<0.60) H 08/07/21 14:21 Abnormal lab findings: Abnormal Labs 08/07/21 08/07/21 08/07/21 14:21 14:21 14:21 RBC 3.20 L Hgb 9.6 L Hct 31.1 L MCHC 30.8 L RDW 17.0 H Lymphocytes # (Manual) 0.60 L D-Dimer 2.23 H Sodium 136 L Potassium 3.1 L Carbon Dioxide 31 H BUN 25 H Glucose 142 H POC Glucose (mg/dL) Total Protein 5.2 L Albumin 2.8 L Ur Specific [place] Urine Protein Ur Leukocyte Esterase Urine WBC Ur Squamous Epith Cells 08/07/21 08/08/21 14:21 07:22 RBC Hgb Hct MCHC RDW Lymphocytes # (Manual) D-Dimer Sodium Potassium Carbon Dioxide BUN Glucose POC Glucose (mg/dL) 168 H Total Protein Albumin Ur Specific [place] >1.050 H Urine Protein Trace H Ur Leukocyte Esterase Trace H Urine WBC 9 H Ur Squamous Epith Cells 11 H - Diagnostic Findings Chest x-ray: image reviewed CT scan - chest: image reviewed Assessment and Plan Assessment: 1 Acute hypoxemic respiratory failure secondary to recurrent large right-sided pleural effusion. Recent right-sided thoracentesis performed on 07/31/2021. Repeat thoracentesis performed today 08/08/2021 with another 1.9 L of cloudy yellow fluid removed. 2 Large right-sided pleural effusion secondary to poorly differentiated non- small cell carcinoma in the form of adenocarcinoma diagnosed from pleural fluid from 07/31/2021. Also, the patient had undergone a right middle lobe transbronchial biopsies and EBUS procedure confirming the diagnosis. 3 History of non-Hodgkin's lymphoma/follicular maintained on Revlimid and Rituxan infusions in the outpatient setting 4 Left breast mass measuring 1.[address] angiogram of the chest 08/07/2021 5 Chronic obstructive pulmonary disease 6 COVID-19 infection with secondary pneumonia in May 2021 7 History of CVA with residual right-sided weakness and some aphasia 8 Carotid stenosis, status post left carotid endarterectomy 9 History of dementia 10 Hypertension 11 Hyperlipidemia 12 Chronic back pain with gait dysfunction 13 Chronic anemia 14 Hypothyroidism Plan: The patient was seen and evaluated Chest x-ray, CAT scans and labs reviewed Right-sided thoracentesis performed today 1.9 L of cloudy yellow fluid removed Cleared for discharge from the pulmonary standpoint Evaluate for home oxygen Continue to hold Plavix CT surgery consulted and plans for Pleurx catheter next week Will need follow up mammogram to be addressed by her PCP or oncology We will continue to follow and make further recommendations based on her clinical status I have personally seen and examined the patient, performed the documentation and the assessment and plan as written. Number of minutes spent on the visit: 20.
--- NOTE | 2021-08-08 11:01 | P.HPIM ---
History of Present Illness This is a pleasant 65 years old female with past medical history of CVA/TIA, Dementia, Hyperlipidemia, Memory Impairment, hypertension, lymphoma ,Depression. She was recently discharged from the hospital 07/31-08/02 for right pleural effusion and right lung mass with lymphadenopathy she underwent thoracocentesis and bronchoscopy which is showing narrowing the bronchus. She was discharge on home oxygen with plan for follow-up outpatient with PCP in pulmonology clinic with Dr. Boles. However she presents today with worsening shortness of breath secondary to re-accumulation of the right pleural effusion. She is hypoxic on admission and currently saturating 98% on 5 L the needle cannula. Also she is tachypneic with a breathing rate 22-28. Blood pressure is more stable and patient is afebrile. Hemoglobin 9.6. Trace of CBC is unremarkable. Sodium 136, potassium 3.1. Creatinine and liver enzymes are normal. Troponin is -0.015. ProBNP is 880. Urine analysis is not suspicious for infection. CTA of the chest is negative for PE but showed large right pleural effusion with underlying Right hilar mass Emergency room patient was started on normal saline 75 mL/h and potassium replaced. Biopsy showing metastatic poorly differentiated non-small cell carcinoma The other transbronchial biopsy showing invasive non-small cell carcinoma consistent with poorly differentiated adenocarcinoma Review of Systems Review of systems CONSTITUTIONAL: No fever, no malaise, no fatigue. HEENT: No recent visual problems or hearing problems. Denied any sore throat. CARDIOVASCULAR: No orthopnea, PND, no palpitations, no syncope. PULMONARY: No chest wall tenderness, no hemoptysis. GASTROINTESTINAL: No diarrhea, no nausea, no vomiting, no abdominal pain. Normoactive bowel sounds. NEUROLOGICAL: No headaches, no weakness, no numbness. HEMATOLOGICAL: Denies any bleeding or petechiae. GENITOURINARY: Denies any burning micturition, frequency, or urgency. MUSCULOSKELETAL/RHEUMATOLOGICAL: Denies any joint pain, swelling, or any muscle pain. ENDOCRINE: Denies any polyuria or polydipsia. Past Medical History Past Medical History: COPD, CVA/TIA, Dementia, Hyperlipidemia, Hypertension, Memory Impairment Additional Past Medical History / Comment(s): Non-Hodgkin's lymphoma/follicular. COVID 19 pneumonia back in May 2021. CVA APPROX 2003 PER AUNT PT WALKS WITH LIMP, RT ARM PARESIS, PT HAS SOME APHASIA, SHORT TERM MEMORY NOT GOOD. Valvular heart disease with severe mitral stenosis. Dementia. Chronic anemia. Depression. Chronic back pain and the patient has a spinal cord stimulator. Gait dysfunction secondary to above. COPD. Hypertension. GERD History of Any Multi-Drug Resistant Organisms: None Reported Past Surgical History: Tubal Ligation Additional Past Surgical History / Comment(s): carpal tunnel, neck, medi port, per son pt had carotid surgery; endarterectomy on the left Past Anesthesia/Blood Transfusion Reactions: No Reported Reaction Additional Past Anesthesia/Blood Transfusion Reaction / Comment(s): states she has some trouble waking from anesthesia Past Psychological History: Depression Additional Psychological History / Comment(s): Pt resides at [facility]. She ambulates with a cane or walker. Her son-in-law, Mega, manages her medications. She has a nebulizer. Family assists pt with glucose management. She goes to dining room for meals. Her family takes her to appts. Smoking Status: Former smoker Past Alcohol Use History: None Reported Additional Past Alcohol Use History / Comment(s): Pt started smoking in 1981 and quit in 2018. She was a 2 ppd smoker. Past Drug Use History: None Reported - Past Family History Mother Family Medical History: Cancer Father Family Medical History: Deep Vein Thrombosis (DVT) Additional Family Medical History / Comment(s): Multiple MIs Medications and Allergies Home Medications Medication Instructions Recorded Confirmed Type Clopidogrel [Plavix] 75 mg PO DAILY 09/15/13 08/07/21 History Donepezil [Aricept] 10 mg PO HS 08/25/18 08/07/21 History Memantine [Namenda] 10 mg PO HS 11/17/18 08/07/21 History Furosemide [Lasix] 40 mg PO DAILY 02/23/19 08/07/21 History Albuterol Nebulized [Ventolin 2.5 mg INHALATION RT-QID PRN 02/25/19 08/07/21 History Nebulized] Albuterol Sulfate [Ventolin HFA] 2 puff INHALATION RT-QID PRN 05/13/21 08/07/21 History Atorvastatin [Lipitor] 40 mg PO HS 05/13/21 08/07/21 History Docusate [Colace] 100 mg PO HS 05/13/21 08/07/21 History Ergocalciferol [Vitamin D2 (1250 1,250 mcg PO SHAW 05/13/21 08/07/21 History Mcg = 20298 Iu)] Lisinopril [Prinivil] 5 mg PO DAILY 05/13/21 08/07/21 History Mirabegron [Myrbetriq] 50 mg PO DAILY 05/13/21 08/07/21 History Umeclidinium Brm/Vilanterol Tr 1 puff INHALATION RT-DAILY 05/13/21 08/07/21 Hist ory [Anoro Ellipta 62.5-25 Mcg INH] buPROPion HCL [Wellbutrin XL] 300 mg PO DAILY 05/13/21 08/07/21 History Metoprolol Succinate (ER) [Toprol 12.5 mg PO DAILY 30 Days #15 tab 05/16/21 08/07/21 Rx XL] Ascorbic Acid [Vitamin C] 500 mg PO BID tab 05/22/21 08/07/21 Rx Cholecalciferol [Vitamin D3 (125 125 mcg PO DAILY tablet 05/22/21 08/07/21 Rx Mcg = 5000 Iu)] Levothyroxine Sodium [Synthroid] 50 mcg PO DAILY@0630 tab 05/22/21 08/07/21 Rx Pyridoxine [Vitamin B-6] 50 mg PO DAILY tab 05/22/21 08/07/21 Rx Gabapentin [Neurontin] 300 mg PO BID 07/30/21 08/07/21 History INSULIN ASPART (NovoLOG) [NovoLOG See Protocol SQ ACHS PRN 07/30/21 08/07/21 History (formulary)] Lenalidomide [Revlimid] 20 mg PO DIRECTED 07/30/21 08/07/21 History sitaGLIPtin [Januvia] 100 mg PO DAILY 07/30/21 08/07/21 History Ferrous Sulfate [Feosol] 325 mg PO BID #60 tab 08/02/21 08/07/21 Rx Allergies Allergy/AdvReac Type Severity Reaction Status Date / Time naproxen sodium [From Aleve] Allergy Rash/Hives Verified 08/07/21 17:09 Physical Exam Vitals: Vital Signs Temp Pulse Pulse Resp BP BP Pulse Ox 08/08/21 05:00 98.6 F 94 20 88/53 97 08/07/21 22:40 98.7 F 95 16 108/60 98 08/07/21 21:03 98 26 H 116/71 98 08/07/21 17:35 89 24 112/69 97 08/07/21 15:46 85 22 93/62 100 08/07/21 14:27 87 28 H 94/56 100 08/07/21 13:15 98.2 F 105 H 24 104/66 90 L Intake and Output 08/07/21 08/08/21 08/08/21 22:59 06:59 14:59 Intake Total 675 Balance 675 Intake: Intake, IV Titration 675 Amount Sodium Chloride 0.9% 1, 675 000 ml @ 75 mls/hr IV . [id number] KRISTA Rx#:[id number] Other: # Voids 1 1 Weight 88.451 kg GENERAL: The patient is alert and oriented x3, not in any acute distress. Well developed, well nourished. HEENT: Pupils are round and equally reacting to light. EOMI. No scleral icterus. No conjunctival pallor. Normocephalic, atraumatic. No pharyngeal erythema. No thyromegaly. CARDIOVASCULAR: S1 and S2 present. No murmurs, rubs, or gallops. -PULMONARY: Chest is clear to auscultation, no wheezing or crackles. Decreased breath sounds on the right side ABDOMEN: Soft, nontender, nondistended, normoactive bowel sounds. No palpable organomegaly. MUSCULOSKELETAL: No joint swelling or deformity. EXTREMITIES: No cyanosis, clubbing, or pedal edema. NEUROLOGICAL: Gross neurological examination did not reveal any focal deficits. SKIN: No rashes. no petechiae. Results CBC & Chem 7: 08/07/21 14:21 08/07/21 14:21 Labs: Abnormal Lab Results - Last 24 Hours (Table) 08/07/21 08/07/21 08/07/21 Range/Units 14:21 14:21 14:21 RBC 3.20 L (3.80-5.40) m/uL Hgb 9.6 L (11.4-16.0) gm/dL Hct 31.1 L (34.0-46.0) % MCHC 30.8 L (31.0-37.0) g/dL RDW 17.0 H (11.5-15.5) % Lymphocytes # (Manual) 0.60 L (1.0-4.8) k/uL D-Dimer 2.23 H (<0.60) mg/L FEU Sodium 136 L (137-145) mmol/L Potassium 3.1 L (3.5-5.1) mmol/L Carbon Dioxide 31 H (22-30) mmol/L BUN 25 H (7-17) mg/dL Glucose 142 H (74-99) mg/dL POC Glucose (mg/dL) (75-99) mg/dL Total Protein 5.2 L (6.3-8.2) g/dL Albumin 2.8 L (3.5-5.0) g/dL Ur Specific [place] (1.001-1.035) Urine Protein (Negative) Ur Leukocyte Esterase (Negative) Urine WBC (0-5) /hpf Ur Squamous Epith Cells (0-4) /hpf 08/07/21 08/08/21 Range/Units 14:21 07:22 RBC (3.80-5.40) m/uL Hgb (11.4-16.0) gm/dL Hct (34.0-46.0) % MCHC (31.0-37.0) g/dL RDW (11.5-15.5) % Lymphocytes # (Manual) (1.0-4.8) k/uL D-Dimer (<0.60) mg/L FEU Sodium (137-145) mmol/L Potassium (3.5-5.1) mmol/L Carbon Dioxide (22-30) mmol/L BUN (7-17) mg/dL Glucose (74-99) mg/dL POC Glucose (mg/dL) 168 H (75-99) mg/dL Total Protein (6.3-8.2) g/dL Albumin (3.5-5.0) g/dL Ur Specific [place] >1.050 H (1.001-1.035) Urine Protein Trace H (Negative) Ur Leukocyte Esterase Trace H (Negative) Urine WBC 9 H (0-5) /hpf Ur Squamous Epith Cells 11 H (0-4) /hpf Thrombosis Risk Factor Assmnt - Choose All That Apply Any of the Below Risk Factors Present?: Yes Each Factor Represents 1 point: Abnormal pulmonary function (COPD), Obesity (BMI >25) Other Risk Factors: Yes Each Risk Factor Represents 2 Points: Age 61-74 years Other congenital or acquired thrombophilia - If yes, enter type in comment: No Thrombosis Risk Factor Assessment Total Risk Factor Score: 4 Thrombosis Risk Factor Assessment Level: Moderate Risk Assessment and Plan Assessment: Recurrent malignant right pleural effusion, She was recently discharged from the hospital for similar problems status post thoracocentesis showing exudate pleural fluid Right lung mass with hilar lymphadenopathy chronic lymphoma, on chemotherapy Hypertension Hyperlipidemia Dementia History of stroke/TIA History of depression Plan: This is a pleasant 65 years old female, p/w pleural effusion and lung mass Patient might benefit from pleurodesis or Pleurx catheter placement. Surgical team been consulted Pulmonary consult Labs and medication were reviewed.. Continue same treatment. Continue with symptomatic treatment. Resume home medication. Monitor lytes and vitals. DVT and GI prophylaxis. Further recommendations as per clinical course of the patient DVT prophylaxis: Subcutaneous heparin GI Prophylaxis: Pepcid PT/OT: Pending Prognosis is guarded
[2021-08-08 11:27] LABS: Glucose,Whole Blood 114 mg/dL (75-99)
--- NOTE | 2021-08-08 11:27 | P.GSCN ---
History of Present Illness Consult date: 08/08/21 Reason for Consult: Recurrent right pleural effusion, evaluation for right Pleurx catheter placement Requesting physician: Ericka Mcdonald History of present illness: This is a 65-year-old female patient who follows with Dr. Nicole Dukes on an outpatient basis for her primary care. She has a past medical history sign ificant for a right lung mass with hilar/subcarinal lymphadenopathy, morbid obesity, history of right sided pleural effusion status post thoracentesis on 07/31/2021 with cytology showing positive for non-small cell carcinoma having features of adenocarcinoma, non-Hodgkin's lymphoma/follicular lymphoma which has been treated with Cytoxan every 3 months and is on Revlimid, dementia, CVA with chronic right-sided weakness and aphasia, depression, history of carotid artery stenosis with previous left sided endarterectomy, hypertension, hyperlipidemia, nonrheumatic moderate mitral valve stenosis, nonrheumatic tricuspid valve insufficiency, pulmonary hypertension, COPD, COVID-19 pneumonia in May 2021, chronic back pain with history of spinal cord stimulator, remote history of nicotine dependence and GERD. The patient also underwent a wing needle biopsy on 08/02/2021 with pathology showing positive for metastatic poorly differentiated non-small cell carcinoma. The patient presented to the emergency department here at [facility] with complaints of progressive shortness of breath. She denies any nausea, vomiting, fever, chills, change in bowel or bladder, change in appetite, presyncope, syncope, recent trauma, hemoptysis or hematemesis. A chest x-ray was completed in the emergency department which showed a large right sided pleural effusion with underlying infiltrate and/or atelectasis. For further evaluation a chest CT angio for PE protocol was completed which demonstrated no evidence for pulmonary embolism, a large right pleural effusion with underlying right hilar mass difficult to exclude, associated volume loss and a partially imaged left breast mass at least 1.3 cm. Initial laboratory results show a WBC count of 8.5, hemoglobin 9.6, platelets 370, INR 1.0, PT 10.7, d-dimer 2.23, sodium 136, potassium 3.1, BUN 25, creatinine 0.85, plastic lactic acid 1.9 and proBNP 880. Currently the patient is on 2 L nasal cannula with oxygen saturations 97%. Continues to complain of some shortness of breath with activity and continues to deny complaints of pain. Subsequently, due to the patient's presenting symptoms, and evidence of recurrent right pleural effusion on chest x-ray and computed tomography scan of the chest a consult was placed to Dr. Phani Lubin for evaluation of Pleurx catheter placement. Review of Systems A 14 point review of systems was completed and was negative except as mentioned in the HPI. Past Medical History Past Medical History: Cancer, COPD, CVA/TIA, Dementia, GERD/Reflux, Hyperlipidemia, Hypertension, Memory Impairment Additional Past Medical History / Comment(s): Non-Hodgkin's lymphoma/follicular. COVID 19 pneumonia back in May 2021. CVA APPROX 2004 PER AUNT PT WALKS WITH LIMP, RT ARM PARESIS, PT HAS SOME APHASIA, SHORT TERM MEMORY NOT GOOD. Valvular heart disease with severe mitral stenosis. Dementia. Chronic anemia. Depression. Chronic back pain and the patient has a spinal cord stimulator. Gait dysfunction secondary to above. COPD. Hypertension. GERD History of Any Multi-Drug Resistant Organisms: None Reported Past Surgical History: Tubal Ligation Additional Past Surgical History / Comment(s): carpal tunnel, neck, medi port, left carotid endarterectomy, right-sided thoracentesis in July 2021, JO needle biopsy in July 2021. Past Anesthesia/Blood Transfusion Reactions: No Reported Reaction Additional Past Anesthesia/Blood Transfusion Reaction / Comm: states she has some trouble waking from anesthesia Past Psychological History: Depression Additional Psychological History / Comment(s): Pt resides at [facility]. She ambulates with a cane or walker. Her son-in-law, Mega, manages her medications. She has a nebulizer. Family assists pt with glucose management. She goes to dining room for meals. Her family takes her to [employer]. Smoking Status: Former smoker Past Alcohol Use History: None Reported Additional Past Alcohol Use History / Comment(s): Pt started smoking in 1981 and quit in 2019. She was a 2 ppd smoker. Past Drug Use History: None Reported - Past Family History Mother Family Medical History: Cancer (Brain cancer) Father Family Medical History: Coronary Artery Disease (CAD), Deep Vein Thrombosis (DVT), Myocardial Infarction (LA) Additional Family Medical History / Comment(s): Multiple MIs Medications and Allergies Home Medications Medication Instructions Recorded Confirmed Type Clopidogrel [Plavix] 75 mg PO DAILY 09/15/13 08/07/21 History Donepezil [Aricept] 10 mg PO HS 08/25/18 08/07/21 History Memantine [Namenda] 10 mg PO HS 11/17/18 08/07/21 History Furosemide [Lasix] 40 mg PO DAILY 02/23/19 08/07/21 History Albuterol Nebulized [Ventolin 2.5 mg INHALATION RT-QID PRN 02/25/19 08/07/21 History Nebulized] Albuterol Sulfate [Ventolin HFA] 2 puff INHALATION RT-QID PRN 05/13/21 08/07/21 History Atorvastatin [Lipitor] 40 mg PO HS 05/13/21 08/07/21 History Docusate [Colace] 100 mg PO HS 05/13/21 08/07/21 History Ergocalciferol [Vitamin D2 (1250 1,250 mcg PO SHAW 05/13/21 08/07/21 History Mcg = 14607 Iu)] Lisinopril [Prinivil] 5 mg PO DAILY 05/13/21 08/07/21 History Mirabegron [Myrbetriq] 50 mg PO DAILY 05/13/21 08/07/21 History Umeclidinium Brm/Vilanterol Tr 1 puff INHALATION RT-DAILY 05/13/21 08/07/21 History [Anoro Ellipta 62.5-25 Mcg INH] buPROPion HCL [Wellbutrin XL] 300 mg PO DAILY 05/13/21 08/07/21 History Metoprolol Succinate (ER) [Toprol 12.5 mg PO DAILY 30 Days #15 tab 05/16/21 08/07/21 Rx XL] Ascorbic Acid [Vitamin C] 500 mg PO BID tab 05/22/21 08/07/21 Rx Cholecalciferol [Vitamin D3 (125 125 mcg PO DAILY tablet 05/22/21 08/07/21 Rx Mcg = 5000 Iu)] Levothyroxine Sodium [Synthroid] 50 mcg PO DAILY@0630 tab 05/22/21 08/07/21 Rx Pyridoxine [Vitamin B-6] 50 mg PO DAILY tab 05/22/21 08/07/21 Rx Gabapentin [Neurontin] 300 mg PO BID 07/30/21 08/07/21 History INSULIN ASPART (NovoLOG) [NovoLOG See Protocol SQ ACHS PRN 07/30/21 08/07/21 History (formulary)] Lenalidomide [Revlimid] 20 mg PO DIRECTED 07/30/21 08/07/21 History sitaGLIPtin [Januvia] 100 mg PO DAILY 07/30/21 08/07/21 History Ferrous Sulfate [Feosol] 325 mg PO BID #60 tab 08/02/21 08/07/21 Rx Allergies Allergy/AdvReac Type Severity Reaction Status Date / Time naproxen sodium [From Aleve] Allergy Rash/Hives Verified 08/07/21 17:09 Surgical - Exam Vital Signs Temp Pulse Resp BP Pulse Ox 98.2 F 105 H 24 104/66 90 L 08/07/21 13:15 08/07/21 13:15 08/07/21 13:15 08/07/21 13:15 08/07/21 13:15 - General well developed, well nourished, no distress, no pain, obese - Eyes PERRL, normal ocular movement, no pale, no icteric - ENT normal pinna, normal nares, normal mucosa, no hearing loss, no congestion - Neck Neck is supple. no masses, no bruits, trachea midline, no venous distension - Respiratory Lung sounds essentially clear to the left lobes, diminished to her right lobes. No wheezes, rhonchi or crackles. Respirations are symmetrical and nonlabored. - Cardiovascular Regular rhythm and rate. S1 and S2 present, negative for S3 or gallop. Positive systolic murmur. - Abdomen Abdomen is soft, nontender and nondistended. Active bowel sounds present in all 4 abdominal quadrants. No guarding or rigidity. - Genitourinary Deferred - Rectum Deferred - Integumentary No edema present. no rash, no growths, no abnormal pigmentation - Neurologic Patient is awake, alert, and oriented. - Musculoskeletal No joint swelling or deformity, chronic right-sided weakness. - Psychiatric oriented to time, oriented to person, oriented to place, speech is normal, memory intact Results - Labs 08/07/21 14:21 08/07/21 14:21 Abnormal Lab Results - Last 24 Hours (Table) 08/07/21 08/07/21 08/07/21 Range/Units 14:21 14:21 14:21 RBC 3.20 L (3.80-5.40) m/uL Hgb 9.6 L (11.4-16.0) gm/dL Hct 31.1 L (34.0-46.0) % MCHC 30.8 L (31.0-37.0) g/dL RDW 17.0 H (11.5-15.5) % Lymphocytes # (Manual) 0.60 L (1.0-4.8) k/uL D-Dimer 2.23 H (<0.60) mg/L FEU Sodium 136 L (137-145) mmol/L Potassium 3.1 L (3.5-5.1) mmol/L Carbon Dioxide 31 H (22-30) mmol/L BUN 25 H (7-17) mg/dL Glucose 142 H (74-99) mg/dL POC Glucose (mg/dL) (75-99) mg/dL Total Protein 5.2 L (6.3-8.2) g/dL Albumin 2.8 L (3.5-5.0) g/dL Ur Specific [place] (1.001-1.035) Urine Protein (Negative) Ur Leukocyte Esterase (Negative) Urine WBC (0-5) /hpf Ur Squamous Epith Cells (0-4) /hpf 08/07/21 08/08/21 Range/Units 14:21 07:22 RBC (3.80-5.40) m/uL Hgb (11.4-16.0) gm/dL Hct (34.0-46.0) % MCHC (31.0-37.0) g/dL RDW (11.5-15.5) % Lymphocytes # (Manual) (1.0-4.8) k/uL D-Dimer (<0.60) mg/L FEU Sodium (137-145) mmol/L Potassium (3.5-5.1) mmol/L Carbon Dioxide (22-30) mmol/L BUN (7-17) mg/dL Glucose (74-99) mg/dL POC Glucose (mg/dL) 168 H (75-99) mg/dL Total Protein (6.3-8.2) g/dL Albumin (3.5-5.0) g/dL Ur Specific [place] >1.050 H (1.001-1.035) Urine Protein Trace H (Negative) Ur Leukocyte Esterase Trace H (Negative) Urine WBC 9 H (0-5) /hpf Ur Squamous Epith Cells 11 H (0-4) /hpf Diabetes panel 08/07/21 Range/Units 14:21 Sodium 136 L (137-145) mmol/L Potassium 3.1 L (3.5-5.1) mmol/L Chloride 98 (98-107) mmol/L Carbon Dioxide 31 H (22-30) mmol/L BUN 25 H (7-17) mg/dL Creatinine 0.85 (0.52-1.04) mg/dL Glucose 142 H (74-99) mg/dL Calcium 8.5 (8.4-10.2) mg/dL AST 25 (14-36) U/L ALT 24 (4-34) U/L Alkaline Phosphatase 105 (38-126) U/L Total Protein 5.2 L (6.3-8.2) g/dL Albumin 2.8 L (3.5-5.0) g/dL Calcium panel 08/07/21 Range/Units 14:21 Calcium 8.5 (8.4-10.2) mg/dL Albumin 2.8 L (3.5-5.0) g/dL Pituitary panel 08/07/21 Range/Units 14:21 Sodium 136 L (137-145) mmol/L Potassium 3.1 L (3.5-5.1) mmol/L Chloride 98 (98-107) mmol/L Carbon Dioxide 31 H (22-30) mmol/L BUN 25 H (7-17) mg/dL Creatinine 0.85 (0.52-1.04) mg/dL Glucose 142 H (74-99) mg/dL Calcium 8.5 (8.4-10.2) mg/dL Adrenal panel 08/07/21 Range/Units 14:21 Sodium 136 L (137-145) mmol/L Potassium 3.1 L (3.5-5.1) mmol/L Chloride 98 (98-107) mmol/L Carbon Dioxide 31 H (22-30) mmol/L BUN 25 H (7-17) mg/dL Creatinine 0.85 (0.52-1.04) mg/dL Glucose 142 H (74-99) mg/dL Calcium 8.5 (8.4-10.2) mg/dL Total Bilirubin 0.3 (0.2-1.3) mg/dL AST 25 (14-36) U/L ALT 24 (4-34) U/L Alkaline Phosphatase 105 (38-126) U/L Total Protein 5.2 L (6.3-8.2) g/dL Albumin 2.8 L (3.5-5.0) g/dL - Imaging Chest x-ray: report reviewed, image reviewed CT scan - chest: report reviewed, image reviewed Assessment and Plan Assessment: 1. Recurrent large right pleural effusion, status post right-sided th oracentesis on 07/31/2021 with cytology showing positive for non-small cell carcinoma having features of adenocarcinoma 2. Right lung mass with hilar/subcarinal lymphadenopathy status post Jo needl e biopsy on 08/02/2021 with pathology showing positive for metastatic poorly differentiated non-small cell carcinoma 3. Shortness of breath, secondary to above 4. COPD 5. Non-Hodgkin's lymphoma/follicular type maintained on Revlimid 6. Left breast mass measuring 1.3 cm, noted on the CAT scan angiogram of the chest on 08/07/2021 7. COVID-19 pneumonia in May 2021 8. Hypertension 9. Hyperlipidemia 10. History of carotid stenosis, status post left carotid endarterectomy 11. History of CVA with residual chronic right-sided weakness and aphasia 12. History of dementia 13. Chronic anemia 14. Chronic back pain, status post spinal cord stimulator placement 15. Pulmonary hypertension 16. History of nonrheumatic moderate mitral valve stenosis 17. History of nonrheumatic tricuspid valve insufficiency 18. Remote history of nicotine dependence quit smoking 3 years ago 19. GERD 20. Thyroid disorder Plan: The patient was seen and examined at her bedside by Dr. Phani Lubin from cardiothoracic surgery. Her chart in diagnostics reviewed. Dr. Lubin d iscussed the findings on the chest x-ray in CT angio scan of the chest with the patient, the patient aunt present at her bedside and the patient's son-in-law per phone. Treatment options discussed with the patient by Dr. Lubin regarding the right pleural effusion. The patient underwent a right sided thoracentesis this morning performed by Dr. Mcdonald with 1.9 L of pleural fluid drained. Recommendations are to hold Plavix at this time until after the Pleurx catheter has been placed, repeat a chest x-ray on 08/14/2021 and schedule the patient for a right-sided Pleurx catheter placement on elective basis on 08/15/2021 to be performed by Dr. Lubin. Risks and benefits of the Pleurx catheter with discussed, knowing and understanding these risks the patient wishes to proceed with a right Pleurx catheter placement. Medical management and other comorbidities per primary care service and oncology. Per the cardiothoracic surgery standpoint the patient to be discharged home when okay by primary care service and other consultants and follow-up on an outpatient basis as scheduled. We will continue to follow the patient on an as-needed basis. Please feel free to call for further questions regarding the Pleurx catheter. Thank you Dr. Mcdonald for this consult and we look forward to working with you in the care of this patient. Time with Patient: Greater than 30
[2021-08-08] MEDS ORDERED: POTASSIUM CHLORIDE ER 20 MEQ TAB.ER PO STA (11:49)
[2021-08-08 12:08] VITALS: BP 102/65; PULSE 80; TEMP 97.5
--- NOTE | 2021-08-08 12:19 | PCN ---
PROCEDURE NOTE OPERATIVE REPORT: Right-sided thoracentesis. PREOPERATIVE DIAGNOSIS: Recurrent malignant right-sided pleural effusion. POSTOP DIAGNOSIS: Recurrent malignant right-sided pleural effusion. ANESTHESIA: 2 mL of 1% lidocaine. PROCEDURE: The patient was placed in a sitting upright position leaning forward on a table. The area below the right scapula was prepared in a sterile fashion and drapes were applied. The area was locally anesthetized and it was at the level of the eighth intercostal space and tip of the scapula. Then, the pleural space was entered with a 22-gauge needle and the fluid was localized to the needle. Then a small tiny incision was made with a scalpel, and this was done at the same site. The standard thoracentesis catheter and needle were used, advanced into the same site into the pleural space until the fluid was localized again. Then, the catheter was advanced over the needle and the needle was pulled out of the pleural space. Freely flowing fluid was removed, roughly 1900 mL of hosea colored fluid was removed from the right pleural space. The fluid was not sent for any diagnostic studies since it was already sent previously. The procedure was well tolerated, no complications. The patient will likely be discharged home today and she will follow up with thoracic surgery for PleurX catheter placement. MMODL / IJN: [id number] /
== END 2021-08-08 12:40 | disposition home or self-care (01) | DRG 180 ==
LOC: EC 13:03 → 5NMEDONC 17:46
PROVIDERS: ADMIT Hospitalist; ATTEND Hospitalist
PROC: 0W993ZZ Drainage of Right Pleural Cavity, Percutaneous Approach (ICD-10-PCS; principal; 2021-08-08)
DX: C34.2 Malignant neoplasm of middle lobe, bronchus or lung (principal); J96.01 Acute respiratory failure with hypoxia; J91.0 Malignant pleural effusion; C78.2 Secondary malignant neoplasm of pleura; C85.90 Non-Hodgkin lymphoma, unspecified, unspecified site; I69.351 Hemiplegia and hemiparesis following cerebral infarction affecting right dominant side; D64.9 Anemia, unspecified; E03.9 Hypothyroidism, unspecified; E78.5 Hyperlipidemia, unspecified; F03.90 Unspecified dementia, unspecified severity, without behavioral disturbance, psychotic disturbance, mood disturbance, and anxiety; F32.A Depression, unspecified; G89.29 Other chronic pain; I05.0 Rheumatic mitral stenosis; I10 Essential (primary) hypertension; I27.20 Pulmonary hypertension, unspecified; I36.1 Nonrheumatic tricuspid (valve) insufficiency; E66.9 Obesity, unspecified; Z68.32 Body mass index [BMI] 32.0-32.9, adult; I65.29 Occlusion and stenosis of unspecified carotid artery; Z99.81 Dependence on supplemental oxygen; I69.320 Aphasia following cerebral infarction; J44.9 Chronic obstructive pulmonary disease, unspecified; K21.9 Gastro-esophageal reflux disease without esophagitis; N63.20 Unspecified lump in the left breast, unspecified quadrant; Z79.02 Long term (current) use of antithrombotics/antiplatelets; Z79.84 Long term (current) use of oral hypoglycemic drugs; Z79.890 Hormone replacement therapy; Z79.899 Other long term (current) drug therapy; Z80.8 Family history of malignant neoplasm of other organs or systems; Z82.49 Family history of ischemic heart disease and other diseases of the circulatory system; Z85.118 Personal history of other malignant neoplasm of bronchus and lung; Z86.16 Personal history of COVID-19; Z87.01 Personal history of pneumonia (recurrent); Z87.891 Personal history of nicotine dependence; Z28.311 Partially vaccinated for COVID-19; Z80.9 Family history of malignant neoplasm, unspecified; Z98.51 Tubal ligation status; Z98.890 Other specified postprocedural states; Z83.2 Family history of diseases of the blood and blood-forming organs and certain disorders involving the immune mechanism; Z88.6 Allergy status to analgesic agent; Z96.82 Presence of neurostimulator; R26.9 Unspecified abnormalities of gait and mobility
CPT/HCPCS: 36415; 71045; 71046; 71275; 80053; 81001; 83605; 83880; 84484; 85025; 85379; 85610; 85730; 93005; 94640; 99285

== ENCOUNTER 2021-08-22 14:01 | Inpatient (IN) | payer MEDICAID ==
[2021-08-22] MEDS ORDERED: HALOPERIDOL LACTATE 5 MG/ML 1 ML VIAL IM PRN (14:05)
[2021-08-22] MEDS ORDERED: ACETAMINOPHEN SUPPOSITORY 650 MG SUPP RECTAL PRN (14:05)
[2021-08-22] MEDS ORDERED: ONDANSETRON 4 MG/2 ML VIAL IVP PRN (14:05)
[2021-08-22] MEDS ORDERED: GLYCOPYRROLATE 0.2 MG/ML 2 ML VIAL IVP PRN (14:10)
[2021-08-22] MEDS ORDERED: SCOPOLAMINE 1 MG/72 HR PATCH TRANSDERM SCH (14:15)
[2021-08-22] MEDS ORDERED: MORPHINE SULFATE (100 MG/2 ML) 100 MG in SODIUM CHLORIDE 0.9% 100 ML IV SCH (14:15)
[2021-08-22] MEDS ORDERED: bisacodyL 5 MG TABLET.DR PO PRN (14:59)
[2021-08-22] MEDS: MORPHINE SULFATE 2 MG/ML SYRINGE IVP PRN ×2 (15:12→21:48)
[2021-08-22] MEDS ORDERED: CYCLOBENZAPRINE 5 MG TAB PO PRN (15:49)
[2021-08-22] MEDS: LORazepam 2 MG/ML INJ IV PRN ×2 (17:07→19:00)
[2021-08-22 22:41] VITALS: BP 90/49; RESP 14
== END 2021-08-22 22:15 | disposition expired | DRG 951 ==
LOC: 3SCARD 14:45
PROVIDERS: ADMIT Internal Medicine; ATTEND Internal Medicine
DX: Z51.5 Encounter for palliative care (principal); C34.90 Malignant neoplasm of unspecified part of unspecified bronchus or lung; C82.90 Follicular lymphoma, unspecified, unspecified site; J90 Pleural effusion, not elsewhere classified; I69.351 Hemiplegia and hemiparesis following cerebral infarction affecting right dominant side; I69.320 Aphasia following cerebral infarction; Z86.16 Personal history of COVID-19; I25.10 Atherosclerotic heart disease of native coronary artery without angina pectoris; J44.9 Chronic obstructive pulmonary disease, unspecified; I10 Essential (primary) hypertension; E78.5 Hyperlipidemia, unspecified; F03.90 Unspecified dementia, unspecified severity, without behavioral disturbance, psychotic disturbance, mood disturbance, and anxiety; G89.29 Other chronic pain; M54.9 Dorsalgia, unspecified; Z86.73 Personal history of transient ischemic attack (TIA), and cerebral infarction without residual deficits; F32.A Depression, unspecified; F17.290 Nicotine dependence, other tobacco product, uncomplicated; D64.9 Anemia, unspecified; K21.9 Gastro-esophageal reflux disease without esophagitis; E03.9 Hypothyroidism, unspecified; Z79.890 Hormone replacement therapy
CPT/HCPCS: 94660